=== PATIENT | male | born 1970 | race Caucasian/White ===

== ENCOUNTER 2017-02-18 12:53 | Observation (INO) | payer BC ==
[2017-02-18] MEDS ORDERED: NITROSTAT SL PRN (12:58)
[2017-02-18] MEDS: NS 1000 ML 1,000 ML IV SCH ×2 (13:03→21:13)
[2017-02-18 13:04] VITALS: BMI 31.5
--- NOTE | 2017-02-18 13:17 | RAD ---
HISTORY: Subacute malaise with acute onset of chest pain, dyspnea, weakness Study: Single-view chest Comparison: August 02, 2016 Findings: There are low lung volumes. The patient is rotated. The cardiac silhouette is unremarkable. The megan ngs are clear without focal mass or consolidation. There is no effusion or pneumothorax. The bony thorax is grossly unremarkable. IMPRESSION: No acute cardiopulmonary disease. Reported By:
[2017-02-18 13:21] LABS: BASOPHILS % (AUTO) 0.4 % (0.2-1.0); EOSINOPHILS % (AUTO) 0.4 % (0.9-2.9); HEMATOCRIT 43.8 % (42.0-54.0); HEMOGLOBIN 15.3 g/dL (13.5-18.0); LYMPHOCYTES # (AUTO) 2.2 X10^3/uL (1.3-2.9); LYMPHOCYTES % (AUTO) 28.2 % (21.0-51.0); MEAN CORPUSCULAR HEMOGLOBIN 28.7 pg (27.0-34.0); MEAN CORPUSCULAR VOLUME 82.2 fL (80.0-100.0); MEAN PLATELET VOLUME 8.2 fL (7.4-11.0); MONOCYTES # (AUTO) 0.6 x10^3/uL (0.3-0.8); MONOCYTES % (AUTO) 7.1 % (0.0-13.0); NEUTROPHILS % (AUTO) 63.9 % (42.0-75.0); PLATELET COUNT 228 X10^3/uL (150.0-450.0); RED BLOOD COUNT 5.33 X10^6/uL (4.7-6.0); RED CELL DISTRIBUTION WIDTH 13.5 % (11.6-16.5); WHITE BLOOD COUNT 7.8 X10^3/uL (3.6-10.0)
--- NOTE | 2017-02-18 13:23 | DR.CP ---
HPI - Time Seen Time seen: 13:00 - PCP Primary Care Physician: HALEIGH - Complaint Chief Complaint Doctor Comments: Patient presents with complaint of left chest pain with pain radiating donw his left arm. The onset was acute today about 3 hours ago. He admits to having one stent 1-2 years ago. Pain is 10/10 Chief Complaint:: SHORTNESS OF BREATH SUDDENLY AT [place]GL[place] AT 12. - Source History Provided: Patient, Family Member - Mode of Arrival Mode of Arrival: Wheelchair - Timing Onset of Chief Complaint: 02/18/17 - Location Chest Pain Radiation Location: Left Arm - Associated Signs and Symptoms Associated Signs and Symptoms: Shortness of Breath PMH - PMH Past Medical History: Yes Past Medical History: Angina, Arthritis, Coronary Artery Disease, Dyslipidemia, GERD, Hypertension, Kidney Stones Past Medical History Comment: MRSA, CHRONIC ARM PAIN Past Surgical History: Yes Surgical History: Angioplasty/Stents, Ortho Surgery, Lithotripsy, Other Past Surgical History Comment: CRANIOTOMY FOR BRAIN TUMOR - Family History History of Family Medical Conditions: Yes Family Medical History: Coronary Artery Disease - Social History Do you use any recreational Drugs:: No Lives With: Family Lives Where: Home - infectious screening In the last 2 months have you had wt loss of >10#?: NO Have you had fever, night sweats or hemotysis?: No Have you traveled outside the country in the last 6 months?: No Isolation: Standard ROS - Review of Systems Constitutional: negative: Diaphoresis Eyes: No Symptoms Reported ENTM: No Symptoms Reported Respiratoy: No Symptoms Reported Cardiovascular: No Symptoms Reported Gastrointestinal/Abdominal: No Symptoms Reported Genitourinary: No Symptoms Reported Neurological: No Symptoms Reported Musculoskeletal: No Symptoms Reported Integumentary: No Symptoms Reported Hematologic/Lymphatic: No Symptoms Reported Endocrine: No Symptoms Reported Psychiatric: No Symptoms Reported All Other Systems: Reviewed and Negative PE - Vitals Vitals: Pulse Rate 90 Respiratory Rate 20 Blood Pressure [Right Arm] 110/62 Blood Pressure [Left Arm] 113/54 Blood Pressure 146/95 O2 Sat by Pulse Oximetry 96 - General General Appearance: Alert, In No Apparent Distress - Head Head Exam: Normal Inspection, Atraumatic - Eyes Eye exam: Normal Appearance, PERRL, EOMI - ENT ENT Exam: Normal Exam - Chest Chest Inspection: Normal Inspection, Symmetric Chest Wall Rise - Respiratory Respiratory Exam: Normal Lung Sounds Bilat Respiratory Exam: Bilateral Clear to Auscultation - Cardiovascular Cardiovascular Exam: Regular Rate Pulse: Normal, Radial Edema: Normal - Abdominal Exam Abdominal Exam: Normal Inspection Abdominal Tenderness: negative: RUQ, RLQ, LUQ, LLQ, Epigastrium, Suprapubic, Diffuse, Mild, Moderate, Severe, Other - Neurologic Neurological Exam: Alert, Oriented X3, CN II-XII Intact - Psychiatric Psychiatric Exam: Normal Affect - Skin Skin Exam: Warm, Dry, Intact Course - Reevaluation 1st: Unchanged (1327) 2nd: Improved (s/p morhine 6mg IV) - Consultation Called: 14:00 (admit for observation chest pain protocol) ROR - Labs Reviewed Laboratory Results Reviewed?: Yes (low sodium) Result Diagrams: 02/18/17 13:07 02/18/17 13:07 Laboratory: WBC 7.8 X10^3/uL (3.6-10.0) 02/18/17 13:07 RBC 5.33 X10^6/uL (4.7-6.0) 02/18/17 13:07 Hgb 15.3 g/dL (13.5-18.0) 02/18/17 13:07 Hct 43.8 % (42.0-54.0) 02/18/17 13:07 MCV 82.2 fL (80.0-100.0) 02/18/17 13:07 MCH 28.7 pg (27.0-34.0) 02/18/17 13:07 MCHC 35.0 g/dL (33.0-35.0) 02/18/17 13:07 RDW 13.5 % (11.6-16.5) 02/18/17 13:07 Plt Count 228 X10^3/uL (150.0-450.0) 02/18/17 13:07 MPV 8.2 fL (7.4-11.0) 02/18/17 13:07 Neut % 63.9 % (42.0-75.0) 02/18/17 13:07 Lymph % 28.2 % (21.0-51.0) 02/18/17 13:07 [place] % 7.1 % (0.0-13.0) 02/18/17 13:07 Eos % 0.4 % (0.9-2.9) L 02/18/17 13:07 Baso % 0.4 % (0.2-1.0) 02/18/17 13:07 Neut # 5.0 x10^3/uL (2.2-4.8) H 02/18/17 13:07 Lymph # 2.2 X10^3/uL (1.3-2.9) 02/18/17 13:07 [place] # 0.6 x10^3/uL (0.3-0.8) 02/18/17 13:07 Eos # 0.0 x10^3/uL (0.0-0.2) 02/18/17 13:07 Baso # 0.0 X10^3/uL (0.0-0.1) 02/18/17 13:07 Absolute Nucleated RBC 0.0 /100WBC 02/18/17 13:07 INR Target Range - 02/18/17 13:07 INR 1.02 (0.8-1.3) 02/18/17 13:07 Sodium 144 mmol/L (136-145) 02/18/17 13:07 Corrected Sodium TNP 02/18/17 13:07 Potassium 3.3 mmol/L (3.5-5.1) L 02/18/17 13:07 Chloride 106 mmol/L (98-107) 02/18/17 13:07 Carbon Dioxide 23.0 mmol/L (21-32) 02/18/17 13:07 BUN 12 mg/dL (7-18) 02/18/17 13:07 Creatinine 1.00 mg/dL (0.70-1.30) 02/18/17 13:07 Est GFR (MDRD) Af Amer > 60 (>60) 02/18/17 13:07 Est GFR (MDRD) Non-Af > 60 (>60) 02/18/17 13:07 Glucose 107 mg/dL (65-99) H 02/18/17 13:07 Calcium 8.8 mg/dL (8.5-10.1) 02/18/17 13:07 Corrected Calcium TNP 02/18/17 13:07 Phosphorus 2.8 mg/dL (2.6-4.7) 02/18/17 13:07 Magnesium 2.0 mg/dL (1.7-2.9) 02/18/17 13:07 Total Bilirubin 0.80 mg/dL (0.2-1.0) 02/18/17 13:07 AST 57 Units/L (15-37) H 02/18/17 13:07 ALT 85 Units/L (12-78) H 02/18/17 13:07 Alkaline Phosphatase 83 Units/L (46-116) 02/18/17 13:07 Creatine Kinase 135 Units/L (39-308) 02/18/17 13:07 CK-MB (CK-2) < 1.0 ng/mL (0-4.0) 02/18/17 13:07 CK/CKMB % Calc 0.7 % (<4) 02/18/17 13:07 Troponin I < 0.02 ng/mL (0-1.5) 02/18/17 13:07 Total Protein 8.5 g/dL (6.4-8.2) H 02/18/17 13:07 Albumin 3.9 g/dL (3.4-5.0) 02/18/17 13:07 Globulin 4.6 g/dL (2.5-4.5) H 02/18/17 13:07 Albumin/Globulin Ratio 0.8 Ratio (1.1-2.1) L 02/18/17 13:07 - XRAY XRAY Interpreted by: Radiologist (Chest: No acute cardiopulmonary disease,) - EKG Compared to prior EKG Dated: 10/03/15 Rhythm: NSR, SB Block: RBBB Hypertrophy: LAE - Diagnosis Discharge Problem: H/O chest pain, Constricting chest pain often radiating down left arm - Discharge Plan Condition: Stable - Follow ups/Referrals Follow ups/Referrals: Josemanuel Borrego [Primary Care Provider] - 3 days - Instructions
[2017-02-18] MEDS: ASPIRIN PO SCH (13:38)
[2017-02-18 14:05] LABS: BLOOD UREA NITROGEN 12 mg/dL (7-18); CALCIUM 8.8 mg/dL (8.5-10.1); CHLORIDE 106 mmol/L (98-107); GLUCOSE 107 mg/dL (65-99); SODIUM 144 mmol/L (136-145); TROPONIN I < 0.02 ng/mL (0-1.5); eGFR BLACK RACES > 60 (>60); eGFR NON BLACK RACES > 60 (>60)
[2017-02-18] MEDS ORDERED: MORPHINE SULFATE INJ 10 MG IVP ONE (14:05)
[2017-02-18 14:09] LABS: ALANINE AMINOTRANSFERASE 85 Units/L (12-78); ALBUMIN 3.9 g/dL (3.4-5.0); ALKALINE PHOSPHATASE 83 Units/L (46-116); ASPARTATE AMINO TRANSFERASE 57 Units/L (15-37); CKMB % 0.7 % (<4); CREATINE KINASE 135 Units/L (39-308); CREATINE KINASE MB < 1.0 ng/mL (0-4.0); PHOSPHORUS 2.8 mg/dL (2.6-4.7); TOTAL PROTEIN 8.5 g/dL (6.4-8.2)
[2017-02-18] MEDS ORDERED: MORPHINE SULFATE INJ 2 MG ONE (14:28)
[2017-02-18] MEDS ORDERED: MORPHINE SULFATE INJ 4 MG ONE (14:28)
[2017-02-18] MEDS ORDERED: ZOFRAN INJ 4 MG VIAL IVP PRN (15:02)
[2017-02-18] MEDS ORDERED: K-DUR TAB 20 MEQ PO ONE ×2 (15:08→15:30)
[2017-02-18 15:48] LABS: CKMB % 0.8 % (<4); CREATINE KINASE 133 Units/L (39-308); CREATINE KINASE MB < 1.0 ng/mL (0-4.0); TROPONIN I < 0.02 ng/mL (0-1.5)
[2017-02-18] MEDS: MORPHINE SULFATE INJ 2 MG IVP PRN ×3 (16:49→21:13)
[2017-02-18] MEDS ORDERED: ZESTRIL TAB 20 MG ONE (21:49)
[2017-02-18] MEDS: NORCO 10/325 TAB PO PRN (21:51)
[2017-02-18] MEDS: NEURONTIN TAB 600 MG PO SCH (21:51)
[2017-02-18 21:52] LABS: CKMB % 0.9 % (<4); CREATINE KINASE 114 Units/L (39-308); CREATINE KINASE MB < 1.0 ng/mL (0-4.0); TROPONIN I < 0.02 ng/mL (0-1.5)
[2017-02-18] MEDS: ZESTRIL TAB 20 MG PO SCH (21:52)
[2017-02-18] MEDS: AMBIEN PO PRN (21:52)
[2017-02-19] MEDS: MORPHINE SULFATE INJ 2 MG IVP PRN ×4 (03:59→21:21)
[2017-02-19] MEDS: NORCO 10/325 TAB PO PRN ×3 (04:58→14:30)
[2017-02-19] MEDS: NEURONTIN TAB 600 MG PO SCH ×3 (04:59→21:23)
[2017-02-19] MEDS: NS 1000 ML 1,000 ML IV SCH ×3 (04:59→21:30)
[2017-02-19 05:39] LABS: CHOLESTEROL 77 mg/dL (0-200); CKMB % 0.9 % (<4); CREATINE KINASE 116 Units/L (39-308); CREATINE KINASE MB < 1.0 ng/mL (0-4.0); HDL CHOLESTEROL 26 mg/dL (40-60); TRIGLYCERIDES 79 mg/dL (0-150); TROPONIN I < 0.02 ng/mL (0-1.5)
[2017-02-19 07:25] LABS: BASOPHILS % (AUTO) 0.5 % (0.2-1.0); EOSINOPHILS # (AUTO) 0.1 x10^3/uL (0.0-0.2); EOSINOPHILS % (AUTO) 1.4 % (0.9-2.9); HEMATOCRIT 38.5 % (42.0-54.0); HEMOGLOBIN 13.3 g/dL (13.5-18.0); LYMPHOCYTES # (AUTO) 2.9 X10^3/uL (1.3-2.9); LYMPHOCYTES % (AUTO) 37.4 % (21.0-51.0); MEAN CORPUSCULAR HEMOGLOBIN 28.5 pg (27.0-34.0); MEAN CORPUSCULAR HGB CONC 34.6 g/dL (33.0-35.0); MEAN CORPUSCULAR VOLUME 82.4 fL (80.0-100.0); MEAN PLATELET VOLUME 8.4 fL (7.4-11.0); MONOCYTES # (AUTO) 0.6 x10^3/uL (0.3-0.8); MONOCYTES % (AUTO) 7.8 % (0.0-13.0); NEUTROPHILS # (AUTO) 4.2 x10^3/uL (2.2-4.8); NEUTROPHILS % (AUTO) 52.9 % (42.0-75.0); PLATELET COUNT 173 X10^3/uL (150.0-450.0); RED BLOOD COUNT 4.67 X10^6/uL (4.7-6.0); RED CELL DISTRIBUTION WIDTH 13.4 % (11.6-16.5); WHITE BLOOD COUNT 7.9 X10^3/uL (3.6-10.0)
[2017-02-19 07:30] LABS: BLOOD UREA NITROGEN 12 mg/dL (7-18); CALCIUM 7.7 mg/dL (8.5-10.1); CARBON DIOXIDE 24.4 mmol/L (21-32); CHLORIDE 110 mmol/L (98-107); CREATININE 0.87 mg/dL (0.70-1.30); GLUCOSE 99 mg/dL (65-99); SODIUM 144 mmol/L (136-145); eGFR BLACK RACES > 60 (>60); eGFR NON BLACK RACES > 60 (>60)
[2017-02-19] MEDS ORDERED: K-LYTE EFFERVESCENT PO PRN (07:47)
[2017-02-19] MEDS ORDERED: POTASSIUM CHLORIDE LIQ 20 MEQ UDC PO PRN (07:47)
[2017-02-19] MEDS ORDERED: K-RIDER 10 MEQ/NS 100 ML 10 MEQ/100 ML BAG IV PRN (07:47)
[2017-02-19] MEDS ORDERED: K-DUR TAB 20 MEQ PO PRN (07:47)
[2017-02-19] MEDS ORDERED: ZESTRIL TAB 20 MG ONE ×2 (08:32→20:55)
[2017-02-19] MEDS: ASPIRIN PO SCH (09:26)
[2017-02-19] MEDS: ZESTRIL TAB 20 MG PO SCH ×2 (09:27→21:23)
[2017-02-19] MEDS: LEVSIN/MAALOX/LIDOC VISC PO SCH ×4 (11:31→21:24)
[2017-02-19] MEDS: PEPCID 20 MG IV PREMIX* 20 MG/50 ML BAG IV SCH ×2 (11:32→21:22)
[2017-02-19] MEDS: PROTONIX INJ 40 MG VIAL IVP SCH ×2 (11:32→21:23)
[2017-02-19] MEDS ORDERED: PATIENT'S HOME MEDICATION (Eszopiclone [Lunesta] 3 MG) PO PRN (13:16)
[2017-02-19] MEDS ORDERED: PATIENT'S HOME MEDICATION (Celecoxib [Celecoxib] 200 MG) PO SCH (13:30)
[2017-02-19] MEDS ORDERED: CLOPIDOGREL BISULFATE 75 MG PO SCH (13:30)
--- NOTE | 2017-02-19 13:36 | DR.H&P ---
H&P - History & Physical for Day of: H&P Date: 02/18/17 - Chief Complaint Chief Complaint: chest pain - Allergies Allergies/Adverse Reactions: Allergies Allergy/AdvReac Type Severity Reaction Status Date / Time MS No Known Drug Allergy Allergy Verified 02/19/17 06:36 [No Known Drug Allergy] - History of Present Illness History of Present Illness: Patient is 46yo male who presented to the emergency room with complaints of chest pain on the left side with pain radiating down his left arm which started about 3 hours prior to arrival. Patient has a history of stent placement, angina, arthritis, coronary artery disease, dyslipidemia, GERD, hypertension and kidney stone, as well as a craniotomy for a brain tumor. Vital signs on arrival 98.5 90, 20, 96%, 146/95. Labs within normal limits with the exception of Eos% 0.4, Neut# 5.0, Potassium 3.3, Glucose 107, AST 57, ALT 85, Total protein 8.5, Globulin 4.6, albumin/globulin ratio 0.8. Chest XRay showed no acute cardiopulmonary disorder. EKG showed normal sinus rhythm with probable left atrial enlargement and incomplete right bundle branch block with a rate of 86. Patient admitted with diagnosis of chest pain r/ o SD. Patient started on NS @125ml/hr, morphine 2mg IV q2hrs prn, Zofran 4mg IV q8hr PRN, potassium replacement protocol, and home medication resumed. - Past Medical History Past Medical History: Angina, Arthritis, Coronary Artery Disease, Dyslipidemia, GERD, Hypertension, Kidney Stones Additional Medical History: Cataracts, Back Pain - Past Surgical History Surgical History: Angioplasty/Stents, Ortho Surgery, Lithotripsy, Other Additional Surgical History: Cardiac Stents x 2, Right upper arm/elbow, Craniotomy - non-cancerous, Right ACL meniscus tear repair, Hammer toe right - Family History Family Medical History: Coronary Artery Disease - Social History Does patient currently use any type of tobacco product: No Have you used tobacco products in the last 12 months: No Type of Tobacco Use: None Alcohol Use: None Drug Use: None - Medications Home Medications: Celecoxib [Celecoxib] 200 mg PO DAILY 02/18/17 [History Confirmed 02/18/17] Eszopiclone [Lunesta] 3 mg PO HS PRN 02/18/17 [History Confirmed 02/18/17] Hydrocodone-Acet 10/325 mg [NORCO 10 MG/325 MG *] 1 tab PO Q4HR PRN 02/18/17 [ History Confirmed 02/18/17] - Review of Systems Constitutional: Weakness Eyes: No Symptoms Reported ENT: No Symptoms Reported Respiratory: No Symptoms Reported Cardiovascular: Chest Pain Gastrointestinal: No Symptoms Reported Genitourinary: No Symptoms Reported Musculoskeletal: Arm Pain (left arm pain) Skin: No Symptoms Reported Neurological: No Symptoms Reported - Physical Exam Vital Signs: 98.5 90, 20, 96%, 146/95 Oriented: Normal Eyes: Normal Ear: Normal Nose: Normal Throat: Normal Respiratory: Clear Throughout Cardiovascular: Normal : Normal Auscultation: Bowel Sounds: Normal Palpation: Normal Tenderness: Normal Skin: Normal Musculoskeletal: Normal Psychiatric: Normal Mood Description: Calm, Appropriate Affect: Normal Speech Pattern: Clear, Appropriate - Assessment/Plan (1) Chest pain Qualifiers: Chest pain type: C Ischemic chest pain type: I Status: Acute Plan: continuous cardiac monitoring, serial cardiac enzymes and EKG, Nitroglycerin 0.4mg SL Q5min PRN
[2017-02-19] MEDS ORDERED: TYLENOL 325 MG TAB PO PRN (13:40)
--- NOTE | 2017-02-19 13:41 | PCM.PROG ---
Progress Note - Progress Note for Day of Date: 02/19/17 - Subjective Subjective: Patient is 46yo male admitted with diagnosis of chest pain r/o IN. Patient is sitting on the side of the bed this morning he has just went to the bathroom and came back and got dizzy headed and started throwing up. Patient complains of left sided chest pain and abdominal pain, with weakness and decreased mobility. We are going to start on protonix 40mg IB BID, Pepcid 20mg IV BID, GI Cocktail 10ml QID. We are also going to order an abdominal and chest CT with contrast. Patient states Vital signs this am 98.8, 57, 93%, 156/86. Labs within normal limits with the exception of RBC 4.67, Hgb 13.3, Hct 38.5, Potassium 3.3, Chloride 110, Calcium 7.7, HDL Cholesterol 26. We will continue his current treatment and follow up with patient in the am with repeat labs. - Past Medical Family Social History Past Med/Fam/Surg Hx: No changes since H&P Allergies: Allergies MS No Known Drug Allergy [No Known Drug Allergy] Allergy (Verified 02/19/17 06: 36) - Review of Systems ROS: No change since H&P - Vital Signs and I&O's Vital Signs: 98.8, 57, 93%, 156/86 Intake and Output: Intake & Output 02/17/17 02/18/17 02/19/17 02/20/17 11:59 11:59 11:59 11:59 Intake Total 2061 Balance 2061 - Physical Exam Oriented: Normal Eyes: Normal Ear: Normal Nose: Normal Throat: Normal Respiratory: Normal Cardiovascular: Normal : Normal Auscultation: Bowel Sounds: Normal Tenderness: LUQ Skin: Decreased [place] Musculoskeletal: Normal Psychiatric: Normal Mood Description: Calm, Appropriate Affect: Normal Speech Pattern: Clear, Appropriate - Laboratory and Diagnostics Result Diagrams: 02/19/17 04:35 02/19/17 11:49 Labs: Laboratory WBC 7.9 X10^3/uL (3.6-10.0) 02/19/17 04:35 RBC 4.67 X10^6/uL (4.7-6.0) L 02/19/17 04:35 Hgb 13.3 g/dL (13.5-18.0) L 02/19/17 04:35 Hct 38.5 % (42.0-54.0) L 02/19/17 04:35 MCV 82.4 fL (80.0-100.0) 02/19/17 04:35 MCH 28.5 pg (27.0-34.0) 02/19/17 04:35 MCHC 34.6 g/dL (33.0-35.0) 02/19/17 04:35 RDW 13.4 % (11.6-16.5) 02/19/17 04:35 Plt Count 173 X10^3/uL (150.0-450.0) 02/19/17 04:35 MPV 8.4 fL (7.4-11.0) 02/19/17 04:35 Neut % 52.9 % (42.0-75.0) 02/19/17 04:35 Lymph % 37.4 % (21.0-51.0) 02/19/17 04:35 [place] % 7.8 % (0.0-13.0) 02/19/17 04:35 Eos % 1.4 % (0.9-2.9) 02/19/17 04:35 Baso % 0.5 % (0.2-1.0) 02/19/17 04:35 Neut # 4.2 x10^3/uL (2.2-4.8) 02/19/17 04:35 Lymph # 2.9 X10^3/uL (1.3-2.9) 02/19/17 04:35 [place] # 0.6 x10^3/uL (0.3-0.8) 02/19/17 04:35 Eos # 0.1 x10^3/uL (0.0-0.2) 02/19/17 04:35 Baso # 0.0 X10^3/uL (0.0-0.1) 02/19/17 04:35 Absolute Nucleated RBC 0.2 /100WBC 02/19/17 04:35 INR Target Range - 02/18/17 13:07 INR 1.02 (0.8-1.3) 02/18/17 13:07 Sodium 144 mmol/L (136-145) 02/19/17 04:35 Corrected Sodium TNP 02/19/17 04:35 Potassium 3.7 mmol/L (3.5-5.1) 02/19/17 11:49 Chloride 110 mmol/L (98-107) H 02/19/17 04:35 Carbon Dioxide 24.4 mmol/L (21-32) 02/19/17 04:35 BUN 12 mg/dL (7-18) 02/19/17 04:35 Creatinine 0.87 mg/dL (0.70-1.30) 02/19/17 04:35 Est GFR (MDRD) Af Amer > 60 (>60) 02/19/17 04:35 Est GFR (MDRD) Non-Af > 60 (>60) 02/19/17 04:35 Glucose 99 mg/dL (65-99) 02/19/17 04:35 Calcium 7.7 mg/dL (8.5-10.1) L 02/19/17 04:35 Corrected Calcium TNP 02/18/17 13:07 Phosphorus 2.8 mg/dL (2.6-4.7) 02/18/17 13:07 Magnesium 2.0 mg/dL (1.7-2.9) 02/18/17 13:07 Total Bilirubin 0.80 mg/dL (0.2-1.0) 02/18/17 13:07 AST 57 Units/L (15-37) H 02/18/17 13:07 ALT 85 Units/L (12-78) H 02/18/17 13:07 Alkaline Phosphatase 83 Units/L (46-116) 02/18/17 13:07 Creatine Kinase 116 Units/L (39-308) 02/19/17 04:35 CK-MB (CK-2) < 1.0 ng/mL (0-4.0) 02/19/17 04:35 CK/CKMB % Calc 0.9 % (<4) 02/19/17 04:35 Troponin I < 0.02 ng/mL (0-1.5) 02/19/17 04:35 Total Protein 8.5 g/dL (6.4-8.2) H 02/18/17 13:07 Albumin 3.9 g/dL (3.4-5.0) 02/18/17 13:07 Globulin 4.6 g/dL (2.5-4.5) H 02/18/17 13:07 Albumin/Globulin Ratio 0.8 Ratio (1.1-2.1) L 02/18/17 13:07 Triglycerides 79 mg/dL (0-150) 02/19/17 04:35 Cholesterol 77 mg/dL (0-200) 02/19/17 04:35 LDL Cholesterol, Calc 35 mg/dL (0-100) 02/19/17 04:35 HDL Cholesterol 26 mg/dL (40-60) L 02/19/17 04:35 Cholesterol/HDL Ratio 3.0 (0.0-5.0) 02/19/17 04:35 - Plan (1) Chest pain Status: Acute Qualifiers: Chest pain type: C Ischemic chest pain type: I Plan: continuous cardiac monitoring, serial cardiac enzymes and EKG, Nitroglycerin 0.4mg SL Q5min PRN (2) Hypertension Status: Chronic Qualifiers: Hypertension type: essential hypertension Qualified Code(s): I10 - Essential (primary) hypertension Plan: Zesteril 20mg BID
[2017-02-19] MEDS: NORVASC TAB 5 MG PO SCH (14:30)
[2017-02-19] MEDS: XANAX PO PRN ×2 (14:54→21:22)
[2017-02-19] MEDS: VOLTAREN 1 % GEL MULTI DOSE TUBE TOP SCH ×2 (14:54→21:33)
[2017-02-19] MEDS ORDERED: PATIENT'S HOME MEDICATION (Rosuvastatin Calcium [Rosuvastatin Calcium] 20 MG) PO SCH (21:00)
[2017-02-19] MEDS: AMBIEN PO PRN (21:23)
[2017-02-19] MEDS: CRESTOR TAB 10 MG PO SCH (21:23)
[2017-02-20 04:51] LABS: ALANINE AMINOTRANSFERASE 64 Units/L (12-78); ALBUMIN 3.1 g/dL (3.4-5.0); ALKALINE PHOSPHATASE 62 Units/L (46-116); ASPARTATE AMINO TRANSFERASE 40 Units/L (15-37); BASOPHILS % (AUTO) 0.6 % (0.2-1.0); BLOOD UREA NITROGEN 10 mg/dL (7-18); CALCIUM 7.6 mg/dL (8.5-10.1); CARBON DIOXIDE 25.8 mmol/L (21-32); CHLORIDE 110 mmol/L (98-107); COR CA(FOR HYPOALB) 8.3 mg/dL (8.5-10.1); CREATININE 0.98 mg/dL (0.70-1.30); EOSINOPHILS # (AUTO) 0.2 x10^3/uL (0.0-0.2); EOSINOPHILS % (AUTO) 2.3 % (0.9-2.9); GLUCOSE 96 mg/dL (65-99); HEMATOCRIT 39.3 % (42.0-54.0); HEMOGLOBIN 13.5 g/dL (13.5-18.0); LYMPHOCYTES # (AUTO) 2.9 X10^3/uL (1.3-2.9); LYMPHOCYTES % (AUTO) 38.3 % (21.0-51.0); MEAN CORPUSCULAR HEMOGLOBIN 28.5 pg (27.0-34.0); MEAN CORPUSCULAR HGB CONC 34.4 g/dL (33.0-35.0); MEAN CORPUSCULAR VOLUME 82.9 fL (80.0-100.0); MEAN PLATELET VOLUME 8.6 fL (7.4-11.0); MONOCYTES # (AUTO) 0.7 x10^3/uL (0.3-0.8); MONOCYTES % (AUTO) 8.7 % (0.0-13.0); NEUTROPHILS # (AUTO) 3.8 x10^3/uL (2.2-4.8); NEUTROPHILS % (AUTO) 50.1 % (42.0-75.0); PLATELET COUNT 172 X10^3/uL (150.0-450.0); RED BLOOD COUNT 4.74 X10^6/uL (4.7-6.0); RED CELL DISTRIBUTION WIDTH 13.6 % (11.6-16.5); SODIUM 143 mmol/L (136-145); TOTAL PROTEIN 6.7 g/dL (6.4-8.2); WHITE BLOOD COUNT 7.6 X10^3/uL (3.6-10.0); eGFR BLACK RACES > 60 (>60); eGFR NON BLACK RACES > 60 (>60)
[2017-02-20] MEDS: NORCO 10/325 TAB PO PRN ×4 (05:32→18:05)
[2017-02-20] MEDS: NEURONTIN TAB 600 MG PO SCH ×3 (05:33→21:15)
[2017-02-20] MEDS: VOLTAREN 1 % GEL MULTI DOSE TUBE TOP SCH ×3 (05:33→21:13)
[2017-02-20] MEDS: NS 1000 ML 1,000 ML IV SCH ×4 (05:35→22:50)
[2017-02-20] MEDS: MORPHINE SULFATE INJ 2 MG IVP PRN ×2 (07:35→21:11)
[2017-02-20] MEDS ORDERED: ZESTRIL TAB 20 MG ONE ×2 (08:20→20:42)
[2017-02-20] MEDS: PROTONIX INJ 40 MG VIAL IVP SCH ×2 (08:44→21:38)
[2017-02-20] MEDS: NORVASC TAB 5 MG PO SCH (08:44)
[2017-02-20] MEDS: ZESTRIL TAB 20 MG PO SCH ×2 (08:45→21:15)
[2017-02-20] MEDS: ASPIRIN PO SCH (08:45)
[2017-02-20] MEDS: CELEBREX PO SCH (08:45)
[2017-02-20] MEDS: XANAX PO PRN (08:45)
[2017-02-20] MEDS: PEPCID 20 MG IV PREMIX* 20 MG/50 ML BAG IV SCH ×2 (08:46→21:16)
[2017-02-20] MEDS: LEVSIN/MAALOX/LIDOC VISC PO SCH ×4 (08:46→21:14)
[2017-02-20] MEDS: PLAVIX PO SCH (08:46)
[2017-02-20] MEDS ORDERED: PATIENT'S HOME MEDICATION PO SCH (09:00)
[2017-02-20] MEDS: NORVASC TAB 2.5 MG PO SCH (10:02)
--- NOTE | 2017-02-20 17:30 | PCM.PROG ---
Progress Note - Progress Note for Day of Date: 02/20/17 - Subjective Subjective: Patient is 46yo male admitted with diagnosis of chest pain r/o CA. Patient is lying in bed this am and continues with a good bit of left sided abdominal and chest pain. Insurance would nto approve chest ct or abdomen ct so we are going to order a gallbladder ultrasound and HIDA Scan. Patient Vital signs this am 97.9, 62, 18, 93%, 138/68. Labs within normal limits with the exception of Hct 39.3, Chloride 110, Calcium 7.6, AST 40, Albumin 3.1, Albumin/ globulin ratio 0.9. We will continue his current treatment and follow up with patient in the am with repeat labs. - Past Medical Family Social History Past Med/Fam/Surg Hx: No changes since H&P Allergies: Allergies No Known Drug Allergies Allergy (Verified 02/19/17 20:48) - Review of Systems ROS: No change since H&P - Vital Signs and I&O's Vital Signs: 97.9, 62, 18, 93%, 138/68 Intake and Output: Intake & Output 02/18/17 02/19/17 02/20/17 02/21/17 11:59 11:59 11:59 11:59 Intake Total 2061 2822 1046 Balance 2061 2822 1046 - Physical Exam Oriented: Normal Eyes: Normal Ear: Normal Nose: Normal Throat: Normal Respiratory: Normal Cardiovascular: Normal : Normal Auscultation: Bowel Sounds: Normal Tenderness: LUQ Skin: Normal Musculoskeletal: Normal Psychiatric: Normal Mood Description: Calm, Appropriate Affect: Normal Speech Pattern: Clear - Laboratory and Diagnostics Result Diagrams: 02/20/17 03:30 02/20/17 03:30 Labs: Laboratory WBC 7.6 X10^3/uL (3.6-10.0) 02/20/17 03:30 RBC 4.74 X10^6/uL (4.7-6.0) 02/20/17 03:30 Hgb 13.5 g/dL (13.5-18.0) 02/20/17 03:30 Hct 39.3 % (42.0-54.0) L 02/20/17 03:30 MCV 82.9 fL (80.0-100.0) 02/20/17 03:30 MCH 28.5 pg (27.0-34.0) 02/20/17 03:30 MCHC 34.4 g/dL (33.0-35.0) 02/20/17 03:30 RDW 13.6 % (11.6-16.5) 02/20/17 03:30 Plt Count 172 X10^3/uL (150.0-450.0) 02/20/17 03:30 MPV 8.6 fL (7.4-11.0) 02/20/17 03:30 Neut % 50.1 % (42.0-75.0) 02/20/17 03:30 Lymph % 38.3 % (21.0-51.0) 02/20/17 03:30 [place] % 8.7 % (0.0-13.0) 02/20/17 03:30 Eos % 2.3 % (0.9-2.9) 02/20/17 03:30 Baso % 0.6 % (0.2-1.0) 02/20/17 03:30 Neut # 3.8 x10^3/uL (2.2-4.8) 02/20/17 03:30 Lymph # 2.9 X10^3/uL (1.3-2.9) 02/20/17 03:30 [place] # 0.7 x10^3/uL (0.3-0.8) 02/20/17 03:30 Eos # 0.2 x10^3/uL (0.0-0.2) 02/20/17 03:30 Baso # 0.0 X10^3/uL (0.0-0.1) 02/20/17 03:30 Absolute Nucleated RBC 0.1 /100WBC 02/20/17 03:30 INR Target Range - 02/18/17 13:07 INR 1.02 (0.8-1.3) 02/18/17 13:07 Sodium 143 mmol/L (136-145) 02/20/17 03:30 Corrected Sodium TNP 02/20/17 03:30 Potassium 3.5 mmol/L (3.5-5.1) 02/20/17 03:30 Chloride 110 mmol/L (98-107) H 02/20/17 03:30 Carbon Dioxide 25.8 mmol/L (21-32) 02/20/17 03:30 BUN 10 mg/dL (7-18) 02/20/17 03:30 Creatinine 0.98 mg/dL (0.70-1.30) 02/20/17 03:30 Est GFR (MDRD) Af Amer > 60 (>60) 02/20/17 03:30 Est GFR (MDRD) Non-Af > 60 (>60) 02/20/17 03:30 Glucose 96 mg/dL (65-99) 02/20/17 03:30 Calcium 7.6 mg/dL (8.5-10.1) L 02/20/17 03:30 Corrected Calcium 8.3 mg/dL (8.5-10.1) L 02/20/17 03:30 Phosphorus 2.8 mg/dL (2.6-4.7) 02/18/17 13:07 Magnesium 2.0 mg/dL (1.7-2.9) 02/18/17 13:07 Total Bilirubin 0.50 mg/dL (0.2-1.0) 02/20/17 03:30 AST 40 Units/L (15-37) H 02/20/17 03:30 ALT 64 Units/L (12-78) 02/20/17 03:30 Alkaline Phosphatase 62 Units/L (46-116) 02/20/17 03:30 Creatine Kinase 116 Units/L (39-308) 02/19/17 04:35 CK-MB (CK-2) < 1.0 ng/mL (0-4.0) 02/19/17 04:35 CK/CKMB % Calc 0.9 % (<4) 02/19/17 04:35 Troponin I < 0.02 ng/mL (0-1.5) 02/19/17 04:35 Total Protein 6.7 g/dL (6.4-8.2) 02/20/17 03:30 Albumin 3.1 g/dL (3.4-5.0) L 02/20/17 03:30 Globulin 3.6 g/dL (2.5-4.5) 02/20/17 03:30 Albumin/Globulin Ratio 0.9 Ratio (1.1-2.1) L 02/20/17 03:30 Triglycerides 79 mg/dL (0-150) 02/19/17 04:35 Cholesterol 77 mg/dL (0-200) 02/19/17 04:35 LDL Cholesterol, Calc 35 mg/dL (0-100) 02/19/17 04:35 HDL Cholesterol 26 mg/dL (40-60) L 02/19/17 04:35 Cholesterol/HDL Ratio 3.0 (0.0-5.0) 02/19/17 04:35 - Plan (1) Chest pain Status: Acute Qualifiers: Chest pain type: C Ischemic chest pain type: I Plan: continuous cardiac monitoring, serial cardiac enzymes and EKG, Nitroglycerin 0.4mg SL Q5min PRN (2) Hypertension Status: Chronic Qualifiers: Hypertension type: essential hypertension Qualified Code(s): I10 - Essential (primary) hypertension Plan: Zesteril 20mg BID (3) Abdominal pain Status: Acute Qualifiers: Abdominal location: generalized Qualified Code(s): R10.84 - Generalized abdominal pain Plan: GI Cocktail, pepcid, protonix, Gallbladder US, HIDA Scan
--- NOTE | 2017-02-20 20:37 | US ---
HISTORY: Back and abdominal pain Study: Right upper quadrant abdominal ultrasound Comparison: None Technique: Multiple alvarado scale and color flow Doppler images of the right upper quadrant were obtain ed. Findings: The liver is normal in size but increased in echotexture suggesting fatty infiltration. No focal in traparenchymal mass or intrahepatic biliary ductal dilatation can be observed. The gallbladder fail s to demonstrate evidence for cholelithiasis or layering sludge. The common bile duct is unremarkab le measuring 4 millimeters in width. No pericholecystic fluid or gallbladder wall thickening can be observed. The right kidney appears normal in size without focal parenchymal mass or nephrolithiasis. The righ t kidney measurers 11.7 centimeters in length. No hydronephrosis or perirenal fluid can be observed . The pancreas is obscured by overlying bowel gas. IMPRESSION: 1. Probable fatty liver otherwise negative exam. Reported By:
[2017-02-20] MEDS: AMBIEN PO PRN (21:16)
[2017-02-20] MEDS: CRESTOR TAB 10 MG PO SCH (21:16)
[2017-02-21] MEDS: NORCO 10/325 TAB PO PRN ×3 (01:22→17:15)
[2017-02-21 04:51] LABS: BASOPHILS % (AUTO) 0.3 % (0.2-1.0); EOSINOPHILS # (AUTO) 0.2 x10^3/uL (0.0-0.2); EOSINOPHILS % (AUTO) 2.6 % (0.9-2.9); HEMATOCRIT 39.8 % (42.0-54.0); LYMPHOCYTES # (AUTO) 2.8 X10^3/uL (1.3-2.9); LYMPHOCYTES % (AUTO) 33.1 % (21.0-51.0); MEAN CORPUSCULAR HEMOGLOBIN 29.3 pg (27.0-34.0); MEAN CORPUSCULAR HGB CONC 35.1 g/dL (33.0-35.0); MEAN CORPUSCULAR VOLUME 83.5 fL (80.0-100.0); MEAN PLATELET VOLUME 8.9 fL (7.4-11.0); MONOCYTES # (AUTO) 0.6 x10^3/uL (0.3-0.8); MONOCYTES % (AUTO) 7.2 % (0.0-13.0); NEUTROPHILS # (AUTO) 4.7 x10^3/uL (2.2-4.8); NEUTROPHILS % (AUTO) 56.8 % (42.0-75.0); PLATELET COUNT 162 X10^3/uL (150.0-450.0); RED BLOOD COUNT 4.77 X10^6/uL (4.7-6.0); RED CELL DISTRIBUTION WIDTH 13.6 % (11.6-16.5); WHITE BLOOD COUNT 8.3 X10^3/uL (3.6-10.0)
[2017-02-21 04:53] LABS: ALANINE AMINOTRANSFERASE 62 Units/L (12-78); ALBUMIN 3.1 g/dL (3.4-5.0); ALKALINE PHOSPHATASE 66 Units/L (46-116); ASPARTATE AMINO TRANSFERASE 40 Units/L (15-37); BLOOD UREA NITROGEN 9 mg/dL (7-18); CALCIUM 7.5 mg/dL (8.5-10.1); CARBON DIOXIDE 24.2 mmol/L (21-32); CHLORIDE 109 mmol/L (98-107); COR CA(FOR HYPOALB) 8.2 mg/dL (8.5-10.1); CREATININE 0.91 mg/dL (0.70-1.30); GLUCOSE 101 mg/dL (65-99); SODIUM 142 mmol/L (136-145); TOTAL PROTEIN 6.8 g/dL (6.4-8.2); eGFR BLACK RACES > 60 (>60); eGFR NON BLACK RACES > 60 (>60)
[2017-02-21 04:58] LABS: PLATELET MORPHOLOGY COMMENT NORMAL (NORMAL)
[2017-02-21] MEDS: NEURONTIN TAB 600 MG PO SCH ×3 (05:39→21:56)
[2017-02-21] MEDS: VOLTAREN 1 % GEL MULTI DOSE TUBE TOP SCH ×3 (05:40→21:57)
[2017-02-21] MEDS: NS 1000 ML 1,000 ML IV SCH ×3 (05:42→12:31)
[2017-02-21] MEDS ORDERED: NORVASC TAB 2.5 MG ONE (07:40)
[2017-02-21] MEDS ORDERED: ZESTRIL TAB 20 MG ONE ×2 (07:45→20:49)
[2017-02-21] MEDS: LEVSIN/MAALOX/LIDOC VISC PO SCH ×4 (08:40→21:54)
[2017-02-21] MEDS: PEPCID 20 MG IV PREMIX* 20 MG/50 ML BAG IV SCH ×2 (08:41→21:53)
[2017-02-21] MEDS: PROTONIX INJ 40 MG VIAL IVP SCH ×2 (08:41→21:56)
[2017-02-21] MEDS: NORVASC TAB 2.5 MG PO SCH (08:42)
[2017-02-21] MEDS: PLAVIX PO SCH (08:42)
[2017-02-21] MEDS: ASPIRIN PO SCH (08:42)
[2017-02-21] MEDS: NORVASC TAB 5 MG PO SCH (08:42)
[2017-02-21] MEDS: ZESTRIL TAB 20 MG PO SCH ×2 (08:42→21:56)
[2017-02-21] MEDS: CELEBREX PO SCH (08:43)
[2017-02-21 10:29] LABS: CKMB % 0.8 % (<4); CREATINE KINASE 133 Units/L (39-308); CREATINE KINASE MB < 1.0 ng/mL (0-4.0); TROPONIN I < 0.02 ng/mL (0-1.5)
--- NOTE | 2017-02-21 10:32 | PCM.PROG ---
Progress Note - Progress Note for Day of Date: 02/21/17 - Subjective Subjective: Patient is 46yo male admitted with diagnosis of chest pain r/o [place]. Patient is lying in bed this am and continues with a good bit of left sided abdominal and chest pain. Patient states he has not had any more episode of nausea past eating. Vital signs this am are 98.1, 48, 93%, 126/78. Labs this am are within normal limits with the exception of HCT 39.8, MCHC 35.1, Chloride, glucose 101, Calcium 7.5, AST 40, Albumin 3.1, Albumin/globulin ratio 0.8. Gallbladder sonogram showed possible fatty liver with otherwise normal gallbladder scan. We are going to continue patient with current treatment and await HIDA Scan results and we will follow up with patient in the am with repeat labs. - Past Medical Family Social History Past Med/Fam/Surg Hx: No changes since H&P Allergies: Allergies No Known Drug Allergies Allergy (Verified 02/19/17 20:48) - Review of Systems ROS: No change since H&P - Vital Signs and I&O's Vital Signs: Temperature 98.1 F Pulse Rate [Apical] 65 Pulse Rate [Right Brachial] 48 Pulse Rate [Left Brachial] 61 Respiratory Rate 17 Blood Pressure [Right Arm] 126/78 Blood Pressure [Left Arm] 118/63 O2 Sat by Pulse Oximetry 93 Intake and Output: Intake & Output 02/18/17 02/19/17 02/20/17 02/21/17 11:59 11:59 11:59 11:59 Intake Total 2061 2822 2165 Balance 2061 2822 2165 - Physical Exam Oriented: Normal Eyes: Normal Ear: Normal Nose: Normal Throat: Normal Respiratory: Normal Cardiovascular: Normal : Normal Auscultation: Bowel Sounds: Normal Palpation: Normal Tenderness: LUQ Skin: Normal Musculoskeletal: Normal Psychiatric: Normal Mood Description: Calm, Appropriate Affect: Normal Speech Pattern: Clear, Appropriate - Laboratory and Diagnostics Result Diagrams: 02/21/17 03:15 02/21/17 03:15 Labs: Laboratory WBC 8.3 X10^3/uL (3.6-10.0) 02/21/17 03:15 RBC 4.77 X10^6/uL (4.7-6.0) 02/21/17 03:15 Hgb 14.0 g/dL (13.5-18.0) 02/21/17 03:15 Hct 39.8 % (42.0-54.0) L 02/21/17 03:15 MCV 83.5 fL (80.0-100.0) 02/21/17 03:15 MCH 29.3 pg (27.0-34.0) 02/21/17 03:15 MCHC 35.1 g/dL (33.0-35.0) H 02/21/17 03:15 RDW 13.6 % (11.6-16.5) 02/21/17 03:15 Plt Count 162 X10^3/uL (150.0-450.0) 02/21/17 03:15 Plt Count Comment Adequate (ADEQUATE) 02/21/17 03:15 MPV 8.9 fL (7.4-11.0) 02/21/17 03:15 Neut % 56.8 % (42.0-75.0) 02/21/17 03:15 Lymph % 33.1 % (21.0-51.0) 02/21/17 03:15 [place] % 7.2 % (0.0-13.0) 02/21/17 03:15 Eos % 2.6 % (0.9-2.9) 02/21/17 03:15 Baso % 0.3 % (0.2-1.0) 02/21/17 03:15 Neut # 4.7 x10^3/uL (2.2-4.8) 02/21/17 03:15 Lymph # 2.8 X10^3/uL (1.3-2.9) 02/21/17 03:15 [place] # 0.6 x10^3/uL (0.3-0.8) 02/21/17 03:15 Eos # 0.2 x10^3/uL (0.0-0.2) 02/21/17 03:15 Baso # 0.0 X10^3/uL (0.0-0.1) 02/21/17 03:15 Absolute Nucleated RBC 0.1 /100WBC 02/21/17 03:15 Plt Morphology Comment Normal (NORMAL) 02/21/17 03:15 RBC Morphology Normal (NORMAL) 02/21/17 03:15 INR Target Range - 06/25/17 13:07 INR 1.02 (0.8-1.3) 02/18/17 13:07 Sodium 142 mmol/L (136-145) 02/21/17 03:15 Corrected Sodium TNP 02/21/17 03:15 Potassium 3.5 mmol/L (3.5-5.1) 02/21/17 03:15 Chloride 109 mmol/L (98-107) H 02/21/17 03:15 Carbon Dioxide 24.2 mmol/L (21-32) 02/21/17 03:15 BUN 9 mg/dL (7-18) 02/21/17 03:15 Creatinine 0.91 mg/dL (0.70-1.30) 02/21/17 03:15 Est GFR (MDRD) Af Amer > 60 (>60) 02/21/17 03:15 Est GFR (MDRD) Non-Af > 60 (>60) 02/21/17 03:15 Glucose 101 mg/dL (65-99) H 02/21/17 03:15 Calcium 7.5 mg/dL (8.5-10.1) L 02/21/17 03:15 Corrected Calcium 8.2 mg/dL (8.5-10.1) L 02/21/17 03:15 Phosphorus 2.8 mg/dL (2.6-4.7) 02/18/17 13:07 Magnesium 2.0 mg/dL (1.7-2.9) 02/18/17 13:07 Total Bilirubin 0.40 mg/dL (0.2-1.0) 02/21/17 03:15 AST 40 Units/L (15-37) H 02/21/17 03:15 ALT 62 Units/L (12-78) 02/21/17 03:15 Alkaline Phosphatase 66 Units/L (46-116) 02/21/17 03:15 Creatine Kinase 116 Units/L (39-308) 02/19/17 04:35 CK-MB (CK-2) < 1.0 ng/mL (0-4.0) 02/19/17 04:35 CK/CKMB % Calc 0.9 % (<4) 02/19/17 04:35 Troponin I < 0.02 ng/mL (0-1.5) 02/19/17 04:35 Total Protein 6.8 g/dL (6.4-8.2) 02/21/17 03:15 Albumin 3.1 g/dL (3.4-5.0) L 02/21/17 03:15 Globulin 3.7 g/dL (2.5-4.5) 02/21/17 03:15 Albumin/Globulin Ratio 0.8 Ratio (1.1-2.1) L 02/21/17 03:15 Triglycerides 79 mg/dL (0-150) 02/19/17 04:35 Cholesterol 77 mg/dL (0-200) 02/19/17 04:35 LDL Cholesterol, Calc 35 mg/dL (0-100) 02/19/17 04:35 HDL Cholesterol 26 mg/dL (40-60) L 02/19/17 04:35 Cholesterol/HDL Ratio 3.0 (0.0-5.0) 02/19/17 04:35 Radiology Reviewed: Yes - Plan (1) Chest pain Status: Acute Qualifiers: Chest pain type: C Ischemic chest pain type: I Plan: continuous cardiac monitoring, serial cardiac enzymes and EKG, Nitroglycerin 0.4mg SL Q5min PRN (2) Hypertension Status: Chronic Qualifiers: Hypertension type: essential hypertension Qualified Code(s): I10 - Essential (primary) hypertension Plan: Zesteril 20mg BID (3) Abdominal pain Status: Acute Qualifiers: Abdominal location: generalized Qualified Code(s): R10.84 - Generalized abdominal pain Plan: GI Cocktail, pepcid, protonix, HIDA Scan
[2017-02-21] MEDS: MORPHINE SULFATE INJ 2 MG IVP PRN ×2 (12:40→14:46)
--- NOTE | 2017-02-21 13:33 | NM ---
HISTORY: Back pain and abdominal pain. Study: Nuclear medicine HIDA scan with ejection fraction Comparison: Right upper quadrant ultrasound dated February 20, 2017. Technique: Multiple scintigraphic images of the abdomen were obtained the intravenous administration of 5.3 mCi of technetium labeled Choletec. Following distention of the gallbladder with radiotracer the patient was given 8 oz of Ensure Plus t o drink. An estimated gallbladder ejection fraction was calculated based on the physiologic response of this infusion. Findings: Homogeneous uptake of radiotracer is seen throughout the liver. This intrabiliary ductal system is observed normally. The common hepatic and common bile duct grossly appear unremarkable with normal biliary-bowel transit. The gallbladder is observed to fill normally. After the Ensure ingestion, a normal gallbladder ejection fraction of 52% (normal > 35%) is observed . IMPRESSION: 1. Normal hepatobiliary imaging scan. 2. Normal gallbladder ejection fraction. Reported By:
[2017-02-21] MEDS: XANAX PO PRN (19:38)
[2017-02-21] MEDS: AMBIEN PO PRN (21:56)
[2017-02-21] MEDS: CRESTOR TAB 10 MG PO SCH (21:56)
[2017-02-22] MEDS: NORCO 10/325 TAB PO PRN ×3 (00:44→18:20)
[2017-02-22] MEDS: NS 1000 ML 1,000 ML IV SCH ×6 (03:54→20:32)
[2017-02-22] MEDS: MORPHINE SULFATE INJ 2 MG IVP PRN ×6 (04:18→21:37)
[2017-02-22 04:46] LABS: ALANINE AMINOTRANSFERASE 54 Units/L (12-78); ALKALINE PHOSPHATASE 68 Units/L (46-116); ASPARTATE AMINO TRANSFERASE 28 Units/L (15-37); BLOOD UREA NITROGEN 9 mg/dL (7-18); CALCIUM 7.9 mg/dL (8.5-10.1); CARBON DIOXIDE 24.4 mmol/L (21-32); CHLORIDE 108 mmol/L (98-107); COR CA(FOR HYPOALB) 8.7 mg/dL (8.5-10.1); CREATININE 0.86 mg/dL (0.70-1.30); GLUCOSE 103 mg/dL (65-99); SODIUM 142 mmol/L (136-145); TOTAL PROTEIN 6.7 g/dL (6.4-8.2); eGFR BLACK RACES > 60 (>60); eGFR NON BLACK RACES > 60 (>60)
[2017-02-22 05:19] LABS: BASOPHILS # (AUTO) 0.1 X10^3/uL (0.0-0.1); BASOPHILS % (AUTO) 0.6 % (0.2-1.0); EOSINOPHILS # (AUTO) 0.3 x10^3/uL (0.0-0.2); EOSINOPHILS % (AUTO) 4.4 % (0.9-2.9); HEMATOCRIT 39.1 % (42.0-54.0); HEMOGLOBIN 13.5 g/dL (13.5-18.0); LYMPHOCYTES # (AUTO) 2.5 X10^3/uL (1.3-2.9); LYMPHOCYTES % (AUTO) 31.2 % (21.0-51.0); MEAN CORPUSCULAR HEMOGLOBIN 28.5 pg (27.0-34.0); MEAN CORPUSCULAR HGB CONC 34.6 g/dL (33.0-35.0); MEAN CORPUSCULAR VOLUME 82.3 fL (80.0-100.0); MEAN PLATELET VOLUME 8.5 fL (7.4-11.0); MONOCYTES # (AUTO) 0.8 x10^3/uL (0.3-0.8); MONOCYTES % (AUTO) 9.7 % (0.0-13.0); NEUTROPHILS # (AUTO) 4.3 x10^3/uL (2.2-4.8); NEUTROPHILS % (AUTO) 54.1 % (42.0-75.0); PLATELET COUNT 172 X10^3/uL (150.0-450.0); RED BLOOD COUNT 4.75 X10^6/uL (4.7-6.0); RED CELL DISTRIBUTION WIDTH 13.4 % (11.6-16.5)
[2017-02-22] MEDS: NEURONTIN TAB 600 MG PO SCH ×3 (06:05→21:28)
[2017-02-22] MEDS: VOLTAREN 1 % GEL MULTI DOSE TUBE TOP SCH ×3 (06:06→21:29)
[2017-02-22] MEDS ORDERED: NORVASC TAB 2.5 MG ONE (07:40)
[2017-02-22] MEDS ORDERED: ZESTRIL TAB 20 MG ONE ×2 (07:42→20:07)
[2017-02-22] MEDS: PROTONIX INJ 40 MG VIAL IVP SCH ×2 (08:30→21:23)
[2017-02-22] MEDS: PEPCID 20 MG IV PREMIX* 20 MG/50 ML BAG IV SCH ×2 (08:31→20:16)
[2017-02-22] MEDS: LEVSIN/MAALOX/LIDOC VISC PO SCH ×4 (08:31→20:16)
[2017-02-22] MEDS: ZESTRIL TAB 20 MG PO SCH ×2 (08:32→20:16)
[2017-02-22] MEDS: NORVASC TAB 5 MG PO SCH (08:33)
[2017-02-22] MEDS: NORVASC TAB 2.5 MG PO SCH (08:33)
[2017-02-22] MEDS: ASPIRIN PO SCH (08:33)
[2017-02-22] MEDS: CELEBREX PO SCH (08:34)
[2017-02-22] MEDS: PLAVIX PO SCH (08:34)
[2017-02-22] MEDS: XANAX PO PRN ×2 (09:27→20:16)
--- NOTE | 2017-02-22 18:59 | PCM.PROG ---
Progress Note - Progress Note for Day of Date: 02/22/17 - Subjective Subjective: Patient is 46yo male admitted with diagnosis of chest pain r/o [place]. Patient is lying in bed this am and continues with a good bit of left sided abdominal and chest pain. Patient states that this pain is the same as when he had to have his stent replaced because it had collapsed. Patient states he has not had any more episode of nausea past eating. We are going to consult his polysomnographer for further evaluation. Vital signs this am are 97.9, 51, 18, 96%, 111/81. Labs are within normal limits with the exception of Hct 39.1, Eos% 4.4, Eos# 0.3, Potassium 3.3, Chloride 108, Glucose 103, Calcium 7.9, Albumin 3.0, Albumin/globulin ratio 0.8. HIDA scan showed normal ejection fracture. We will consult polysomnographer and proceed per his recommendations. - Past Medical Family Social History Past Med/Fam/Surg Hx: No changes since H&P Allergies: Allergies No Known Drug Allergies Allergy (Verified 02/19/17 20:48) - Review of Systems ROS: No change since H&P - Vital Signs and I&O's Vital Signs: 97.9, 51, 18, 96%, 111/81 Intake and Output: Intake & Output 02/20/17 02/21/17 02/22/17 02/23/17 11:59 11:59 11:59 11:59 Intake Total 2822 2165 2660 1031 Balance 2822 2165 2660 1031 - Physical Exam Oriented: Normal Eyes: Normal Ear: Normal Nose: Normal Throat: Normal Respiratory: Normal Cardiovascular: Normal : Normal Auscultation: Bowel Sounds: Normal Tenderness: LUQ Skin: Normal Musculoskeletal: Normal Psychiatric: Normal Mood Description: Calm, Appropriate Affect: Normal Speech Pattern: Clear, Appropriate - Laboratory and Diagnostics Result Diagrams: 02/22/17 03:30 02/22/17 08:15 Labs: Laboratory WBC 8.0 X10^3/uL (3.6-10.0) 02/22/17 03:30 RBC 4.75 X10^6/uL (4.7-6.0) 02/22/17 03:30 Hgb 13.5 g/dL (13.5-18.0) 02/22/17 03:30 Hct 39.1 % (42.0-54.0) L 02/22/17 03:30 MCV 82.3 fL (80.0-100.0) 02/22/17 03:30 MCH 28.5 pg (27.0-34.0) 02/22/17 03:30 MCHC 34.6 g/dL (33.0-35.0) 02/22/17 03:30 RDW 13.4 % (11.6-16.5) 02/22/17 03:30 Plt Count 172 X10^3/uL (150.0-450.0) 02/22/17 03:30 Plt Count Comment Adequate (ADEQUATE) 02/21/17 03:15 MPV 8.5 fL (7.4-11.0) 02/22/17 03:30 Neut % 54.1 % (42.0-75.0) 02/22/17 03:30 Lymph % 31.2 % (21.0-51.0) 02/22/17 03:30 [place] % 9.7 % (0.0-13.0) 02/22/17 03:30 Eos % 4.4 % (0.9-2.9) H 02/22/17 03:30 Baso % 0.6 % (0.2-1.0) 02/22/17 03:30 Neut # 4.3 x10^3/uL (2.2-4.8) 02/22/17 03:30 Lymph # 2.5 X10^3/uL (1.3-2.9) 02/22/17 03:30 [place] # 0.8 x10^3/uL (0.3-0.8) 02/22/17 03:30 Eos # 0.3 x10^3/uL (0.0-0.2) H 02/22/17 03:30 Baso # 0.1 X10^3/uL (0.0-0.1) 02/22/17 03:30 Absolute Nucleated RBC 0.1 /100WBC 02/22/17 03:30 Plt Morphology Comment Normal (NORMAL) 02/21/17 03:15 RBC Morphology Normal (NORMAL) 02/21/17 03:15 INR Target Range - 02/18/17 13:07 INR 1.02 (0.8-1.3) 02/18/17 13:07 Sodium 142 mmol/L (136-145) 02/22/17 03:30 Corrected Sodium TNP 02/22/17 03:30 Potassium 3.5 mmol/L (3.5-5.1) 02/22/17 08:15 Chloride 108 mmol/L (98-107) H 02/22/17 03:30 Carbon Dioxide 24.4 mmol/L (21-32) 02/22/17 03:30 BUN 9 mg/dL (7-18) 02/22/17 03:30 Creatinine 0.86 mg/dL (0.70-1.30) 02/22/17 03:30 Est GFR (MDRD) Af Amer > 60 (>60) 02/22/17 03:30 Est GFR (MDRD) Non-Af > 60 (>60) 02/22/17 03:30 Glucose 103 mg/dL (65-99) H 02/22/17 03:30 Calcium 7.9 mg/dL (8.5-10.1) L 02/22/17 03:30 Corrected Calcium 8.7 mg/dL (8.5-10.1) 02/22/17 03:30 Phosphorus 2.8 mg/dL (2.6-4.7) 02/18/17 13:07 Magnesium 2.0 mg/dL (1.7-2.9) 02/18/17 13:07 Total Bilirubin 0.40 mg/dL (0.2-1.0) 02/22/17 03:30 AST 28 Units/L (15-37) 02/22/17 03:30 ALT 54 Units/L (12-78) 02/22/17 03:30 Alkaline Phosphatase 68 Units/L (46-116) 02/22/17 03:30 Creatine Kinase 133 Units/L (39-308) 02/21/17 08:36 CK-MB (CK-2) < 1.0 ng/mL (0-4.0) 02/21/17 08:36 CK/CKMB % Calc 0.8 % (<4) 02/21/17 08:36 Troponin I < 0.02 ng/mL (0-1.5) 02/21/17 08:36 Total Protein 6.7 g/dL (6.4-8.2) 02/22/17 03:30 Albumin 3.0 g/dL (3.4-5.0) L 02/22/17 03:30 Globulin 3.7 g/dL (2.5-4.5) 02/22/17 03:30 Albumin/Globulin Ratio 0.8 Ratio (1.1-2.1) L 02/22/17 03:30 Triglycerides 79 mg/dL (0-150) 02/19/17 04:35 Cholesterol 77 mg/dL (0-200) 02/19/17 04:35 LDL Cholesterol, Calc 35 mg/dL (0-100) 02/19/17 04:35 HDL Cholesterol 26 mg/dL (40-60) L 02/19/17 04:35 Cholesterol/HDL Ratio 3.0 (0.0-5.0) 02/19/17 04:35 Radiology Reviewed: Yes - Plan (1) Chest pain Status: Acute Qualifiers: Chest pain type: C Ischemic chest pain type: I Plan: continuous cardiac monitoring, Nitroglycerin 0.4mg SL Q5min PRN (2) Hypertension Status: Chronic Qualifiers: Hypertension type: essential hypertension Qualified Code(s): I10 - Essential (primary) hypertension Plan: Zesteril 20mg BID (3) Abdominal pain Status: Acute Qualifiers: Abdominal location: generalized Qualified Code(s): R10.84 - Generalized abdominal pain Plan: GI Cocktail, pepcid, protonix
[2017-02-22] MEDS: AMBIEN PO PRN (20:16)
[2017-02-22] MEDS: CRESTOR TAB 10 MG PO SCH (20:16)
[2017-02-23] MEDS: NORCO 10/325 TAB PO PRN (00:20)
[2017-02-23 01:04] VITALS: BP 134/87
[2017-02-23] MEDS: MORPHINE SULFATE INJ 2 MG IVP PRN ×2 (03:55→06:50)
[2017-02-23] MEDS: NS 1000 ML 1,000 ML IV SCH ×2 (03:56→05:50)
[2017-02-23] MEDS: VOLTAREN 1 % GEL MULTI DOSE TUBE TOP SCH (05:51)
[2017-02-23 06:12] LABS: BASOPHILS % (AUTO) 0.5 % (0.2-1.0); EOSINOPHILS # (AUTO) 0.3 x10^3/uL (0.0-0.2); EOSINOPHILS % (AUTO) 4.6 % (0.9-2.9); HEMATOCRIT 39.6 % (42.0-54.0); HEMOGLOBIN 13.8 g/dL (13.5-18.0); LYMPHOCYTES # (AUTO) 2.2 X10^3/uL (1.3-2.9); LYMPHOCYTES % (AUTO) 30.9 % (21.0-51.0); MEAN CORPUSCULAR HEMOGLOBIN 28.8 pg (27.0-34.0); MEAN CORPUSCULAR HGB CONC 34.9 g/dL (33.0-35.0); MEAN CORPUSCULAR VOLUME 82.4 fL (80.0-100.0); MEAN PLATELET VOLUME 8.6 fL (7.4-11.0); MONOCYTES # (AUTO) 0.6 x10^3/uL (0.3-0.8); PLATELET COUNT 185 X10^3/uL (150.0-450.0); RED CELL DISTRIBUTION WIDTH 13.8 % (11.6-16.5); WHITE BLOOD COUNT 7.1 X10^3/uL (3.6-10.0)
[2017-02-23 06:20] LABS: ALANINE AMINOTRANSFERASE 54 Units/L (12-78); ALBUMIN 3.2 g/dL (3.4-5.0); ALKALINE PHOSPHATASE 69 Units/L (46-116); ASPARTATE AMINO TRANSFERASE 30 Units/L (15-37); BLOOD UREA NITROGEN 11 mg/dL (7-18); CALCIUM 7.9 mg/dL (8.5-10.1); CARBON DIOXIDE 23.4 mmol/L (21-32); CHLORIDE 106 mmol/L (98-107); COR CA(FOR HYPOALB) 8.5 mg/dL (8.5-10.1); CREATININE 0.85 mg/dL (0.70-1.30); GLUCOSE 95 mg/dL (65-99); SODIUM 141 mmol/L (136-145); TOTAL PROTEIN 6.9 g/dL (6.4-8.2); eGFR BLACK RACES > 60 (>60); eGFR NON BLACK RACES > 60 (>60)
[2017-02-23] MEDS: NEURONTIN TAB 600 MG PO SCH (06:47)
[2017-02-23] MEDS ORDERED: NORVASC TAB 2.5 MG ONE (07:28)
[2017-02-23] MEDS ORDERED: ZESTRIL TAB 20 MG ONE (07:28)
[2017-02-23] MEDS: NORVASC TAB 2.5 MG PO SCH ×2 (07:37→08:14)
[2017-02-23] MEDS: ASPIRIN PO SCH ×2 (07:37→08:14)
[2017-02-23] MEDS: NORVASC TAB 5 MG PO SCH ×2 (07:37→08:14)
[2017-02-23] MEDS: PLAVIX PO SCH ×2 (07:38→08:15)
[2017-02-23] MEDS: XANAX PO PRN (07:38)
[2017-02-23] MEDS: ZESTRIL TAB 20 MG PO SCH ×2 (07:38→08:15)
[2017-02-23] MEDS: CELEBREX PO SCH (08:14)
[2017-02-23] MEDS: LEVSIN/MAALOX/LIDOC VISC PO SCH (08:14)
[2017-02-23] MEDS: PEPCID 20 MG IV PREMIX* 20 MG/50 ML BAG IV SCH (08:15)
[2017-02-23] MEDS: PROTONIX INJ 40 MG VIAL IVP SCH (08:15)
--- NOTE | 2017-02-26 15:26 | DR.CARTERD ---
- Discharge Summary for: Discharge Summary for Date of:: 02/23/17 - Admission Date Date of Admission: 02/18/17 - Admission Diagnoses Admission Diagnosis: Chest Pain. Nausea/Vomiting. Dizziness. Abdominal Pain. coronary artery disease. dyslipidemia. GERD. hypertension - Discharge Date Discharge Date: 02/23/17 - Discharge Diagnoses Discharge Diagnosis: Chest Pain Nausea/Vomiting Dizziness Abdominal Pain coronary artery disease dyslipidemia GERD hypertension - Hospital Course Hospital Course: Patient is 46yo male who presented to the emergency room with complaints of chest pain on the left side with pain radiating down his left arm which started about 3 hours prior to arrival. Patient has a history of stent placement, angina , arthritis, coronary artery disease, dyslipidemia, GERD, hypertension and kidney stone, as well as a craniotomy for a brain tumor. Vital signs on arrival 98.5 90, 20, 96%, 146/95. Labs within normal limits with the exception of Eos% 0.4, Neut# 5.0, Potassium 3.3, Glucose 107, AST 57, ALT 85, Total protein 8.5, Globulin 4.6, albumin/globulin ratio 0.8. Chest XRay showed no acute cardiopulmonary disorder. EKG showed normal sinus rhythm with probable left atrial enlargement and incomplete right bundle branch block with a rate of 86. Patient admitted with diagnosis of chest pain r/o [place]. Patient started on NS @ 125ml/hr, morphine 2mg IV q2hrs prn, Zofran 4mg IV q8hr PRN, potassium replacement protocol, and home medication resumed. The day after admission patient had an episode of dizziness and nausea after coming from the bathroom Patient start on protonix 40mg IB BID, Pepcid 20mg IV BID, GI Cocktail 10ml QID. An abdominal and chest CT with contrast was ordered which was not approved by insurance a Gall bladder sonogram and HIDA scan was ordered. Gallbladder sonogram showed possible fatty liver with otherwise normal gallbladder scan. HIDA scan showed normal ejection fracture. We consulted boat assembler Dr. Kemp who felt that is was best to transfer him to [facility]. Patient was transferred to [facility] in [place] in stable condition. Labs: Labs are within normal limits with the exception of Hct 39.6, Eos% 4.6, Eos# 0.3 , Calcium 7.9, Albumin 3.2, Albumin/globulin ratio 0.9. - Discharge Medications Discharge Medications: Celecoxib [Celecoxib] 200 mg PO DAILY 02/18/17 [History] Eszopiclone [Lunesta] 3 mg PO HS PRN 02/18/17 [History] Hydrocodone-Acet 10/325 mg [NORCO 10 MG/325 MG *] 1 tab PO Q4HR PRN 02/18/17 [ History] - Discharge Disposition Discharge Disposition: Transfer to [facility]
== END 2017-02-23 08:20 | disposition short-term general hospital (02) ==
LOC: ER 12:55 → MED/SURG 14:58
PROVIDERS: ADMIT Internal Medicine; ATTEND Internal Medicine
DX: R07.89 Other chest pain (principal); E87.6 Hypokalemia; R10.84 Generalized abdominal pain; M79.602 Pain in left arm; R06.02 Shortness of breath; I25.10 Atherosclerotic heart disease of native coronary artery without angina pectoris; E78.2 Mixed hyperlipidemia; K21.9 Gastro-esophageal reflux disease without esophagitis; I10 Essential (primary) hypertension; R94.31 Abnormal electrocardiogram [ECG] [EKG]; Z79.01 Long term (current) use of anticoagulants; R11.2 Nausea with vomiting, unspecified; R42 Dizziness and giddiness
CPT/HCPCS: 36415; 71010; 76705; 78227; 80048; 80053; 80061; 82550; 82553; 83735; 84100; 84132; 84484; 85025; 85610; 93005; 94760; 96365; 96367; 96374; 99284; A4216; A4222; C9113; S0028; G0378; J2270; J2405

== ENCOUNTER 2019-05-13 16:09 | Observation (INO) ==
--- NOTE | 2019-05-13 16:31 | DR.UPM ---
HPI Time Seen Time Seen by Provider: 05/13/19 16:30 PCP Primary Care Physician: KIMANI SAM HPI Comment HPI Comment: PATIENT IS 49YR OLD WHITE MALE IN THE EMERGENCY ROOM WITH SHARP STABBING PAIN, 9/10 RIGHT FLANK AND BACK RADIATING TO SUPRAPUBIC AREA. PAIN STARTED 2 WEEKS AGO. ONE WEEK AGO HE PASSES KIDNEY STONE. PAIN PERSISTENTED. PROBLEM URINATING TODAY. TOOK HYDROCORDONE BEFORE COMING TO EMERGENCY ROOM. CURRENTLY, PAIN SLIGHTLY IMPROVED. NO FEVER. HISTORY KIDNEY STONE. DENIES PROSTATE PROBLEM. Complaint Chief Complaint Doctors Comments: RIGHT FLANK AND BACK PAIN TIMES 2 WEEKS, URIN JUDI RETENSION TODAY. Chief Complaint:: PT C/O RIGHT LOWER BACK PAIN X 2 WEEKS THAT IS DESCRIBED CONSTANT SHARP STABBING. PT PASSED KIDNEY STONE LAST WEEK AND PAIN DIDN'T I MPROVE. SINCE THIS MORNING PT IS HAVING DIFFICULTY URINATING. Self Treatment fo Chief Complaint: TOOK HYDROCODONE WITH NO RELIEF Source History Provided: Patient Mode of Arrival Mode of Arrival: Ambulatory Timing Onset of Chief Complaint: 05/13/19 Duration Duration: Constant Duration: Weeks Context Onset: Spontaneous Urinary Symptoms: Inabiltiy to void History of: Kidney Stone Severity Pain: Severe Inability to Void: Moderate Location Pain Location: Right and Flank Modifying Factors Medications: None Associated Signs and Symptoms Associated Signs and Symptoms: Flank Pain Other History Other History: HISTORY KIDNEY STONE. PMH PMH Past Medical History: Yes Past Medical History: Arthritis, Coronary Artery Disease, Dyslipidemia, Migraines, GERD, Headaches, Hypertension and Kidney Stones Past Surgical History: Yes Surgical History: Angioplasty/Stents and Ortho Surgery Past Surgical History Comment: BENIGN BRAIN TUMOR REMOVED, SEPTOPLASTY Family History History of Family Medical Conditions: Yes Family Medical History: Coronary Artery Disease Social History Does patient currently use any type of tobacco product: No Have you used tobacco products in the last 12 months: No Type of Tobacco Use: None Does any household member use tobacco: No Alcohol Use: None Do you use any recreational Drugs:: No Lives With: Family Lives Where: Home infectious screening In the last 2 months have you had wt loss of >10#?: NO Have you had fever, night sweats or hemotysis?: No Have you traveled outside the country in the last 6 months?: No Isolation: Standard ROS Review of Systems Constitutional: No Symptoms Reported and See HPI; negative Fever, Weakness and Fatigue Eyes: No Symptoms Reported and See HPI; negative Eye Pain and Discharge ENTM: No Symptoms Reported and See HPI; negative Ear Pain, Nose Discharge, Nose Congestion and Throat Pain Respiratoy: No Symptoms Reported and See HPI; negative Productive Cough, Short of Breath and Wheezing Cardiovascular: No Symptoms Reported and See HPI; negative Chest Pain, Edema and Palpitations Gastrointestinal/Abdominal: See HPI and Abdominal Pain; negative Constipation, Diarrhea, Nausea and Vomiting Genitourinary: See HPI and Pain Neurological: No Symptoms Reported and See HPI; negative Headache, Weakness and Dizziness Musculoskeletal: See HPI, Back Pain (RIGHT FLANK PAIN) and Back Hematologic/Lymphatic: No Symptoms Reported and See HPI; negative Easy Bleeding, Easy Bruising and Swollen Glands Endocrine: No Symptoms Reported and See HPI; negative Increased Thirst, Increased Urine and Decreased Appetite Psychiatric: No Symptoms Reported and See HPI All Other Systems: Reviewed and Negative PE Vital Signs Vitals: Temperature 98.2 F Pulse Rate [Left Brachial] 70 Pulse Rate 106 Respiratory Rate 18 Blood Pressure [Right Arm] 134/87 Blood Pressure [Left Arm] 102/54 Blood Pressure 141/71 O2 Sat by Pulse Oximetry 93 General Limitations: No Limitations General Appearance: Alert and In No Apparent Distress Head Head Exam: Normal Inspection and Atraumatic Eyes Eye exam: Normal Appearance, PERRL and EOMI; negative Scleral Icterus and Conjunctival Injection ENT ENT Exam: Normal Exam, Normal Oropharynx, Normal External Ear Exam and TM's Normal Bilaterally Neck Neck Exam: Normal Inspection and Trachea Midline; negative Tenderness and Lymp hadenopathy Chest Chest Inspection: Normal Inspection and Symmetric Chest Wall Rise; negative Tenderness Respiratory Respiratory Exam: Normal Lung Sounds Bilat; negative Accessory Muscle Use, Chest Wall Tenderness and Respiratory Distress Respiratory Exam: Bilateral: Clear to Auscultation Cardiovascular Cardiovascular Exam: Regular Rate, Normal Rhythm and Normal Heart Sounds; negative Systolic Murmur and Diastolic Murmur Abdominal Exam Abdominal Exam: Normal Bowel Sounds, Soft, Distention and Tenderness Abdominal Tenderness: Suprapubic and Moderate Rectal Rectal Exam: Deferred Genitourinary Exam: Male: Deferred Extremities Extremities Exam: Normal Inspection Back Back Exam: Tenderness, (R) CVA Tenderness, Paraspinal Tenderness and Vertebral Tenderness Neurologic Neurological Exam: Alert, Oriented X3 and CN II-XII Intact; negative Motor Sensory Deficit Psychiatric Psychiatric Exam: Normal Affect and Normal Mood Skin Skin Exam: Warm, Dry, Intact and Normal Color MDM Differential Diagnosis Differential Diagnosis: Bladder Outlet Obstructio, Constipation, Epidydymitis, Prostatitis, Pyelonephritis, Urinary Retention, Urolithiasis and UTI COURSE Treatment Treatment: SEE ORDERS. POTASSIUM CHLORIDE 50MG EFFERVECENCE PO, NS 125CC/HR. Consultation Consultation Comments: DISCUSSED PATIENT WITH DR. RICARDO. HE WILL ADMIT PATIENT. Education/Counseling Education/Counseling: Patient Educated On: Diagnosis ROR Labs Reviewed Laboratory Results Reviewed?: Yes Result Diagrams: 05/14/19 05:48 05/14/19 05:48 Laboratory: WBC 8.8 X10^3/uL (3.6-10.0) 05/14/19 05:48 RBC 4.75 X10^6/uL (4.7-6.0) 05/14/19 05:48 Hgb 13.1 g/dL (13.5-18.0) L 05/14/19 05:48 Hct 38.4 % (42.0-54.0) L 05/14/19 05:48 MCV 80.9 fL (80.0-100.0) 05/14/19 05:48 MCH 27.7 pg (27.0-34.0) 05/14/19 05:48 MCHC 34.2 g/dL (33.0-35.0) 05/14/19 05:48 RDW 14.7 % (11.6-16.5) 05/14/19 05:48 Plt Count 207 X10^3/uL (150.0-450.0) 05/14/19 05:48 MPV 8.4 fL (7.4-11.0) 05/14/19 05:48 Neut % (Auto) 64.1 % (42.0-75.0) 05/14/19 05:48 Lymph % (Auto) 24.0 % (21.0-51.0) 05/14/19 05:48 [place] % (Auto) 8.1 % (0.0-13.0) 05/14/19 05:48 Eos % (Auto) 3.4 % (0.9-2.9) H 05/14/19 05:48 Baso % (Auto) 0.4 % (0.2-1.0) 05/14/19 05:48 Neut # (Auto) 5.6 x10^3/uL (2.2-4.8) H 05/14/19 05:48 Lymph # (Auto) 2.1 X10^3/uL (1.3-2.9) 05/14/19 05:48 [place] # (Auto) 0.7 x10^3/uL (0.3-0.8) 05/14/19 05:48 Eos # (Auto) 0.3 x10^3/uL (0.0-0.2) H 05/14/19 05:48 Baso # (Auto) 0.0 X10^3/uL (0.0-0.1) 05/14/19 05:48 Absolute Nucleated RBC 0.1 /100WBC 05/14/19 05:48 Sodium 139 mmol/L (136-145) 05/14/19 05:48 Corrected Sodium 140 mmol/L (136-145) 05/14/19 05:48 Potassium 3.6 mmol/L (3.5-5.1) 05/14/19 05:48 Chloride 103 mmol/L (98-107) 05/14/19 05:48 Carbon Dioxide 26.8 mmol/L (21-32) 05/14/19 05:48 BUN 15 mg/dL (7-18) 05/14/19 05:48 Creatinine 1.05 mg/dL (0.70-1.30) 05/14/19 05:48 Est GFR (MDRD) Af Amer > 60 (>60) 05/14/19 05:48 Est GFR (MDRD) Non-Af > 60 (>60) 05/14/19 05:48 Glucose 123 mg/dL (65-99) H 05/14/19 05:48 Calcium 8.1 mg/dL (8.5-10.1) L 05/14/19 05:48 Corrected Calcium 9.0 mg/dL (8.5-10.1) 05/14/19 05:48 Magnesium 2.1 mg/dL (1.7-2.9) 05/13/19 20:05 Total Bilirubin 0.40 mg/dL (0.2-1.0) 05/14/19 05:48 AST 111 Units/L (15-37) H 05/14/19 05:48 ALT 138 Units/L (12-78) H 05/14/19 05:48 Alkaline Phosphatase 90 Units/L (46-116) 05/14/19 05:48 Total Protein 7.4 g/dL (6.4-8.2) 05/14/19 05:48 Albumin 2.9 g/dL (3.4-5.0) L 05/14/19 05:48 Globulin 4.5 g/dL (2.5-4.5) 05/14/19 05:48 Albumin/Globulin Ratio 0.6 Ratio (1.1-2.1) L 05/14/19 05:48 Specimen Type Catherized urine 05/13/19 17:53 Urine Color Yellow (YELLOW) 05/13/19 17:53 Urine Appearance Clear (CLEAR) 05/13/19 17:53 Urine pH 5.0 (5.0 - 8.0) 05/13/19 17:53 Ur Specific [place] 1.015 (1.000-1.030) 05/13/19 17:53 Urine Protein 1+ (NEGATIVE) 05/13/19 17:53 Urine Glucose (UA) Negative (NEGATIVE) 05/13/19 17:53 Urine Ketones Negative (NEGATIVE) 05/13/19 17:53 Urine Occult Blood 1+ (NEGATIVE) 05/13/19 17:53 Urine Nitrite Negative (NEGATIVE) 05/13/19 17:53 Urine Bilirubin Negative (NEGATIVE) 05/13/19 17:53 Urine Urobilinogen Normal (NORMAL) 05/13/19 17:53 Ur Leukocyte Esterase Negative (NEGATIVE) 05/13/19 17:53 Urine RBC 0-2 /HPF (0-3) 05/13/19 17:53 Urine WBC 0-2 /HPF (0-5) 05/13/19 17:53 Ur Squamous Epith Cells Rare /HPF (NEGATIVE) 05/13/19 17:53 Urine Bacteria Negative /HPF (NEGATIVE) 05/13/19 17:53 Urine Mucus Few /HPF (NEGATIVE) 05/13/19 17:53 Ur Culture Indicated? No/not indicated 05/13/19 17:53 XRAY XRAY Interpreted by: Radiologist XRAY Findings: REPORT NOTED AND DISCUSSED WITH PATIENT. Opioid Opioid Risk Tool Age (Dani box if 16-45): No History of Preadolescent Sexual Abuse: No Total: 0 Total Score Risk Category: Low Risk Copyright: Khadar HERNANDEZ predicting aberrant behaviors Procedures Procedure Comments Procedures: CASH CATH PLACE BY NURSE. GREATER THAN 500CC RESIDUAL URINE IN BAG. Diagnosis Discharge Problem: Acute urinary retention, Acute right flank pain, Kidney stone, Hypokalemia Instructions Forms: Excuse From Work
[2019-05-13 16:53] LABS: BASOPHILS % (AUTO) 0.4 % (0.2-1.0); EOSINOPHILS # (AUTO) 0.1 x10^3/uL (0.0-0.2); EOSINOPHILS % (AUTO) 1.5 % (0.9-2.9); HEMATOCRIT 41.5 % (42.0-54.0); HEMOGLOBIN 14.1 g/dL (13.5-18.0); LYMPHOCYTES # (AUTO) 2.4 X10^3/uL (1.3-2.9); LYMPHOCYTES % (AUTO) 26.6 % (21.0-51.0); MEAN CORPUSCULAR HEMOGLOBIN 27.5 pg (27.0-34.0); MEAN CORPUSCULAR HGB CONC 34.1 g/dL (33.0-35.0); MEAN CORPUSCULAR VOLUME 80.7 fL (80.0-100.0); MONOCYTES # (AUTO) 0.4 x10^3/uL (0.3-0.8); MONOCYTES % (AUTO) 4.5 % (0.0-13.0); NEUTROPHILS # (AUTO) 6.2 x10^3/uL (2.2-4.8); PLATELET COUNT 257 X10^3/uL (150.0-450.0); RED BLOOD COUNT 5.14 X10^6/uL (4.7-6.0); RED CELL DISTRIBUTION WIDTH 14.3 % (11.6-16.5); WHITE BLOOD COUNT 9.2 X10^3/uL (3.6-10.0)
[2019-05-13 17:00] LABS: BLOOD UREA NITROGEN 22 mg/dL (7-18); CARBON DIOXIDE 23.7 mmol/L (21-32); CHLORIDE 98 mmol/L (98-107); COR NA(FOR HYPERGLY) 137 mmol/L (136-145); CREATININE 1.19 mg/dL (0.70-1.30); SODIUM 136 mmol/L (136-145); eGFR NON BLACK RACES > 60 (>60)
[2019-05-13 17:05] LABS: ALANINE AMINOTRANSFERASE 148 Units/L (12-78); ALBUMIN 3.5 g/dL (3.4-5.0); ALKALINE PHOSPHATASE 97 Units/L (46-116); ASPARTATE AMINO TRANSFERASE 109 Units/L (15-37); TOTAL PROTEIN 8.6 g/dL (6.4-8.2)
--- NOTE | 2019-05-13 17:18 | CT ---
History: Pain Exam: CT abdomen pelvis without contrast. Comparison: None Technique: Axial spiral images were obtained from lung bases through the pubic symphysis without contrast. Automated dose control was utilized. Findings: The lung bases are clear . The liver and spleen are normal size and density. The gallbladder, pancreas , and adrenals are normal. The kidneys are normal size with a 2 mm stone along the mid polar region on the right and a 4 mm stone more inferiorly . No hydronephrosis or renal masses are seen. The ureters are normal caliber . The appendix is normal . The bladder is unremarkable. The prostate gland is top-normal . The mesentery is unremarkable . No adenopathy or ascites is seen. There are moderate degenerative changes seen in the spine with no aggressive osseous lesion. IMPRESSION: No acute intra-abdominal abnormality seen. Multiple small renal stones on the right with no hydronephrosis and no CT evidence of urinary obstruction. No pelvic mass or inflammation. Reported By:
[2019-05-13] MEDS ORDERED: K-LYTE EFFERVESCENT PO ONE (17:36)
[2019-05-13] MEDS ORDERED: K-LYTE EFFERVESCENT ONE (17:39)
[2019-05-13 18:04] LABS: BILIRUBIN,URINE NEGATIVE (NEGATIVE); BLOOD/HEMOGLOBIN,URINE 1+ (NEGATIVE); GLUCOSE, URINE NEGATIVE (NEGATIVE); KETONES,URINE NEGATIVE (NEGATIVE); LEUKOCYTE ESTERASE ,URINE NEGATIVE (NEGATIVE); NITRITES,URINE NEGATIVE (NEGATIVE); PROTEIN,URINE 1+ (NEGATIVE); UROBILINOGEN,URINE NORMAL (NORMAL)
[2019-05-13 18:12] LABS: APPEARANCE,URINE CLEAR (CLEAR); COLOR,URINE YELLOW (YELLOW)
[2019-05-13 18:13] LABS: BACTERIA,URINE NEGATIVE /HPF (NEGATIVE); MUCUS,URINE FEW /HPF (NEGATIVE); RBC,URINE 0-2 /HPF (0-3); SQUAMOUS EPITHELIAL CELL,UR RARE /HPF (NEGATIVE)
[2019-05-13] MEDS ORDERED: DEMEROL INJ ONE (18:30)
[2019-05-13] MEDS ORDERED: ZOFRAN INJ 4 MG VIAL ONE (18:30)
[2019-05-13] MEDS: DEMEROL INJ IVP PRN ×2 (18:32→23:30)
[2019-05-13] MEDS: ZOFRAN INJ 4 MG VIAL IVP PRN (18:33)
[2019-05-13] MEDS: NS 1000 ML 1,000 ML IV SCH (20:15)
[2019-05-13] MEDS ORDERED: PATIENT'S HOME MEDICATION (Eszopiclone [Lunesta] 3 MG) PO PRN (20:35)
[2019-05-13] MEDS ORDERED: XANAX PO PRN (20:35)
[2019-05-13 20:50] VITALS: BMI 35.6
[2019-05-13] MEDS: LYRICA CAP 150 mg PO SCH (20:54)
[2019-05-13] MEDS: PEPCID TAB 20 MG PO SCH (20:54)
[2019-05-13] MEDS: CRESTOR TAB 10 MG PO SCH (20:55)
[2019-05-13] MEDS ORDERED: ZESTORETIC 20/25 MG PO SCH (21:00)
[2019-05-13] MEDS ORDERED: AMBIEN PO PRN (21:32)
[2019-05-13] MEDS ORDERED: MICRO K EXTEN CAP 10 MEQ PO PRN (22:52)
[2019-05-13] MEDS ORDERED: K-RIDER 10 MEQ/NS 100 ML 10 MEQ/100 ML BAG IV PRN (22:52)
[2019-05-13] MEDS ORDERED: POTASSIUM CHL 40 MEQ/NS 0.45% 500 ML IV PRN (22:52)
[2019-05-13] MEDS ORDERED: K-DUR TAB 20 MEQ PO PRN (22:52)
[2019-05-13] MEDS ORDERED: POTASSIUM CHLORIDE LIQ 20 MEQ UDC PO PRN (22:52)
[2019-05-13] MEDS ORDERED: MAGNESIUM SULFATE 1 GRAM/100 mL PREMIX 1 GM/100 ML BAG IV PRN (22:52)
[2019-05-13] MEDS ORDERED: POTASSIUM CHL 60 MEQ/NS 0.45% 500 ML IV PRN (22:52)
[2019-05-13] MEDS ORDERED: KLOR-CON PO PRN (22:52)
[2019-05-14] MEDS: NS 1000 ML 1,000 ML IV SCH ×4 (03:09→21:15)
[2019-05-14] MEDS: DEMEROL INJ IVP PRN ×5 (03:47→22:05)
[2019-05-14 06:17] LABS: BASOPHILS % (AUTO) 0.4 % (0.2-1.0); EOSINOPHILS # (AUTO) 0.3 x10^3/uL (0.0-0.2); EOSINOPHILS % (AUTO) 3.4 % (0.9-2.9); HEMATOCRIT 38.4 % (42.0-54.0); HEMOGLOBIN 13.1 g/dL (13.5-18.0); LYMPHOCYTES # (AUTO) 2.1 X10^3/uL (1.3-2.9); MEAN CORPUSCULAR HEMOGLOBIN 27.7 pg (27.0-34.0); MEAN CORPUSCULAR HGB CONC 34.2 g/dL (33.0-35.0); MEAN CORPUSCULAR VOLUME 80.9 fL (80.0-100.0); MEAN PLATELET VOLUME 8.4 fL (7.4-11.0); MONOCYTES # (AUTO) 0.7 x10^3/uL (0.3-0.8); MONOCYTES % (AUTO) 8.1 % (0.0-13.0); NEUTROPHILS # (AUTO) 5.6 x10^3/uL (2.2-4.8); NEUTROPHILS % (AUTO) 64.1 % (42.0-75.0); PLATELET COUNT 207 X10^3/uL (150.0-450.0); RED BLOOD COUNT 4.75 X10^6/uL (4.7-6.0); RED CELL DISTRIBUTION WIDTH 14.7 % (11.6-16.5); WHITE BLOOD COUNT 8.8 X10^3/uL (3.6-10.0)
[2019-05-14 06:32] LABS: ALANINE AMINOTRANSFERASE 138 Units/L (12-78); ALBUMIN 2.9 g/dL (3.4-5.0); ALKALINE PHOSPHATASE 90 Units/L (46-116); ASPARTATE AMINO TRANSFERASE 111 Units/L (15-37); BLOOD UREA NITROGEN 15 mg/dL (7-18); CALCIUM 8.1 mg/dL (8.5-10.1); CARBON DIOXIDE 26.8 mmol/L (21-32); CHLORIDE 103 mmol/L (98-107); COR NA(FOR HYPERGLY) 140 mmol/L (136-145); CREATININE 1.05 mg/dL (0.70-1.30); SODIUM 139 mmol/L (136-145); TOTAL PROTEIN 7.4 g/dL (6.4-8.2); eGFR NON BLACK RACES > 60 (>60)
[2019-05-14] MEDS: PEPCID TAB 20 MG PO SCH ×2 (08:54→21:14)
[2019-05-14] MEDS: NORVASC TAB 10 MG PO SCH (08:54)
[2019-05-14] MEDS: ZESTORETIC 20/25 MG PO SCH (08:55)
[2019-05-14] MEDS: LYRICA CAP 150 mg PO SCH ×2 (08:55→21:15)
[2019-05-14] MEDS: MOBIC TAB 15 MG PO SCH (08:55)
[2019-05-14] MEDS: ASPIRIN EC 81 MG PO SCH (08:56)
[2019-05-14] MEDS: PROTONIX TAB 40 MG PO SCH (08:56)
[2019-05-14] MEDS: CYMBALTA PO SCH (08:57)
[2019-05-14] MEDS ORDERED: DULOXETINE 40 MG PO SCH (09:00)
[2019-05-14] MEDS ORDERED: PATIENT'S HOME MEDICATION (Lisinopril 20 MG) PO SCH (09:00)
[2019-05-14] MEDS ORDERED: ZESTRIL TAB 10 MG PO SCH ×2 (09:00→21:00)
--- NOTE | 2019-05-14 19:33 | US ---
RIGHT UPPER QUADRANT ULTRASOUND HISTORY: Right abdomen and flank pain Comparison: None Technique: Multiple alvarado scale and color flow Doppler images of the right upper quadrant were obtained. Findings: Overall study is limited by overlying bowel gas. The liver is hyperechoic. No gallstones. No pericholecystic fluid or gallbladder wall thickening. The technologist did not report a positive sonographic Ochoa's sign. The common bile duct measures 4 mm. The right kidney measures 12.6 cm. No hydronephrosis or renal masses. The pancreas is obscured by overlying bowel gas. IMPRESSION: 1. Negative right upper quadrant ultrasound. Reported By:
[2019-05-14] MEDS: CRESTOR TAB 10 MG PO SCH (21:14)
[2019-05-14] MEDS: ZESTRIL TAB 10 MG PO SCH (21:14)
[2019-05-14] MEDS: FLOMAX PO SCH (21:15)
[2019-05-14] MEDS: ZOFRAN INJ 4 MG VIAL IVP PRN (21:16)
--- NOTE | 2019-05-14 22:32 | DR.H&P ---
H&P - History & Physical for Day of: H&P Date: 05/13/19 - Chief Complaint Chief Complaint: ABDOMINAL PAIN, DIFFICULTY URINATING - History of Present Illness History of Present Illness: IS A 49 YEAR OLD PATIENT OF OURS WHO PRESENTED TO THE ER WITH COMPLAINT OF SHARP, STABBING RIGHT FLANK PAIN AND BACK PAIN THAT RADIATES TO THE SUPRAPUBIC AREA. PAIN REPORTEDLY STARTED TWO WEEKS AGO AND HAS PROGRESSIVELY GOTTEN WORSE. HE REPORTS HAVING A HISTORY OF KIDNEY STONES AND SAYS THAT HE PASSED A STONE ONE WEEK AGO. HE HAS HAD DIFFICULTY URINATING TODAY. HE TOOK A HYDROCODONE AT HOME WITHOUT IMPROVEMENT IN SYMPTOMS. HE DENIES FEVER OR PROSTATE PROBLEMS. ON ARRIVAL TO THE ER, VITALS WERE 97.0-106-20-97%-141/71. LABS WERE OBTAINED. ABNORMAL LAB VALUES INCLUDE THE FOLLOWING: HCT 41.5, POTASSIUM 2.7, BUN 22, GLUCOSE 145, AST 109, ALT 148, TOTAL PROTEIN 8.6, GLOBULIN 5.1. A URINALYSIS WAS OBTAINED AND REVEALED: WBC 0-2, RBC 0-2, LEUKOCYTES NEGATIVE, BACTERIA NEGATIVE, OCCULT BLOOD 1+. AN ABDOMEN/PELVIS CT WITHOUT CONTRAST WAS OBTAINED AND REVEALED: No acute intra-abdominal abnormality seen. Multiple small renal stones on the right with no hydronephrosis and no CT evidence of urinary obstruction. No pelvic mass or inflammation. EKG REVEALED: SINUS RHYTHM WITH HR 50. A CASH CATHETER WAS INSERTED AND APPROXIMATELY 425ML CLEAR YELLOW URINE WAS EMPTIED FROM BLADDER. HE WAS ADMITTED FOR FURTHER EVALUATION AND TREATMENT OF URINARY RETENSION, MULTIPLE KIDNEY STONES, AND ABDOMINAL PAIN. HE WAS STARTED ON NORMAL SALINE AT 125ML/HR, POTASSIUM PROTOCOL, DEMEROL 25MG IV Q4H PRN PAIN, ZOFRAN 4MG IV Q6H PRN NAUSEA, AND HOME MEDICATIONS WERE RESUMED. WE PLAN TO FOLLOW UP WITH AM LABS AND CONTINUE TO MONITOR. - Past Medical History Past Medical History: Coronary Artery Disease, Hypertension, Dyslipidemia, GERD, Arthritis, Kidney Stones, Migraines, Headaches Additional Medical History: Cataracts, Back Pain - Past Surgical History Surgical History: Angioplasty/Stents, Ortho Surgery Additional Surgical History: Cardiac Stents x 2, Right upper arm/elbow, Craniotomy - non-cancerous, Right ACL meniscus tear repair, Hammer toe right - Family History Family Medical History: Coronary Artery Disease - Social History Does patient currently use any type of tobacco product: No Have you used tobacco products in the last 12 months: No Type of Tobacco Use: None Does any household member use tobacco: No Alcohol Use: None Drug Use: None Prescription drug monitoring program results: PDMP was not reviewed - Medications Home Medications: zolpidem [From Ambien] Adverse Reaction (Severe, Verified 05/14/19 20:03) CONTINUE taking the following medications alprazolam [Xanax] 0.5 mg PO TID PRN 05/13/19 [History] aspirin 81 mg PO DAILY 05/13/19 [History] duloxetine [Cymbalta] 30 mg PO DAILY 05/13/19 [History] famotidine 20 mg PO BID 05/13/19 [History] lisinopril-hydrochlorothiazide 20 - 25 mg PO DAILY 05/13/19 [History] meloxicam 15 mg PO DAILY 05/13/19 [History] pantoprazole 40 mg PO DAILY 05/13/19 [History] pregabalin [Lyrica] 150 mg PO BID 05/13/19 [History] - Review of Systems Constitutional: No Symptoms Reported Eyes: No Symptoms Reported ENT: No Symptoms Reported Respiratory: No Symptoms Reported Cardiovascular: No Symptoms Reported Gastrointestinal: Abdominal Pain Genitourinary: Retention Musculoskeletal: Back Pain Skin: No Symptoms Reported Neurological: No Symptoms Reported - Physical Exam Vital Signs: Temperature 98.6 F Pulse Rate [Left Brachial] 74 Pulse Rate 106 Respiratory Rate 20 Blood Pressure [Right Arm] 134/87 Blood Pressure [Left Arm] 108/59 Blood Pressure 141/71 O2 Sat by Pulse Oximetry 91 Oriented: Normal Eyes: Normal Ear: Normal Nose: Normal Throat: Normal Respiratory: Diminished Throughout Cardiovascular: Tachycardia. negative: S3, S4, Murmur : Normal Auscultation: Bowel Sounds: Normal Palpation: Normal Tenderness: Normal Skin: Normal Musculoskeletal: Normal Psychiatric: Normal Mood Description: Calm Affect: Normal Speech Pattern: Clear - Assessment/Plan (1) Abdominal pain Qualifiers: Abdominal location: generalized Status: Acute Plan: ADMIT, NORMAL SALINE AT 125ML/HR, POTASSIUM PROTOCOL, DEMEROL 25MG IV Q4H PRN PAIN, ZOFRAN 4MG IV Q6H PRN NAUSEA (2) Acute urinary retention Status: Acute Plan: CASH CATHETER, CONTINUE TO MONITOR. (3) Kidney stone Status: Acute (4) Acute right flank pain Status: Acute - Allergies Allergies/Adverse Reactions: Allergies Allergy/AdvReac Type Severity Reaction Status Date / Time zolpidem [From Ambien] AdvReac Severe Verified 05/14/19 20:03
[2019-05-15] MEDS: NS 1000 ML 1,000 ML IV SCH ×4 (02:00→20:00)
[2019-05-15] MEDS: DEMEROL INJ IVP PRN ×5 (02:33→21:01)
[2019-05-15] MEDS: ZOFRAN INJ 4 MG VIAL IVP PRN ×2 (05:36→21:02)
[2019-05-15 06:18] LABS: BASOPHILS % (AUTO) 0.5 % (0.2-1.0); EOSINOPHILS # (AUTO) 0.3 x10^3/uL (0.0-0.2); EOSINOPHILS % (AUTO) 3.4 % (0.9-2.9); HEMATOCRIT 36.5 % (42.0-54.0); HEMOGLOBIN 12.5 g/dL (13.5-18.0); LYMPHOCYTES # (AUTO) 2.8 X10^3/uL (1.3-2.9); LYMPHOCYTES % (AUTO) 34.5 % (21.0-51.0); MEAN CORPUSCULAR HEMOGLOBIN 27.7 pg (27.0-34.0); MEAN CORPUSCULAR HGB CONC 34.3 g/dL (33.0-35.0); MEAN CORPUSCULAR VOLUME 80.6 fL (80.0-100.0); MEAN PLATELET VOLUME 8.6 fL (7.4-11.0); MONOCYTES # (AUTO) 0.6 x10^3/uL (0.3-0.8); MONOCYTES % (AUTO) 7.7 % (0.0-13.0); NEUTROPHILS # (AUTO) 4.3 x10^3/uL (2.2-4.8); NEUTROPHILS % (AUTO) 53.9 % (42.0-75.0); PLATELET COUNT 205 X10^3/uL (150.0-450.0); RED BLOOD COUNT 4.53 X10^6/uL (4.7-6.0); RED CELL DISTRIBUTION WIDTH 14.6 % (11.6-16.5)
[2019-05-15 06:38] LABS: ALANINE AMINOTRANSFERASE 122 Units/L (12-78); ALBUMIN 2.7 g/dL (3.4-5.0); ALKALINE PHOSPHATASE 78 Units/L (46-116); ASPARTATE AMINO TRANSFERASE 86 Units/L (15-37); BLOOD UREA NITROGEN 13 mg/dL (7-18); CALCIUM 7.9 mg/dL (8.5-10.1); CARBON DIOXIDE 27.9 mmol/L (21-32); COR CA(FOR HYPOALB) 8.9 mg/dL (8.5-10.1); CREATININE 0.93 mg/dL (0.70-1.30); eGFR NON BLACK RACES > 60 (>60)
[2019-05-15 07:32] LABS: CHLORIDE 105 mmol/L (98-107); SODIUM 141 mmol/L (136-145)
--- NOTE | 2019-05-15 11:16 | PCM.PROG ---
Progress Note - Progress Note for Day of Date of Exam: 05/14/19 - Subjective Subjective: WAS ADMITTED FOR TREATMENT OF URINARY RETENSION, MULTIPLE KIDNEY STONES, AND ABDOMINAL PAIN. TODAY, HE IS ALERT AND ORIENTED, LYING IN BED ON MORNING ROUNDS. HE CONTINUES WITH COMPLAINTS OF DIFFUSE ABDOMINAL PAIN AND NAUSEA. PATIENT REPORTS THAT PAIN IS MOSTLY LOCATED IN THE RUQ AND IS WORSE AFTER EATING OR DRINKING. ON EXAMINATION, HEART IS REGULAR IN RATE AND RHYTHM. BILATERAL LUNGS ARE NOTED WITH DIMINISHED LUNG SOUNDS THROUGHOUT. ABDOMEN IS ROUND, SOFT, AND NOTED WITH DIFFUSE TENDERNESS. NORMAL BOWEL SOUNDS ARE NOTED IN ALL QUADRANTS. CASH CATHETER NOTED TO BEDSIDE DRAINAGE WITH CLEAR YELLOW URINE. HIS VITALS THIS MORNING ARE: 98.2-70-18-93%-102/54. LABS WERE OBTAINED. ABNORMAL LAB VALUES INCLUDE THE FOLLOWING: HGB 13.1, HCT 38.4, GLUCOSE 123, CALCIUM 8.1, AST 111, ALT 138, ALBUMIN 2.9. HE IS CURRENTLY RECEIVING NORMAL SALINE AT 125ML/HR, POTASSIUM PROTOCOL, DEMEROL 25MG IV Q4H PRN PAIN, ZOFRAN 4MG IV Q6H PRN NAUSEA, AND HOME MEDICATIONS WERE RESUMED. TODAY, WE WILL OBTAIN A HEPATITIS PANEL, FLOMAX 0.4MG PO HS, AND OBTAIN A GALLBLADDER US. OTHERWISE, WE PLAN TO FOLLOW UP WITH AM LABS AND CONTINUE TO MONITOR. - Past Medical Family Social History Past Med/Fam/Surg Hx: No changes since H&P Allergies: Allergies zolpidem [From Ambien] Adverse Reaction (Severe, Verified 05/14/19 20:03) pt states that it causes complete urinary retention and unable to take. - Review of Systems ROS: No change since H&P - Vital Signs and I&O's Vital Signs: Temperature 98.4 F Pulse Rate [Left Brachial] 66 Pulse Rate 106 Respiratory Rate 20 Blood Pressure [Right Arm] 134/87 Blood Pressure [Left Arm] 111/62 Blood Pressure 141/71 O2 Sat by Pulse Oximetry 93 Intake and Output: Intake & Output 05/12/19 05/13/19 05/14/19 05/15/19 11:59 11:59 11:59 11:59 Intake Total 820 / 820 2300 / 2300 Output Total 1700 / 1700 3050 / 3050 Balance -880 / -880 -750 / -750 - Physical Exam Oriented: Normal Eyes: Normal Ear: Normal Nose: Normal Throat: Normal Respiratory: Generalized, Diminished Cardiovascular: Normal. negative: S3, S4, Murmur : Normal Auscultation: Bowel Sounds: Normal Palpation: Normal Tenderness: Diffuse, RUQ, Moderate. negative: Rebound, Guarding, Rigidity Skin: Normal Musculoskeletal: Normal Psychiatric: Normal Mood Description: Calm Affect: Normal Speech Pattern: Clear - Laboratory and Diagnostics Result Diagrams: 05/15/19 04:30 05/15/19 04:30 Labs: Laboratory WBC 8.0 X10^3/uL (3.6-10.0) 05/15/19 04:30 RBC 4.53 X10^6/uL (4.7-6.0) L 05/15/19 04:30 Hgb 12.5 g/dL (13.5-18.0) L 05/15/19 04:30 Hct 36.5 % (42.0-54.0) L 05/15/19 04:30 MCV 80.6 fL (80.0-100.0) 05/15/19 04:30 MCH 27.7 pg (27.0-34.0) 05/15/19 04:30 MCHC 34.3 g/dL (33.0-35.0) 05/15/19 04:30 RDW 14.6 % (11.6-16.5) 05/15/19 04:30 Plt Count 205 X10^3/uL (150.0-450.0) 05/15/19 04:30 MPV 8.6 fL (7.4-11.0) 05/15/19 04:30 Neut % (Auto) 53.9 % (42.0-75.0) 05/15/19 04:30 Lymph % (Auto) 34.5 % (21.0-51.0) 05/15/19 04:30 Lea % (Auto) 7.7 % (0.0-13.0) 05/15/19 04:30 Eos % (Auto) 3.4 % (0.9-2.9) H 05/15/19 04:30 Baso % (Auto) 0.5 % (0.2-1.0) 05/15/19 04:30 Neut # (Auto) 4.3 x10^3/uL (2.2-4.8) 05/15/19 04:30 Lymph # (Auto) 2.8 X10^3/uL (1.3-2.9) 05/15/19 04:30 Lea # (Auto) 0.6 x10^3/uL (0.3-0.8) 05/15/19 04:30 Eos # (Auto) 0.3 x10^3/uL (0.0-0.2) H 05/15/19 04:30 Baso # (Auto) 0.0 X10^3/uL (0.0-0.1) 05/15/19 04:30 Absolute Nucleated RBC 0.1 /100WBC 05/15/19 04:30 Sodium 141 mmol/L (136-145) 05/15/19 04:30 Corrected Sodium TNP 05/15/19 04:30 Potassium 3.4 mmol/L (3.5-5.1) L 05/15/19 04:30 Chloride 105 mmol/L (98-107) 05/15/19 04:30 Carbon Dioxide 27.9 mmol/L (21-32) 05/15/19 04:30 BUN 13 mg/dL (7-18) 05/15/19 04:30 Creatinine 0.93 mg/dL (0.70-1.30) 05/15/19 04:30 Est GFR (MDRD) Af Amer > 60 (>60) 05/15/19 04:30 Est GFR (MDRD) Non-Af > 60 (>60) 05/15/19 04:30 Glucose 86 mg/dL (65-99) 05/15/19 04:30 Calcium 7.9 mg/dL (8.5-10.1) L 05/15/19 04:30 Corrected Calcium 8.9 mg/dL (8.5-10.1) 05/15/19 04:30 Magnesium 2.1 mg/dL (1.7-2.9) 05/13/19 20:05 Total Bilirubin 0.40 mg/dL (0.2-1.0) 05/15/19 04:30 AST 86 Units/L (15-37) H 05/15/19 04:30 ALT 122 Units/L (12-78) H 05/15/19 04:30 Alkaline Phosphatase 78 Units/L (46-116) 05/15/19 04:30 Total Protein 7.0 g/dL (6.4-8.2) 05/15/19 04:30 Albumin 2.7 g/dL (3.4-5.0) L 05/15/19 04:30 Globulin 4.3 g/dL (2.5-4.5) 05/15/19 04:30 Albumin/Globulin Ratio 0.6 Ratio (1.1-2.1) L 05/15/19 04:30 Specimen Type Catherized urine 05/13/19 17:53 Urine Color Yellow (YELLOW) 05/13/19 17:53 Urine Appearance Clear (CLEAR) 05/13/19 17:53 Urine pH 5.0 (5.0 - 8.0) 05/13/19 17:53 Ur Specific Sherrill 1.015 (1.000-1.030) 05/13/19 17:53 Urine Protein 1+ (NEGATIVE) 05/13/19 17:53 Urine Glucose (UA) Negative (NEGATIVE) 05/13/19 17:53 Urine Ketones Negative (NEGATIVE) 05/13/19 17:53 Urine Occult Blood 1+ (NEGATIVE) 05/13/19 17:53 Urine Nitrite Negative (NEGATIVE) 05/13/19 17:53 Urine Bilirubin Negative (NEGATIVE) 05/13/19 17:53 Urine Urobilinogen Normal (NORMAL) 05/13/19 17:53 Ur Leukocyte Esterase Negative (NEGATIVE) 05/13/19 17:53 Urine RBC 0-2 /HPF (0-3) 05/13/19 17:53 Urine WBC 0-2 /HPF (0-5) 05/13/19 17:53 Ur Squamous Epith Cells Rare /HPF (NEGATIVE) 05/13/19 17:53 Urine Bacteria Negative /HPF (NEGATIVE) 05/13/19 17:53 Urine Mucus Few /HPF (NEGATIVE) 05/13/19 17:53 Ur Culture Indicated? No/not indicated 05/13/19 17:53 - Plan (1) Abdominal pain Status: Acute Qualifiers: Abdominal location: generalized Plan: GALLBALDDER US, NORMAL SALINE AT 125ML/HR, POTASSIUM PROTOCOL, DEMEROL 25MG IV Q4H PRN PAIN, ZOFRAN 4MG IV Q6H PRN NAUSEA (2) Acute urinary retention Status: Acute Plan: FLOMAX 0.4MG PO DAILY, CASH CATHETER, CONTINUE TO MONITOR. (3) Kidney stone Status: Acute (4) Acute right flank pain Status: Acute
[2019-05-15] MEDS: NORVASC TAB 10 MG PO SCH (11:46)
[2019-05-15] MEDS: PEPCID TAB 20 MG PO SCH ×2 (11:47→21:00)
[2019-05-15] MEDS: LYRICA CAP 150 mg PO SCH ×2 (11:47→21:00)
[2019-05-15] MEDS: ZESTORETIC 20/25 MG PO SCH (11:47)
[2019-05-15] MEDS: PROTONIX TAB 40 MG PO SCH (11:47)
[2019-05-15] MEDS: CYMBALTA PO SCH (11:47)
[2019-05-15] MEDS: MOBIC TAB 15 MG PO SCH (11:48)
[2019-05-15] MEDS: ASPIRIN EC 81 MG PO SCH (11:48)
[2019-05-15] MEDS: ZESTRIL TAB 10 MG PO SCH (21:00)
[2019-05-15] MEDS: CRESTOR TAB 10 MG PO SCH (21:00)
[2019-05-15] MEDS: FLOMAX PO SCH (21:00)
[2019-05-16] MEDS: DEMEROL INJ IVP PRN ×3 (01:29→10:29)
[2019-05-16] MEDS: NS 1000 ML 1,000 ML IV SCH ×3 (04:48→10:32)
[2019-05-16 06:14] LABS: BASOPHILS % (AUTO) 0.4 % (0.2-1.0); EOSINOPHILS # (AUTO) 0.4 x10^3/uL (0.0-0.2); EOSINOPHILS % (AUTO) 4.5 % (0.9-2.9); HEMATOCRIT 35.4 % (42.0-54.0); HEMOGLOBIN 12.1 g/dL (13.5-18.0); LYMPHOCYTES # (AUTO) 3.1 X10^3/uL (1.3-2.9); LYMPHOCYTES % (AUTO) 34.2 % (21.0-51.0); MEAN CORPUSCULAR HEMOGLOBIN 27.6 pg (27.0-34.0); MEAN CORPUSCULAR HGB CONC 34.2 g/dL (33.0-35.0); MEAN CORPUSCULAR VOLUME 80.7 fL (80.0-100.0); MEAN PLATELET VOLUME 8.4 fL (7.4-11.0); MONOCYTES # (AUTO) 0.6 x10^3/uL (0.3-0.8); MONOCYTES % (AUTO) 7.1 % (0.0-13.0); NEUTROPHILS # (AUTO) 4.8 x10^3/uL (2.2-4.8); NEUTROPHILS % (AUTO) 53.8 % (42.0-75.0); PLATELET COUNT 195 X10^3/uL (150.0-450.0); RED BLOOD COUNT 4.38 X10^6/uL (4.7-6.0); RED CELL DISTRIBUTION WIDTH 14.2 % (11.6-16.5)
[2019-05-16 06:31] LABS: ALANINE AMINOTRANSFERASE 104 Units/L (12-78); ALBUMIN 2.7 g/dL (3.4-5.0); ALKALINE PHOSPHATASE 72 Units/L (46-116); ASPARTATE AMINO TRANSFERASE 65 Units/L (15-37); BLOOD UREA NITROGEN 10 mg/dL (7-18); CARBON DIOXIDE 27.1 mmol/L (21-32); CHLORIDE 106 mmol/L (98-107); CREATININE 0.96 mg/dL (0.70-1.30); SODIUM 143 mmol/L (136-145); TOTAL PROTEIN 6.8 g/dL (6.4-8.2); eGFR NON BLACK RACES > 60 (>60)
[2019-05-16] MEDS: ZOFRAN INJ 4 MG VIAL IVP PRN (10:28)
[2019-05-16] MEDS: ASPIRIN EC 81 MG PO SCH (11:36)
[2019-05-16] MEDS: CYMBALTA PO SCH (11:37)
[2019-05-16] MEDS: NORVASC TAB 10 MG PO SCH (11:37)
[2019-05-16] MEDS: ZESTORETIC 20/25 MG PO SCH (11:37)
[2019-05-16] MEDS: PEPCID TAB 20 MG PO SCH (11:37)
[2019-05-16] MEDS: PROTONIX TAB 40 MG PO SCH (11:37)
[2019-05-16] MEDS: MOBIC TAB 15 MG PO SCH (11:37)
[2019-05-16] MEDS: LYRICA CAP 150 mg PO SCH (11:37)
[2019-05-16 12:10] VITALS: BP 134/64
[2019-05-16 12:35] LABS: BILIRUBIN,URINE NEGATIVE (NEGATIVE); BLOOD/HEMOGLOBIN,URINE 5+ (NEGATIVE); GLUCOSE, URINE NEGATIVE (NEGATIVE); KETONES,URINE NEGATIVE (NEGATIVE); LEUKOCYTE ESTERASE ,URINE NEGATIVE (NEGATIVE); NITRITES,URINE NEGATIVE (NEGATIVE); PROTEIN,URINE 2+ (NEGATIVE); UROBILINOGEN,URINE NORMAL (NORMAL)
[2019-05-16 12:45] LABS: APPEARANCE,URINE HAZY (CLEAR); COLOR,URINE YELLOW (YELLOW); RBC,URINE TNTC /HPF (0-3)
[2019-05-16 12:46] LABS: BACTERIA,URINE NEGATIVE /HPF (NEGATIVE); HYALINE CASTS, URINE RARE /LPF (NEGATIVE); MUCUS,URINE FEW /HPF (NEGATIVE); SQUAMOUS EPITHELIAL CELL,UR NEGATIVE /HPF (NEGATIVE)
[2019-05-17 11:04] LABS: HEPATITIS B SURFACE ANTIGEN Negative (Negative)
== END 2019-05-16 12:50 | disposition home or self-care (01) ==
LOC: MED/SURG 16:09 → ER 16:09 → MED/SURG 19:19
PROVIDERS: ADMIT Internal Medicine; ATTEND Internal Medicine
DX: R10.84 Generalized abdominal pain; E87.6 Hypokalemia; R33.8 Other retention of urine; E78.2 Mixed hyperlipidemia; M54.89 Other dorsalgia; Z79.899 Other long term (current) drug therapy; I25.10 Atherosclerotic heart disease of native coronary artery without angina pectoris; Z87.442 Personal history of urinary calculi; K21.9 Gastro-esophageal reflux disease without esophagitis; I10 Essential (primary) hypertension; N20.0 Calculus of kidney
CPT/HCPCS: 36415; 51702; 74176; 76705; 80053; 80074; 81001; 83735; 84132; 85025; 96365; 96367; 96374; 96375; 99284; A4222; G0378; J2175; J2405; J7030; J8499

== ENCOUNTER 2020-08-03 15:06 | Observation (INO) ==
[2020-08-03] MEDS ORDERED: TUSSIONEX PENNKINETIC SUSP PO PRN (17:56)
[2020-08-03 18:00] VITALS: BMI 33.5
[2020-08-03] MEDS ORDERED: DUONEB 0.5 MG/3 MG (3 mL) NEB PRN (18:02)
[2020-08-03 19:04] LABS: BASOPHILS % (AUTO) 0.7 % (0.2-1.0); EOSINOPHILS # (AUTO) 0.2 x10^3/uL (0.0-0.2); EOSINOPHILS % (AUTO) 2.3 % (0.9-2.9); HEMATOCRIT 37.5 % (42.0-54.0); HEMOGLOBIN 12.6 g/dL (13.5-18.0); LYMPHOCYTES # (AUTO) 2.1 X10^3/uL (1.3-2.9); MEAN CORPUSCULAR HEMOGLOBIN 26.8 pg (27.0-34.0); MEAN CORPUSCULAR HGB CONC 33.6 g/dL (33.0-35.0); MEAN CORPUSCULAR VOLUME 79.8 fL (80.0-100.0); MEAN PLATELET VOLUME 7.9 fL (7.4-11.0); MONOCYTES # (AUTO) 0.6 x10^3/uL (0.3-0.8); MONOCYTES % (AUTO) 8.2 % (0.0-13.0); NEUTROPHILS # (AUTO) 4.2 x10^3/uL (2.2-4.8); NEUTROPHILS % (AUTO) 58.8 % (42.0-75.0); PLATELET COUNT 222 X10^3/uL (150.0-450.0); RED CELL DISTRIBUTION WIDTH 16.1 % (11.6-16.5); WHITE BLOOD COUNT 7.1 X10^3/uL (3.6-10.0)
[2020-08-03 19:22] LABS: ALANINE AMINOTRANSFERASE 62 Units/L (12-78); ALBUMIN 3.3 g/dL (3.4-5.0); ALKALINE PHOSPHATASE 82 Units/L (46-116); ASPARTATE AMINO TRANSFERASE 69 Units/L (15-37); BLOOD UREA NITROGEN 11 mg/dL (7-18); CALCIUM 9.3 mg/dL (8.5-10.1); CARBON DIOXIDE 28.5 mmol/L (21-32); CHLORIDE 105 mmol/L (98-107); CKMB % 1.2 % (<4); COR CA(FOR HYPOALB) 9.9 mg/dL (8.5-10.1); CREATINE KINASE 81 Units/L (39-308); CREATINE KINASE MB < 1.0 ng/mL (0-4.0); CREATININE 0.86 mg/dL (0.70-1.30); SODIUM 143 mmol/L (136-145); TROPONIN I < 0.02 ng/mL (0-1.5); eGFR NON BLACK RACES > 60 (>60)
[2020-08-03] MEDS ORDERED: MICRO K EXTEN CAP 10 MEQ PO PRN (20:20)
[2020-08-03] MEDS ORDERED: POTASSIUM CHL 40 MEQ/NS 0.45% 500 ML IV PRN (20:20)
[2020-08-03] MEDS ORDERED: KLOR-CON PO PRN (20:20)
[2020-08-03] MEDS ORDERED: POTASSIUM CHL 60 MEQ/NS 0.45% 500 ML IV PRN (20:20)
[2020-08-03] MEDS ORDERED: POTASSIUM CHLORIDE LIQ 20 MEQ UDC PO PRN (20:20)
[2020-08-03] MEDS ORDERED: K-RIDER 10 MEQ/NS 100 ML 10 MEQ/100 ML BAG IV PRN (20:20)
[2020-08-03] MEDS: ROBITUSSIN DM PO SCH (20:44)
[2020-08-03] MEDS: DUONEB 0.5 MG/3 MG (3 mL) NEB SCH (21:12)
[2020-08-03 22:20] LABS: CKMB % 1.3 % (<4); CREATINE KINASE 75 Units/L (39-308); CREATINE KINASE MB < 1.0 ng/mL (0-4.0); TROPONIN I < 0.02 ng/mL (0-1.5)
[2020-08-03] MEDS ORDERED: NS 1/2 1000 ML IV 1,000 ML IV ONE (22:41)
[2020-08-03] MEDS: ZESTORETIC 20/25 MG PO SCH (22:51)
[2020-08-03] MEDS: LEVAQUIN PREMIX IV 750 MG 750 MG/150 ML BAG IV SCH (22:51)
[2020-08-03] MEDS: NS 1/2 1000 ML IV 1,000 ML IV SCH (22:51)
[2020-08-03] MEDS: NORCO 10/325 TAB PO PRN (22:52)
[2020-08-03] MEDS: LYRICA CAP 150 mg PO SCH (22:52)
[2020-08-03] MEDS: K-DUR TAB 20 MEQ PO PRN (22:54)
[2020-08-03] MEDS: MAGNESIUM SULFATE 1 GRAM/100 mL PREMIX 1 GM/100 ML BAG IV PRN (22:54)
[2020-08-04] MEDS: MAGNESIUM SULFATE 1 GRAM/100 mL PREMIX 1 GM/100 ML BAG IV PRN (02:04)
[2020-08-04 02:32] LABS: CKMB % 1.5 % (<4); CREATINE KINASE 68 Units/L (39-308); CREATINE KINASE MB < 1.0 ng/mL (0-4.0); TROPONIN I < 0.02 ng/mL (0-1.5)
[2020-08-04 06:36] LABS: BASOPHILS % (AUTO) 0.5 % (0.2-1.0); EOSINOPHILS # (AUTO) 0.2 x10^3/uL (0.0-0.2); EOSINOPHILS % (AUTO) 3.5 % (0.9-2.9); HEMATOCRIT 37.1 % (42.0-54.0); HEMOGLOBIN 12.3 g/dL (13.5-18.0); LYMPHOCYTES % (AUTO) 30.5 % (21.0-51.0); MEAN CORPUSCULAR HEMOGLOBIN 26.5 pg (27.0-34.0); MEAN CORPUSCULAR HGB CONC 33.2 g/dL (33.0-35.0); MEAN CORPUSCULAR VOLUME 79.9 fL (80.0-100.0); MEAN PLATELET VOLUME 8.4 fL (7.4-11.0); MONOCYTES # (AUTO) 0.6 x10^3/uL (0.3-0.8); MONOCYTES % (AUTO) 9.4 % (0.0-13.0); NEUTROPHILS # (AUTO) 3.7 x10^3/uL (2.2-4.8); NEUTROPHILS % (AUTO) 56.1 % (42.0-75.0); PLATELET COUNT 208 X10^3/uL (150.0-450.0); RED BLOOD COUNT 4.64 X10^6/uL (4.7-6.0); WHITE BLOOD COUNT 6.6 X10^3/uL (3.6-10.0)
[2020-08-04 06:54] LABS: ALANINE AMINOTRANSFERASE 60 Units/L (12-78); ALBUMIN 2.9 g/dL (3.4-5.0); ALKALINE PHOSPHATASE 67 Units/L (46-116); ASPARTATE AMINO TRANSFERASE 72 Units/L (15-37); BLOOD UREA NITROGEN 11 mg/dL (7-18); CALCIUM 8.9 mg/dL (8.5-10.1); CARBON DIOXIDE 27.4 mmol/L (21-32); CHLORIDE 106 mmol/L (98-107); COR CA(FOR HYPOALB) 9.8 mg/dL (8.5-10.1); CREATININE 0.86 mg/dL (0.70-1.30); MAGNESIUM 2.3 mg/dL (1.7-2.9); SODIUM 142 mmol/L (136-145); TOTAL PROTEIN 7.4 g/dL (6.4-8.2); eGFR NON BLACK RACES > 60 (>60)
--- NOTE | 2020-08-04 07:18 | RAD ---
HISTORYShortness of breath, chest painSTUDYChest AP [id number]/04/2020FINDINGSThe heart is enlarged. No congestive heart failure is noted. No acute alveolar infiltrates or pleural effusions are identified. Bony thorax is unremarkable.IMPRESSIONCardiomegaly without congestive heart failureNo infiltratesElectronically signed by: JOHN TOMPKINS (Aug 04, 2020 07:17:24)
[2020-08-04] MEDS: LEVAQUIN PREMIX IV 750 MG 750 MG/150 ML BAG IV SCH (08:07)
--- NOTE | 2020-08-04 09:06 | DR.UPDATE ---
H&P Update History and Physical Update: History and Physical reviewed and patient examined. Changes noted: Yes with the following: WAS SEEN IN THE OFFICE TODAY FOR COMPLAINTS OF GENERALIZED BODY ACHES, COUGH, CONGESTION, FEVER, AND SHORTNESS OF BREATH. SYMPTOMS STARTED 5-6 DAYS PRIOR. HE HAS HAD TWO NEGATIVE COVID-19 TESTS. HE WAS STARTED ON OMNICEF ONE WEEK AGO. HE REPORTS WORSENING IN SYMPTOMS DESPITE COMPLIANCE WITH MEDICATIONS. HE WAS ADMITTED TO THE HOSPITAL FOR FURTHER EVALUATION AND TREATMENT OF BRONCHOPNEUMONIA. ON ARRIVAL TO THE HOSPITAL, VITALS WERE 98.1-69-20-98%-136/85. LABS WERE OBTAINED. ABNORMAL LAB VALUES INCLUDE THE FOLLOWING VALUES: HGB 12.6, HCT 37.5, POTASSIUM 3.3, AST 69, ALBUMIN 3.3, GLOBULIN 4.7. COVID-19 NEGATIVE. CARDIAC ENZYMES ARE WITHIN NORMAL LIMITS. BLOOD CULTURES WERE SET UP. EKG REVEALED: SINUS RHYTHM WITH HR 52. A CHEST XRAY WAS OBTAINED AND REVEALED: NO ACUTE CARDIOPULMONARY DISEASE. WE WILL OBTAIN A CHEST CTA. HE WAS STARTED ON 1/2NS AT 75 ML/HR, LEVAQUIN 750MG IV DAILY, ROBITUSSIN DM 10 ML PO QID, TUSSIONEX 5ML PO Q12H PRN, DUONEBS QID, AND THE POTASSIUM PROTOCOL. WE WILL OBTAIN SERIAL CARDIAC ENZYMES AND EKGS. DUE TO HIS CARDIAC HISTORY, WE WILL OBTAIN A CARDIAC CTA TO RULE OUT ANEURYSM, DISSECTION, AND PULMONARY EMBOLISM. OTHERWISE, WE WILL FOLLOW UP WITH AM LABS, CHEST XRAY, AND CONTINUE TO MONITOR. Prescription drug monitoring program results: PDMP reviewed and no concerns identified H&P Reviewed: Yes Patient was examined?: Yes
[2020-08-04] MEDS ORDERED: NS 250 ML IV 250 ML IV ONE (09:22)
[2020-08-04] MEDS: NS 1/2 1000 ML IV 1,000 ML IV SCH ×2 (09:34→22:50)
[2020-08-04] MEDS: NORCO 10/325 TAB PO PRN ×3 (09:40→20:42)
[2020-08-04] MEDS: K-DUR TAB 20 MEQ PO PRN (09:40)
[2020-08-04] MEDS: ROBITUSSIN DM PO SCH ×4 (09:40→20:46)
[2020-08-04] MEDS: XANAX PO PRN ×2 (09:41→20:44)
[2020-08-04] MEDS: LYRICA CAP 150 mg PO SCH ×2 (09:42→20:45)
[2020-08-04] MEDS: NORVASC TAB 10 MG PO SCH (09:44)
[2020-08-04] MEDS: ASPIRIN EC 81 MG PO SCH (09:44)
[2020-08-04] MEDS: CELEBREX PO SCH (09:44)
[2020-08-04] MEDS: DUONEB 0.5 MG/3 MG (3 mL) NEB SCH ×4 (09:45→20:30)
--- NOTE | 2020-08-04 10:23 | CT ---
HISTORYShortness of breathSTUDYCTA chest with contrast for pulmonary embolusTechnique: Axial post-contrast images with coronal and sagittal reformats. Dose reduction procedures were used with mA/kv adjusted for body size.COMPARISONNoneFINDINGSThere is no evidence for acute pulmonary thromboembolic disease. Examination of the mediastinum demonstrated no evidence for mediastinal masses, enlarged mediastinal or enlarged hilar adenopathy or significant aortic abnormality. No pleural effusions are identified. No chest wall or axillary abnormality is identified. Those portions of the upper abdominal organs visualized were within normal limits. Examination of the lung cazares demonstrated no significant nodules, masses, alveolar infiltrates, areas of consolidation, peribronchial thickening or bronchiectasis.IMPRESSIONNo evidence for acute pulmonary thromboembolic diseaseLungs clearElectronically signed by: JOHN TOMPKINS (Aug 04, 2020 10:21:59)
[2020-08-04 10:52] LABS: ABG ALLEN TEST POS; ABG BASE EXCESS 5.3 mmol/L (-2.0-2.0); ABG HCO3 29.9 mmol/L (22-26)
[2020-08-04] MEDS: LOVENOX INJ 40 MG SYR SC SCH (11:46)
[2020-08-04] MEDS ORDERED: NS 1/2 1000 ML IV 1,000 ML IV ONE (20:24)
[2020-08-04] MEDS: ZESTORETIC 20/25 MG PO SCH (20:43)
[2020-08-04] MEDS: AMBIEN PO PRN (20:45)
[2020-08-05] MEDS: NORCO 10/325 TAB PO PRN ×3 (02:33→16:58)
[2020-08-05 06:14] LABS: BASOPHILS % (AUTO) 0.6 % (0.2-1.0); EOSINOPHILS # (AUTO) 0.2 x10^3/uL (0.0-0.2); EOSINOPHILS % (AUTO) 3.7 % (0.9-2.9); HEMATOCRIT 36.9 % (42.0-54.0); HEMOGLOBIN 12.1 g/dL (13.5-18.0); LYMPHOCYTES # (AUTO) 2.2 X10^3/uL (1.3-2.9); LYMPHOCYTES % (AUTO) 32.7 % (21.0-51.0); MEAN CORPUSCULAR HEMOGLOBIN 26.6 pg (27.0-34.0); MEAN CORPUSCULAR HGB CONC 32.9 g/dL (33.0-35.0); MEAN CORPUSCULAR VOLUME 80.8 fL (80.0-100.0); MEAN PLATELET VOLUME 8.4 fL (7.4-11.0); MONOCYTES # (AUTO) 0.5 x10^3/uL (0.3-0.8); MONOCYTES % (AUTO) 7.3 % (0.0-13.0); NEUTROPHILS # (AUTO) 3.7 x10^3/uL (2.2-4.8); NEUTROPHILS % (AUTO) 55.7 % (42.0-75.0); PLATELET COUNT 216 X10^3/uL (150.0-450.0); RED BLOOD COUNT 4.57 X10^6/uL (4.7-6.0); WHITE BLOOD COUNT 6.6 X10^3/uL (3.6-10.0)
[2020-08-05 06:34] LABS: ALANINE AMINOTRANSFERASE 69 Units/L (12-78); ALBUMIN 2.9 g/dL (3.4-5.0); ALKALINE PHOSPHATASE 71 Units/L (46-116); ASPARTATE AMINO TRANSFERASE 89 Units/L (15-37); BLOOD UREA NITROGEN 9 mg/dL (7-18); CALCIUM 8.6 mg/dL (8.5-10.1); CARBON DIOXIDE 29.2 mmol/L (21-32); CHLORIDE 106 mmol/L (98-107); COR CA(FOR HYPOALB) 9.5 mg/dL (8.5-10.1); CREATININE 0.96 mg/dL (0.70-1.30); SODIUM 143 mmol/L (136-145); TOTAL PROTEIN 7.4 g/dL (6.4-8.2); eGFR NON BLACK RACES > 60 (>60)
[2020-08-05] MEDS ORDERED: CELEBREX PO SCH (09:00)
[2020-08-05] MEDS: DUONEB 0.5 MG/3 MG (3 mL) NEB SCH ×4 (09:05→20:45)
[2020-08-05] MEDS ORDERED: LASIX IVP ONE (09:50)
[2020-08-05] MEDS: LEVAQUIN PREMIX IV 750 MG 750 MG/150 ML BAG IV SCH (09:54)
[2020-08-05] MEDS: ASPIRIN EC 81 MG PO SCH (09:54)
[2020-08-05] MEDS: LOVENOX INJ 40 MG SYR SC SCH (09:55)
[2020-08-05] MEDS: NORVASC TAB 10 MG PO SCH (09:55)
[2020-08-05] MEDS: CELEBREX PO SCH (09:55)
[2020-08-05] MEDS: LYRICA CAP 150 mg PO SCH ×2 (09:56→21:23)
[2020-08-05] MEDS: ROBITUSSIN DM PO SCH ×4 (09:56→21:23)
[2020-08-05] MEDS: K-DUR TAB 20 MEQ PO PRN (09:57)
[2020-08-05] MEDS: TORADOL 30 MG VIAL IVP PRN ×2 (13:33→22:00)
[2020-08-05] MEDS ORDERED: NS 1/2 1000 ML IV 1,000 ML IV ONE (17:28)
[2020-08-05] MEDS: NS 1/2 1000 ML IV 1,000 ML IV SCH ×2 (17:32→17:33)
[2020-08-05] MEDS: ZESTORETIC 20/25 MG PO SCH (21:22)
[2020-08-05] MEDS: AMBIEN PO PRN (21:23)
[2020-08-05] MEDS: XANAX PO PRN (21:58)
[2020-08-06] MEDS: NORCO 10/325 TAB PO PRN ×2 (01:43→09:24)
[2020-08-06 06:08] LABS: BASOPHILS % (AUTO) 0.6 % (0.2-1.0); EOSINOPHILS # (AUTO) 0.4 x10^3/uL (0.0-0.2); HEMATOCRIT 36.4 % (42.0-54.0); LYMPHOCYTES # (AUTO) 2.3 X10^3/uL (1.3-2.9); LYMPHOCYTES % (AUTO) 30.9 % (21.0-51.0); MEAN CORPUSCULAR HEMOGLOBIN 26.7 pg (27.0-34.0); MEAN CORPUSCULAR HGB CONC 32.9 g/dL (33.0-35.0); MEAN CORPUSCULAR VOLUME 81.2 fL (80.0-100.0); MEAN PLATELET VOLUME 8.6 fL (7.4-11.0); MONOCYTES # (AUTO) 0.5 x10^3/uL (0.3-0.8); MONOCYTES % (AUTO) 6.2 % (0.0-13.0); NEUTROPHILS # (AUTO) 4.2 x10^3/uL (2.2-4.8); NEUTROPHILS % (AUTO) 57.3 % (42.0-75.0); PLATELET COUNT 211 X10^3/uL (150.0-450.0); RED BLOOD COUNT 4.48 X10^6/uL (4.7-6.0); RED CELL DISTRIBUTION WIDTH 16.4 % (11.6-16.5); WHITE BLOOD COUNT 7.3 X10^3/uL (3.6-10.0)
[2020-08-06] MEDS: TORADOL 30 MG VIAL IVP PRN ×2 (06:12→17:43)
[2020-08-06] MEDS ORDERED: NS 1/2 1000 ML IV 1,000 ML IV ONE (06:19)
[2020-08-06 06:23] LABS: ALANINE AMINOTRANSFERASE 56 Units/L (12-78); ALBUMIN 2.9 g/dL (3.4-5.0); ALKALINE PHOSPHATASE 78 Units/L (46-116); ASPARTATE AMINO TRANSFERASE 79 Units/L (15-37); BLOOD UREA NITROGEN 11 mg/dL (7-18); CALCIUM 8.6 mg/dL (8.5-10.1); CARBON DIOXIDE 27.6 mmol/L (21-32); CHLORIDE 102 mmol/L (98-107); COR CA(FOR HYPOALB) 9.5 mg/dL (8.5-10.1); CREATININE 0.91 mg/dL (0.70-1.30); SODIUM 138 mmol/L (136-145); TOTAL PROTEIN 7.4 g/dL (6.4-8.2); eGFR NON BLACK RACES > 60 (>60)
[2020-08-06] MEDS: CELEBREX PO SCH (09:20)
[2020-08-06] MEDS: ASPIRIN EC 81 MG PO SCH (09:20)
[2020-08-06] MEDS: LOVENOX INJ 40 MG SYR SC SCH (09:22)
[2020-08-06] MEDS: LEVAQUIN PREMIX IV 750 MG 750 MG/150 ML BAG IV SCH (09:22)
[2020-08-06] MEDS: NORVASC TAB 10 MG PO SCH (09:23)
[2020-08-06] MEDS: LYRICA CAP 150 mg PO SCH ×2 (09:23→20:42)
[2020-08-06] MEDS: ROBITUSSIN DM PO SCH ×4 (09:23→20:41)
[2020-08-06] MEDS: DUONEB 0.5 MG/3 MG (3 mL) NEB SCH ×4 (09:30→21:27)
[2020-08-06] MEDS: NS 1/2 1000 ML IV 1,000 ML IV SCH ×2 (09:40→15:00)
--- NOTE | 2020-08-06 10:43 | RAD ---
HISTORYLeft knee pain is result of a fallSTUDYKNEE, AP/LAT LEFTCOMPARISONNoneFINDINGSPatient is status post left total knee replacement. Both the femoral and tibial components of the prosthesis appear well seated with no radiographic evidence of loosening. No acute bony abnormality or significant knee joint effusion is seen on this exam.IMPRESSIONStatus post left total knee replacement. No hardware complications or acute abnormality is seen on this study.Electronically signed by: JERE ANDERSON (Aug 06, 2020 10:41:33)
--- NOTE | 2020-08-06 11:02 | RAD ---
HISTORYRight knee pain is result of a fallSTUDYKNEE, AP/LAT RIGHTCOMPARISONNoneFINDINGSThere is narrowing of the medial femoral compartment. Spurring of the tibial spines and posterior aspect of patella is seen. However no acute bony abnormality or significant knee joint effusion is present on this exam.IMPRESSIONDegenerative changes are noted in the right knee as described above. No acute abnormality is seen however.Electronically signed by: JERE ANDERSON (Aug 06, 2020 11:00:20)
--- NOTE | 2020-08-06 15:06 | RAD ---
HISTORYS/P FALL TODAY, RIGHT WRIST PAIN CAD, HTN, ANGIO/STENTS, ORTHO, BENIGN BRAIN TUMORSTUDYWRIST, RIGHTCOMPARISONNoneFINDINGSNo evidence for acute cortical disruption or dislocation can be identified. The carpal bones appear well aligned. The visualized portions of the distal radius and ulna are unremarkable. No significant soft tissue abnormality can be identified.IMPRESSIONNegative examElectronically signed by: YANET AZEVEDO (Aug 06, 2020 15:04:37)
--- NOTE | 2020-08-06 15:24 | RAD ---
HISTORYS/P FALL TODAY, LEFT WRIST PAIN CAD, HTN, ANGIO/STENTS, ORTHO, BENIGN BRAIN TUMORSTUDYWRIST, LEFTCOMPARISONNoneFINDINGSThere is a surgical fixation plate along the distal radius. There is a well corticated bony fragment distal to the ulna. The carpal bones are intact and in good position. There is moderate narrowing along the base of the thumb with prominent osteophytes throughout. No fracture or dislocation is seen.IMPRESSIONPostop changes along the distal radius with no acute fracture.Old unfused fracture along the styloid process of the ulna.Moderate osteoarthritic changes along the base of the thumbElectronically signed by: YANET AZEVEDO (Aug 06, 2020 15:23:29)
[2020-08-06] MEDS: XANAX PO PRN (20:42)
[2020-08-06] MEDS: AMBIEN PO PRN (20:42)
[2020-08-06] MEDS: ZESTORETIC 20/25 MG PO SCH (20:42)
[2020-08-07] MEDS: NORCO 10/325 TAB PO PRN ×2 (01:15→21:18)
[2020-08-07] MEDS ORDERED: NS 1/2 1000 ML IV 1,000 ML IV ONE (03:00)
[2020-08-07] MEDS: NS 1/2 1000 ML IV 1,000 ML IV SCH ×2 (04:36→06:02)
[2020-08-07 06:15] LABS: BASOPHILS % (AUTO) 0.4 % (0.2-1.0); EOSINOPHILS # (AUTO) 0.4 x10^3/uL (0.0-0.2); EOSINOPHILS % (AUTO) 4.6 % (0.9-2.9); HEMATOCRIT 37.3 % (42.0-54.0); HEMOGLOBIN 12.1 g/dL (13.5-18.0); LYMPHOCYTES % (AUTO) 25.6 % (21.0-51.0); MEAN CORPUSCULAR HEMOGLOBIN 26.4 pg (27.0-34.0); MEAN CORPUSCULAR HGB CONC 32.6 g/dL (33.0-35.0); MEAN CORPUSCULAR VOLUME 81.2 fL (80.0-100.0); MEAN PLATELET VOLUME 8.5 fL (7.4-11.0); MONOCYTES # (AUTO) 0.5 x10^3/uL (0.3-0.8); NEUTROPHILS % (AUTO) 63.4 % (42.0-75.0); PLATELET COUNT 221 X10^3/uL (150.0-450.0); RED BLOOD COUNT 4.59 X10^6/uL (4.7-6.0); RED CELL DISTRIBUTION WIDTH 16.3 % (11.6-16.5); WHITE BLOOD COUNT 7.8 X10^3/uL (3.6-10.0)
[2020-08-07] MEDS: TORADOL 30 MG VIAL IVP PRN ×3 (06:20→21:18)
[2020-08-07 06:31] LABS: ALANINE AMINOTRANSFERASE 76 Units/L (12-78); ALKALINE PHOSPHATASE 80 Units/L (46-116); ASPARTATE AMINO TRANSFERASE 72 Units/L (15-37); BLOOD UREA NITROGEN 16 mg/dL (7-18); CALCIUM 8.8 mg/dL (8.5-10.1); CHLORIDE 102 mmol/L (98-107); COR CA(FOR HYPOALB) 9.6 mg/dL (8.5-10.1); CREATININE 0.93 mg/dL (0.70-1.30); SODIUM 137 mmol/L (136-145); TOTAL PROTEIN 7.4 g/dL (6.4-8.2); eGFR NON BLACK RACES > 60 (>60)
[2020-08-07 06:42] LABS: CARBON DIOXIDE 25.7 mmol/L (21-32)
--- NOTE | 2020-08-07 06:49 | RAD ---
HISTORYCough and feverSTUDYChest PA and lateral [id number]/08/2020FINDINGSHeart size is upper normal. The lungs are symmetrically inflated and clear of infiltrates. No evidence for pulmonary edema, pneumonia or pleural effusion.IMPRESSIONNo acute chest abnormality demonstrated.Electronically signed by: RICKIE RIOS (Aug 07, 2020 06:47:53)
[2020-08-07] MEDS: ASPIRIN EC 81 MG PO SCH (08:12)
[2020-08-07] MEDS: LOVENOX INJ 40 MG SYR SC SCH (08:13)
[2020-08-07] MEDS: LEVAQUIN PREMIX IV 750 MG 750 MG/150 ML BAG IV SCH (08:13)
[2020-08-07] MEDS: CELEBREX PO SCH (08:13)
[2020-08-07] MEDS: ROBITUSSIN DM PO SCH ×4 (08:14→21:12)
[2020-08-07] MEDS: LYRICA CAP 150 mg PO SCH ×2 (08:14→21:12)
[2020-08-07] MEDS: NORVASC TAB 10 MG PO SCH (08:14)
[2020-08-07] MEDS: DUONEB 0.5 MG/3 MG (3 mL) NEB SCH ×4 (09:45→20:50)
--- NOTE | 2020-08-07 11:33 | PCM.PROG ---
Progress Note Progress Note for Day of Date of Exam: 08/07/20 Subjective Subjective: Patient seen at bedside, no overnight events. Patient is currently admitted for Klebsiella pneumonia. He was being discharged yesterday but had a fall so was kept overnight. He states he is feeling better this morning. He had fell on his arm and elbow. He states his breathing is better. He is currently on 2L nasal canula. He does not use O2 at home. He has a hx of CAD s/p PCI 2 years ago. He was also noted to have bradycardia while sleeping this morning, HR in high 30s-40s. Patient denies Sx. He likely has underlying LANE. Labs: WBC 7.8 Hgb 12.1 Knee and wrist XRs: all negative for acute fracture, did show OA and DDD changes Plan: walk test was done by Resp to evaluate for home o2 and patient was noted to be 87-88% while resting on room air. Unable to set up home oxygen over the weekend. Will continue with current treatment for pneumonia. IV levaquin, duonebs and IS. Wean O2 as tolerated to keep sats > 92%. Past Medical Family Social History Past Med/Fam/Surg Hx: No changes since H&P Allergies: Allergies No Known Drug Allergies Allergy (Verified 08/03/20 18:43) Review of Systems ROS: No change since H&P Vital Signs and I&O's Vital Signs: Temperature 98.4 F Pulse Rate [Right Brachial] 51 Pulse Rate 54 Respiratory Rate 18 Blood Pressure [Right Arm] 101/55 Blood Pressure [Left Arm] 116/70 Blood Pressure 136/75 O2 Sat by Pulse Oximetry 92 Intake and Output: Intake & Output 08/04/20 08/05/20 08/06/20 08/07/20 23:59 23:59 23:59 23:59 Intake Total 2730 / 2730 1919 / 1920 3025 / 3025 477 / 477 Balance 2730 / 2730 1919 / 0 3025 / 3025 477 / 477 Physical Exam Oriented: Normal Eyes: Normal Ear: Normal Throat: Normal Respiratory: Generalized and Diminished Cardiovascular: Normal Auscultation: Bowel Sounds: Normal Tenderness: Normal Skin: Normal Musculoskeletal: Arm, Elbow and Wrist Psychiatric: Normal Mood Description: Calm Affect: Normal Speech Pattern: Clear and Appropriate Laboratory and Diagnostics Result Diagrams: 08/07/20 05:43 08/07/20 05:43 Labs: 08/04/20 09:49 Sputum - Expectorated Sputum Sputum Culture - Final Klebsiella Pneumoniae 08/04/20 09:49 Sputum - Expectorated Sputum - Final Laboratory WBC 7.8 X10^3/uL (3.6-10.0) 08/07/20 05:43 RBC 4.59 X10^6/uL (4.7-6.0) L 08/07/20 05:43 Hgb 12.1 g/dL (13.5-18.0) L 08/07/20 05:43 Hct 37.3 % (42.0-54.0) L 08/07/20 05:43 MCV 81.2 fL (80.0-100.0) 08/07/20 05:43 MCH 26.4 pg (27.0-34.0) L 08/07/20 05:43 MCHC 32.6 g/dL (33.0-35.0) L 08/07/20 05:43 RDW 16.3 % (11.6-16.5) 08/07/20 05:43 Plt Count 221 X10^3/uL (150.0-450.0) 08/07/20 05:43 MPV 8.5 fL (7.4-11.0) 08/07/20 05:43 Neut % (Auto) 63.4 % (42.0-75.0) 08/07/20 05:43 Lymph % (Auto) 25.6 % (21.0-51.0) 08/07/20 05:43 [place] % (Auto) 6.0 % (0.0-13.0) 08/07/20 05:43 Eos % (Auto) 4.6 % (0.9-2.9) H 08/07/20 05:43 Baso % (Auto) 0.4 % (0.2-1.0) 08/07/20 05:43 Neut # (Auto) 5.0 x10^3/uL (2.2-4.8) H 08/07/20 05:43 Lymph # (Auto) 2.0 X10^3/uL (1.3-2.9) 08/07/20 05:43 [place] # (Auto) 0.5 x10^3/uL (0.3-0.8) 08/07/20 05:43 Eos # (Auto) 0.4 x10^3/uL (0.0-0.2) H 08/07/20 05:43 Baso # (Auto) 0.0 X10^3/uL (0.0-0.1) 08/07/20 05:43 Absolute Nucleated RBC 0.0 /100WBC 08/07/20 05:43 D-Dimer 0.42 ug/ml (0.0-0.57) 08/04/20 05:39 Sample Site Lr 08/04/20 10:40 ABG pH 7.450 (7.35-7.45) 08/04/20 10:40 ABG pCO2 43.0 mmHg (35.0-45.0) 08/04/20 10:40 ABG pO2 59.0 mmHg (80.0-100.0) L 08/04/20 10:40 ABG HCO3 29.9 mmol/L (22-26) H 08/04/20 10:40 ABG O2 Saturation 91.0 % (90-100) 08/04/20 10:40 ABG Base Excess 5.3 mmol/L (-2.0-2.0) H 08/04/20 10:40 Mauro Test Pos 08/04/20 10:40 A-a Gradient 37.0 mmHg 08/04/20 10:40 FiO2 21.0 08/04/20 10:40 Blood Gas Comments Deidre well cb 08/04/20 10:40 Sodium 137 mmol/L (136-145) 08/07/20 05:43 Corrected Sodium TNP 08/07/20 05:43 Potassium 3.8 mmol/L (3.5-5.1) 08/07/20 05:43 Chloride 102 mmol/L (98-107) 08/07/20 05:43 Carbon Dioxide 25.7 mmol/L (21-32) 08/07/20 05:43 BUN 16 mg/dL (7-18) 08/07/20 05:43 Creatinine 0.93 mg/dL (0.70-1.30) 08/07/20 05:43 Est GFR (MDRD) Af Amer > 60 (>60) 08/07/20 05:43 Est GFR (MDRD) Non-Af > 60 (>60) 08/07/20 05:43 Glucose 90 mg/dL (65-99) 08/07/20 05:43 Calcium 8.8 mg/dL (8.5-10.1) 08/07/20 05:43 Corrected Calcium 9.6 mg/dL (8.5-10.1) 08/07/20 05:43 Magnesium 2.3 mg/dL (1.7-2.9) 08/04/20 05:39 Total Bilirubin 0.40 mg/dL (0.2-1.0) 08/07/20 05:43 AST 72 Units/L (15-37) H 08/07/20 05:43 ALT 76 Units/L (12-78) 08/07/20 05:43 Alkaline Phosphatase 80 Units/L (46-116) 08/07/20 05:43 Creatine Kinase 68 Units/L (39-308) 08/04/20 02:01 CK-MB (CK-2) < 1.0 ng/mL (0-4.0) 08/04/20 02:01 CK/CKMB % Calc 1.5 % (<4) 08/04/20 02:01 Troponin I < 0.02 ng/mL (0-1.5) 08/04/20 02:01 C-Reactive Protein 6.00 mg/L (0-3.0) H 08/07/20 05:43 Total Protein 7.4 g/dL (6.4-8.2) 08/07/20 05:43 Albumin 3.0 g/dL (3.4-5.0) L 08/07/20 05:43 Globulin 4.4 g/dL (2.5-4.5) 08/07/20 05:43 Albumin/Globulin Ratio 0.7 Ratio (1.1-2.1) L 08/07/20 05:43 Influenza Type A (PCR) Negative (NEGATIVE) 08/04/20 11:38 Influenza Type B (PCR) Negative (NEGATIVE) 08/04/20 11:38 SARS CoV-2 RNA Rapid FAHEEM Negative (NEGATIVE) 08/03/20 16:30 Plan (1) Community acquired bacterial pneumonia: Status: Acute (2) Klebsiella pneumonia: Status: Acute Qualifiers: Laterality: unspecified laterality Lung location: unspecified part of lung Qualified Code(s): J15.0 - Pneumonia due to Klebsiella pneumoniae (3) Acute respiratory failure with hypoxia: Status: Acute (4) Bradycardia: Status: Acute (5) Fall: Status: Acute Qualifiers: Encounter type: subsequent encounter Qualified Code(s): W19.XXXD - Unspecified fall, subsequent encounter (6) CAD (coronary artery disease): Status: Chronic Qualifiers: Associated angina: with other forms of angina Coronary Disease- Associated Artery/Lesion type: [place] artery [place] vs. transplanted heart: [place] heart Qualified Code(s): I25.118 - Atherosclerotic heart disease of [place] coronary artery with other forms of angina pectoris (7) Hypertension: Status: Chronic Qualifiers: Hypertension type: essential hypertension Qualified Code(s): I10 - Essential (primary) hypertension (8) S/P coronary artery stent placement: Status: Chronic (9) Arthritis: Status: Chronic (10) GERD (gastroesophageal reflux disease): Status: Chronic Qualifiers: Esophagitis presence: esophagitis presence not specified Qualified Code(s): K21.9 - Gastro-esophageal reflux disease without esophagitis (11) Hyperlipidemia: Status: Chronic Qualifiers: Hyperlipidemia type: mixed hyperlipidemia Qualified Code(s): E78.2 - Mixed hyperlipidemia
[2020-08-07] MEDS: XANAX PO PRN (21:13)
[2020-08-07] MEDS: ZESTORETIC 20/25 MG PO SCH (21:13)
[2020-08-08] MEDS ORDERED: NS 1/2 1000 ML IV 1,000 ML IV ONE (01:11)
[2020-08-08] MEDS: NS 1/2 1000 ML IV 1,000 ML IV SCH ×2 (01:20→07:12)
[2020-08-08] MEDS: TORADOL 30 MG VIAL IVP PRN ×3 (01:45→20:28)
[2020-08-08] MEDS: NORCO 10/325 TAB PO PRN ×3 (05:42→23:15)
[2020-08-08 06:11] LABS: BASOPHILS % (AUTO) 0.4 % (0.2-1.0); EOSINOPHILS # (AUTO) 0.1 x10^3/uL (0.0-0.2); EOSINOPHILS % (AUTO) 1.8 % (0.9-2.9); HEMATOCRIT 36.7 % (42.0-54.0); LYMPHOCYTES # (AUTO) 2.5 X10^3/uL (1.3-2.9); LYMPHOCYTES % (AUTO) 30.8 % (21.0-51.0); MEAN CORPUSCULAR HEMOGLOBIN 26.2 pg (27.0-34.0); MEAN CORPUSCULAR HGB CONC 32.7 g/dL (33.0-35.0); MEAN CORPUSCULAR VOLUME 80.2 fL (80.0-100.0); MEAN PLATELET VOLUME 8.4 fL (7.4-11.0); MONOCYTES # (AUTO) 0.4 x10^3/uL (0.3-0.8); MONOCYTES % (AUTO) 5.2 % (0.0-13.0); NEUTROPHILS # (AUTO) 4.9 x10^3/uL (2.2-4.8); NEUTROPHILS % (AUTO) 61.8 % (42.0-75.0); PLATELET COUNT 217 X10^3/uL (150.0-450.0); RED BLOOD COUNT 4.57 X10^6/uL (4.7-6.0); RED CELL DISTRIBUTION WIDTH 16.6 % (11.6-16.5)
[2020-08-08 06:25] LABS: ALANINE AMINOTRANSFERASE 66 Units/L (12-78); ALKALINE PHOSPHATASE 75 Units/L (46-116); ASPARTATE AMINO TRANSFERASE 64 Units/L (15-37); BLOOD UREA NITROGEN 16 mg/dL (7-18); CARBON DIOXIDE 26.8 mmol/L (21-32); CHLORIDE 102 mmol/L (98-107); COR CA(FOR HYPOALB) 9.8 mg/dL (8.5-10.1); CREATININE 0.99 mg/dL (0.70-1.30); SODIUM 139 mmol/L (136-145); TOTAL PROTEIN 7.3 g/dL (6.4-8.2); eGFR NON BLACK RACES > 60 (>60)
[2020-08-08] MEDS: CELEBREX PO SCH (08:21)
[2020-08-08] MEDS: ASPIRIN EC 81 MG PO SCH (08:21)
[2020-08-08] MEDS: LOVENOX INJ 40 MG SYR SC SCH (08:21)
[2020-08-08] MEDS: LEVAQUIN PREMIX IV 750 MG 750 MG/150 ML BAG IV SCH (08:21)
[2020-08-08] MEDS: NORVASC TAB 10 MG PO SCH (08:22)
[2020-08-08] MEDS: LYRICA CAP 150 mg PO SCH ×2 (08:22→20:29)
[2020-08-08] MEDS: ROBITUSSIN DM PO SCH ×4 (08:22→20:28)
[2020-08-08] MEDS: K-DUR TAB 20 MEQ PO PRN (08:24)
[2020-08-08] MEDS: DUONEB 0.5 MG/3 MG (3 mL) NEB SCH ×4 (09:45→20:20)
--- NOTE | 2020-08-08 12:19 | PCM.PROG ---
Progress Note Progress Note for Day of Date of Exam: 08/08/20 Subjective Subjective: Patient seen at bedside, no overnight events. Patient is currently admitted for Klebsiella pneumonia. He states he feels better. He still gets short of breath with exertion. He is currently using 2L NC. He had the walk test evaluation yesterday for home oxygen eval and was noted to be 87% on RA at rest. He states his dyspnea on exertion has been worsening gradually. He has a hx of CAD s/p PCI 2 years ago. He has not seen a chief analytics officer for the past year. He was also noted to have low HR while sleeping. He has never had a sleep study. Patient also states his back has been hurting a lot more since he has been admitted. He did have a fall couple days ago. Labs: WBC 8 Hgb 12 K: 3.3 CRP 9 Knee and wrist XRs: all negative for acute fracture, did show OA and DDD changes Plan: will order lumbar XR. ECHO for tomorrow due to dyspnea on exertion to eval LV function. Continue Levaquin. Continue Duonebs. Replace K. Follow up AM labs. CM to work on home oxygen set up tomorrow. Past Medical Family Social History Past Med/Fam/Surg Hx: No changes since H&P Allergies: Allergies No Known Drug Allergies Allergy (Verified 08/03/20 18:43) Review of Systems ROS: No change since H&P Vital Signs and I&O's Vital Signs: Temperature 98.3 F Pulse Rate [Right Brachial] 70 Pulse Rate 56 Respiratory Rate 20 Blood Pressure [Right Arm] 162/85 Blood Pressure [Left Arm] 116/70 Blood Pressure 136/75 O2 Sat by Pulse Oximetry 96 Intake and Output: Intake & Output 08/05/20 08/06/20 08/07/20 08/08/20 23:59 23:59 23:59 23:59 Intake Total 1919 3025 / 3025 2658 / 2658 629 / 629 Balance 1919 3025 / 3025 2658 / 2658 629 / 629 Physical Exam Oriented: Normal Eyes: Normal Ear: Normal Throat: Normal Respiratory: Generalized and Diminished Cardiovascular: Normal Auscultation: Bowel Sounds: Normal Tenderness: Normal Skin: Normal Musculoskeletal: Arm, Elbow and Wrist Psychiatric: Normal Mood Description: Calm Affect: Normal Speech Pattern: Clear and Appropriate Laboratory and Diagnostics Result Diagrams: 08/08/20 05:59 08/08/20 05:59 Labs: 08/04/20 09:49 Sputum - Expectorated Sputum Sputum Culture - Final Klebsiella Pneumoniae 08/04/20 09:49 Sputum - Expectorated Sputum - Final Laboratory WBC 8.0 X10^3/uL (3.6-10.0) 08/08/20 05:59 RBC 4.57 X10^6/uL (4.7-6.0) L 08/08/20 05:59 Hgb 12.0 g/dL (13.5-18.0) L 08/08/20 05:59 Hct 36.7 % (42.0-54.0) L 08/08/20 05:59 MCV 80.2 fL (80.0-100.0) 08/08/20 05:59 MCH 26.2 pg (27.0-34.0) L 08/08/20 05:59 MCHC 32.7 g/dL (33.0-35.0) L 08/08/20 05:59 RDW 16.6 % (11.6-16.5) H 08/08/20 05:59 Plt Count 217 X10^3/uL (150.0-450.0) 08/08/20 05:59 MPV 8.4 fL (7.4-11.0) 08/08/20 05:59 Neut % (Auto) 61.8 % (42.0-75.0) 08/08/20 05:59 Lymph % (Auto) 30.8 % (21.0-51.0) 08/08/20 05:59 [place] % (Auto) 5.2 % (0.0-13.0) 08/08/20 05:59 Eos % (Auto) 1.8 % (0.9-2.9) 08/08/20 05:59 Baso % (Auto) 0.4 % (0.2-1.0) 08/08/20 05:59 Neut # (Auto) 4.9 x10^3/uL (2.2-4.8) H 08/08/20 05:59 Lymph # (Auto) 2.5 X10^3/uL (1.3-2.9) 08/08/20 05:59 [place] # (Auto) 0.4 x10^3/uL (0.3-0.8) 08/08/20 05:59 Eos # (Auto) 0.1 x10^3/uL (0.0-0.2) 08/08/20 05:59 Baso # (Auto) 0.0 X10^3/uL (0.0-0.1) 08/08/20 05:59 Absolute Nucleated RBC 0.1 /100WBC 08/08/20 05:59 D-Dimer 0.42 ug/ml (0.0-0.57) 08/04/20 05:39 Sample Site Lr 08/04/20 10:40 ABG pH 7.450 (7.35-7.45) 08/04/20 10:40 ABG pCO2 43.0 mmHg (35.0-45.0) 08/04/20 10:40 ABG pO2 59.0 mmHg (80.0-100.0) L 08/04/20 10:40 ABG HCO3 29.9 mmol/L (22-26) H 08/04/20 10:40 ABG O2 Saturation 91.0 % (90-100) 08/04/20 10:40 ABG Base Excess 5.3 mmol/L (-2.0-2.0) H 08/04/20 10:40 Mauro Test Pos 08/04/20 10:40 A-a Gradient 37.0 mmHg 08/04/20 10:40 FiO2 21.0 08/04/20 10:40 Blood Gas Comments Deidre well cb 08/04/20 10:40 Sodium 139 mmol/L (136-145) 08/08/20 05:59 Corrected Sodium TNP 08/08/20 05:59 Potassium 3.3 mmol/L (3.5-5.1) L 08/08/20 05:59 Chloride 102 mmol/L (98-107) 08/08/20 05:59 Carbon Dioxide 26.8 mmol/L (21-32) 08/08/20 05:59 BUN 16 mg/dL (7-18) 08/08/20 05:59 Creatinine 0.99 mg/dL (0.70-1.30) 08/08/20 05:59 Est GFR (MDRD) Af Amer > 60 (>60) 08/08/20 05:59 Est GFR (MDRD) Non-Af > 60 (>60) 08/08/20 05:59 Glucose 93 mg/dL (65-99) 08/08/20 05:59 Calcium 9.0 mg/dL (8.5-10.1) 08/08/20 05:59 Corrected Calcium 9.8 mg/dL (8.5-10.1) 08/08/20 05:59 Magnesium 2.3 mg/dL (1.7-2.9) 08/04/20 05:39 Total Bilirubin 0.60 mg/dL (0.2-1.0) 08/08/20 05:59 AST 64 Units/L (15-37) H 08/08/20 05:59 ALT 66 Units/L (12-78) 08/08/20 05:59 Alkaline Phosphatase 75 Units/L (46-116) 08/08/20 05:59 Creatine Kinase 68 Units/L (39-308) 08/04/20 02:01 CK-MB (CK-2) < 1.0 ng/mL (0-4.0) 08/04/20 02:01 CK/CKMB % Calc 1.5 % (<4) 08/04/20 02:01 Troponin I < 0.02 ng/mL (0-1.5) 08/04/20 02:01 C-Reactive Protein 9.00 mg/L (0-3.0) H 08/08/20 05:59 Total Protein 7.3 g/dL (6.4-8.2) 08/08/20 05:59 Albumin 3.0 g/dL (3.4-5.0) L 08/08/20 05:59 Globulin 4.3 g/dL (2.5-4.5) 08/08/20 05:59 Albumin/Globulin Ratio 0.7 Ratio (1.1-2.1) L 08/08/20 05:59 Influenza Type A (PCR) Negative (NEGATIVE) 08/04/20 11:38 Influenza Type B (PCR) Negative (NEGATIVE) 08/04/20 11:38 SARS CoV-2 RNA Rapid FAHEEM Negative (NEGATIVE) 08/03/20 16:30 Plan (1) Community acquired bacterial pneumonia: Status: Acute (2) Klebsiella pneumonia: Status: Acute Qualifiers: Laterality: unspecified laterality Lung location: unspecified part of lung Qualified Code(s): J15.0 - Pneumonia due to Klebsiella pneumoniae (3) Acute respiratory failure with hypoxia: Status: Acute (4) Bradycardia: Status: Acute (5) Fall: Status: Acute Qualifiers: Encounter type: subsequent encounter Qualified Code(s): W19.XXXD - Unspecified fall, subsequent encounter (6) CAD (coronary artery disease): Status: Chronic Qualifiers: Associated angina: with other forms of angina Coronary Disease- Associated Artery/Lesion type: [place] artery [place] vs. transplanted heart: [place] heart Qualified Code(s): I25.118 - Atherosclerotic heart disease of [place] coronary artery with other forms of angina pectoris (7) Hypertension: Status: Chronic Qualifiers: Hypertension type: essential hypertension Qualified Code(s): I10 - Essential (primary) hypertension (8) S/P coronary artery stent placement: Status: Chronic (9) Arthritis: Status: Chronic (10) GERD (gastroesophageal reflux disease): Status: Chronic Qualifiers: Esophagitis presence: esophagitis presence not specified Qualified Code(s): K21.9 - Gastro-esophageal reflux disease without esophagitis (11) Hyperlipidemia: Status: Chronic Qualifiers: Hyperlipidemia type: mixed hyperlipidemia Qualified Code(s): E78.2 - Mixed hyperlipidemia (12) Dyspnea on exertion: Status: Acute (13) Hypokalemia: Status: Acute
--- NOTE | 2020-08-08 14:13 | RAD ---
HISTORYCHRONIC BACK PAIN HTN, CAD, ANGINA SX: CORONARY ARTERY STENT PLACEMENTSTUDYLUMBAR SPINE, COMPLETECOMPARISONNone.FINDINGSStudy limited due to body habitus. 5 tdt-flp-amdogax lumbar type vertebrae. Alignment maintained. Incompletely bridging osteophytosis at L2-3 and L3-4. Disc space narrowing with osteophytosis L4-5. Degenerative facet changes in lower lumbar spine no acute compression fracture. Limited assessment pars interarticularis.IMPRESSIONDegenerative changes. No definite fracture.Electronically signed by: Michael Marks (Aug 08, 2020 14:12:08)
[2020-08-08] MEDS: ZESTORETIC 20/25 MG PO SCH (20:29)
[2020-08-08] MEDS: AMBIEN PO PRN (20:30)
[2020-08-09] MEDS: TORADOL 30 MG VIAL IVP PRN (04:25)
[2020-08-09] MEDS: NORCO 10/325 TAB PO PRN ×2 (04:25→09:44)
[2020-08-09 06:12] LABS: BASOPHILS # (AUTO) 0.1 X10^3/uL (0.0-0.1); BASOPHILS % (AUTO) 0.7 % (0.2-1.0); EOSINOPHILS # (AUTO) 0.4 x10^3/uL (0.0-0.2); EOSINOPHILS % (AUTO) 5.1 % (0.9-2.9); HEMOGLOBIN 12.4 g/dL (13.5-18.0); LYMPHOCYTES # (AUTO) 2.1 X10^3/uL (1.3-2.9); LYMPHOCYTES % (AUTO) 27.1 % (21.0-51.0); MEAN CORPUSCULAR HEMOGLOBIN 26.3 pg (27.0-34.0); MEAN CORPUSCULAR HGB CONC 32.6 g/dL (33.0-35.0); MEAN CORPUSCULAR VOLUME 80.6 fL (80.0-100.0); MEAN PLATELET VOLUME 8.5 fL (7.4-11.0); MONOCYTES # (AUTO) 0.5 x10^3/uL (0.3-0.8); NEUTROPHILS # (AUTO) 4.6 x10^3/uL (2.2-4.8); NEUTROPHILS % (AUTO) 60.1 % (42.0-75.0); PLATELET COUNT 224 X10^3/uL (150.0-450.0); RED BLOOD COUNT 4.72 X10^6/uL (4.7-6.0); RED CELL DISTRIBUTION WIDTH 16.5 % (11.6-16.5); WHITE BLOOD COUNT 7.7 X10^3/uL (3.6-10.0)
[2020-08-09 06:29] LABS: ALANINE AMINOTRANSFERASE 98 Units/L (12-78); ALBUMIN 3.1 g/dL (3.4-5.0); ALKALINE PHOSPHATASE 78 Units/L (46-116); ASPARTATE AMINO TRANSFERASE 125 Units/L (15-37); BLOOD UREA NITROGEN 17 mg/dL (7-18); CHLORIDE 101 mmol/L (98-107); COR CA(FOR HYPOALB) 9.7 mg/dL (8.5-10.1); MAGNESIUM 1.9 mg/dL (1.7-2.9); SODIUM 137 mmol/L (136-145); TOTAL PROTEIN 7.6 g/dL (6.4-8.2); eGFR NON BLACK RACES > 60 (>60)
[2020-08-09 06:34] LABS: CARBON DIOXIDE 26.9 mmol/L (21-32)
--- NOTE | 2020-08-09 07:51 | RAD ---
HISTORYSOBSTUDYCHEST, 1 VIEWCOMPARISONAP chest August 07, 2020.FINDINGSThe trachea is midline. The cardiac silhouette is unremarkable . The lungs are clear without focal infiltrate or effusion. The bony thorax is unremarkable.IMPRESSIONNo acute cardiopulmonary disease and no significant change compared to the prior film August 07, 2020..Electronically signed by: PRASHANT LOPEZ (Aug 09, 2020 07:50:18)
[2020-08-09] MEDS: ASPIRIN EC 81 MG PO SCH (08:54)
[2020-08-09] MEDS: CELEBREX PO SCH (08:55)
[2020-08-09] MEDS: LEVAQUIN PREMIX IV 750 MG 750 MG/150 ML BAG IV SCH (08:55)
[2020-08-09] MEDS: LYRICA CAP 150 mg PO SCH (08:55)
[2020-08-09] MEDS: ROBITUSSIN DM PO SCH (08:56)
[2020-08-09] MEDS: NORVASC TAB 10 MG PO SCH (08:56)
[2020-08-09] MEDS: LOVENOX INJ 40 MG SYR SC SCH (09:42)
[2020-08-09] MEDS: DUONEB 0.5 MG/3 MG (3 mL) NEB SCH (10:00)
[2020-08-09 11:21] LABS: BILIRUBIN,URINE NEGATIVE (NEGATIVE); BLOOD/HEMOGLOBIN,URINE NEGATIVE (NEGATIVE); GLUCOSE, URINE NEGATIVE (NEGATIVE); KETONES,URINE NEGATIVE (NEGATIVE); LEUKOCYTE ESTERASE ,URINE NEGATIVE (NEGATIVE); NITRITES,URINE NEGATIVE (NEGATIVE); PROTEIN,URINE NEGATIVE (NEGATIVE); UROBILINOGEN,URINE NORMAL (NORMAL)
[2020-08-09 11:24] LABS: APPEARANCE,URINE CLEAR (CLEAR); COLOR,URINE DARK YELLOW (YELLOW)
[2020-08-09 12:12] VITALS: BP 111/66
== END 2020-08-09 13:45 | disposition home or self-care (01) ==
LOC: OBS → MED/SURG 17:53
PROVIDERS: ADMIT Internal Medicine; ATTEND Internal Medicine
DX: M25.561 Pain in right knee; W18.39XA Other fall on same level, initial encounter; Z95.5 Presence of coronary angioplasty implant and graft; Y92.239 Unspecified place in hospital as the place of occurrence of the external cause; R79.82 Elevated C-reactive protein (CRP); M25.532 Pain in left wrist; J96.01 Acute respiratory failure with hypoxia; R94.31 Abnormal electrocardiogram [ECG] [EKG]; I10 Essential (primary) hypertension; R26.89 Other abnormalities of gait and mobility; Z20.828 Contact with and (suspected) exposure to other viral communicable diseases; E87.6 Hypokalemia; M19.90 Unspecified osteoarthritis, unspecified site; J15.0 Pneumonia due to Klebsiella pneumoniae; M25.562 Pain in left knee; M25.531 Pain in right wrist; E78.2 Mixed hyperlipidemia; I25.118 Atherosclerotic heart disease of native coronary artery with other forms of angina pectoris; K21.9 Gastro-esophageal reflux disease without esophagitis

== ENCOUNTER 2020-12-15 15:17 | Inpatient (IN) ==
[2020-12-15 15:47] LABS: ABG BASE EXCESS 4.2 mmol/L (-2.0-2.0); ABG HCO3 27.3 mmol/L (22-26)
[2020-12-15] MEDS ORDERED: XOPENEX 1.25 MG/3 ML NEBULE NEB ONE ×3 (15:51→20:55)
--- NOTE | 2020-12-15 16:00 | DR.SOBA ---
HPI Time Seen Time Seen by Provider: 12/15/20 15:38 Primary Care Physician Primary Care Physician: Elmo HPI Comment HPI Comment: A 50 y/o male presents with few days of fever, chills and sweats. Other symptoms include SOB, cough (mixed dry or productive) and generalized weakness. He also hurts in his lower Rt. ribs with deep inspiration. He was tra nsferred from here to [facility] last month with pneumonia and since being home he has been going to scheduled Pulmonary rehab. He was at rehab. this morning. He had his 1st COVID-19 vaccine on 11/25/2020. Complaints Chief Complaint:: Pt c/o shortness of breath and pain to right side of chest with breathing. He reports history of pneumonia. He reports temp 101.3 this am. He took Tylenol at 1500. COVID-19 Coronavirus risk:travel/contact w/high risk person: No Has patient experienced Coronavirus symptoms: Yes Coronavirus symptoms experienced: Fever and Shortness of Breath Reviewed Nurses Notes Reviewed: Yes Source History Provided: Patient Mode of Arrival Mode of Arrival: Ambulatory Timing Onset of Chief Complaint: 12/13/20 PMH PMH Past Medical History: Yes Past Medical History: Anxiety, Coronary Artery Disease, Depression, Migraines, Hypertension and Kidney Stones Past Surgical History: Yes Surgical History: Angioplasty/Stents, Ortho Surgery and Lithotripsy Family History History of Family Medical Conditions: Yes Family Medical History: Diabetes Mellitus, Coronary Artery Disease and Hype rtension Social History Does patient currently use any type of tobacco product: No Have you used tobacco products in the last 12 months: No Does any household member use tobacco: No Alcohol Use: None Do you use any recreational Drugs:: No Lives With: Family Lives Where: Home Travel Risk Coronavirus risk:travel/contact w/high risk person: No Has patient experienced Coronavirus symptoms: Yes Coronavirus symptoms experienced: Fever and Shortness of Breath Infectious screening In the last 2 months have you had wt loss of >10#?: NO Have you had fever, night sweats or hemotysis?: No Have you traveled outside the country in the last 6 months?: No Isolation: Droplet ROS Review of Systems Constitutional: Chills, Diaphoresis, Fever and Weakness Eyes: No Symptoms Reported ENTM: No Symptoms Reported Respiratoy: Productive Cough, Non-Productive Cough, Short of Breath and Other (Rt. lower pleuritic pain) Cardiovascular: No Symptoms Reported Gastrointestinal/Abdominal: No Symptoms Reported Genitourinary: No Symptoms Reported Neurological: No Symptoms Reported Musculoskeletal: No Symptoms Reported Integumentary: No Symptoms Reported Hematologic/Lymphatic: No Symptoms Reported Endocrine: No Symptoms Reported Psychiatric: No Symptoms Reported PE Vital Signs Vitals: Temperature 99.0 F Pulse Rate [Left Radial] 109 Pulse Rate 108 Respiratory Rate 20 Blood Pressure [Right Arm] 110/69 Blood Pressure [Left Arm] 116/70 Blood Pressure 105/61 O2 Sat by Pulse Oximetry 91 General Limitations: No Limitations General Appearance: Alert and In No Apparent Distress Head Head Exam: Normal Inspection, Atraumatic and Normocephalic Eyes Eye exam: Normal Appearance, PERRL and EOMI ENT ENT Exam: Normal Exam, Normal Oropharynx, Normal External Ear Exam and Mucous Membranes Moist Neck Neck Exam: Normal Inspection, Full ROM and Trachea Midline Chest Chest Inspection: Normal Inspection and Symmetric Chest Wall Rise Respiratory Respiratory Exam: Normal Lung Sounds Bilat; negative Accessory Muscle Use, Chest Wall Tenderness, Prolonged Expiratory Phase, Respiratory Distress and Stridor Cardiovascular Cardiovascular Exam: Regular Rate, Normal Rhythm, Normal Heart Sounds, +S1 and +S2 Abdominal Exam Abdominal Exam: Normal Inspection, Normal Bowel Sounds and Soft Extremities Extremities Exam: Normal Inspection, Full ROM and Other (Healed, vertical incision over Rt. knee ) Back Back Exam: Normal Inspection and Full ROM Neurologic Neurological Exam: Alert and Oriented X3 Psychiatric Psychiatric Exam: Normal Affect and Normal Mood MDM Differential Diagnosis Differential Diagnosis: Anxiety, Bronchitis, CHF and Pneumonia COURSE Consultation Consultation Comments: Name: MAURICE CRONIN ANTHOAcct#: [id number]: [id number] : 1970Sex: MLocation: ER Order Number(s): [id number](s):CTA, CHEST Ordering Physician: LADI MEJIAS Primary Care: Josemanuel Borrego Service Date: 12/15/20 Service Time: 1706 HISTORY c/o shortness of breath and pain to right side of chest with breathing. He reports history of pneumonia. He reports temp 101.3 this am. He took Tylenol at 1500. STUDY CTA CHEST with IV contrast COMPARISON CTA 10/25/2020 TECHNIQUE Multiple axial images of the chest were obtained from the thoracic inlet to the upper abdomen after the administration of IV contrast. 75 cc Omnipaque 350 IV contrast. 3D reconstructions utilizing axial MIPS imaging was performed and reviewed. Dose reduction techniques including Automated Exposure Control (AEC) and adjustment of mA and kV were utilized. FINDINGS Minimal dependent atelectasis is seen but there is ground-glass patchy infiltrate throughout the left lower lobe of the lungs. Lungs appear improved since 10/25/2020. No pneumothorax or pleural effusion. Likely reactive mediastinal and left hilar lymph nodes are seen. Thoracic aorta is normal in size without evidence of dissection. Heart is normal in size. No pulmonary embolus is seen. IMPRESSION No pulmonary embolus is seen. Left lower lobe patchy ground-glass infiltrate is seen that is concerning for pneumonia. It may be resolving pneumonia given the marked improvement since 10/25/2020 study. Electronically signed by: Corey Vincent (Dec 15, 2020 18:17:00) Report Electronically signed: 12/15/20 [id number] CC: Ladi Mejias ROR Labs Reviewed Result Diagrams: 12/15/20 16:00 12/15/20 16:00 Laboratory: WBC 16.8 X10^3/uL (3.6-10.0) H 12/15/20 16:00 RBC 4.99 X10^6/uL (4.7-6.0) 12/15/20 16:00 Hgb 12.7 g/dL (13.5-18.0) L 12/15/20 16:00 Hct 38.2 % (42.0-54.0) L 12/15/20 16:00 MCV 76.6 fL (80.0-100.0) L 12/15/20 16:00 MCH 25.5 pg (27.0-34.0) L 12/15/20 16:00 MCHC 33.3 g/dL (33.0-35.0) 12/15/20 16:00 RDW 15.9 % (11.6-16.5) 12/15/20 16:00 Plt Count 272 X10^3/uL (150.0-450.0) 12/15/20 16:00 MPV 8.2 fL (7.4-11.0) 12/15/20 16:00 Neut % (Auto) 79.7 % (42.0-75.0) H 12/15/20 16:00 Lymph % (Auto) 13.7 % (21.0-51.0) L 12/15/20 16:00 [place] % (Auto) 4.9 % (0.0-13.0) 12/15/20 16:00 Eos % (Auto) 1.3 % (0.9-2.9) 12/15/20 16:00 Baso % (Auto) 0.4 % (0.2-1.0) 12/15/20 16:00 Neut # (Auto) 13.4 x10^3/uL (2.2-4.8) H 12/15/20 16:00 Lymph # (Auto) 2.3 X10^3/uL (1.3-2.9) 12/15/20 16:00 [place] # (Auto) 0.8 x10^3/uL (0.3-0.8) 12/15/20 16:00 Eos # (Auto) 0.2 x10^3/uL (0.0-0.2) 12/15/20 16:00 Baso # (Auto) 0.1 X10^3/uL (0.0-0.1) 12/15/20 16:00 Absolute Nucleated RBC 0.0 /100WBC 12/15/20 16:00 D-Dimer 0.31 ug/ml (0.0-0.57) 12/15/20 16:00 Sample Site Lbra 12/15/20 15:42 ABG pH 7.500 (7.35-7.45) H 12/15/20 15:42 ABG pCO2 35.0 mmHg (35.0-45.0) 12/15/20 15:42 ABG pO2 60.0 mmHg (80.0-100.0) L 12/15/20 15:42 ABG HCO3 27.3 mmol/L (22-26) H 12/15/20 15:42 ABG O2 Saturation 93.0 % (90-100) 12/15/20 15:42 ABG Base Excess 4.2 mmol/L (-2.0-2.0) H 12/15/20 15:42 Mauro Test N/a 12/15/20 15:42 A-a Gradient 46.0 mmHg 12/15/20 15:42 FiO2 21.0 12/15/20 15:42 Blood Gas Comments Pt josie well elj 12/15/20 15:42 Sodium 138 mmol/L (136-145) 12/15/20 16:00 Corrected Sodium 138 mmol/L (136-145) 12/15/20 16:00 Potassium 2.5 mmol/L (3.5-5.1) L* 12/15/20 16:00 Chloride 99 mmol/L (98-107) 12/15/20 16:00 Carbon Dioxide 27.0 mmol/L (21-32) 12/15/20 16:00 BUN 18 mg/dL (7-18) 12/15/20 16:00 Creatinine 0.98 mg/dL (0.70-1.30) 12/15/20 16:00 Est GFR (MDRD) Af Amer > 60 (>60) 12/15/20 16:00 Est GFR (MDRD) Non-Af > 60 (>60) 12/15/20 16:00 Glucose 114 mg/dL (65-99) H 12/15/20 16:00 Calcium 8.9 mg/dL (8.5-10.1) 12/15/20 16:00 Corrected Calcium TNP 12/15/20 16:00 Total Bilirubin 1.00 mg/dL (0.2-1.0) 12/15/20 16:00 AST 51 Units/L (15-37) H 12/15/20 16:00 ALT 75 Units/L (12-78) 12/15/20 16:00 Alkaline Phosphatase 100 Units/L (46-116) 12/15/20 16:00 Total Protein 8.5 g/dL (6.4-8.2) H 12/15/20 16:00 Albumin 3.5 g/dL (3.4-5.0) 12/15/20 16:00 Globulin 5.0 g/dL (2.5-4.5) H 12/15/20 16:00 Albumin/Globulin Ratio 0.7 Ratio (1.1-2.1) L 12/15/20 16:00 S. pyogenes (TEM-PCR) Not detected (NOT DETECT) 12/15/20 16:17 XRAY XRAY Interpreted by: Self X-ray Results: CXR: No infiltrates or cardiomegaly noted. Radiologist report is pending. EKG Rate: 115 [place]: Normal Rhythm: ST Block: None Hypertrophy: None ST: Normal Opioid Opioid Risk Tool Age (Dani box if 16-45): No History of Preadolescent Sexual Abuse: No Total: 0 Total Score Risk Category: Low Risk Copyright: [facility] predicting aberrant behaviors Diagnosis Discharge Problem: Hypoxemia, Acute hypokalemia, Pneumonia, lobar Leukocytosis Qualifiers: Leukocytosis type: unspecified Qualified Code(s): D72.829 - Elevated white blood cell count, unspecified Instructions Forms: Precautions for COVID19 Patient Portal Social Distancing ADDITIONAL NOTES Additional Notes Additional Notes: MAURICE CRONIN 50 M 1970 Name: MAURICE CRONINct#: [id number]: [id number] : 1970Sex: MLocation: ER Order Number(s): [id number](s):CHEST, 1 VIEW Ordering Physician: LADI MEJIAS Primary Care: Josemanuel Borrego Service Date: 12/15/20 Service Time: 1544 HISTORY FEVER, SOB STUDY CHEST, 1 VIEW COMPARISON Previous chest radiograph from 10/25/2020 FINDINGS Mild cardiomegaly is seen. No significant vascular congestion however. Lungs are clear with no infiltrate or significant effusion on either side. Bony thorax is unremarkable. IMPRESSION No acute cardiopulmonary abnormality is seen on this exam Electronically signed by: JERE ANDERSON (Dec 15, 2020 16:35:32) Report Electronically signed: 12/15/20 [id number] CC: Ladi Mejias
[2020-12-15 16:18] LABS: BASOPHILS # (AUTO) 0.1 X10^3/uL (0.0-0.1); BASOPHILS % (AUTO) 0.4 % (0.2-1.0); EOSINOPHILS # (AUTO) 0.2 x10^3/uL (0.0-0.2); EOSINOPHILS % (AUTO) 1.3 % (0.9-2.9); HEMATOCRIT 38.2 % (42.0-54.0); HEMOGLOBIN 12.7 g/dL (13.5-18.0); LYMPHOCYTES # (AUTO) 2.3 X10^3/uL (1.3-2.9); LYMPHOCYTES % (AUTO) 13.7 % (21.0-51.0); MEAN CORPUSCULAR HEMOGLOBIN 25.5 pg (27.0-34.0); MEAN CORPUSCULAR HGB CONC 33.3 g/dL (33.0-35.0); MEAN CORPUSCULAR VOLUME 76.6 fL (80.0-100.0); MEAN PLATELET VOLUME 8.2 fL (7.4-11.0); MONOCYTES # (AUTO) 0.8 x10^3/uL (0.3-0.8); MONOCYTES % (AUTO) 4.9 % (0.0-13.0); NEUTROPHILS # (AUTO) 13.4 x10^3/uL (2.2-4.8); NEUTROPHILS % (AUTO) 79.7 % (42.0-75.0); PLATELET COUNT 272 X10^3/uL (150.0-450.0); RED BLOOD COUNT 4.99 X10^6/uL (4.7-6.0); RED CELL DISTRIBUTION WIDTH 15.9 % (11.6-16.5); WHITE BLOOD COUNT 16.8 X10^3/uL (3.6-10.0)
[2020-12-15 16:30] LABS: BLOOD UREA NITROGEN 18 mg/dL (7-18); CALCIUM 8.9 mg/dL (8.5-10.1); CHLORIDE 99 mmol/L (98-107); COR NA(FOR HYPERGLY) 138 mmol/L (136-145); CREATININE 0.98 mg/dL (0.70-1.30); SODIUM 138 mmol/L (136-145); eGFR NON BLACK RACES > 60 (>60)
[2020-12-15 16:34] LABS: ALANINE AMINOTRANSFERASE 75 Units/L (12-78); ALBUMIN 3.5 g/dL (3.4-5.0); ALKALINE PHOSPHATASE 100 Units/L (46-116); ASPARTATE AMINO TRANSFERASE 51 Units/L (15-37); TOTAL PROTEIN 8.5 g/dL (6.4-8.2)
--- NOTE | 2020-12-15 16:37 | RAD ---
HISTORYFEVER, SOBSTUDYCHEST, 1 VIEWCOMPARISONPrevious chest radiograph from 10/25/2020FINDINGSMild cardiomegaly is seen. No significant vascular congestion however. Lungs are clear with no infiltrate or significant effusion on either side. Bony thorax is unremarkable.IMPRESSIONNo acute cardiopulmonary abnormality is seen on this examElectronically signed by: JERE ANDERSON (Dec 15, 2020 16:35:32)
[2020-12-15] MEDS ORDERED: LEVAQUIN PREMIX IV 750 MG 750 MG/150 ML BAG IV ONE ×2 (16:46→16:52)
[2020-12-15] MEDS ORDERED: KLOR-CON PO ONE (17:03)
[2020-12-15] MEDS ORDERED: NS 100 ML IV 100 ML IV ONE (17:12)
[2020-12-15] MEDS ORDERED: NORCO 5/325 MG TAB PO ONE (17:13)
[2020-12-15] MEDS ORDERED: NS + KCL 20 MEQ/L 0 ML IV ONE (17:15)
[2020-12-15] MEDS ORDERED: NORCO 5/325 MG TAB ONE (17:15)
[2020-12-15] MEDS: NS + KCL 20 MEQ/L 1,000 ML IV SCH (17:21)
[2020-12-15] MEDS ORDERED: KLOR-CON ONE (17:21)
--- NOTE | 2020-12-15 18:18 | CT ---
HISTORYc/o shortness of breath and pain to right side of chest with breathing. He reports history of pneumonia. He reports temp 101.3 this am. He took Tylenol at 1500.STUDYCTA CHEST with IV contrastCOMPARISONCTA 10/25/2020TECHNIQUEMultiple axial images of the chest were obtained from the thoracic inlet to the upper abdomen after the administration of IV contrast. 75 cc Omnipaque 350 IV contrast. 3D reconstructions utilizing axial MIPS imaging was performed and reviewed. Dose reduction techniques including Automated Exposure Control (AEC) and adjustment of mA and kV were utilized.FINDINGSMinimal dependent atelectasis is seen but there is ground-glass patchy infiltrate throughout the left lower lobe of the lungs. Lungs appear improved since 10/25/2020. No pneumothorax or pleural effusion. Likely reactive mediastinal and left hilar lymph nodes are seen. Thoracic aorta is normal in size without evidence of dissection. Heart is normal in size. No pulmonary embolus is seen.IMPRESSIONNo pulmonary embolus is seen.Left lower lobe patchy ground-glass infiltrate is seen that is concerning for pneumonia. It may be resolving pneumonia given the marked improvement since 10/25/2020 study.Electronically signed by: Corey Vincent (Dec 15, 2020 18:17:00)
[2020-12-15] MEDS ORDERED: NS 1/2 1,000 ML IV 1,000 ML IV ONE (19:47)
[2020-12-15] MEDS: NS 1/2 1,000 ML IV 1,000 ML IV SCH (19:49)
[2020-12-15] MEDS ORDERED: K-DUR TAB 20 MEQ PO ONE ×2 (19:57→19:58)
[2020-12-15] MEDS ORDERED: SALINE 3% 15 ML NEB TX NEB ONE (20:51)
[2020-12-15] MEDS ORDERED: SALINE 3% 15 ML NEB TX ONE (20:55)
[2020-12-15] MEDS ORDERED: PATIENT'S HOME MEDICATION (Alprazolam [Xanax] 0.5 mg Tablet) PO PRN (21:01)
[2020-12-15] MEDS ORDERED: ESZOPICLONE 3 MG PO PRN (21:01)
[2020-12-15] MEDS ORDERED: CRESTOR TAB 10 MG PO SCH (21:01)
[2020-12-15] MEDS ORDERED: POTASSIUM CHL 40 MEQ/NS 0.45% 500 ML IV PRN (21:02)
[2020-12-15] MEDS ORDERED: POTASSIUM CHL 60 MEQ/NS 0.45% 500 ML IV PRN (21:02)
[2020-12-15] MEDS ORDERED: MICRO K EXTEN CAP 10 MEQ PO PRN (21:02)
[2020-12-15] MEDS ORDERED: POTASSIUM CHLORIDE LIQ 20 MEQ UDC PO PRN (21:02)
[2020-12-15] MEDS ORDERED: KLOR-CON PO PRN (21:02)
[2020-12-15] MEDS ORDERED: K-RIDER 10 MEQ/NS 100 ML 10 MEQ/100 ML BAG IV PRN (21:02)
[2020-12-15] MEDS: XOPENEX 1.25 MG/3 ML NEBULE NEB SCH (21:30)
[2020-12-15 21:33] LABS: BILIRUBIN,URINE NEGATIVE (NEGATIVE); BLOOD/HEMOGLOBIN,URINE NEGATIVE (NEGATIVE); GLUCOSE, URINE NEGATIVE (NEGATIVE); KETONES,URINE NEGATIVE (NEGATIVE); LEUKOCYTE ESTERASE ,URINE NEGATIVE (NEGATIVE); NITRITES,URINE NEGATIVE (NEGATIVE); PROTEIN,URINE NEGATIVE (NEGATIVE); UROBILINOGEN,URINE NORMAL (NORMAL)
[2020-12-15 21:38] LABS: APPEARANCE,URINE CLEAR (CLEAR); COLOR,URINE YELLOW (YELLOW)
[2020-12-15] MEDS: ROBITUSSIN DM PO SCH (23:08)
[2020-12-15] MEDS: PEPCID TAB 20 MG PO SCH (23:09)
[2020-12-15] MEDS: LYRICA CAP 150 mg PO SCH (23:09)
[2020-12-15] MEDS: NORCO 10/325 TAB PO PRN (23:36)
[2020-12-16] MEDS: NS + KCL 20 MEQ/L 1,000 ML IV SCH ×3 (03:21→18:04)
[2020-12-16 05:40] LABS: ABG BASE EXCESS 5.9 mmol/L (-2.0-2.0)
[2020-12-16 05:42] LABS: ABG ALLEN TEST POS; ABG HCO3 31.7 mmol/L (22-26)
[2020-12-16 06:00] LABS: BASOPHILS # (AUTO) 0.1 X10^3/uL (0.0-0.1); BASOPHILS % (AUTO) 1.1 % (0.2-1.0); EOSINOPHILS # (AUTO) 0.3 x10^3/uL (0.0-0.2); HEMATOCRIT 35.1 % (42.0-54.0); HEMOGLOBIN 11.6 g/dL (13.5-18.0); LYMPHOCYTES # (AUTO) 2.2 X10^3/uL (1.3-2.9); LYMPHOCYTES % (AUTO) 21.5 % (21.0-51.0); MEAN CORPUSCULAR HEMOGLOBIN 25.6 pg (27.0-34.0); MEAN CORPUSCULAR HGB CONC 33.2 g/dL (33.0-35.0); MEAN CORPUSCULAR VOLUME 77.2 fL (80.0-100.0); MEAN PLATELET VOLUME 8.2 fL (7.4-11.0); MONOCYTES # (AUTO) 0.5 x10^3/uL (0.3-0.8); MONOCYTES % (AUTO) 5.3 % (0.0-13.0); NEUTROPHILS % (AUTO) 69.1 % (42.0-75.0); PLATELET COUNT 232 X10^3/uL (150.0-450.0); RED BLOOD COUNT 4.54 X10^6/uL (4.7-6.0); RED CELL DISTRIBUTION WIDTH 16.1 % (11.6-16.5); WHITE BLOOD COUNT 10.2 X10^3/uL (3.6-10.0)
[2020-12-16 06:10] LABS: ALANINE AMINOTRANSFERASE 59 Units/L (12-78); ALKALINE PHOSPHATASE 85 Units/L (46-116); ASPARTATE AMINO TRANSFERASE 35 Units/L (15-37); BLOOD UREA NITROGEN 14 mg/dL (7-18); CALCIUM 8.5 mg/dL (8.5-10.1); CARBON DIOXIDE 28.6 mmol/L (21-32); CHLORIDE 102 mmol/L (98-107); COR CA(FOR HYPOALB) 9.3 mg/dL (8.5-10.1); COR NA(FOR HYPERGLY) 140 mmol/L (136-145); CREATININE 0.93 mg/dL (0.70-1.30); SODIUM 140 mmol/L (136-145); TOTAL PROTEIN 7.5 g/dL (6.4-8.2); eGFR NON BLACK RACES > 60 (>60)
--- NOTE | 2020-12-16 06:16 | RAD ---
HISTORYSOBSTUDYCHEST, 1 [id number]/21/2021.TECHNIQUEAP view of the chestFINDINGSCardiac and mediastinal contours are within normal limits. Interval worsening in left base airspace opacities. No definite pleural effusion or pneumothorax.IMPRESSIONWorsened left base airspace opacities consistent with pneumonia.Electronically signed by: Adama Burnett (Dec 16, 2020 06:14:46)
[2020-12-16] MEDS ORDERED: MAGNESIUM SULFATE 1 GRAM/100 mL PREMIX 1 GM/100 ML BAG IV PRN (08:00)
[2020-12-16] MEDS: XOPENEX 1.25 MG/3 ML NEBULE NEB SCH ×4 (09:07→21:05)
[2020-12-16] MEDS ORDERED: SOLU-Medrol 125 MG VIAL IVP ONE (09:16)
[2020-12-16] MEDS: CYMBALTA PO SCH (09:57)
[2020-12-16] MEDS: NORVASC TAB 5 MG PO SCH (09:57)
[2020-12-16] MEDS: PROTONIX TAB 40 MG PO SCH (09:58)
[2020-12-16] MEDS: LYRICA CAP 150 mg PO SCH ×2 (09:58→20:27)
[2020-12-16] MEDS: PEPCID TAB 20 MG PO SCH ×2 (09:58→20:27)
[2020-12-16] MEDS: ZESTORETIC 20/25 MG PO SCH (09:58)
[2020-12-16] MEDS: VSL#3 PO SCH (09:58)
[2020-12-16] MEDS: ASPIRIN EC 81 MG PO SCH (09:58)
[2020-12-16] MEDS: ROBITUSSIN DM PO SCH ×4 (09:59→20:27)
[2020-12-16 10:16] LABS: LACTIC ACID 2.2 mmol/L (0.4-2.0)
[2020-12-16] MEDS ORDERED: NS 1/2 1,000 ML IV 1,000 ML IV ONE (10:39)
[2020-12-16] MEDS: LOVENOX INJ 100 MG SYR SC SCH ×2 (10:52→20:26)
[2020-12-16] MEDS: NORCO 10/325 TAB PO PRN ×2 (10:53→19:30)
[2020-12-16] MEDS: NS 1/2 1,000 ML IV 1,000 ML IV SCH (10:53)
[2020-12-16] MEDS: XANAX PO PRN ×2 (10:54→21:28)
--- NOTE | 2020-12-16 14:05 | DR.H&P ---
H&P - History & Physical for Day of: H&P Date: 12/15/20 - Chief Complaint Chief Complaint: COUGH, SOB, FEVER, CHILLS, WEAKNESS - History of Present Illness History of Present Illness: IS A 50 YEAR OLD PATIENT OF OURS WHO PRESENTED TO THE ER WITH COMPLAINTS OF FEVER, CHILLS, PRODUCTIVE COUGH, SHORTNESS OF BREATH, AND GENERALIZED WEAKNESS. SHE ALSO REPORTS RIGHT SIDE RIB PAIN WITH DEEP INSPIRATION. HIS SYMPTOMS STARTED ABOUT TWO DAYS PRIOR AND HAS PROGRESSIVELY GOTTEN WORSE. PATIENT REPORTS BEING TRANSFERRED FROM THIS FACILITY ABOUT A MONTH AGO DUE TO PNEUMONIA AND RESPIRATORY FAILURE. HE HAS BEEN GOING TO PULMONARY REHAB. HE DOES ADMIT TO A FEVER OF 101.3 THIS MORNING. HIS PMH INCLUDES: ANXIETY, CAD, DEPRESSION, MIGRAINES, HTN, AND KIDNEY STONES. AUSCULATION OF LUNG MENA REVEALED SCATTERED WHEEZING AND RHONCHI THROUGHOUT. ON ARRIVAL TO THE ER, VITALS WERE 99.8-126-18-93%NC@2 LPM -116/74. LABS WERE OBTAINED. ABNORMAL LAB VALUES INCLUDE THE FOLLOWING: WBC 16.8, HGB 12.7, HCT 38.2, POTASSIUM 2.5, GLUCOSE 114, MAGNESIUM 1.5, AST 51, TOTAL PROTEIN 8.5, GLOBULIN 5.0. AN ABG WAS OBTAINED AND REVEALED: PH 7.500, PC02 35, P02 60, HC03 27.3, 02 SAT 93, BASE EXCESS 4.2, A-A GRADIENT 46, FI02 21. A URINALYSIS WAS OBTAINED AND IS UNREMARKABLE. COVID-19, AND STREP NEGATIVE. A CHEST XRAY WAS OBTAINED AND REVEALED: NO ACUTE CARDIOPULMONARY ABNORMALITY IS SEEN ON THIS EXAM. EKG REVEALED: SINUS TACHYCARDIA WITH HR 115. A CHEST CTA WAS OBTAINED AND REVEALED: No pulmonary embolus is seen. Left lower lobe patchy ground-glass infiltrate is seen that is concerning for pneumonia. It may be resolving pneumonia given the marked improvement since 10/25/2020 study. IN THE ER, HE WAS GIVEN A XOPENEX NEB TX X 1, LEVAQUIN 750MG IV X 1 DOSE, POTASSIUM 20MEQ PO X 1 DOSE, NORCO 5/325MG PO X 1 DOSE. HE WAS ADMITTED TO THE HOSPITAL FOR FURTHER EVALUATION AND TREATMENT OF PNEUMONIA, HYPOXIA, HTN, CAD, AND HYPERLIPIDEMIA. HE WAS STARTED ON NS WITH 20MEQ KCL AT 75 ML/HR, LEVAQUIN 750MG IV DAILY, SOLU- MEDROL 80MG IV Q8H, LOVENOX 100MG SC Q12H, TUSSIONEX 5ML PO Q12H PRN, ROBITUSSIN DM 10ML PO QID, XOPENEX NEBS QID, TORADOL 30MG IV Q6H PRN PAIN, THE POTASSIUM AND MAGNESIUM PROTOCOLS, AND HIS HOME MEDICATIONS WERE RESUMED. WE WILL OBTAIN COVID-19 ANGIBODIES AND A RESPIRATORY AIT PANEL. OTHERWISE, WE PLAN TO FOLLOW UP WITH AM LABS AND CHEST XRAY AND CONTINUE TO MONITOR. TIME SPENT ON CLINICAL ASSESSMENT, REVIEWING LABS AND IMAGING, DECISION MAKING, AND DOCUMENTATION GREATER THAN 75 MINUTES. - Past Medical History Past Medical History: Coronary Artery Disease, Hypertension, Depression, Anxi ety, Kidney Stones, Migraines Additional Medical History: Cataracts, Back Pain - Past Surgical History Surgical History: Ortho Surgery Additional Surgical History: Cardiac Stents x 2, Right upper arm/elbow, Craniotomy - non-cancerous, Right ACL meniscus tear repair, Hammer toe right - Family History Family Medical History: [place], Coronary Artery Disease - Social History Does patient currently use any type of tobacco product: No Have you used tobacco products in the last 12 months: No Type of Tobacco Use: None Does any household member use tobacco: No Alcohol Use: None Drug Use: None - Medications Home Medications: No Known Drug Allergies Allergy (Verified 09/22/20 18:31) CONTINUE taking the following medications potassium chloride 10 meq PO DAILY 12/16/20 [History] - Review of Systems Constitutional: See HPI, Fever, Chills, Weakness Eyes: No Symptoms Reported ENT: No Symptoms Reported Respiratory: See HPI, Cough, Shortness of Breath, SOB with Excertion, Sputum, Wheezing Cardiovascular: No Symptoms Reported Gastrointestinal: No Symptoms Reported Genitourinary: No Symptoms Reported Musculoskeletal: No Symptoms Reported Skin: No Symptoms Reported Neurological: Weakness - Physical Exam Vital Signs: Temperature 100.4 F Pulse Rate [Left Radial] 76 Pulse Rate 108 Respiratory Rate 20 Blood Pressure [Right Arm] 131/76 Blood Pressure [Left Arm] 116/70 Blood Pressure 105/61 O2 Sat by Pulse Oximetry 98 Oriented: Normal Eyes: Normal Ear: Normal Nose: Normal Throat: Normal Respiratory: Rhonchi Throughout, Wheezes Throughout Cardiovascular: Normal : Normal Auscultation: Bowel Sounds: Normal Palpation: Normal Tenderness: Normal Skin: Normal Musculoskeletal: Normal Psychiatric: Normal Mood Description: Calm Affect: Normal Speech Pattern: Clear - Assessment/Plan (1) Pneumonia, lobar Status: Acute Plan: ADMIT, SUPPLEMENTAL OXYGEN, NS WITH 20MEQ KCL AT 75 ML/HR, LEVAQUIN 750MG IV DAILY, SOLU-MEDROL 80MG IV Q8H, LOVENOX 100MG SC Q12H, TUSSIONEX 5ML PO Q12H PRN, ROBITUSSIN DM 10ML PO QID, XOPENEX NEBS QID, TORADOL 30MG IV Q6H PRN PAIN, THE POTASSIUM AND MAGNESIUM PROTOCOLS, AND HIS HOME MEDICATIONS WERE RESUMED. (2) Hypoxia Status: Acute (3) Hypokalemia Status: Acute (4) CAD (coronary artery disease) Qualifiers: Coronary Disease-Associated Artery/Lesion type: [place] artery [place] vs. transplanted heart: [place] heart Associated angina: unspecified whether angina present Qualified Code(s): I25.10 - Atherosclerotic heart disease of [place] coronary artery without angina pectoris Status: Chronic (5) Hypertension Qualifiers: Hypertension type: essential hypertension Status: Chronic (6) Hyperlipidemia Qualifiers: Hyperlipidemia type: mixed hyperlipidemia Status: Chronic - Allergies Allergies/Adverse Reactions: Allergies Allergy/AdvReac Type Severity Reaction Status Date / Time No Known Drug Allergies Allergy Verified 09/22/20 18:31
[2020-12-16 14:34] VITALS: BMI 34.5
[2020-12-16] MEDS: SOLU-Medrol 40 MG VIAL IVP SCH ×2 (14:45→21:28)
[2020-12-16] MEDS: TORADOL 30 MG VIAL IVP PRN ×2 (14:46→22:30)
[2020-12-16] MEDS: ZESTRIL TAB 20 MG PO SCH ×2 (14:53→20:26)
[2020-12-16] MEDS: LEVAQUIN PREMIX IV 750 MG 750 MG/150 ML BAG IV SCH (15:01)
[2020-12-16] MEDS ORDERED: ZESTRIL TAB 20 MG ONE (19:15)
[2020-12-16] MEDS: TUSSIONEX PENNKINETIC SUSP PO PRN (19:31)
[2020-12-16] MEDS: CRESTOR TAB 10 MG PO SCH (20:32)
[2020-12-16] MEDS: K-DUR TAB 20 MEQ PO PRN (22:31)
[2020-12-17] MEDS: NS + KCL 20 MEQ/L 1,000 ML IV SCH ×3 (03:53→19:03)
[2020-12-17] MEDS: TORADOL 30 MG VIAL IVP PRN ×4 (04:03→23:35)
[2020-12-17] MEDS: SOLU-Medrol 40 MG VIAL IVP SCH ×3 (05:02→21:46)
[2020-12-17 05:36] LABS: BASOPHILS % (AUTO) 0.1 % (0.2-1.0); HEMATOCRIT 35.2 % (42.0-54.0); HEMOGLOBIN 11.6 g/dL (13.5-18.0); LYMPHOCYTES # (AUTO) 1.4 X10^3/uL (1.3-2.9); LYMPHOCYTES % (AUTO) 6.4 % (21.0-51.0); MEAN CORPUSCULAR HEMOGLOBIN 25.3 pg (27.0-34.0); MEAN CORPUSCULAR HGB CONC 32.8 g/dL (33.0-35.0); MEAN CORPUSCULAR VOLUME 77.1 fL (80.0-100.0); MEAN PLATELET VOLUME 8.5 fL (7.4-11.0); MONOCYTES # (AUTO) 0.3 x10^3/uL (0.3-0.8); MONOCYTES % (AUTO) 1.5 % (0.0-13.0); NEUTROPHILS # (AUTO) 20.4 x10^3/uL (2.2-4.8); PLATELET COUNT 235 X10^3/uL (150.0-450.0); RED BLOOD COUNT 4.57 X10^6/uL (4.7-6.0); RED CELL DISTRIBUTION WIDTH 16.4 % (11.6-16.5)
[2020-12-17 05:52] LABS: ALANINE AMINOTRANSFERASE 67 Units/L (12-78); ALBUMIN 2.8 g/dL (3.4-5.0); ALKALINE PHOSPHATASE 79 Units/L (46-116); ASPARTATE AMINO TRANSFERASE 41 Units/L (15-37); BLOOD UREA NITROGEN 21 mg/dL (7-18); CALCIUM 8.5 mg/dL (8.5-10.1); CARBON DIOXIDE 23.6 mmol/L (21-32); CHLORIDE 101 mmol/L (98-107); COR CA(FOR HYPOALB) 9.5 mg/dL (8.5-10.1); COR NA(FOR HYPERGLY) 140 mmol/L (136-145); CREATININE 1.36 mg/dL (0.70-1.30); SODIUM 136 mmol/L (136-145); TOTAL PROTEIN 7.7 g/dL (6.4-8.2); eGFR NON BLACK RACES 58 (>60)
[2020-12-17 06:13] LABS: WHITE BLOOD COUNT 22.1 X10^3/uL (3.6-10.0)
[2020-12-17 06:14] LABS: BAND NEUTROPHILS % 5 % (0-10); PLATELET MORPHOLOGY COMMENT NORMAL (NORMAL)
[2020-12-17] MEDS: XOPENEX 1.25 MG/3 ML NEBULE NEB SCH ×4 (09:35→21:18)
[2020-12-17] MEDS: NORVASC TAB 5 MG PO SCH (09:42)
[2020-12-17] MEDS: ASPIRIN EC 81 MG PO SCH (09:42)
[2020-12-17] MEDS: PEPCID TAB 20 MG PO SCH ×2 (09:42→20:39)
[2020-12-17] MEDS: VSL#3 PO SCH (09:42)
[2020-12-17] MEDS: ZESTORETIC 20/25 MG PO SCH (09:42)
[2020-12-17] MEDS: PROTONIX TAB 40 MG PO SCH (09:42)
[2020-12-17] MEDS: CYMBALTA PO SCH (09:43)
[2020-12-17] MEDS: ROBITUSSIN DM PO SCH ×4 (09:43→20:40)
[2020-12-17] MEDS: LYRICA CAP 150 mg PO SCH ×2 (09:43→20:39)
[2020-12-17] MEDS: LOVENOX INJ 100 MG SYR SC SCH ×2 (09:44→20:38)
[2020-12-17] MEDS: TEFLARO 600 MG in NS 100 ML IV + SPIKE MINIBAG* 100 ML IV SCH ×2 (10:47→20:36)
--- NOTE | 2020-12-17 11:34 | RAD ---
HISTORYSOB/ PNASTUDYCHEST x-ray, 1 VIEWCOMPARISONX-ray 12/16/2020FINDINGSThe trachea is midline. The cardiac silhouette is normal in size. Prominent cardiophrenic fat pads are seen.Probable mild left lower lobe pneumonia persists. No pneumothorax or pleural effusion is seen.No acute bony abnormality is seen.IMPRESSIONLikely persistent mild left lower lobe pneumonia. Continued x-ray follow up to document resolution is recommended.Electronically signed by: Corey Vincent (Dec 17, 2020 11:32:49)
--- NOTE | 2020-12-17 13:25 | RAD ---
HISTORYCENTRAL LINE PLACEMENTSTUDYCHEST, 1 VIEWCOMPARISONChest film December 17, 2020FINDINGSThe trachea is midline. The cardiac silhouette is mildly enlarged. A catheter is seen entering the right subclavian with the tip in the right atrium. This may be a PICC line.. The lungs are clear without focal infiltrate or effusion. The bony thorax is unremarkable.IMPRESSIONNo acute cardiopulmonary disease. Central venous catheter possibly a PICC line is in place with the tip in the right atrium. The heart is mildly enlarged. Lungs are clear.Electronically signed by: PRASHANT LOPEZ (Dec 17, 2020 13:23:33)
--- NOTE | 2020-12-17 13:28 | DR.UPDATE ---
H&P Update History and Physical Update: History and Physical reviewed and patient examined. Changes noted: NO Yes with the following:will place picc H&P Reviewed: Yes Patient was examined?: Yes Procedures (ALL) - Central Line Placement PCM.CLCO: written consent Time out performed: Yes Patient placed pm monitor/pulse ox: Yes MD prep: mask, gown, gloves, other Centrial line prep: chlorhexidine scrub, sterile drapes applied Local anesthsia used: lidocane 1% Ultrasound used for placement: Yes (right basilici id'd via u/s) Central line lumen ininserted: double Post procedure: sutured in place, good blood return, all ports aspirated, flushed,capped, sterile dressing applied Post procedure xray: tip oc catheter in good position, no pneumothorax seen Patient tolerated procedure: Yes Complications: none
[2020-12-17] MEDS: NORCO 10/325 TAB PO PRN ×2 (13:33→20:40)
[2020-12-17] MEDS: LEVAQUIN PREMIX IV 750 MG 750 MG/150 ML BAG IV SCH (16:30)
[2020-12-17] MEDS ORDERED: ZESTRIL TAB 20 MG ONE (19:52)
[2020-12-17] MEDS: ZESTRIL TAB 20 MG PO SCH (20:38)
[2020-12-17] MEDS: CRESTOR TAB 10 MG PO SCH (20:39)
[2020-12-17] MEDS: XANAX PO PRN (20:40)
[2020-12-17] MEDS: TUSSIONEX PENNKINETIC SUSP PO PRN (20:41)
[2020-12-18] MEDS: NS + KCL 20 MEQ/L 1,000 ML IV SCH ×4 (02:12→20:15)
[2020-12-18] MEDS: TORADOL 30 MG VIAL IVP PRN ×3 (05:20→20:19)
[2020-12-18] MEDS: SOLU-Medrol 40 MG VIAL IVP SCH ×3 (05:20→22:00)
--- NOTE | 2020-12-18 05:49 | RAD ---
PROCEDURE: Chest X-ray 1 View .HISTORY: Short of breath.TECHNIQUE: AP view .COMPARISON: 12/17/2020.TECHNICAL QUALITY: Satisfactory .FINDINGS:Unchanged right PICC line tip at the superior cavoatrial junction.Normal size heart.Mediastinum and hilar regions show no masses or lymphadenopathy .Normal central vascularity .No pulmonary consolidation, masses, pleural fluid, or pneumothorax .No acute bony abnormality .IMPRESSION:No active cardiopulmonary disease .Electronically signed by: Daniel Handley (Dec 18, 2020 05:46:39)
[2020-12-18 06:17] LABS: BASOPHILS % (AUTO) 0.1 % (0.2-1.0); HEMATOCRIT 30.6 % (42.0-54.0); HEMOGLOBIN 10.1 g/dL (13.5-18.0); LYMPHOCYTES # (AUTO) 1.4 X10^3/uL (1.3-2.9); LYMPHOCYTES % (AUTO) 7.2 % (21.0-51.0); MEAN CORPUSCULAR HEMOGLOBIN 25.3 pg (27.0-34.0); MEAN CORPUSCULAR HGB CONC 32.9 g/dL (33.0-35.0); MEAN PLATELET VOLUME 8.4 fL (7.4-11.0); MONOCYTES # (AUTO) 0.6 x10^3/uL (0.3-0.8); MONOCYTES % (AUTO) 3.2 % (0.0-13.0); NEUTROPHILS # (AUTO) 17.3 x10^3/uL (2.2-4.8); NEUTROPHILS % (AUTO) 89.5 % (42.0-75.0); PLATELET COUNT 212 X10^3/uL (150.0-450.0); RED BLOOD COUNT 3.97 X10^6/uL (4.7-6.0); RED CELL DISTRIBUTION WIDTH 16.4 % (11.6-16.5); WHITE BLOOD COUNT 19.4 X10^3/uL (3.6-10.0)
[2020-12-18 06:26] LABS: ALANINE AMINOTRANSFERASE 78 Units/L (12-78); ALBUMIN 2.5 g/dL (3.4-5.0); ALKALINE PHOSPHATASE 99 Units/L (46-116); ASPARTATE AMINO TRANSFERASE 52 Units/L (15-37); BLOOD UREA NITROGEN 18 mg/dL (7-18); CARBON DIOXIDE 26.3 mmol/L (21-32); CHLORIDE 106 mmol/L (98-107); COR CA(FOR HYPOALB) 9.2 mg/dL (8.5-10.1); COR NA(FOR HYPERGLY) 144 mmol/L (136-145); CREATININE 0.92 mg/dL (0.70-1.30); SODIUM 142 mmol/L (136-145); TOTAL PROTEIN 6.6 g/dL (6.4-8.2); eGFR NON BLACK RACES > 60 (>60)
[2020-12-18] MEDS: XOPENEX 1.25 MG/3 ML NEBULE NEB SCH ×4 (08:23→21:21)
[2020-12-18] MEDS: TEFLARO 600 MG in NS 100 ML IV + SPIKE MINIBAG* 100 ML IV SCH ×2 (08:57→20:18)
[2020-12-18] MEDS: LOVENOX INJ 100 MG SYR SC SCH ×2 (08:58→20:15)
[2020-12-18] MEDS: LYRICA CAP 150 mg PO SCH ×2 (09:00→20:17)
[2020-12-18] MEDS: CYMBALTA PO SCH (09:00)
[2020-12-18] MEDS: ASPIRIN EC 81 MG PO SCH (09:00)
[2020-12-18] MEDS: NORVASC TAB 5 MG PO SCH (09:01)
[2020-12-18] MEDS: PROTONIX TAB 40 MG PO SCH (09:01)
[2020-12-18] MEDS: ROBITUSSIN DM PO SCH ×4 (09:01→20:18)
[2020-12-18] MEDS: PEPCID TAB 20 MG PO SCH ×2 (09:01→20:18)
[2020-12-18] MEDS: VSL#3 PO SCH (09:01)
[2020-12-18] MEDS: NORCO 10/325 TAB PO PRN ×4 (09:05→22:57)
[2020-12-18] MEDS: ZESTORETIC 20/25 MG PO SCH (09:54)
--- NOTE | 2020-12-18 13:53 | RAD ---
HISTORYRight upper quadrant painSTUDYAbdomen with PA chest three viewsCOMPARISONAP chest 12/18/2020FINDINGSFrontal view of chest demonstrates normal heart size with clear lungs. Right PICC as before. No evidence for pneumoperitoneum.Supine and upright views of abdomen demonstrate no evidence for intestinal obstruction, ileus, free air, mass formation or ascites. The extreme lateral abdomen margins are not included on the available images.IMPRESSIONNo acute findings identified in the chest or abdomen.Electronically signed by: RICKIE RIOS (Dec 18, 2020 13:51:30)
[2020-12-18] MEDS: LEVAQUIN PREMIX IV 750 MG 750 MG/150 ML BAG IV SCH (16:56)
[2020-12-18] MEDS: XANAX PO PRN ×2 (17:33→22:57)
[2020-12-18] MEDS ORDERED: ZESTRIL TAB 20 MG ONE (19:10)
[2020-12-18] MEDS: CRESTOR TAB 10 MG PO SCH (20:16)
[2020-12-18] MEDS: COLACE CAP 100 MG PO PRN (20:17)
[2020-12-18] MEDS: ZESTRIL TAB 20 MG PO SCH (20:18)
[2020-12-18] MEDS: TUSSIONEX PENNKINETIC SUSP PO PRN (20:19)
[2020-12-19] MEDS: NS + KCL 20 MEQ/L 1,000 ML IV SCH ×3 (02:13→17:07)
[2020-12-19] MEDS: TORADOL 30 MG VIAL IVP PRN ×3 (04:26→21:55)
[2020-12-19] MEDS: SOLU-Medrol 40 MG VIAL IVP SCH ×3 (05:02→21:56)
--- NOTE | 2020-12-19 05:44 | RAD ---
PROCEDURE: Chest X-ray 2 Views .HISTORY: PNEUMONIA .TECHNIQUE: PA and Lateral Views .COMPARISON: 12/18/2020.TECHNICAL QUALITY: Satisfactory .FINDINGS:Right PICC line tip projected over the distal superior vena cava.Normal size heart.Mediastinum and hilar regions show no masses or lymphadenopathy .Normal central vascularity .No pulmonary consolidation, masses, pleural fluid, or pneumothorax .No acute bony abnormality .IMPRESSION:No active cardiopulmonary disease .Electronically signed by: Daniel Handley (Dec 19, 2020 05:42:27)
[2020-12-19 05:57] LABS: BASOPHILS % (AUTO) 0.1 % (0.2-1.0); HEMATOCRIT 30.1 % (42.0-54.0); HEMOGLOBIN 9.7 g/dL (13.5-18.0); LYMPHOCYTES # (AUTO) 1.7 X10^3/uL (1.3-2.9); LYMPHOCYTES % (AUTO) 11.5 % (21.0-51.0); MEAN CORPUSCULAR HEMOGLOBIN 24.9 pg (27.0-34.0); MEAN CORPUSCULAR HGB CONC 32.3 g/dL (33.0-35.0); MEAN CORPUSCULAR VOLUME 77.1 fL (80.0-100.0); MEAN PLATELET VOLUME 8.1 fL (7.4-11.0); MONOCYTES # (AUTO) 0.6 x10^3/uL (0.3-0.8); MONOCYTES % (AUTO) 4.3 % (0.0-13.0); NEUTROPHILS # (AUTO) 12.3 x10^3/uL (2.2-4.8); NEUTROPHILS % (AUTO) 84.1 % (42.0-75.0); PLATELET COUNT 200 X10^3/uL (150.0-450.0); RED CELL DISTRIBUTION WIDTH 16.2 % (11.6-16.5); WHITE BLOOD COUNT 14.6 X10^3/uL (3.6-10.0)
[2020-12-19 06:10] LABS: BLOOD UREA NITROGEN 20 mg/dL (7-18); CHLORIDE 107 mmol/L (98-107); eGFR NON BLACK RACES > 60 (>60)
[2020-12-19 06:54] LABS: ALANINE AMINOTRANSFERASE 68 Units/L (12-78); ALBUMIN 2.3 g/dL (3.4-5.0); ALKALINE PHOSPHATASE 98 Units/L (46-116); ASPARTATE AMINO TRANSFERASE 33 Units/L (15-37); CALCIUM 7.5 mg/dL (8.5-10.1); CARBON DIOXIDE 27.3 mmol/L (21-32); COR CA(FOR HYPOALB) 8.9 mg/dL (8.5-10.1); COR NA(FOR HYPERGLY) 148 mmol/L (136-145); CREATININE 0.92 mg/dL (0.70-1.30); SODIUM 144 mmol/L (136-145); TOTAL PROTEIN 6.2 g/dL (6.4-8.2)
[2020-12-19] MEDS: XOPENEX 1.25 MG/3 ML NEBULE NEB SCH ×4 (08:31→20:09)
[2020-12-19] MEDS: ROBITUSSIN DM PO SCH ×4 (08:40→20:20)
[2020-12-19] MEDS: PROTONIX TAB 40 MG PO SCH (08:41)
[2020-12-19] MEDS: LYRICA CAP 150 mg PO SCH ×2 (08:41→20:20)
[2020-12-19] MEDS: ZESTORETIC 20/25 MG PO SCH (08:41)
[2020-12-19] MEDS: PEPCID TAB 20 MG PO SCH ×2 (08:41→20:19)
[2020-12-19] MEDS: ASPIRIN EC 81 MG PO SCH (08:41)
[2020-12-19] MEDS: NORVASC TAB 5 MG PO SCH (08:41)
[2020-12-19] MEDS: CYMBALTA PO SCH (08:41)
[2020-12-19] MEDS: VSL#3 PO SCH (08:42)
[2020-12-19] MEDS: TEFLARO 600 MG in NS 100 ML IV + SPIKE MINIBAG* 100 ML IV SCH ×2 (08:43→20:21)
[2020-12-19] MEDS ORDERED: NS 100 ML IV 100 ML with VENOFER 400 MG IV NR ×2 (09:00)
[2020-12-19] MEDS: NORCO 10/325 TAB PO PRN ×3 (09:03→20:22)
[2020-12-19] MEDS: LOVENOX INJ 100 MG SYR SC SCH ×2 (09:12→20:23)
[2020-12-19] MEDS: K-DUR TAB 20 MEQ PO PRN (10:10)
--- NOTE | 2020-12-19 11:24 | US ---
ABDOMEN USHISTORY: ABD PAINComparison: NoneTechnique: Multiple alvarado scale and color flow Doppler images of the abdomen were obtained.Findings:Overall study is limited by overlying bowel gas. The liver is mildly hyperechoic. No focal mass. No intrahepatic bile duct dilatation. No gallstones.No pericholecystic fluid or gallbladder wall thickening. The technologist did not report a positive sonographic Ochoa's sign. The common bile duct measures 4 mm. The spleen is normal in size. The pancreas is obscured by bowel gas .The kidneys are normal in echogenicity. The right kidney measures 11.8 cm. No focal mass, hydronephrosis, or stones identified. The left kidney measures 12.5 cm.No focal mass, hydronephrosis, or stone identified.The visualized portions of the abdominal aorta are normal in size without aneurysmal dilatation. The inferior vena cava is unremarkable as well.IMPRESSION:1. Hepatic steatosis.Electronically signed by: GUNJAN HADLEY (Dec 19, 2020 11:21:53)
[2020-12-19] MEDS: LEVAQUIN PREMIX IV 750 MG 750 MG/150 ML BAG IV SCH (16:14)
[2020-12-19] MEDS: NYSTATIN SUSP PO SCH ×2 (17:09→20:21)
[2020-12-19] MEDS ORDERED: ZESTRIL TAB 20 MG ONE (19:12)
[2020-12-19] MEDS: COLACE CAP 100 MG PO PRN (20:19)
[2020-12-19] MEDS: CRESTOR TAB 10 MG PO SCH (20:19)
[2020-12-19] MEDS: ZESTRIL TAB 20 MG PO SCH (20:20)
[2020-12-19] MEDS: XANAX PO PRN (21:55)
[2020-12-19] MEDS: TUSSIONEX PENNKINETIC SUSP PO PRN (21:56)
[2020-12-20] MEDS: NS + KCL 20 MEQ/L 1,000 ML IV SCH ×4 (01:55→22:16)
[2020-12-20] MEDS: NORCO 10/325 TAB PO PRN ×4 (01:55→20:52)
--- NOTE | 2020-12-20 04:21 | RAD ---
PROCEDURE: Chest X-ray 1 View .HISTORY: Short of breath.TECHNIQUE: AP view .COMPARISON: 12/19/2020.TECHNICAL QUALITY: Satisfactory .FINDINGS:Right PICC line tip projected over the distal superior vena cava.Normal size heart.Mediastinum and hilar regions show no masses or lymphadenopathy .Normal central vascularity .No pulmonary consolidation, masses, pleural fluid, or pneumothorax .No acute bony abnormality .IMPRESSION:No active cardiopulmonary disease .Electronically signed by: Daniel Handley (Dec 20, 2020 04:18:46)
[2020-12-20] MEDS: SOLU-Medrol 40 MG VIAL IVP SCH ×3 (05:06→21:11)
[2020-12-20] MEDS: TORADOL 30 MG VIAL IVP PRN ×2 (05:06→12:08)
[2020-12-20 06:24] LABS: BASOPHILS % (AUTO) 0.1 % (0.2-1.0); HEMATOCRIT 29.1 % (42.0-54.0); HEMOGLOBIN 9.6 g/dL (13.5-18.0); LYMPHOCYTES # (AUTO) 1.9 X10^3/uL (1.3-2.9); LYMPHOCYTES % (AUTO) 15.6 % (21.0-51.0); MEAN CORPUSCULAR HEMOGLOBIN 25.2 pg (27.0-34.0); MEAN CORPUSCULAR VOLUME 76.2 fL (80.0-100.0); MEAN PLATELET VOLUME 8.3 fL (7.4-11.0); MONOCYTES # (AUTO) 0.7 x10^3/uL (0.3-0.8); MONOCYTES % (AUTO) 5.7 % (0.0-13.0); NEUTROPHILS # (AUTO) 9.6 x10^3/uL (2.2-4.8); NEUTROPHILS % (AUTO) 78.6 % (42.0-75.0); PLATELET COUNT 194 X10^3/uL (150.0-450.0); RED BLOOD COUNT 3.82 X10^6/uL (4.7-6.0); RED CELL DISTRIBUTION WIDTH 16.8 % (11.6-16.5); WHITE BLOOD COUNT 12.2 X10^3/uL (3.6-10.0)
[2020-12-20 06:25] LABS: ALANINE AMINOTRANSFERASE 73 Units/L (12-78); ALBUMIN 2.3 g/dL (3.4-5.0); ALKALINE PHOSPHATASE 87 Units/L (46-116); ASPARTATE AMINO TRANSFERASE 41 Units/L (15-37); BLOOD UREA NITROGEN 24 mg/dL (7-18); CALCIUM 7.5 mg/dL (8.5-10.1); CARBON DIOXIDE 29.2 mmol/L (21-32); CHLORIDE 107 mmol/L (98-107); COR CA(FOR HYPOALB) 8.9 mg/dL (8.5-10.1); COR NA(FOR HYPERGLY) 149 mmol/L (136-145); CREATININE 0.87 mg/dL (0.70-1.30); MAGNESIUM 2.1 mg/dL (1.7-2.9); SODIUM 146 mmol/L (136-145); TOTAL PROTEIN 6.1 g/dL (6.4-8.2); eGFR NON BLACK RACES > 60 (>60)
[2020-12-20 06:54] LABS: BAND NEUTROPHILS % 2 % (0-10)
[2020-12-20 06:55] LABS: PLATELET MORPHOLOGY COMMENT NORMAL (NORMAL)
[2020-12-20] MEDS: XOPENEX 1.25 MG/3 ML NEBULE NEB SCH ×4 (08:12→20:34)
[2020-12-20] MEDS: NORVASC TAB 5 MG PO SCH (09:06)
[2020-12-20] MEDS: ROBITUSSIN DM PO SCH ×4 (09:06→20:39)
[2020-12-20] MEDS: VSL#3 PO SCH (09:06)
[2020-12-20] MEDS: ASPIRIN EC 81 MG PO SCH (09:06)
[2020-12-20] MEDS: ZESTORETIC 20/25 MG PO SCH (09:06)
[2020-12-20] MEDS: PROTONIX TAB 40 MG PO SCH (09:06)
[2020-12-20] MEDS: CYMBALTA PO SCH (09:06)
[2020-12-20] MEDS: LYRICA CAP 150 mg PO SCH ×2 (09:07→20:39)
[2020-12-20] MEDS: PEPCID TAB 20 MG PO SCH ×2 (09:07→20:39)
[2020-12-20] MEDS: LOVENOX INJ 100 MG SYR SC SCH ×2 (09:07→20:50)
[2020-12-20] MEDS: NYSTATIN SUSP PO SCH ×4 (09:08→20:39)
[2020-12-20] MEDS: TEFLARO 600 MG in NS 100 ML IV + SPIKE MINIBAG* 100 ML IV SCH ×2 (09:08→20:39)
[2020-12-20] MEDS: XANAX PO PRN ×2 (12:08→20:53)
--- NOTE | 2020-12-20 15:03 | PCM.PROG ---
Progress Note - Progress Note for Day of Date of Exam: 12/17/20 - Subjective Subjective: IS BEING TREATED FOR LEFT LUNG PNEUMONIA, HYPOXIA, AND HYPOKALEMIA. HE HAS A PMH OF CAD, HTN, AND HYPERLIPIDEMIA. TODAY, HE IS ALERT AND ORIENTED, LYING IN BED ON MORNING ROUNDS. HE IS CURRENTLY UTILIZING OXYGEN VIA NASAL CANNULA AT 3 LITERS/MINUTE. OXYGEN SATURATIONS HAVE BEEN 90-96% THIS MORNING. HE HAS BEEN AFEBRILE THROUGHOUT THE NIGHT. HE CONTINUES WITH COMPLAINTS OF COUGH AND SHORTNESS OF BREATH TODAY. HE DENIES SIGNIFICANT IMPROVEMENT IN SYMPTOMS SINCE ADMISSION. ON EXAMINATION, HEART IS REGULAR IN RATE AND RHYTHM. BILATERAL LUNGS ARE NOTED WITH SCATTERED WHEEZING AND RHONCHI THROUGHOUT. ABDOMEN IS ROUND, SOFT, AND NOTED WITH DIFFUSE TENDERNESS. NO SWELLING NOTED IN EXTREMITIES. HIS VITALS THIS MORNING ARE: 97.7-102-22-90%-115/64. LABS WERE OBTAINED. ABNORMAL LAB VALUES INCLUDE THE FOLLOWING: WBC 22.1, RBC 4.57, HGB 11.6, HCT 35.2, BUN 21, CREATININE 1.36, GLUCOSE 273, AST 41, FLOTATION OPERATOR 114.80, ALBUMIN 2.8, GLOBULIN 4.9. BLOOD AND SPUTUM CULTURES ARE PENDING. A CHEST XRAY WAS OBTAINED THIS MORNING AND REVEALED: Likely persistent mild left lower lobe pneumonia. RESPIRATORY AIT PANEL AND COVID IGG ANTIBODIES ARE PENDING. HE IS CURRENTLY RECEIVING NS WITH 20MEQ KCL AT 75 ML/HR, LEVAQUIN 750MG IV DAILY, SOLU-MEDROL 80MG IV Q8H, LOVENOX 100MG SC Q12H, TUSSIONEX 5ML PO Q12H PRN, ROBITUSSIN DM 10ML PO QID, XOPENEX NEBS QID, TORADOL 30MG IV Q6H PRN PAIN, THE POTASSIUM AND MAGNESIUM PROTOCOLS, AND HIS HOME MEDICATIONS WERE RESUMED. WE WILL CONTINUE WITH CURRENT PLAN OF CARE TODAY. OTHERWISE, WE PLAN TO FOLLOW UP WITH AM LABS AND CHEST XRAY AND CONTINUE TO MONITOR. TIME SPENT ON CLINICAL ASSESSMENT, REVIEWING LABS AND IMAGING, DECISION MAKING, AND DOCUMENTATION GREATER THAN 45 MINUTES. - Past Medical Family Social History Past Med/Fam/Surg Hx: No changes since H&P Allergies: Allergies No Known Drug Allergies Allergy (Verified 09/22/20 18:31) - Review of Systems ROS: No change since H&P - Vital Signs and I&O's Vital Signs: Temperature 97.7 F Pulse Rate [Left Radial] 73 Pulse Rate 72 Respiratory Rate 20 Blood Pressure [Right Arm] 132/68 Blood Pressure [Left Arm] 116/70 Blood Pressure 105/61 O2 Sat by Pulse Oximetry 94 Intake and Output: Intake & Output 12/18/20 12/19/20 12/20/20 12/21/20 11:59 11:59 11:59 11:59 Intake Total 2568 / 2568 3595 / 3595 3526 / 3526 Balance 2568 / 2568 3595 / 3595 3526 / 3526 - Physical Exam Oriented: Normal Eyes: Normal Ear: Normal Nose: Normal Throat: Normal Respiratory: Diminished, Wheezes, Rhonchi Cardiovascular: Normal : Normal Auscultation: Bowel Sounds: Normal Palpation: Normal Tenderness: Normal Skin: Normal Musculoskeletal: Normal Psychiatric: Normal Mood Description: Calm Affect: Normal Speech Pattern: Clear, Appropriate - Laboratory and Diagnostics Result Diagrams: 12/20/20 05:28 12/20/20 11:16 Labs: 12/15/20 20:03 Blood Blood Culture - Preliminary 12/15/20 19:53 Blood Blood Culture - Preliminary 12/15/20 16:05 Blood Blood Culture - Preliminary 12/15/20 16:00 Blood Blood Culture - Preliminary 12/15/20 21:33 Sputum - Expectorated Sputum Sputum Culture - Final 12/15/20 21:33 Sputum - Expectorated Sputum - Final Laboratory WBC 12.2 X10^3/uL (3.6-10.0) H 12/20/20 05:28 RBC 3.82 X10^6/uL (4.7-6.0) L 12/20/20 05:28 Hgb 9.6 g/dL (13.5-18.0) L 12/20/20 05:28 Hct 29.1 % (42.0-54.0) L 12/20/20 05:28 MCV 76.2 fL (80.0-100.0) L 12/20/20 05:28 MCH 25.2 pg (27.0-34.0) L 12/20/20 05:28 MCHC 33.0 g/dL (33.0-35.0) 12/20/20 05:28 RDW 16.8 % (11.6-16.5) H 12/20/20 05:28 Plt Count 194 X10^3/uL (150.0-450.0) 12/20/20 05:28 Plt Count Comment Adequate (ADEQUATE) 12/20/20 05:28 MPV 8.3 fL (7.4-11.0) 12/20/20 05:28 Neut % (Auto) 78.6 % (42.0-75.0) H 12/20/20 05:28 Lymph % (Auto) 15.6 % (21.0-51.0) L 12/20/20 05:28 [place] % (Auto) 5.7 % (0.0-13.0) 12/20/20 05:28 Eos % (Auto) 0.0 % (0.9-2.9) L 12/20/20 05:28 Baso % (Auto) 0.1 % (0.2-1.0) L 12/20/20 05:28 Neut # (Auto) 9.6 x10^3/uL (2.2-4.8) H 12/20/20 05:28 Lymph # (Auto) 1.9 X10^3/uL (1.3-2.9) 12/20/20 05:28 [place] # (Auto) 0.7 x10^3/uL (0.3-0.8) 12/20/20 05:28 Eos # (Auto) 0.0 x10^3/uL (0.0-0.2) 12/20/20 05:28 Baso # (Auto) 0.0 X10^3/uL (0.0-0.1) 12/20/20 05:28 Absolute Nucleated RBC 0.1 /100WBC 12/20/20 05:28 Total Counted 100 12/20/20 05:28 Neutrophils % (Manual) 69 % (39-76) 12/20/20 05:28 Band Neutrophils % 2 % (0-10) 12/20/20 05:28 Lymphocytes % (Manual) 23 % (13-43) 12/20/20 05:28 Monocytes % (Manual) 6 % (4-9) 12/20/20 05:28 Plt Morphology Comment Normal (NORMAL) 12/20/20 05:28 RBC Morphology Normal (NORMAL) 12/20/20 05:28 ESR 43 MM/HOUR (0-15) H 12/16/20 09:43 D-Dimer 0.31 ug/ml (0.0-0.57) 12/15/20 16:00 Sample Site Lra 12/16/20 05:35 ABG pH 7.410 (7.35-7.45) 12/16/20 05:35 ABG pCO2 50.0 mmHg (35.0-45.0) H 12/16/20 05:35 ABG pO2 126.0 mmHg (80.0-100.0) H 12/16/20 05:35 ABG HCO3 31.7 mmol/L (22-26) H* 12/16/20 05:35 ABG O2 Saturation 99.0 % (90-100) 12/16/20 05:35 ABG Base Excess 5.9 mmol/L (-2.0-2.0) H 12/16/20 05:35 Mauro Test Pos 12/16/20 05:35 A-a Gradient 525.0 mmHg 12/16/20 05:35 FiO2 100.0 12/16/20 05:35 Blood Gas Comments Deidre well mts 12/16/20 05:35 Sodium 146 mmol/L (136-145) H 12/20/20 05:28 Corrected Sodium 149 mmol/L (136-145) H 12/20/20 05:28 Potassium 3.7 mmol/L (3.5-5.1) 12/20/20 11:16 Chloride 107 mmol/L (98-107) 12/20/20 05:28 Carbon Dioxide 29.2 mmol/L (21-32) 12/20/20 05:28 BUN 24 mg/dL (7-18) H 12/20/20 05:28 Creatinine 0.87 mg/dL (0.70-1.30) 12/20/20 05:28 Est GFR (MDRD) Af Amer > 60 (>60) 12/20/20 05:28 Est GFR (MDRD) Non-Af > 60 (>60) 12/20/20 05:28 Glucose 234 mg/dL (65-99) H 12/20/20 05:28 Lactic Acid 2.2 mmol/L (0.4-2.0) H 12/16/20 09:43 Calcium 7.5 mg/dL (8.5-10.1) L 12/20/20 05:28 Corrected Calcium 8.9 mg/dL (8.5-10.1) 12/20/20 05:28 Magnesium 2.1 mg/dL (1.7-2.9) 12/20/20 05:28 Iron 19 ug/dL (50-175) L 12/18/20 05:28 Transferrin 252 mg/dL (202-364) 12/18/20 05:28 Ferritin 116 ng/mL (26-388) 12/18/20 05:28 Total Bilirubin 0.40 mg/dL (0.2-1.0) 12/20/20 05:28 AST 41 Units/L (15-37) H 12/20/20 05:28 ALT 73 Units/L (12-78) 12/20/20 05:28 Alkaline Phosphatase 87 Units/L (46-116) 12/20/20 05:28 Lactate Dehydrogenase 194 Units/L (85-227) 12/16/20 09:43 C-Reactive Protein 3.00 mg/L (0-3.0) 12/20/20 05:28 Total Protein 6.1 g/dL (6.4-8.2) L 12/20/20 05:28 Albumin 2.3 g/dL (3.4-5.0) L 12/20/20 05:28 Globulin 3.8 g/dL (2.5-4.5) 12/20/20 05:28 Albumin/Globulin Ratio 0.6 Ratio (1.1-2.1) L 12/20/20 05:28 Vitamin B12 656 pg/mL (193-986) 12/18/20 05:28 Folate 2.8 ng/mL (>8.6) L 12/18/20 05:28 Specimen Type Random urine 12/15/20 20:53 Urine Color Yellow (YELLOW) 12/15/20 20:53 Urine Appearance Clear (CLEAR) 12/15/20 20:53 Urine pH 6.0 (5.0 - 8.0) 12/15/20 20:53 Ur Specific [place] 1.005 (1.000-1.030) 12/15/20 20:53 Urine Protein Negative (NEGATIVE) 12/15/20 20:53 Urine Glucose (UA) Negative (NEGATIVE) 12/15/20 20:53 Urine Ketones Negative (NEGATIVE) 12/15/20 20:53 Urine Occult Blood Negative (NEGATIVE) 12/15/20 20:53 Urine Nitrite Negative (NEGATIVE) 12/15/20 20:53 Urine Bilirubin Negative (NEGATIVE) 12/15/20 20:53 Urine Urobilinogen Normal (NORMAL) 12/15/20 20:53 Ur Leukocyte Esterase Negative (NEGATIVE) 12/15/20 20:53 SARS-CoV-2 (PCR) Negative (NEGATIVE) 12/16/20 23:23 Influenza Type A (PCR) Negative (NEGATIVE) 12/16/20 23:23 Influenza Type B (PCR) Negative (NEGATIVE) 12/16/20 23:23 RSV (PCR) Negative (NEGATIVE) 12/16/20 23:23 SARS CoV-2 RNA Rapid FAHEEM Negative (NEGATIVE) 12/15/20 19:52 SARS-CoV-2 IgG Ab Positive (Negative) H 12/16/20 09:43 SARS-CoV-2 IgG (MARVIN) 1 8.8 IV (<=0.7) H 12/16/20 09:43 S. pyogenes (TEM-PCR) Not detected (NOT DETECT) 12/15/20 16:17 Miscellaneous Test Resp panel 12/17/20 13:04 - Plan (1) Pneumonia, lobar Status: Acute Plan: SUPPLEMENTAL OXYGEN, NS WITH 20MEQ KCL AT 75 ML/HR, LEVAQUIN 750MG IV DAILY, SOLU-MEDROL 80MG IV Q8H, LOVENOX 100MG SC Q12H, TUSSIONEX 5ML PO Q12H PRN, ROBITUSSIN DM 10ML PO QID, XOPENEX NEBS QID, TORADOL 30MG IV Q6H PRN PAIN, THE POTASSIUM AND MAGNESIUM PROTOCOLS, AND HIS HOME MEDICATIONS WERE RESUMED. (2) Hypoxia Status: Acute (3) Hypokalemia Status: Acute (4) CAD (coronary artery disease) Status: Chronic Qualifiers: Coronary Disease-Associated Artery/Lesion type: [place] artery [place] vs. transplanted heart: [place] heart Associated angina: unspecified whether angina present Qualified Code(s): I25.10 - Atherosclerotic heart disease of [place] coronary artery without angina pectoris (5) Hypertension Status: Chronic Qualifiers: Hypertension type: essential hypertension (6) Hyperlipidemia Status: Chronic Qualifiers: Hyperlipidemia type: mixed hyperlipidemia
--- NOTE | 2020-12-20 15:12 | PCM.PROG ---
Progress Note - Progress Note for Day of Date of Exam: 12/20/20 - Subjective Subjective: IS BEING TREATED FOR LEFT LUNG PNEUMONIA, HYPOXIA, AND HYPOKALEMIA. HE HAS A PMH OF CAD, HTN, AND HYPERLIPIDEMIA. TODAY, HE IS ALERT AND ORIENTED, LYING IN BED ON MORNING ROUNDS. HE IS CURRENTLY ON ROOM AIR. OXYGEN SATURATIONS HAVE BEEN 91-99% THIS MORNING. HE HAS BEEN AFEBRILE THR OUGHOUT THE NIGHT. HE CONTINUES WITH COMPLAINTS OF INTERMITTENT COUGH AND SHORTNESS OF BREATH TODAY, BUT REPORTS IMPROVEMENT SINCE WE LAST SAW HIM. ON EXAMINATION, HEART IS REGULAR IN RATE AND RHYTHM. BILATERAL LUNGS ARE NOTED WITH DIMINISHED LUNG SOUNDS THROUGHOUT. ABDOMEN IS ROUND, SOFT, AND NON-TENDER WITH NORMAL BOWEL SOUNDS NOTED IN ALL QUADRANTS. NO SWELLING NOTED IN EXTREMITIES. HIS VITALS THIS MORNING ARE: 98.1-66-20-91%RA-109/69. LABS WERE OBTAINED. ABNORMAL LAB VALUES INCLUDE THE FOLLOWING: WBC 12.2, RC 3.82, HGB 9.6, HCT 29.1, SODIUM 146, POTASSIUM 3.0, BUN 24, GLUCOSE 234, CALCIUM 7.5, AST 41, TOTAL PROTEIN 6.1, ALBUMIN 2.3. BLOOD AND SPUTUM CULTURES ARE PENDING. COVID IGG IS POSITIVE. A CHEST XRAY WAS OBTAINED THIS MORNING AND REVEALED: No active cardiopulmonary disease. AN ABDOMEN ULTRASOUND WAS OBTAINED OVER THE WEEKEND AND REVEALED HEPATIC STEATOSIS. HE IS CURRENTLY RECEIVING NS WITH 20MEQ KCL AT 75 ML/HR, LEVAQUIN 750MG IV DAILY, CEFTAROLINE FOSAMIL 600MG IV [id number] 80MG IV Q8H, LOVENOX 100MG SC Q12H, TUSSIONEX 5ML PO Q12H PRN, ROBITUSSIN DM 10ML PO QID, XOPENEX NEBS QID, NORCO 10/325MG PO Q4H PRN PAIN, TORADOL 30MG IV Q6H PRN PAIN, THE POTASSIUM AND MAGNESIUM PROTOCOLS, AND HIS HOME MEDICATIONS WERE RESUMED. WE WILL CONTINUE WITH CURRENT PLAN OF CARE TODAY. OTHERWISE, WE PLAN TO FOLLOW UP WITH AM LABS AND CHEST XRAY AND CONTINUE TO MONITOR. TIME SPENT ON CLINICAL ASSESSMENT, REVIEWING LABS AND IMAGING, DECISION MAKING, AND DOCUMENTATION GREATER THAN 45 MINUTES. - Past Medical Family Social History Past Med/Fam/Surg Hx: No changes since H&P Allergies: Allergies No Known Drug Allergies Allergy (Verified 09/22/20 18:31) - Review of Systems ROS: No change since H&P - Vital Signs and I&O's Vital Signs: Temperature 97.7 F Pulse Rate [Left Radial] 73 Pulse Rate 72 Respiratory Rate 20 Blood Pressure [Right Arm] 132/68 Blood Pressure [Left Arm] 116/70 Blood Pressure 105/61 O2 Sat by Pulse Oximetry 94 Intake and Output: Intake & Output 12/18/20 12/19/20 12/20/20 12/21/20 11:59 11:59 11:59 11:59 Intake Total 2568 / 2568 3595 / 3595 3526 / 3526 Balance 2568 / 2568 3595 / 3595 3526 / 3526 - Physical Exam Oriented: Normal Eyes: Normal Ear: Normal Nose: Normal Throat: Normal Respiratory: Diminished Cardiovascular: Normal : Normal Auscultation: Bowel Sounds: Normal Palpation: Normal Tenderness: Normal Skin: Normal Musculoskeletal: Normal Psychiatric: Normal Mood Description: Calm Affect: Normal Speech Pattern: Clear, Appropriate - Laboratory and Diagnostics Result Diagrams: 12/20/20 05:28 12/20/20 11:16 Labs: 12/15/20 20:03 Blood Blood Culture - Preliminary 12/15/20 19:53 Blood Blood Culture - Preliminary 12/15/20 16:05 Blood Blood Culture - Preliminary 12/15/20 16:00 Blood Blood Culture - Preliminary 12/15/20 21:33 Sputum - Expectorated Sputum Sputum Culture - Final 12/15/20 21:33 Sputum - Expectorated Sputum - Final Laboratory WBC 12.2 X10^3/uL (3.6-10.0) H 12/20/20 05:28 RBC 3.82 X10^6/uL (4.7-6.0) L 12/20/20 05:28 Hgb 9.6 g/dL (13.5-18.0) L 12/20/20 05:28 Hct 29.1 % (42.0-54.0) L 12/20/20 05:28 MCV 76.2 fL (80.0-100.0) L 12/20/20 05:28 MCH 25.2 pg (27.0-34.0) L 12/20/20 05:28 MCHC 33.0 g/dL (33.0-35.0) 12/20/20 05:28 RDW 16.8 % (11.6-16.5) H 12/20/20 05:28 Plt Count 194 X10^3/uL (150.0-450.0) 12/20/20 05:28 Plt Count Comment Adequate (ADEQUATE) 12/20/20 05:28 MPV 8.3 fL (7.4-11.0) 12/20/20 05:28 Neut % (Auto) 78.6 % (42.0-75.0) H 12/20/20 05:28 Lymph % (Auto) 15.6 % (21.0-51.0) L 12/20/20 05:28 [place] % (Auto) 5.7 % (0.0-13.0) 12/20/20 05:28 Eos % (Auto) 0.0 % (0.9-2.9) L 12/20/20 05:28 Baso % (Auto) 0.1 % (0.2-1.0) L 12/20/20 05:28 Neut # (Auto) 9.6 x10^3/uL (2.2-4.8) H 12/20/20 05:28 Lymph # (Auto) 1.9 X10^3/uL (1.3-2.9) 12/20/20 05:28 [place] # (Auto) 0.7 x10^3/uL (0.3-0.8) 12/20/20 05:28 Eos # (Auto) 0.0 x10^3/uL (0.0-0.2) 12/20/20 05:28 Baso # (Auto) 0.0 X10^3/uL (0.0-0.1) 12/20/20 05:28 Absolute Nucleated RBC 0.1 /100WBC 12/20/20 05:28 Total Counted 100 12/20/20 05:28 Neutrophils % (Manual) 69 % (39-76) 12/20/20 05:28 Band Neutrophils % 2 % (0-10) 12/20/20 05:28 Lymphocytes % (Manual) 23 % (13-43) 12/20/20 05:28 Monocytes % (Manual) 6 % (4-9) 12/20/20 05:28 Plt Morphology Comment Normal (NORMAL) 12/20/20 05:28 RBC Morphology Normal (NORMAL) 12/20/20 05:28 ESR 43 MM/HOUR (0-15) H 12/16/20 09:43 D-Dimer 0.31 ug/ml (0.0-0.57) 12/15/20 16:00 Sample Site Lra 12/16/20 05:35 ABG pH 7.410 (7.35-7.45) 12/16/20 05:35 ABG pCO2 50.0 mmHg (35.0-45.0) H 12/16/20 05:35 ABG pO2 126.0 mmHg (80.0-100.0) H 12/16/20 05:35 ABG HCO3 31.7 mmol/L (22-26) H* 12/16/20 05:35 ABG O2 Saturation 99.0 % (90-100) 12/16/20 05:35 ABG Base Excess 5.9 mmol/L (-2.0-2.0) H 12/16/20 05:35 Mauro Test Pos 12/16/20 05:35 A-a Gradient 525.0 mmHg 12/16/20 05:35 FiO2 100.0 12/16/20 05:35 Blood Gas Comments Deidre well mts 12/16/20 05:35 Sodium 146 mmol/L (136-145) H 12/20/20 05:28 Corrected Sodium 149 mmol/L (136-145) H 12/20/20 05:28 Potassium 3.7 mmol/L (3.5-5.1) 12/20/20 11:16 Chloride 107 mmol/L (98-107) 12/20/20 05:28 Carbon Dioxide 29.2 mmol/L (21-32) 12/20/20 05:28 BUN 24 mg/dL (7-18) H 12/20/20 05:28 Creatinine 0.87 mg/dL (0.70-1.30) 12/20/20 05:28 Est GFR (MDRD) Af Amer > 60 (>60) 12/20/20 05:28 Est GFR (MDRD) Non-Af > 60 (>60) 12/20/20 05:28 Glucose 234 mg/dL (65-99) H 12/20/20 05:28 Lactic Acid 2.2 mmol/L (0.4-2.0) H 12/16/20 09:43 Calcium 7.5 mg/dL (8.5-10.1) L 12/20/20 05:28 Corrected Calcium 8.9 mg/dL (8.5-10.1) 12/20/20 05:28 Magnesium 2.1 mg/dL (1.7-2.9) 12/20/20 05:28 Iron 19 ug/dL (50-175) L 12/18/20 05:28 Transferrin 252 mg/dL (202-364) 12/18/20 05:28 Ferritin 116 ng/mL (26-388) 12/18/20 05:28 Total Bilirubin 0.40 mg/dL (0.2-1.0) 12/20/20 05:28 AST 41 Units/L (15-37) H 12/20/20 05:28 ALT 73 Units/L (12-78) 12/20/20 05:28 Alkaline Phosphatase 87 Units/L (46-116) 12/20/20 05:28 Lactate Dehydrogenase 194 Units/L (85-227) 12/16/20 09:43 C-Reactive Protein 3.00 mg/L (0-3.0) 12/20/20 05:28 Total Protein 6.1 g/dL (6.4-8.2) L 12/20/20 05:28 Albumin 2.3 g/dL (3.4-5.0) L 12/20/20 05:28 Globulin 3.8 g/dL (2.5-4.5) 12/20/20 05:28 Albumin/Globulin Ratio 0.6 Ratio (1.1-2.1) L 12/20/20 05:28 Vitamin B12 656 pg/mL (193-986) 12/18/20 05:28 Folate 2.8 ng/mL (>8.6) L 12/18/20 05:28 Specimen Type Random urine 12/15/20 20:53 Urine Color Yellow (YELLOW) 12/15/20 20:53 Urine Appearance Clear (CLEAR) 12/15/20 20:53 Urine pH 6.0 (5.0 - 8.0) 12/15/20 20:53 Ur Specific [place] 1.005 (1.000-1.030) 12/15/20 20:53 Urine Protein Negative (NEGATIVE) 12/15/20 20:53 Urine Glucose (UA) Negative (NEGATIVE) 12/15/20 20:53 Urine Ketones Negative (NEGATIVE) 12/15/20 20:53 Urine Occult Blood Negative (NEGATIVE) 12/15/20 20:53 Urine Nitrite Negative (NEGATIVE) 12/15/20 20:53 Urine Bilirubin Negative (NEGATIVE) 12/15/20 20:53 Urine Urobilinogen Normal (NORMAL) 12/15/20 20:53 Ur Leukocyte Esterase Negative (NEGATIVE) 12/15/20 20:53 SARS-CoV-2 (PCR) Negative (NEGATIVE) 12/16/20 23:23 Influenza Type A (PCR) Negative (NEGATIVE) 12/16/20 23:23 Influenza Type B (PCR) Negative (NEGATIVE) 12/16/20 23:23 RSV (PCR) Negative (NEGATIVE) 12/16/20 23:23 SARS CoV-2 RNA Rapid FAHEEM Negative (NEGATIVE) 12/15/20 19:52 SARS-CoV-2 IgG Ab Positive (Negative) H 12/16/20 09:43 SARS-CoV-2 IgG (MARVIN) 1 8.8 IV (<=0.7) H 12/16/20 09:43 S. pyogenes (TEM-PCR) Not detected (NOT DETECT) 12/15/20 16:17 Miscellaneous Test Resp panel 12/17/20 13:04 - Plan (1) Pneumonia, lobar Status: Acute Plan: SUPPLEMENTAL OXYGEN, NS WITH 20MEQ KCL AT 75 ML/HR, LEVAQUIN 750MG IV DAILY, CEFTAROLINE 600MG IV Q12H, SOLU-MEDROL 80MG IV Q8H, LOVENOX 100MG SC Q12H, TUSSIONEX 5ML PO Q12H PRN, ROBITUSSIN DM 10ML PO QID, XOPENEX NEBS QID, NORCO 10/325MG Q4H PRN PAIN, TORADOL 30MG IV Q6H PRN PAIN, THE POTASSIUM AND MAGNESIUM PROTOCOLS, AND HIS HOME MEDICATIONS WERE RESUMED. (2) Hypoxia Status: Acute (3) Hypokalemia Status: Acute (4) CAD (coronary artery disease) Status: Chronic Qualifiers: Coronary Disease-Associated Artery/Lesion type: [place] artery [place] vs. transplanted heart: [place] heart Associated angina: unspecified whether angina present Qualified Code(s): I25.10 - Atherosclerotic heart disease of [place] coronary artery without angina pectoris (5) Hypertension Status: Chronic Qualifiers: Hypertension type: essential hypertension (6) Hyperlipidemia Status: Chronic Qualifiers: Hyperlipidemia type: mixed hyperlipidemia
[2020-12-20] MEDS: LEVAQUIN PREMIX IV 750 MG 750 MG/150 ML BAG IV SCH (16:42)
[2020-12-20] MEDS ORDERED: ZESTRIL TAB 20 MG ONE (20:23)
[2020-12-20] MEDS: ZESTRIL TAB 20 MG PO SCH (20:38)
[2020-12-20] MEDS: CRESTOR TAB 10 MG PO SCH (20:38)
[2020-12-21] MEDS: TORADOL 30 MG VIAL IVP PRN ×2 (00:07→06:53)
[2020-12-21] MEDS: NS + KCL 20 MEQ/L 1,000 ML IV SCH ×3 (01:23→09:30)
--- NOTE | 2020-12-21 05:02 | RAD ---
PROCEDURE: Chest X-ray 1 View .HISTORY: Short of breath.TECHNIQUE: AP view .COMPARISON: 12/20/2020.TECHNICAL QUALITY: Satisfactory .FINDINGS:Right PICC line remains in good position.Normal size heart.Mediastinum and hilar regions show no masses or lymphadenopathy .Normal central vascularity .No pulmonary consolidation, masses, pleural fluid, or pneumothorax. Some discoid atelectasis left lung base that is appeared since previous study.No acute bony abnormality .IMPRESSION:1. Some discoid atelectasis left base.2. No other evidence of active disease.Electronically signed by: Daniel Handley (Dec 21, 2020 04:59:53)
[2020-12-21] MEDS: NORCO 10/325 TAB PO PRN ×2 (05:18→09:59)
[2020-12-21] MEDS: SOLU-Medrol 40 MG VIAL IVP SCH (05:18)
[2020-12-21 05:57] LABS: BASOPHILS % (AUTO) 0.2 % (0.2-1.0); HEMATOCRIT 32.8 % (42.0-54.0); HEMOGLOBIN 10.5 g/dL (13.5-18.0); LYMPHOCYTES # (AUTO) 2.2 X10^3/uL (1.3-2.9); LYMPHOCYTES % (AUTO) 17.3 % (21.0-51.0); MEAN CORPUSCULAR HEMOGLOBIN 24.8 pg (27.0-34.0); MEAN CORPUSCULAR HGB CONC 32.1 g/dL (33.0-35.0); MEAN CORPUSCULAR VOLUME 77.3 fL (80.0-100.0); MEAN PLATELET VOLUME 8.5 fL (7.4-11.0); MONOCYTES # (AUTO) 0.9 x10^3/uL (0.3-0.8); NEUTROPHILS # (AUTO) 9.5 x10^3/uL (2.2-4.8); NEUTROPHILS % (AUTO) 75.5 % (42.0-75.0); PLATELET COUNT 191 X10^3/uL (150.0-450.0); RED BLOOD COUNT 4.24 X10^6/uL (4.7-6.0); RED CELL DISTRIBUTION WIDTH 16.3 % (11.6-16.5); WHITE BLOOD COUNT 12.6 X10^3/uL (3.6-10.0)
[2020-12-21 06:07] LABS: ALANINE AMINOTRANSFERASE 72 Units/L (12-78); ALBUMIN 2.3 g/dL (3.4-5.0); ALKALINE PHOSPHATASE 80 Units/L (46-116); ASPARTATE AMINO TRANSFERASE 35 Units/L (15-37); BLOOD UREA NITROGEN 21 mg/dL (7-18); CALCIUM 7.3 mg/dL (8.5-10.1); CARBON DIOXIDE 27.1 mmol/L (21-32); CHLORIDE 106 mmol/L (98-107); COR CA(FOR HYPOALB) 8.7 mg/dL (8.5-10.1); COR NA(FOR HYPERGLY) 146 mmol/L (136-145); SODIUM 143 mmol/L (136-145); TOTAL PROTEIN 6.1 g/dL (6.4-8.2); eGFR NON BLACK RACES > 60 (>60)
[2020-12-21 06:18] LABS: BAND NEUTROPHILS % 1 % (0-10); PLATELET MORPHOLOGY COMMENT NORMAL (NORMAL)
[2020-12-21] MEDS: XOPENEX 1.25 MG/3 ML NEBULE NEB SCH (09:15)
[2020-12-21] MEDS: CYMBALTA PO SCH (09:46)
[2020-12-21] MEDS: LYRICA CAP 150 mg PO SCH (09:46)
[2020-12-21] MEDS: VSL#3 PO SCH (09:46)
[2020-12-21] MEDS: ASPIRIN EC 81 MG PO SCH (09:46)
[2020-12-21] MEDS: ZESTORETIC 20/25 MG PO SCH (09:46)
[2020-12-21] MEDS: PROTONIX TAB 40 MG PO SCH (09:46)
[2020-12-21] MEDS: NORVASC TAB 5 MG PO SCH (09:46)
[2020-12-21] MEDS: ROBITUSSIN DM PO SCH (09:46)
[2020-12-21] MEDS: NYSTATIN SUSP PO SCH (09:47)
[2020-12-21] MEDS: PEPCID TAB 20 MG PO SCH (09:47)
[2020-12-21] MEDS: TEFLARO 600 MG in NS 100 ML IV + SPIKE MINIBAG* 100 ML IV SCH (09:48)
[2020-12-21] MEDS: LOVENOX INJ 100 MG SYR SC SCH (09:51)
[2020-12-21 12:55] VITALS: BP 124/69
== END 2020-12-21 11:55 | disposition home or self-care (01) | DRG 195 ==
LOC: MED/SURG 15:26 → ER 15:26 → OBSVTOIN 19:34 → MED/SURG 20:47
PROVIDERS: ADMIT Internal Medicine; ATTEND Internal Medicine
DX: G89.29 Other chronic pain; I25.10 Atherosclerotic heart disease of native coronary artery without angina pectoris; R06.02 Shortness of breath; I87.2 Venous insufficiency (chronic) (peripheral); R07.89 Other chest pain; I10 Essential (primary) hypertension; R10.9 Unspecified abdominal pain; R26.2 Difficulty in walking, not elsewhere classified; E87.6 Hypokalemia; R13.19 Other dysphagia; J18.8 Other pneumonia, unspecified organism; Z20.822 Contact with and (suspected) exposure to COVID-19

== ENCOUNTER 2021-01-02 05:27 | Inpatient (IN) ==
[2021-01-02 05:41] VITALS: BMI 33.0
[2021-01-02 06:45] LABS: BASOPHILS # (AUTO) 0.1 X10^3/uL (0.0-0.1); BASOPHILS % (AUTO) 0.9 % (0.2-1.0); EOSINOPHILS # (AUTO) 0.3 x10^3/uL (0.0-0.2); EOSINOPHILS % (AUTO) 3.7 % (0.9-2.9); HEMATOCRIT 35.6 % (42.0-54.0); HEMOGLOBIN 11.5 g/dL (13.5-18.0); LYMPHOCYTES # (AUTO) 1.3 X10^3/uL (1.3-2.9); LYMPHOCYTES % (AUTO) 16.7 % (21.0-51.0); MEAN CORPUSCULAR HEMOGLOBIN 25.5 pg (27.0-34.0); MEAN CORPUSCULAR HGB CONC 32.3 g/dL (33.0-35.0); MEAN PLATELET VOLUME 7.8 fL (7.4-11.0); MONOCYTES # (AUTO) 1.1 x10^3/uL (0.3-0.8); MONOCYTES % (AUTO) 13.1 % (0.0-13.0); NEUTROPHILS # (AUTO) 5.3 x10^3/uL (2.2-4.8); NEUTROPHILS % (AUTO) 65.6 % (42.0-75.0); PLATELET COUNT 235 X10^3/uL (150.0-450.0); RED BLOOD COUNT 4.51 X10^6/uL (4.7-6.0); RED CELL DISTRIBUTION WIDTH 17.3 % (11.6-16.5)
[2021-01-02 07:15] LABS: ALANINE AMINOTRANSFERASE 62 Units/L (12-78); ALBUMIN 2.8 g/dL (3.4-5.0); ALKALINE PHOSPHATASE 90 Units/L (46-116); ASPARTATE AMINO TRANSFERASE 43 Units/L (15-37); BLOOD UREA NITROGEN 20 mg/dL (7-18); CALCIUM 8.2 mg/dL (8.5-10.1); CARBON DIOXIDE 26.5 mmol/L (21-32); CHLORIDE 98 mmol/L (98-107); CKMB % 1.4 % (<4); COR CA(FOR HYPOALB) 9.2 mg/dL (8.5-10.1); COR NA(FOR HYPERGLY) 135 mmol/L (136-145); CREATINE KINASE 72 Units/L (39-308); CREATINE KINASE MB < 1.0 ng/mL (0-4.0); CREATININE 1.22 mg/dL (0.70-1.30); SODIUM 135 mmol/L (136-145); TOTAL PROTEIN 7.3 g/dL (6.4-8.2); eGFR NON BLACK RACES > 60 (>60)
--- NOTE | 2021-01-02 07:18 | DR.SOBA ---
HPI Time Seen Time Seen by Provider: 01/02/21 06:00 Primary Care Physician Primary Care Physician: HPI Comment HPI Comment: According to pt he was well before 4 days ago started with cough ,shortness of breath and fever .gradual in onset and the breathing has lowly worsened. Pt has been checking oxygen sat at home. dropped to lower 80`s this morning and hence was brought to ER .did have second covid vaccine dose 5 days ago. Complaints Chief Complaint Doctors Comments: cough Chief Complaint:: PT C/O SHORTNESS OR BREATH WITH LOW 02SATS 77% AT HOME. WEAKNESS TO RIGHT SIDE. STATED HE RECEIVED HIS 2ND COVID VACCINE LAST SUNDAY AND HAS BEEN FEELING BAD SINCE. PT STATED HE FELL TODAY AND HIT FRONT OF HEAD. COVID-19 Coronavirus risk:travel/contact w/high risk person: No Has patient experienced Coronavirus symptoms: No Coronavirus symptoms experienced: Fever Reviewed Nurses Notes Reviewed: Yes Source History Provided: Patient and Family Member Mode of Arrival Mode of Arrival: Ambulatory Timing Onset of Chief Complaint: 12/31/20 Duration Onset: a.m. Duration: Days Context Onset:: At Rest and With Light Exertion PE Risk Factors:: None History of:: Hyperventiliation Prehospital Care:: None Modifying Factors Worsens:: Exertion and Lying Flat Improves:: Sitting Up Associated Signs and Symptoms Associated Signs and Symptoms: Fever and Cough If Cough Cough: Nonproductive PMH PMH Past Medical History: Yes Past Medical History: Coronary Artery Disease and Hypertension Past Medical History Comment: CHRONIC PAIN TO RIGHT ELBOW, NEUROPATHY, BRAIN TUMOR 1996 Past Surgical History: Yes Surgical History: Angioplasty/Stents, Joint Replacement and Ortho Surgery Past Surgical History Comment: LEFT TKA, LAD STENT, RIGHT ELBOW FUSION, CRANIOTOMY Family History History of Family Medical Conditions: Yes Family Medical History: Hypertension Social History Does patient currently use any type of tobacco product: No Have you used tobacco products in the last 12 months: No Type of Tobacco Use: None Does any household member use tobacco: No Alcohol Use: None Do you use any recreational Drugs:: No Lives With: Family Lives Where: Home Infectious screening In the last 2 months have you had wt loss of >10#?: NO Have you had fever, night sweats or hemotysis?: No Have you traveled outside the country in the last 6 months?: No Isolation: Standard ROS Review of Systems Constitutional: Fever and Fatigue Eyes: No Symptoms Reported ENTM: No Symptoms Reported Respiratoy: Dry Cough and Orthopnea Cardiovascular: Chest Pain Gastrointestinal/Abdominal: No Symptoms Reported Genitourinary: No Symptoms Reported Neurological: Paresthesia Musculoskeletal: Joint Pain Integumentary: No Symptoms Reported Hematologic/Lymphatic: No Symptoms Reported Endocrine: No Symptoms Reported Psychiatric: No Symptoms Reported PE Vital Signs Vitals: Pulse Rate 103 Respiratory Rate 30 Blood Pressure [Right Arm] 124/69 Blood Pressure 113/67 O2 Sat by Pulse Oximetry 93 General Limitations: No Limitations General Appearance: Alert, Anxious and Obese Head Head Exam: Normal Inspection and Atraumatic Eyes Eye exam: Normal Appearance and PERRL Respiratory Respiratory Exam: Bilateral: Wheezing Cardiovascular Cardiovascular Exam: Normal Heart Sounds, +S1 and +S2 Abdominal Exam Abdominal Exam: Normal Bowel Sounds, Soft and Other (protuberant ) Extremities Extremities Exam: Other (no swelling around his ankles ) Skin Skin Exam: Warm MDM Differential Diagnosis Differential Diagnosis Comment:: copd,wheezing ,hypoxia ,obesity ,dysponea ,fever COURSE Treatment Treatment: albuterol/atrovent. Solumederol 125 mg IV old medical records reviewed [facility] Labs Reviewed Result Diagrams: 01/02/21 06:32 01/02/21 06:32 Laboratory: WBC 8.0 X10^3/uL (3.6-10.0) 01/02/21 06:32 RBC 4.51 X10^6/uL (4.7-6.0) L 01/02/21 06:32 Hgb 11.5 g/dL (13.5-18.0) L 01/02/21 06:32 Hct 35.6 % (42.0-54.0) L 01/02/21 06:32 MCV 79.0 fL (80.0-100.0) L 01/02/21 06:32 MCH 25.5 pg (27.0-34.0) L 01/02/21 06:32 MCHC 32.3 g/dL (33.0-35.0) L 01/02/21 06:32 RDW 17.3 % (11.6-16.5) H 01/02/21 06:32 Plt Count 235 X10^3/uL (150.0-450.0) 01/02/21 06:32 MPV 7.8 fL (7.4-11.0) 01/02/21 06:32 Neut % (Auto) 65.6 % (42.0-75.0) 01/02/21 06:32 Lymph % (Auto) 16.7 % (21.0-51.0) L 01/02/21 06:32 [place] % (Auto) 13.1 % (0.0-13.0) H 01/02/21 06:32 Eos % (Auto) 3.7 % (0.9-2.9) H 01/02/21 06:32 Baso % (Auto) 0.9 % (0.2-1.0) 01/02/21 06:32 Neut # (Auto) 5.3 x10^3/uL (2.2-4.8) H 01/02/21 06:32 Lymph # (Auto) 1.3 X10^3/uL (1.3-2.9) 01/02/21 06:32 [place] # (Auto) 1.1 x10^3/uL (0.3-0.8) H 01/02/21 06:32 Eos # (Auto) 0.3 x10^3/uL (0.0-0.2) H 01/02/21 06:32 Baso # (Auto) 0.1 X10^3/uL (0.0-0.1) 01/02/21 06:32 Absolute Nucleated RBC 0.1 /100WBC 01/02/21 06:32 Sodium 135 mmol/L (136-145) L 01/02/21 06:32 Corrected Sodium 135 mmol/L (136-145) L 01/02/21 06:32 Potassium 3.2 mmol/L (3.5-5.1) L 01/02/21 06:32 Chloride 98 mmol/L (98-107) 01/02/21 06:32 Carbon Dioxide 26.5 mmol/L (21-32) 01/02/21 06:32 BUN 20 mg/dL (7-18) H 01/02/21 06:32 Creatinine 1.22 mg/dL (0.70-1.30) 01/02/21 06:32 Est GFR (MDRD) Af Amer > 60 (>60) 01/02/21 06:32 Est GFR (MDRD) Non-Af > 60 (>60) 01/02/21 06:32 Glucose 114 mg/dL (65-99) H 01/02/21 06:32 Calcium 8.2 mg/dL (8.5-10.1) L 01/02/21 06:32 Corrected Calcium 9.2 mg/dL (8.5-10.1) 01/02/21 06:32 Total Bilirubin 0.60 mg/dL (0.2-1.0) 01/02/21 06:32 AST 43 Units/L (15-37) H 01/02/21 06:32 ALT 62 Units/L (12-78) 01/02/21 06:32 Alkaline Phosphatase 90 Units/L (46-116) 01/02/21 06:32 Creatine Kinase 72 Units/L (39-308) 01/02/21 06:32 CK-MB (CK-2) < 1.0 ng/mL (0-4.0) 01/02/21 06:32 CK/CKMB % Calc 1.4 % (<4) 01/02/21 06:32 B-Natriuretic Peptide < 5.0 pg/mL (0-79) 01/02/21 06:32 Total Protein 7.3 g/dL (6.4-8.2) 01/02/21 06:32 Albumin 2.8 g/dL (3.4-5.0) L 01/02/21 06:32 Globulin 4.5 g/dL (2.5-4.5) 01/02/21 06:32 Albumin/Globulin Ratio 0.6 Ratio (1.1-2.1) L 01/02/21 06:32 SARS-CoV-2 (PCR) Negative (NEGATIVE) 01/02/21 06:00 Influenza Type A (PCR) Negative (NEGATIVE) 01/02/21 06:00 Influenza Type B (PCR) Negative (NEGATIVE) 01/02/21 06:00 RSV (PCR) Negative (NEGATIVE) 01/02/21 06:00 Opioid Opioid Risk Tool Age (Dani box if 16-45): No History of Preadolescent Sexual Abuse: No Total: 0 Total Score Risk Category: Low Risk Copyright: Khadar HERNANDEZ predicting aberrant behaviors Instructions Instructions: Cholelithiasis, [id number] Forms: Precautions for COVID19 Patient Portal Social Distancing
[2021-01-02] MEDS ORDERED: DUONEB 0.5 MG/3 MG (3 mL) NEB ONE ×2 (07:26→07:37)
[2021-01-02] MEDS ORDERED: SOLU-Medrol 125 MG VIAL IVP ONE (07:26)
--- NOTE | 2021-01-02 07:31 | CT ---
HISTORYPT C/O SHORTNESS OR BREATH WITH LOW 02SATS 77% AT HOME. WEAKNESS TO RIGHT SIDE. STATED HE RECEIVED HIS 2ND COVID VACCINE LAST SUNDAY.STUDYCHEST W/O CONCOMPARISONShortness of breathTECHNIQUEAxial CT images of the chest without intravenous contrast. Coronal and sagittal images are obtained. Dose reduction techniques including Automated Exposure Control (AEC) and adjustment of mA and kV were utilized.FINDINGSThoracic Aorta: No significant abnormality.Heart: Heart is not enlarged. Coronary artery stent noted. No pericardial effusion.Lymph Nodes: Mildly enlarged right paratracheal lymph node measures 1.3 cm in short axis. No additional adenopathy is seen.Lungs/Pleura: Mild patchy airspace and tree-in-bud opacities within the right middle and right lower lobe. Lungs are otherwise clear. No pleural effusion or pneumothorax.Other: NoneVisualized Upper Abdomen: No acute abnormality.Bones: No acute osseous findings.IMPRESSIONMild airspace disease within the right middle right lower lobe, suspicious for atypical pneumonia.Mild right paratracheal lymphadenopathy is likely reactive.Electronically signed by: Javier Viramontes (January 02, 2021 07:29:22)
--- NOTE | 2021-01-02 07:32 | RAD ---
HISTORYShortness of breathSTUDPOLA WALSH/LAT [id number]/27/2021FINDINGSHeart size is normal. Right basilar opacities are better seen on concurrent CT. No pleural effusion or pneumothorax.IMPRESSIONRight basilar opacities better seen on concurrent CT. Otherwise, no acute chest process.Electronically signed by: Javier Viramontes (January 02, 2021 07:30:15)
[2021-01-02 07:33] LABS: TROPONIN I < 0.01 ng/mL (0-1.5)
[2021-01-02] MEDS ORDERED: SOLU-Medrol 125 MG VIAL ONE (07:40)
--- NOTE | 2021-01-02 09:39 | DR.SOBA ---
HPI Time Seen Time Seen by Provider: 01/02/21 06:00 Primary Care Physician Primary Care Physician: HPI Comment HPI Comment: PATIENT IS 50YR OLD MALE IN ER WITH INCREASING SOB, LOW O2 SAT DOWN TO 77% AT HOME AND GENERALIZED WEAKNESS. FELL AT HOME TODAY AND HIT FOREHEAD. TOOK SECOD DOSE OF COVID VACCINE LAST SUNDAY AND HAVE FELT BAD SINCE. DENIES FEVER, VOMITING, DIARRHEA OR DYSURIA. NO FEVER. SLIGHT COUGH AND CONGESTION. Complaints Chief Complaint Doctors Comments: INCREASING SOB AND LOW OXYGEN SATURATION. Chief Complaint:: PT C/O SHORTNESS OR BREATH WITH LOW 02SATS 77% AT HOME. WEAKNESS TO RIGHT SIDE. STATED HE RECEIVED HIS 2ND COVID VACCINE LAST SUNDAY AND HAS BEEN FEELING BAD SINCE. PT STATED HE FELL TODAY AND HIT FRONT OF HEAD. COVID-19 Coronavirus risk:travel/contact w/high risk person: No Has patient experienced Coronavirus symptoms: No Coronavirus symptoms experienced: Fever Reviewed Nurses Notes Reviewed: Yes Source History Provided: Patient and Family Member Mode of Arrival Mode of Arrival: Ambulatory Timing Onset of Chief Complaint: 12/31/20 Duration Duration: Days Context Onset:: At Rest PE Risk Factors:: None History of:: denies None (HTN, CAD) Prehospital Care:: O2 Modifying Factors Worsens:: Exertion and Lying Flat Improves:: Rest and Sitting Up Associated Signs and Symptoms Associated Signs and Symptoms: Cough and Nasal Congestion If Chest Pain Quality: Sharp Location: Substernal If Cough Cough: Productive and Yellow PMH PMH Past Medical History: Yes Past Medical History: Coronary Artery Disease and Hypertension Past Medical History Comment: CHRONIC PAIN TO RIGHT ELBOW, NEUROPATHY, BRAIN TUMOR 1996 Past Surgical History: Yes Surgical History: Angioplasty/Stents, Joint Replacement and Ortho Surgery Past Surgical History Comment: LEFT TKA, LAD STENT, RIGHT ELBOW FUSION, CRANIOTOMY Family History History of Family Medical Conditions: Yes Family Medical History: Hypertension Social History Does patient currently use any type of tobacco product: No Have you used tobacco products in the last 12 months: No Type of Tobacco Use: None Does any household member use tobacco: No Alcohol Use: None Do you use any recreational Drugs:: No Lives With: Family Lives Where: Home Travel Risk Coronavirus risk:travel/contact w/high risk person: No Has patient experienced Coronavirus symptoms: No Coronavirus symptoms experienced: Fever Infectious screening In the last 2 months have you had wt loss of >10#?: NO Have you had fever, night sweats or hemotysis?: No Have you traveled outside the country in the last 6 months?: No Isolation: Standard ROS Review of Systems Constitutional: See HPI, Weakness and Fatigue; negative Fever Eyes: No Symptoms Reported and See HPI ENTM: See HPI, Nose Discharge and Nose Congestion Respiratoy: See HPI, Productive Cough and Short of Breath; negative Wheezing Cardiovascular: See HPI and Chest Pain (TIGHTNESS.) Gastrointestinal/Abdominal: No Symptoms Reported and See HPI; negative Abdominal Pain, Diarrhea and Vomiting Genitourinary: No Symptoms Reported and See HPI; negative Dysuria and Hematuria Neurological: See HPI, Headache and Weakness; negative Dizziness Musculoskeletal: See HPI, Back Pain and Muscle Pain Integumentary: No Symptoms Reported and See HPI; negative Change in Color, Rash and Juandice Hematologic/Lymphatic: See HPI and Easy Bruising; negative Swollen Glands Endocrine: No Symptoms Reported and See HPI; negative Increased Thirst and Increased Urine Psychiatric: No Symptoms Reported and See HPI All Other Systems: Reviewed and Negative PE Vital Signs Vitals: Pulse Rate 98 Respiratory Rate 37 Blood Pressure [Right Arm] 124/69 Blood Pressure 113/67 O2 Sat by Pulse Oximetry 93 General Limitations: No Limitations General Appearance: Alert and In No Apparent Distress Head Head Exam: Normal Inspection and Atraumatic Eyes Eye exam: Normal Appearance and PERRL; negative Scleral Icterus and Conjunctival Injection ENT ENT Exam: Normal Exam, Normal Oropharynx, Normal External Ear Exam and TM's Normal Bilaterally Neck Neck Exam: Normal Inspection and Trachea Midline; negative Tenderness and Lymphadenopathy Chest Chest Inspection: Normal Inspection and Symmetric Chest Wall Rise; negative Tenderness Respiratory Respiratory Exam: Normal Lung Sounds Bilat; negative Accessory Muscle Use, Chest Wall Tenderness and Respiratory Distress Respiratory Exam: Bilateral: Clear to Auscultation Cardiovascular Cardiovascular Exam: Regular Rate, Normal Rhythm and Normal Heart Sounds; negative Systolic Murmur and Diastolic Murmur Abdominal Exam Abdominal Exam: Normal Inspection, Normal Bowel Sounds and Soft; negative T enderness Extremities Extremities Exam: Normal Inspection and Other (LEFT TKA.) Back Back Exam: Normal Inspection; negative (R) CVA Tenderness and (L) CVA Tenderness Neurologic Neurological Exam: Alert and Oriented X3; negative Motor Sensory Deficit Psychiatric Psychiatric Exam: Normal Affect and Normal Mood Skin Skin Exam: Dry MDM Differential Diagnosis Differential Diagnosis: Bronchitis, CHF, Dysrhythmia, Hyponatremia, Mycardial Infarction, Pneumonia, Pneumothorax, Respiratory Insufficiency, Sinusitis and URI COURSE Treatment Treatment: SEE ORDERS. PATIENT TURN OVER MY SERVICE 08 20 AM. Consultation Consultation Comments: DISCUSSED PATIENT WITH DR. SAUCEDA. HE WILL ADMIT PATIENT. Education/Counseling Education/Counseling: Patient Educated On: Diagnosis ROR Labs Reviewed Laboratory Results Reviewed?: Yes Result Diagrams: 01/03/21 06:16 01/03/21 06:16 Laboratory: WBC 8.0 X10^3/uL (3.6-10.0) 01/02/21 06:32 RBC 4.51 X10^6/uL (4.7-6.0) L 01/02/21 06:32 Hgb 11.5 g/dL (13.5-18.0) L 01/02/21 06:32 Hct 35.6 % (42.0-54.0) L 01/02/21 06:32 MCV 79.0 fL (80.0-100.0) L 01/02/21 06:32 MCH 25.5 pg (27.0-34.0) L 01/02/21 06:32 MCHC 32.3 g/dL (33.0-35.0) L 01/02/21 06:32 RDW 17.3 % (11.6-16.5) H 01/02/21 06:32 Plt Count 235 X10^3/uL (150.0-450.0) 01/02/21 06:32 MPV 7.8 fL (7.4-11.0) 01/02/21 06:32 Neut % (Auto) 65.6 % (42.0-75.0) 01/02/21 06:32 Lymph % (Auto) 16.7 % (21.0-51.0) L 01/02/21 06:32 [place] % (Auto) 13.1 % (0.0-13.0) H 01/02/21 06:32 Eos % (Auto) 3.7 % (0.9-2.9) H 01/02/21 06:32 Baso % (Auto) 0.9 % (0.2-1.0) 01/02/21 06:32 Neut # (Auto) 5.3 x10^3/uL (2.2-4.8) H 01/02/21 06:32 Lymph # (Auto) 1.3 X10^3/uL (1.3-2.9) 01/02/21 06:32 [place] # (Auto) 1.1 x10^3/uL (0.3-0.8) H 01/02/21 06:32 Eos # (Auto) 0.3 x10^3/uL (0.0-0.2) H 01/02/21 06:32 Baso # (Auto) 0.1 X10^3/uL (0.0-0.1) 01/02/21 06:32 Absolute Nucleated RBC 0.1 /100WBC 01/02/21 06:32 Sodium 135 mmol/L (136-145) L 01/02/21 06:32 Corrected Sodium 135 mmol/L (136-145) L 01/02/21 06:32 Potassium 3.2 mmol/L (3.5-5.1) L 01/02/21 06:32 Chloride 98 mmol/L (98-107) 01/02/21 06:32 Carbon Dioxide 26.5 mmol/L (21-32) 01/02/21 06:32 BUN 20 mg/dL (7-18) H 01/02/21 06:32 Creatinine 1.22 mg/dL (0.70-1.30) 01/02/21 06:32 Est GFR (MDRD) Af Amer > 60 (>60) 01/02/21 06:32 Est GFR (MDRD) Non-Af > 60 (>60) 01/02/21 06:32 Glucose 114 mg/dL (65-99) H 01/02/21 06:32 Calcium 8.2 mg/dL (8.5-10.1) L 01/02/21 06:32 Corrected Calcium 9.2 mg/dL (8.5-10.1) 01/02/21 06:32 Magnesium 1.7 mg/dL (1.7-2.9) 01/02/21 06:32 Iron 31 ug/dL (50-175) L 01/02/21 06:32 Transferrin 296 mg/dL (202-364) 01/02/21 06:32 Ferritin 197 ng/mL (26-388) 01/02/21 06:32 Total Bilirubin 0.60 mg/dL (0.2-1.0) 01/02/21 06:32 AST 43 Units/L (15-37) H 01/02/21 06:32 ALT 62 Units/L (12-78) 01/02/21 06:32 Alkaline Phosphatase 90 Units/L (46-116) 01/02/21 06:32 Creatine Kinase 72 Units/L (39-308) 01/02/21 06:32 CK-MB (CK-2) < 1.0 ng/mL (0-4.0) 01/02/21 06:32 CK/CKMB % Calc 1.4 % (<4) 01/02/21 06:32 Troponin I < 0.01 ng/mL (0-1.5) 01/02/21 06:32 B-Natriuretic Peptide < 5.0 pg/mL (0-79) 01/02/21 06:32 Total Protein 7.3 g/dL (6.4-8.2) 01/02/21 06:32 Albumin 2.8 g/dL (3.4-5.0) L 01/02/21 06:32 Globulin 4.5 g/dL (2.5-4.5) 01/02/21 06:32 Albumin/Globulin Ratio 0.6 Ratio (1.1-2.1) L 01/02/21 06:32 Vitamin B12 1294 pg/mL (193-986) H 01/02/21 06:32 Folate 4.9 ng/mL (>8.6) L 01/02/21 06:32 SARS-CoV-2 (PCR) Negative (NEGATIVE) 01/02/21 06:00 Influenza Type A (PCR) Negative (NEGATIVE) 01/02/21 06:00 Influenza Type B (PCR) Negative (NEGATIVE) 01/02/21 06:00 RSV (PCR) Negative (NEGATIVE) 01/02/21 06:00 XRAY XRAY Interpreted by: Radiologist (REPORT NOTED AND DISCUSSED WITH PATIENT.) and Self EKG Rate: 98 [place]: Normal Rhythm: NSR Block: None Hypertrophy: None ST: Nonsp Opioid Opioid Risk Tool Age (Dani box if 16-45): No History of Preadolescent Sexual Abuse: No Total: 0 Total Score Risk Category: Low Risk Copyright: Khadar HERNANDEZ predicting aberrant behaviors Diagnosis Discharge Problem: Hypoxia Pneumonia Qualifiers: Pneumonia type: due to unspecified organism Laterality: right Lung location: middle lobe of lung Qualified Code(s): J18.9 - Pneumonia, unspecified organism Instructions Instructions: Cholelithiasis, Loxy-fy-Hopg Forms: Precautions for COVID19 Patient Portal Social Distancing
[2021-01-02] MEDS ORDERED: NS 1/2 1000 ML IV 1,000 ML IV ONE (09:46)
[2021-01-02] MEDS ORDERED: [UNRECOGNIZED DRUG - OTHER] PO SCH (09:54)
[2021-01-02] MEDS ORDERED: DEXTROMETHORPHAN GUAIFENESIN PO SCH (09:54)
[2021-01-02] MEDS ORDERED: K-DUR TAB 20 MEQ PO PRN (10:03)
[2021-01-02] MEDS ORDERED: MICRO K EXTEN CAP 10 MEQ PO PRN (10:03)
[2021-01-02] MEDS ORDERED: POTASSIUM CHLORIDE LIQ 20 MEQ UDC PO PRN (10:03)
[2021-01-02] MEDS ORDERED: POTASSIUM CHL 40 MEQ/NS 0.45% 500 ML IV PRN (10:03)
[2021-01-02] MEDS ORDERED: MAGNESIUM SULFATE 1 GRAM/100 mL PREMIX 1 GM/100 ML BAG IV PRN (10:03)
[2021-01-02] MEDS ORDERED: KLOR-CON PO PRN (10:03)
[2021-01-02] MEDS ORDERED: POTASSIUM CHL 60 MEQ/NS 0.45% 500 ML IV PRN (10:03)
[2021-01-02] MEDS ORDERED: K-RIDER 10 MEQ/NS 100 ML 10 MEQ/100 ML BAG IV PRN (10:03)
[2021-01-02] MEDS ORDERED: XANAX PO PRN (10:05)
[2021-01-02] MEDS: VSL#3 PO SCH (10:18)
[2021-01-02] MEDS: ROCEPHIN 1 GRAM IV PREMIX 1 G/50 ML IV.SOLN. IV SCH (10:18)
[2021-01-02] MEDS: ROBITUSSIN DM PO SCH ×4 (10:18→21:09)
[2021-01-02] MEDS: NS 1/2 1000 ML IV 1,000 ML IV SCH (10:18)
[2021-01-02] MEDS: MICRO K EXTEN CAP 10 MEQ PO SCH (10:39)
[2021-01-02] MEDS: ASPIRIN EC 81 MG PO SCH (10:39)
[2021-01-02] MEDS: CYMBALTA PO SCH (10:39)
[2021-01-02] MEDS: NORVASC TAB 5 MG PO SCH (10:40)
[2021-01-02] MEDS: PROTONIX TAB 40 MG PO SCH (10:40)
[2021-01-02] MEDS: ZESTORETIC 20/25 MG PO SCH (10:40)
[2021-01-02] MEDS: PEPCID TAB 20 MG PO SCH ×2 (10:40→21:10)
[2021-01-02] MEDS ORDERED: XOPENEX 1.25 MG/3 ML NEBULE NEB ONE (10:54)
[2021-01-02] MEDS: XOPENEX 1.25 MG/3 ML NEBULE NEB SCH ×3 (11:19→21:02)
--- NOTE | 2021-01-02 11:48 | DR.H&P ---
H&P - History & Physical for Day of: H&P Date: 01/02/21 - Chief Complaint Chief Complaint: sob - History of Present Illness History of Present Illness: PT IS 50M ER ADMISSION WITH C/O SHORTNESS OR BREATH WITH LOW 02SATS 77% AT HOME. WEAKNESS TO RIGHT SIDE. STATED HE RECEIVED HIS 2ND COVID VACCINE LAST SUNDAY AND HAS BEEN FEELING BAD SINCE. PT STATED HE FELL TODAY AND HIT FRONT OF HEAD. PT HAS HX OF PNEUMONIA OVER A MONTH AGO, HE WAS RIVKA ATED FOR ~ ONE WEEK AT [facility]. PT ADMITTED FOR TREATMENT OF ACUTE ILLNESS - Past Medical History Past Medical History: Coronary Artery Disease, Hypertension Additional Medical History: Cataracts, Back Pain - Past Surgical History Surgical History: Angioplasty/Stents, Joint Replacement, Ortho Surgery Additional Surgical History: Cardiac Stents x 2, Right upper arm/elbow, Craniotomy - non-cancerous, Right ACL meniscus tear repair, Hammer toe right - Family History Family Medical History: Hypertension - Social History Does patient currently use any type of tobacco product: No Have you used tobacco products in the last 12 months: No Type of Tobacco Use: None Does any household member use tobacco: No Alcohol Use: None Drug Use: None - Medications Home Medications: No Known Drug Allergies Allergy (Verified 09/22/20 18:31) - Review of Systems Constitutional: Weakness Eyes: No Symptoms Reported ENT: No Symptoms Reported Respiratory: Shortness of Breath, SOB with Excertion Cardiovascular: Chest Pain Gastrointestinal: Nausea Genitourinary: No Symptoms Reported Musculoskeletal: No Symptoms Reported Neurological: No Symptoms Reported - Physical Exam Vital Signs: Temperature 99 F Pulse Rate [Right Brachial] 91 Pulse Rate 98 Respiratory Rate 32 Blood Pressure [Right Arm] 109/56 Blood Pressure 113/67 O2 Sat by Pulse Oximetry 91 Oriented: Normal, Person Ear: Normal Nose: Normal Throat: Normal Respiratory: RML Diminished, RLL Diminished, LML Diminished, LLL Diminished Cardiovascular: Normal : Normal Auscultation: Bowel Sounds: Normal Palpation: Normal Tenderness: Normal Skin: Normal Musculoskeletal: Normal Psychiatric: Anxiety Affect: Anxious Speech Pattern: Clear, Appropriate - Assessment/Plan (1) Hypoxemia Status: Acute Plan: ADMIT, COVID SWAB ON ADMISSION. IV ABX, RESP THERAPY, SUPPLEMENTAL O2. CARDIAC MONITORING. CT CHEST ON ADMISSION, BLOOD AND SPUTUM CULTURES. VERIFY HOME MEDICATION (2) Acute dyspnea Status: Acute (3) Pneumonia Qualifiers: Pneumonia type: due to unspecified organism Laterality: right Lung location: middle lobe of lung Qualified Code(s): J18.9 - Pneumonia, unspecified organism Status: Acute (4) CAD (coronary artery disease) Qualifiers: Status: Chronic (5) Hypertension Qualifiers: Status: Chronic - Allergies Allergies/Adverse Reactions: Allergies Allergy/AdvReac Type Severity Reaction Status Date / Time No Known Drug Allergies Allergy Verified 09/22/20 18:31
[2021-01-02 12:28] LABS: ABG ALLEN TEST POS; ABG BASE EXCESS 3.9 mmol/L (-2.0-2.0); ABG HCO3 28.5 mmol/L (22-26)
[2021-01-02] MEDS ORDERED: DUONEB 0.5 MG/3 MG (3 mL) NEB SCH (13:00)
[2021-01-02] MEDS: LYRICA CAP 150 mg PO SCH ×2 (13:45→21:09)
[2021-01-02] MEDS: SOLU-Medrol 125 MG VIAL IVP SCH ×3 (13:45→21:10)
[2021-01-02] MEDS: LEVAQUIN PREMIX IV 750 MG 750 MG/150 ML BAG IV SCH (13:45)
[2021-01-02] MEDS ORDERED: PULMICORT NEB TX 0.5 MG NEB ONE (19:22)
[2021-01-02] MEDS ORDERED: ZESTRIL TAB 20 MG ONE (20:22)
[2021-01-02] MEDS ORDERED: PULMICORT NEB TX 0.5 MG NEB SCH (21:00)
[2021-01-02] MEDS: PULMICORT NEB TX 0.5 MG NEB SCH (21:02)
[2021-01-02] MEDS: ZESTRIL TAB 20 MG PO SCH (21:09)
[2021-01-02] MEDS: XANAX PO SCH (21:09)
[2021-01-02] MEDS: CRESTOR TAB 10 MG PO SCH (21:10)
[2021-01-02] MEDS: NORCO 10/325 TAB PO PRN (21:20)
[2021-01-03] MEDS: AMBIEN PO PRN
[2021-01-03] MEDS: NORCO 10/325 TAB PO PRN ×3 (04:11→21:11)
[2021-01-03 04:45] LABS: ABG ALLEN TEST POS; ABG BASE EXCESS 2.8 mmol/L (-2.0-2.0); ABG HCO3 27.9 mmol/L (22-26)
[2021-01-03] MEDS: XOPENEX 1.25 MG/3 ML NEBULE NEB SCH ×3 (05:00→20:10)
[2021-01-03] MEDS: LYRICA CAP 150 mg PO SCH ×3 (06:13→21:09)
[2021-01-03 06:51] LABS: BASOPHILS % (AUTO) 0.1 % (0.2-1.0); HEMATOCRIT 34.5 % (42.0-54.0); HEMOGLOBIN 11.4 g/dL (13.5-18.0); LYMPHOCYTES # (AUTO) 0.8 X10^3/uL (1.3-2.9); LYMPHOCYTES % (AUTO) 8.5 % (21.0-51.0); MEAN CORPUSCULAR HEMOGLOBIN 25.6 pg (27.0-34.0); MEAN CORPUSCULAR VOLUME 77.7 fL (80.0-100.0); MEAN PLATELET VOLUME 7.8 fL (7.4-11.0); MONOCYTES # (AUTO) 0.3 x10^3/uL (0.3-0.8); MONOCYTES % (AUTO) 3.7 % (0.0-13.0); NEUTROPHILS % (AUTO) 87.7 % (42.0-75.0); PLATELET COUNT 233 X10^3/uL (150.0-450.0); RED BLOOD COUNT 4.44 X10^6/uL (4.7-6.0); RED CELL DISTRIBUTION WIDTH 17.6 % (11.6-16.5); WHITE BLOOD COUNT 9.2 X10^3/uL (3.6-10.0)
[2021-01-03 07:05] LABS: ALANINE AMINOTRANSFERASE 55 Units/L (12-78); ALBUMIN 2.7 g/dL (3.4-5.0); ALKALINE PHOSPHATASE 81 Units/L (46-116); ASPARTATE AMINO TRANSFERASE 27 Units/L (15-37); BLOOD UREA NITROGEN 26 mg/dL (7-18); CALCIUM 8.2 mg/dL (8.5-10.1); CARBON DIOXIDE 26.2 mmol/L (21-32); CHLORIDE 102 mmol/L (98-107); COR CA(FOR HYPOALB) 9.2 mg/dL (8.5-10.1); COR NA(FOR HYPERGLY) 140 mmol/L (136-145); CREATININE 0.99 mg/dL (0.70-1.30); SODIUM 138 mmol/L (136-145); TOTAL PROTEIN 7.3 g/dL (6.4-8.2); eGFR NON BLACK RACES > 60 (>60)
--- NOTE | 2021-01-03 07:36 | RAD ---
HISTORYPNEUMONIASTUDYCHEST, 1 VIEWCOMPARISONNinety-one.TECHNIQUEAP view of the chestFINDINGSCardiac and mediastinal contours are within normal limits. Mild bibasilar patchy opacities, worse on the right compared to prior study. No definite pleural effusion or pneumothorax. Soft tissue attenuation limits evaluation.IMPRESSIONMild bibasilar patchy opacities may represent atelectasis or pneumonia. Worse appearance of the right base compared to prior study.Electronically signed by: Adama Burnett (January 03, 2021 07:35:13)
[2021-01-03] MEDS: PULMICORT NEB TX 0.5 MG NEB SCH ×2 (08:46→20:10)
[2021-01-03] MEDS: XANAX PO SCH ×2 (10:05→21:09)
[2021-01-03] MEDS: MICRO K EXTEN CAP 10 MEQ PO SCH (10:05)
[2021-01-03] MEDS: CYMBALTA PO SCH (10:05)
[2021-01-03] MEDS: PROTONIX TAB 40 MG PO SCH (10:05)
[2021-01-03] MEDS: ZESTORETIC 20/25 MG PO SCH (10:05)
[2021-01-03] MEDS: NORVASC TAB 5 MG PO SCH (10:06)
[2021-01-03] MEDS: PEPCID TAB 20 MG PO SCH ×2 (10:06→21:10)
[2021-01-03] MEDS: ASPIRIN EC 81 MG PO SCH (10:06)
[2021-01-03] MEDS: VSL#3 PO SCH (10:06)
[2021-01-03] MEDS: LEVAQUIN PREMIX IV 750 MG 750 MG/150 ML BAG IV SCH (10:07)
[2021-01-03] MEDS: ROBITUSSIN DM PO SCH ×4 (10:07→21:10)
--- NOTE | 2021-01-03 10:08 | CT ---
HISTORY:HeadachesSTUDY:BRAIN W/O CON 5 mm axial sections are reviewed noncontrast with sagittal coronal reformats as well as axial images reviewed at bone windows. Radiation dose reduction was achieved through individualized adjustment of kVP and/or mA, through adaptive statistical iterative reconstruction, and/or through automated tube current modulation.COMPARISON:NoneFINDINGS:The orbits are normal. There is bilateral maxillary sinus mucosal thickening posteriorly and inferiorly. The remaining sinuses are clear. There is a fronto temporal craniotomy defect on the right. CSF fluid fills the anterior right temporal fossa probably a arachnoid cyst. The ventricular system of the brain is normal. The cortical sulci are symmetric there are no extra-axial fluid collections or mass lesions other than the anterior right temporal fossa fluid collection i.e. arachnoid cyst versus postsurgical arachnoid cyst. There are no sellar suprasellar masses. There is no hemorrhage edema or mass effect. Brainstem and cerebellum are normal. On review of bone windows the mastoid air cells, middle ear cavities, IAC's are normal. The bony calvarium is normal other than the right fronto temporal craniotomy defect. Mucosal thickening is again noted in the inferior posterior maxillary sinuses. Coronal and sagittal reformats were reviewed with no additional findings noted.IMPRESSION:No acute intracranial processes. Prior fronto temporal craniotomy defect. Arachnoid cyst versus postsurgical fluid collection in the inferior anterior temporal fossa on the right.Mucosal thickening in both maxillary sinuses consistent with chronic sinusitis.Electronically signed by: PRASHANT LOPEZ (January 03, 2021 10:06:39)
--- NOTE | 2021-01-03 11:23 | PCM.PROG ---
Progress Note - Progress Note for Day of Date of Exam: 01/03/21 - Subjective Subjective: WAS ADMITTED FOR TREATMENT OF RIGHT LUNG PNEUMONIA AND HYPOXEMIA. HE HAS A PMH OF CAD, HTN, AND HYPERLIPIDEMIA. HE REPORTS THAT HIS OXYGEN SATURATIONS AT HOME HAD DROPPED TO 77% WHILE ON ROOM AIR AT HOME. HE REPORTS RECEIVING HIS 2ND COVID VACCINE ABOUT 4-5 DAYS PRIOR AND HAS FELT WEAK AND SICK SINCE THEN. HE WAS RECENTLY DISCHARGED FROM THE HOSPITAL FOR TREATMENT OF LEFT LOWER LOBE PNEUMONIA. ON THIS ADMISSION, CHEST CT REVEALED PNEUMONIA IN THE RIGHT MIDDLE AND RIGHT LOWER LOBE. TODAY, HE IS ALERT AND ORIENTED, LYING IN BED ON MORNING ROUNDS. HE IS CURRENTLY UTILIZING OXYGEN VIA NASAL CANNULA AT 3 LITERS/MINUTE. OXYGEN SATURATIONS HAVE BEEN 90-93% THIS MORNING. HE HAS BEEN AFEBRILE THROUGHOUT THE NIGHT. HE CONTINUES WITH COMPLAINTS OF COUGH AND SHORTNESS OF BREATH TODAY. HE DENIES SIGNIFICANT IMPROVEMENT IN SYMPTOMS SINCE ADMISSION. ON EXAMINATION, HEART IS REGULAR IN RATE AND RHYTHM. BILATERAL LUNGS ARE NOTED WITH SCATTERED WHEEZING AND RHONCHI THROUGHOUT. ABDOMEN IS ROUND, SOFT, AND NOTED WITH DIFFUSE TENDERNESS. NO SWELLING NOTED IN EXTREMITIES. HIS VITALS THIS MORNING ARE: 97.4-86-20-91%-107/60. LABS WERE OBTAINED. ABNORMAL LAB VALUES INCLUDE THE FOLLOWING: RBC 4.44, HGB 11.4, HCT 34.5, BUN 26, GLUCOSE 167, CALCIUM 8.2, ALBUMIN 2.7, GLOBULIN 4.6. BLOOD AND SPUTUM CULTURES ARE PENDING. A CHEST XRAY WAS OBTAINED THIS MORNING AND REVEALED: Mild bibasilar patchy opacities may represent atelectasis or pneumonia. Worse appearance of the right base compared to prior study. HE IS CURRENTLY RECEIVING 1/2 NS WITH AT 50 ML/HR, LEVAQUIN 750MG IV DAILY, ROCEPHIN 1G IV DAILY, ROBITUSSIN DM 10ML PO QID, XOPENEX NEBS TID, PULMICORT NEBS BID, THE POTASSIUM AND MAGNESIUM PROTOCOLS, AND HIS HOME MEDICATIONS WERE RESUMED. WE WILL CONTINUE WITH CURRENT PLAN OF CARE TODAY. OTHERWISE, WE PLAN TO FOLLOW UP WITH AM LABS AND CHEST XRAY AND CONTINUE TO MONITOR. TIME SPENT ON CLINICAL ASSESSMENT, REVIEWING LABS AND IMAGING, DECISION MAKING, AND DOCUMENTATION GREATER THAN 45 MINUTES. - Past Medical Family Social History Past Med/Fam/Surg Hx: No changes since H&P Allergies: Allergies No Known Drug Allergies Allergy (Verified 09/22/20 18:31) - Review of Systems ROS: No change since H&P - Vital Signs and I&O's Vital Signs: Temperature 97.4 F Pulse Rate [Right Brachial] 86 Pulse Rate 106 Respiratory Rate 18 Blood Pressure [Right Arm] 107/60 Blood Pressure 113/67 O2 Sat by Pulse Oximetry 92 Intake and Output: Intake & Output 12/31/20 01/01/21 01/02/21 01/03/21 11:59 11:59 11:59 11:59 Intake Total 2170 Balance 2170 - Physical Exam Oriented: Normal, Person Ear: Normal Nose: Normal Throat: Normal Respiratory: Wheezes, Rhonchi Cardiovascular: Normal : Normal Auscultation: Bowel Sounds: Normal Palpation: Normal Tenderness: Normal Skin: Normal Musculoskeletal: Normal Psychiatric: Anxiety Affect: Anxious Speech Pattern: Clear, Appropriate - Laboratory and Diagnostics Result Diagrams: 01/06/21 05:25 01/06/21 05:25 Labs: 01/02/21 09:58 Sputum - Expectorated Sputum Sputum Culture - Preliminary 01/02/21 09:58 Sputum - Expectorated Sputum - Final Laboratory WBC 9.2 X10^3/uL (3.6-10.0) 01/03/21 06:16 RBC 4.44 X10^6/uL (4.7-6.0) L 01/03/21 06:16 Hgb 11.4 g/dL (13.5-18.0) L 01/03/21 06:16 Hct 34.5 % (42.0-54.0) L 01/03/21 06:16 MCV 77.7 fL (80.0-100.0) L 01/03/21 06:16 MCH 25.6 pg (27.0-34.0) L 01/03/21 06:16 MCHC 33.0 g/dL (33.0-35.0) 01/03/21 06:16 RDW 17.6 % (11.6-16.5) H 01/03/21 06:16 Plt Count 233 X10^3/uL (150.0-450.0) 01/03/21 06:16 MPV 7.8 fL (7.4-11.0) 01/03/21 06:16 Neut % (Auto) 87.7 % (42.0-75.0) H 01/03/21 06:16 Lymph % (Auto) 8.5 % (21.0-51.0) L 01/03/21 06:16 [place] % (Auto) 3.7 % (0.0-13.0) 01/03/21 06:16 Eos % (Auto) 0.0 % (0.9-2.9) L 01/03/21 06:16 Baso % (Auto) 0.1 % (0.2-1.0) L 01/03/21 06:16 Neut # (Auto) 8.0 x10^3/uL (2.2-4.8) H 01/03/21 06:16 Lymph # (Auto) 0.8 X10^3/uL (1.3-2.9) L 01/03/21 06:16 [place] # (Auto) 0.3 x10^3/uL (0.3-0.8) 01/03/21 06:16 Eos # (Auto) 0.0 x10^3/uL (0.0-0.2) 01/03/21 06:16 Baso # (Auto) 0.0 X10^3/uL (0.0-0.1) 01/03/21 06:16 Absolute Nucleated RBC 0.1 /100WBC 01/03/21 06:16 Sample Site Lr 01/03/21 04:40 ABG pH 7.410 (7.35-7.45) 01/03/21 04:40 ABG pCO2 44.0 mmHg (35.0-45.0) 01/03/21 04:40 ABG pO2 56.0 mmHg (80.0-100.0) L 01/03/21 04:40 ABG HCO3 27.9 mmol/L (22-26) H 01/03/21 04:40 ABG O2 Saturation 89.0 % (90-100) L 01/03/21 04:40 ABG Base Excess 2.8 mmol/L (-2.0-2.0) H 01/03/21 04:40 Mauro Test Pos 01/03/21 04:40 A-a Gradient 117.0 mmHg 01/03/21 04:40 FiO2 32.0 01/03/21 04:40 Blood Gas Comments Deidre well ae 01/03/21 04:40 Sodium 138 mmol/L (136-145) 01/03/21 06:16 Corrected Sodium 140 mmol/L (136-145) 01/03/21 06:16 Potassium 3.7 mmol/L (3.5-5.1) 01/03/21 06:16 Chloride 102 mmol/L (98-107) 01/03/21 06:16 Carbon Dioxide 26.2 mmol/L (21-32) 01/03/21 06:16 BUN 26 mg/dL (7-18) H 01/03/21 06:16 Creatinine 0.99 mg/dL (0.70-1.30) 01/03/21 06:16 Est GFR (MDRD) Af Amer > 60 (>60) 01/03/21 06:16 Est GFR (MDRD) Non-Af > 60 (>60) 01/03/21 06:16 Glucose 167 mg/dL (65-99) H 01/03/21 06:16 Calcium 8.2 mg/dL (8.5-10.1) L 01/03/21 06:16 Corrected Calcium 9.2 mg/dL (8.5-10.1) 01/03/21 06:16 Magnesium 1.7 mg/dL (1.7-2.9) 01/02/21 06:32 Iron 31 ug/dL (50-175) L 01/02/21 06:32 Transferrin 296 mg/dL (202-364) 01/02/21 06:32 Ferritin 197 ng/mL (26-388) 01/02/21 06:32 Total Bilirubin 0.40 mg/dL (0.2-1.0) 01/03/21 06:16 AST 27 Units/L (15-37) 01/03/21 06:16 ALT 55 Units/L (12-78) 01/03/21 06:16 Alkaline Phosphatase 81 Units/L (46-116) 01/03/21 06:16 Ammonia 23 umol/L (11-32) 01/02/21 12:15 Creatine Kinase 72 Units/L (39-308) 01/02/21 06:32 CK-MB (CK-2) < 1.0 ng/mL (0-4.0) 01/02/21 06:32 CK/CKMB % Calc 1.4 % (<4) 01/02/21 06:32 Troponin I < 0.01 ng/mL (0-1.5) 01/02/21 06:32 B-Natriuretic Peptide < 5.0 pg/mL (0-79) 01/02/21 06:32 Total Protein 7.3 g/dL (6.4-8.2) 01/03/21 06:16 Albumin 2.7 g/dL (3.4-5.0) L 01/03/21 06:16 Globulin 4.6 g/dL (2.5-4.5) H 01/03/21 06:16 Albumin/Globulin Ratio 0.6 Ratio (1.1-2.1) L 01/03/21 06:16 Vitamin B12 1294 pg/mL (193-986) H 01/02/21 06:32 Folate 4.9 ng/mL (>8.6) L 01/02/21 06:32 SARS-CoV-2 (PCR) Negative (NEGATIVE) 01/02/21 06:00 Influenza Type A (PCR) Negative (NEGATIVE) 01/02/21 06:00 Influenza Type B (PCR) Negative (NEGATIVE) 01/02/21 06:00 RSV (PCR) Negative (NEGATIVE) 01/02/21 06:00 - Plan (1) Pneumonia Status: Acute Qualifiers: Pneumonia type: due to unspecified organism Laterality: right Lung location: middle lobe of lung Qualified Code(s): J18.9 - Pneumonia, unspecified organism Plan: 1/2 NS WITH AT 50 ML/HR, LEVAQUIN 750MG IV DAILY, ROCEPHIN 1G IV DAILY, ROBITUSSIN DM 10ML PO QID, XOPENEX NEBS TID, PULMICORT NEBS BID, THE POTASSIUM AND MAGNESIUM PROTOCOLS, AND HIS HOME MEDICATIONS WERE RESUMED. (2) Hypoxia Status: Acute
[2021-01-03] MEDS: DILAUDID INJ IVP PRN ×2 (11:47→16:45)
[2021-01-03] MEDS ORDERED: LOVENOX INJ 40 MG SYR SC SCH (13:00)
--- NOTE | 2021-01-03 13:55 | MRI ---
HISTORYSEVERE HEADACHE, right-sided WEAKNESS, MEMORY LOSS; fall with head trauma, prior craniotomySTUDYMRI brain without and with IV contrastCOMPARISONCT from same dayTECHNIQUEMultiplanar multi-sequence MRI of the brain was obtained prior to and following administration of IV contrast. 20 cc MultiHance IV contrast.FINDINGSThe cerebellar tonsils are normally positioned. Pituitary gland is normal in size. [The cerebral ventricles are normal in size.]No evidence of restricted diffusion is seen in the brain parenchyma. There is a thin subdural hematoma in the left hemisphere laterally. This measures up to 4 mm in thickness in the left parietal region but is much thinner in the left occipital, frontal, and temporal regions. [This causes slight sulcal effacement. It is barely visible on prior CT even in retrospect.Probable mild chronic small vessel ischemic changes in the periventricular white matter, basal ganglia, and thalami. Tiny focus of gliosis and encephalomalacia is suspected in the inferior right frontal lobe. Nonenhancing arachnoid cyst is seen in the anterior aspect of right middle cranial fossa]. It measures 4.4 x 2.5 cm and has mass effect upon the right temporal lobe.Mild chronic sinusitis changes. Prior right-sided craniotomy.IMPRESSIONThin left-sided subdural hematoma causes slight sulcal effacement but no midline shift. Measures up to 4 mm in thickness in the left parietal region but is much thinner in the left occipital, frontal, and temporal regions.4.4 x 2.5 cm arachnoid cyst in the right middle cranial fossa.Electronically signed by: Corey Vincent (January 03, 2021 13:53:22)
[2021-01-03] MEDS: ROCEPHIN 1 GRAM IV PREMIX 1 G/50 ML IV.SOLN. IV SCH (14:13)
[2021-01-03] MEDS ORDERED: NS 1/2 1000 ML IV 1,000 ML IV ONE (14:17)
[2021-01-03] MEDS: NS 1/2 1000 ML IV 1,000 ML IV SCH ×2 (14:21→14:22)
[2021-01-03] MEDS ORDERED: ZESTRIL TAB 20 MG ONE (20:11)
[2021-01-03] MEDS: ZESTRIL TAB 20 MG PO SCH (21:08)
[2021-01-03] MEDS: CRESTOR TAB 10 MG PO SCH (21:09)
[2021-01-04] MEDS: NS 1/2 1000 ML IV 1,000 ML IV SCH ×3 (03:31→20:29)
[2021-01-04] MEDS: DILAUDID INJ IVP PRN ×5 (04:40→20:33)
[2021-01-04] MEDS ORDERED: NS 1/2 1000 ML IV 1,000 ML IV ONE ×2 (04:49→20:21)
[2021-01-04] MEDS: XOPENEX 1.25 MG/3 ML NEBULE NEB SCH ×3 (05:03→21:01)
[2021-01-04] MEDS: LYRICA CAP 150 mg PO SCH ×3 (05:41→22:14)
[2021-01-04 06:26] LABS: BASOPHILS % (AUTO) 0.2 % (0.2-1.0); EOSINOPHILS % (AUTO) 0.2 % (0.9-2.9); HEMATOCRIT 32.4 % (42.0-54.0); HEMOGLOBIN 10.6 g/dL (13.5-18.0); LYMPHOCYTES # (AUTO) 2.3 X10^3/uL (1.3-2.9); LYMPHOCYTES % (AUTO) 15.1 % (21.0-51.0); MEAN CORPUSCULAR HEMOGLOBIN 25.5 pg (27.0-34.0); MEAN CORPUSCULAR HGB CONC 32.8 g/dL (33.0-35.0); MEAN CORPUSCULAR VOLUME 77.9 fL (80.0-100.0); MEAN PLATELET VOLUME 7.9 fL (7.4-11.0); MONOCYTES # (AUTO) 1.1 x10^3/uL (0.3-0.8); NEUTROPHILS % (AUTO) 77.5 % (42.0-75.0); PLATELET COUNT 246 X10^3/uL (150.0-450.0); RED BLOOD COUNT 4.16 X10^6/uL (4.7-6.0); RED CELL DISTRIBUTION WIDTH 17.6 % (11.6-16.5); WHITE BLOOD COUNT 15.4 X10^3/uL (3.6-10.0)
[2021-01-04 06:40] LABS: ALANINE AMINOTRANSFERASE 50 Units/L (12-78); ALBUMIN 2.5 g/dL (3.4-5.0); ALKALINE PHOSPHATASE 84 Units/L (46-116); ASPARTATE AMINO TRANSFERASE 26 Units/L (15-37); BLOOD UREA NITROGEN 26 mg/dL (7-18); CARBON DIOXIDE 28.9 mmol/L (21-32); CHLORIDE 105 mmol/L (98-107); COR CA(FOR HYPOALB) 9.2 mg/dL (8.5-10.1); CREATININE 1.03 mg/dL (0.70-1.30); SODIUM 141 mmol/L (136-145); TOTAL PROTEIN 6.6 g/dL (6.4-8.2); eGFR NON BLACK RACES > 60 (>60)
--- NOTE | 2021-01-04 06:53 | RAD ---
HISTORYShortness of breathSTUDYChest AP [id number] heart is within normal limits in size. The justo are normal. The lung cazares are clear. No pleural effusions are identified. Bony thorax is unremarkable.IMPRESSIONNo significant abnormality identifiedElectronically signed by: JOHN TOMPKINS (January 04, 2021 06:51:08)
[2021-01-04] MEDS: PULMICORT NEB TX 0.5 MG NEB SCH ×2 (09:09→21:01)
[2021-01-04] MEDS: LEVAQUIN PREMIX IV 750 MG 750 MG/150 ML BAG IV SCH (10:00)
[2021-01-04] MEDS ORDERED: XYLOCAINE 1 % (PLAIN) ONE (11:00)
[2021-01-04] MEDS ORDERED: POLYMYXIN B SULFATE ONE (11:00)
[2021-01-04] MEDS: NORCO 10/325 TAB PO PRN ×2 (11:21→22:36)
[2021-01-04] MEDS: XANAX PO SCH ×2 (11:21→20:32)
[2021-01-04] MEDS: MICRO K EXTEN CAP 10 MEQ PO SCH ×2 (11:41→14:06)
[2021-01-04] MEDS: VSL#3 PO SCH ×2 (11:41→14:04)
[2021-01-04] MEDS: CYMBALTA PO SCH ×2 (11:41→14:05)
[2021-01-04] MEDS: ZESTORETIC 20/25 MG PO SCH ×2 (11:42→14:06)
[2021-01-04] MEDS: NORVASC TAB 5 MG PO SCH ×2 (11:42→14:06)
[2021-01-04] MEDS: PEPCID TAB 20 MG PO SCH ×3 (11:42→20:31)
[2021-01-04] MEDS: PROTONIX TAB 40 MG PO SCH ×2 (11:42→14:07)
[2021-01-04] MEDS: ROBITUSSIN DM PO SCH ×3 (11:43→20:31)
[2021-01-04] MEDS ORDERED: FENTANYL INJ 100 mcg ONE (11:45)
[2021-01-04] MEDS ORDERED: BYFAVO INJ IVP ONE (12:14)
[2021-01-04] MEDS ORDERED: VANCOMYCIN IV *PREMIX 1 G/200 ML BAG 1 G/200 ML PIGGYBACK IV ONE (12:35)
[2021-01-04] MEDS ORDERED: PERCOCET TAB 5/325 MG PO PRN (13:04)
[2021-01-04] MEDS ORDERED: SUPRANE ONE (13:32)
[2021-01-04] MEDS: ROCEPHIN 1 GRAM IV PREMIX 1 G/50 ML IV.SOLN. IV SCH (14:04)
--- NOTE | 2021-01-04 14:28 | RAD ---
HISTORYPORT PLACEMENTSTUDYCHEST, 1 VIEWCOMPARISONMay 2020FINDINGSSUPPORT DEVICES: Interval placement of a left estevan catheter with tip projecting over the upper/mid SVC regionLUNGS/PLEURA: No pulmonary edema or focal consolidation. No pleural effusion or space occupying pneumothorax.HEART AND MEDIASTINUM: The cardiac and mediastinum contours appear normal.BONES AND SOFT TISSUES: No acute abnormality.IMPRESSION1. No acute cardiopulmonary abnormality.Electronically signed by: Andrea Matthew (January 04, 2021 14:25:50)
[2021-01-04] MEDS ORDERED: ZESTRIL TAB 20 MG ONE (20:13)
[2021-01-04] MEDS: ZESTRIL TAB 20 MG PO SCH (20:32)
[2021-01-04] MEDS: CRESTOR TAB 10 MG PO SCH (20:32)
[2021-01-04] MEDS: AMBIEN PO PRN (22:35)
[2021-01-05] MEDS: DILAUDID INJ IVP PRN ×4 (00:58→17:26)
[2021-01-05] MEDS ORDERED: NS 1/2 1000 ML IV 1,000 ML IV ONE (05:01)
[2021-01-05] MEDS: XOPENEX 1.25 MG/3 ML NEBULE NEB SCH ×3 (05:19→21:27)
[2021-01-05] MEDS: LYRICA CAP 150 mg PO SCH ×3 (05:40→21:43)
[2021-01-05] MEDS: NS 1/2 1000 ML IV 1,000 ML IV SCH ×3 (05:41→17:46)
[2021-01-05 06:59] LABS: BASOPHILS % (AUTO) 0.5 % (0.2-1.0); EOSINOPHILS # (AUTO) 0.1 x10^3/uL (0.0-0.2); EOSINOPHILS % (AUTO) 1.7 % (0.9-2.9); HEMOGLOBIN 11.3 g/dL (13.5-18.0); LYMPHOCYTES # (AUTO) 2.5 X10^3/uL (1.3-2.9); LYMPHOCYTES % (AUTO) 30.4 % (21.0-51.0); MEAN CORPUSCULAR HEMOGLOBIN 25.8 pg (27.0-34.0); MEAN CORPUSCULAR HGB CONC 33.1 g/dL (33.0-35.0); MEAN CORPUSCULAR VOLUME 77.9 fL (80.0-100.0); MEAN PLATELET VOLUME 7.6 fL (7.4-11.0); MONOCYTES # (AUTO) 0.7 x10^3/uL (0.3-0.8); MONOCYTES % (AUTO) 8.8 % (0.0-13.0); NEUTROPHILS # (AUTO) 4.8 x10^3/uL (2.2-4.8); NEUTROPHILS % (AUTO) 58.6 % (42.0-75.0); PLATELET COUNT 207 X10^3/uL (150.0-450.0); RED BLOOD COUNT 4.37 X10^6/uL (4.7-6.0); RED CELL DISTRIBUTION WIDTH 18.1 % (11.6-16.5); WHITE BLOOD COUNT 8.2 X10^3/uL (3.6-10.0)
[2021-01-05 07:05] LABS: ALANINE AMINOTRANSFERASE 48 Units/L (12-78); ALBUMIN 2.6 g/dL (3.4-5.0); ALKALINE PHOSPHATASE 77 Units/L (46-116); ASPARTATE AMINO TRANSFERASE 31 Units/L (15-37); BLOOD UREA NITROGEN 17 mg/dL (7-18); CALCIUM 8.2 mg/dL (8.5-10.1); CHLORIDE 105 mmol/L (98-107); COR CA(FOR HYPOALB) 9.3 mg/dL (8.5-10.1); CREATININE 0.79 mg/dL (0.70-1.30); SODIUM 142 mmol/L (136-145); TOTAL PROTEIN 6.6 g/dL (6.4-8.2); eGFR NON BLACK RACES > 60 (>60)
[2021-01-05] MEDS ORDERED: XYLOCAINE 2 % (PLAIN) ONE (08:45)
[2021-01-05] MEDS ORDERED: DIPRIVAN VIAL ONE (08:45)
[2021-01-05] MEDS: CYMBALTA PO SCH (09:12)
[2021-01-05] MEDS: VSL#3 PO SCH (09:13)
[2021-01-05] MEDS: XANAX PO SCH ×2 (09:13→21:43)
[2021-01-05] MEDS: NORVASC TAB 5 MG PO SCH (09:14)
[2021-01-05] MEDS: PROTONIX TAB 40 MG PO SCH (09:14)
[2021-01-05] MEDS: ZESTORETIC 20/25 MG PO SCH (09:14)
[2021-01-05] MEDS: ROCEPHIN 1 GRAM IV PREMIX 1 G/50 ML IV.SOLN. IV SCH (09:15)
[2021-01-05] MEDS: MICRO K EXTEN CAP 10 MEQ PO SCH (09:15)
[2021-01-05] MEDS: PEPCID TAB 20 MG PO SCH ×2 (09:15→21:43)
[2021-01-05] MEDS: ROBITUSSIN DM PO SCH ×5 (09:16→21:45)
[2021-01-05] MEDS: PULMICORT NEB TX 0.5 MG NEB SCH ×2 (09:29→21:27)
[2021-01-05] MEDS: LEVAQUIN PREMIX IV 750 MG 750 MG/150 ML BAG IV SCH (10:00)
[2021-01-05] MEDS: NORCO 10/325 TAB PO PRN ×2 (14:39→21:43)
[2021-01-05] MEDS ORDERED: ZESTRIL TAB 20 MG ONE (20:15)
[2021-01-05] MEDS: AMBIEN PO PRN (21:43)
[2021-01-05] MEDS: ZESTRIL TAB 20 MG PO SCH (21:43)
[2021-01-05] MEDS: CRESTOR TAB 10 MG PO SCH (21:49)
[2021-01-06] MEDS: NS 1/2 1000 ML IV 1,000 ML IV SCH ×2 (00:06→10:53)
[2021-01-06] MEDS: XOPENEX 1.25 MG/3 ML NEBULE NEB SCH ×3 (05:30→20:10)
[2021-01-06] MEDS: LYRICA CAP 150 mg PO SCH ×3 (05:41→21:21)
--- NOTE | 2021-01-06 06:23 | RAD ---
HISTORYSOBSTUDYCHEST, 1 [id number]/11/2021.TECHNIQUEAP view of the chestFINDINGSLeft chest wall port with tip in good position. Cardiac and mediastinal contours are within normal limits. No consolidation or segmental lung collapse. No pleural effusion or pneumothorax. Soft tissue attenuation limits evaluation.IMPRESSIONNo acute pulmonary process.Electronically signed by: Adama Burnett (January 06, 2021 06:21:03)
[2021-01-06 06:27] LABS: BASOPHILS # (AUTO) 0.2 X10^3/uL (0.0-0.1); BASOPHILS % (AUTO) 2.8 % (0.2-1.0); EOSINOPHILS # (AUTO) 0.2 x10^3/uL (0.0-0.2); EOSINOPHILS % (AUTO) 2.4 % (0.9-2.9); HEMATOCRIT 36.6 % (42.0-54.0); HEMOGLOBIN 12.1 g/dL (13.5-18.0); LYMPHOCYTES # (AUTO) 2.6 X10^3/uL (1.3-2.9); LYMPHOCYTES % (AUTO) 35.1 % (21.0-51.0); MEAN CORPUSCULAR HEMOGLOBIN 25.5 pg (27.0-34.0); MEAN CORPUSCULAR VOLUME 77.5 fL (80.0-100.0); MONOCYTES # (AUTO) 0.5 x10^3/uL (0.3-0.8); MONOCYTES % (AUTO) 6.9 % (0.0-13.0); NEUTROPHILS # (AUTO) 3.9 x10^3/uL (2.2-4.8); NEUTROPHILS % (AUTO) 52.8 % (42.0-75.0); PLATELET COUNT 206 X10^3/uL (150.0-450.0); RED BLOOD COUNT 4.73 X10^6/uL (4.7-6.0); RED CELL DISTRIBUTION WIDTH 17.4 % (11.6-16.5); WHITE BLOOD COUNT 7.5 X10^3/uL (3.6-10.0)
[2021-01-06] MEDS: DILAUDID INJ IVP PRN ×5 (06:41→21:52)
[2021-01-06 06:50] LABS: ALANINE AMINOTRANSFERASE 53 Units/L (12-78); ALBUMIN 2.7 g/dL (3.4-5.0); ALKALINE PHOSPHATASE 78 Units/L (46-116); ASPARTATE AMINO TRANSFERASE 39 Units/L (15-37); BLOOD UREA NITROGEN 15 mg/dL (7-18); CALCIUM 8.5 mg/dL (8.5-10.1); CARBON DIOXIDE 31.8 mmol/L (21-32); COR CA(FOR HYPOALB) 9.5 mg/dL (8.5-10.1); CREATININE 0.82 mg/dL (0.70-1.30); TOTAL PROTEIN 6.9 g/dL (6.4-8.2); eGFR NON BLACK RACES > 60 (>60)
[2021-01-06] MEDS ORDERED: DIPRIVAN VIAL 20 ML ONE (07:17)
[2021-01-06 07:24] LABS: CHLORIDE 101 mmol/L (98-107); SODIUM 141 mmol/L (136-145)
[2021-01-06] MEDS ORDERED: NS 1/2 1000 ML IV 1,000 ML IV ONE ×2 (09:08→19:27)
[2021-01-06] MEDS: PULMICORT NEB TX 0.5 MG NEB SCH ×2 (09:18→20:10)
[2021-01-06] MEDS: LEVAQUIN PREMIX IV 750 MG 750 MG/150 ML BAG IV SCH (10:24)
[2021-01-06] MEDS: NORVASC TAB 5 MG PO SCH (10:24)
[2021-01-06] MEDS: CYMBALTA PO SCH (10:24)
[2021-01-06] MEDS: MICRO K EXTEN CAP 10 MEQ PO SCH (10:24)
[2021-01-06] MEDS: VSL#3 PO SCH (10:25)
[2021-01-06] MEDS: ROBITUSSIN DM PO SCH ×4 (10:25→21:20)
[2021-01-06] MEDS: PROTONIX TAB 40 MG PO SCH ×2 (10:25→21:21)
[2021-01-06] MEDS: PEPCID TAB 20 MG PO SCH ×2 (10:25→21:20)
[2021-01-06] MEDS: ROCEPHIN 1 GRAM IV PREMIX 1 G/50 ML IV.SOLN. IV SCH (10:25)
[2021-01-06] MEDS: ZESTORETIC 20/25 MG PO SCH (10:26)
[2021-01-06] MEDS: XANAX PO SCH ×2 (10:26→21:21)
--- NOTE | 2021-01-06 12:39 | PCM.PROG ---
Progress Note - Progress Note for Day of Date of Exam: 01/04/21 - Subjective Subjective: WAS ADMITTED FOR TREATMENT OF RIGHT LUNG PNEUMONIA AND HYPOXEMIA. HE HAS A PMH OF CAD, HTN, AND HYPERLIPIDEMIA. HE REPORTS THAT HIS OXYGEN SATURATIONS AT HOME HAD DROPPED TO 77% WHILE ON ROOM AIR AT HOME. TODAY, HE IS ALERT AND ORIENTED, SITTING UP IN BED ON MORNING ROUNDS. HE CONTINUES WITH COMPLAINTS OF SHORTNESS OF BREATH, COUGH, AND WEAKNESS. HE IS CURRENTLY UTILIZING OXYGEN VIA NASAL CANNULA AT 3 LITERS/MINUTE. HE HAS BEEN AFEBRILE THROUGHOUT THE NIGHT. HE DENIES SIGNIFICANT IMPROVEMENT IN SYMPTOMS SINCE ADMISSION. ON EXAMINATION, HEART IS REGULAR IN RATE AND RHYTHM. BILATERAL LUNGS ARE NOTED WITH SCATTERED WHEEZING AND RHONCHI THROUGHOUT. ABDOMEN IS ROUND, SOFT, AND NOTED WITH DIFFUSE TENDERNESS. NO SWELLING NOTED IN EXTREMITIES. HIS VITALS THIS MORNING ARE: 97.7-90-16-96%-113/62. LABS WERE OBTAINED. ABNORMAL LAB VALUES INCLUDE THE FOLLOWING: WBC 15.4, RBC 4.16, HGB 10.6, HCT 32.4, POTASSIUM 3.2, BUN 26, GLUCOSE 109, CALCIUM 8.0, ALBUMIN 2.5. BLOOD AND SPUTUM CULTURES ARE PENDING. A CHEST XRAY WAS OBTAINED THIS MORNING AND REVEALED: 1. No acute cardiopulmonary abnormality. HE IS CURRENTLY RECEIVING 1/2 NS WITH AT 50 ML/HR, LEVAQUIN 750MG IV DAILY, ROCEPHIN 1G IV DAILY, ROBITUSSIN DM 10ML PO QID, XOPENEX NEBS TID, PULMICORT NEBS BID, THE POTASSIUM AND MAGNESIUM PROTOCOLS, AND HIS HOME MEDICATIONS WERE RESUMED. DUE TO POOR VENOUS ACCESS, WE WILL CONSULT Sergio JONES FOR A PORT A CATH TODAY. OTHERWISE, WE WILL CONTINUE WITH CURRENT PLAN OF CARE. WE PLAN TO FOLLOW UP WITH AM LABS AND CHEST XRAY AND CONTINUE TO MONITOR. TIME SPENT ON CLINICAL ASSESSMENT, REVIEWING LABS AND IMAGING, DECISION MAKING, AND DOCUMENTATION GREATER THAN 45 MINUTES. - Past Medical Family Social History Past Med/Fam/Surg Hx: No changes since H&P Allergies: Allergies No Known Drug Allergies Allergy (Verified 09/22/20 18:31) - Review of Systems ROS: No change since H&P - Vital Signs and I&O's Vital Signs: Temperature 98.6 F Pulse Rate [Right Brachial] 77 Pulse Rate 68 Respiratory Rate 16 Blood Pressure [Left Arm] 100/67 Blood Pressure [Right Arm] 101/57 Blood Pressure 113/67 O2 Sat by Pulse Oximetry 91 Intake and Output: Intake & Output 01/04/21 01/05/21 01/06/21 01/07/21 11:59 11:59 11:59 11:59 Intake Total 3022 / 3022 3136 / 3136 2525 / 2525 Output Total 140 / 140 750 / 750 Balance 3022 / 3022 2996 / 2996 1775 / 1775 - Physical Exam Oriented: Normal, Person Ear: Normal Nose: Normal Throat: Normal Respiratory: Wheezes, Rhonchi Cardiovascular: Normal : Normal Auscultation: Bowel Sounds: Normal Palpation: Normal Tenderness: Normal Skin: Normal Musculoskeletal: Normal Psychiatric: Anxiety Mood Description: Calm Affect: Anxious Speech Pattern: Clear, Appropriate - Laboratory and Diagnostics Result Diagrams: 01/06/21 05:25 01/06/21 05:25 Labs: 01/02/21 09:15 Blood Blood Culture - Final 01/02/21 09:27 Blood Blood Culture - Preliminary 01/02/21 09:58 Sputum - Expectorated Sputum Sputum Culture - Final 01/02/21 09:58 Sputum - Expectorated Sputum - Final Laboratory WBC 7.5 X10^3/uL (3.6-10.0) 01/06/21 05:25 RBC 4.73 X10^6/uL (4.7-6.0) 01/06/21 05:25 Hgb 12.1 g/dL (13.5-18.0) L 01/06/21 05:25 Hct 36.6 % (42.0-54.0) L 01/06/21 05:25 MCV 77.5 fL (80.0-100.0) L 01/06/21 05:25 MCH 25.5 pg (27.0-34.0) L 01/06/21 05:25 MCHC 33.0 g/dL (33.0-35.0) 01/06/21 05:25 RDW 17.4 % (11.6-16.5) H 01/06/21 05:25 Plt Count 206 X10^3/uL (150.0-450.0) 01/06/21 05:25 MPV 8.0 fL (7.4-11.0) 01/06/21 05:25 Neut % (Auto) 52.8 % (42.0-75.0) 01/06/21 05:25 Lymph % (Auto) 35.1 % (21.0-51.0) 01/06/21 05:25 [place] % (Auto) 6.9 % (0.0-13.0) 01/06/21 05:25 Eos % (Auto) 2.4 % (0.9-2.9) 01/06/21 05:25 Baso % (Auto) 2.8 % (0.2-1.0) H 01/06/21 05:25 Neut # (Auto) 3.9 x10^3/uL (2.2-4.8) 01/06/21 05:25 Lymph # (Auto) 2.6 X10^3/uL (1.3-2.9) 01/06/21 05:25 [place] # (Auto) 0.5 x10^3/uL (0.3-0.8) 01/06/21 05:25 Eos # (Auto) 0.2 x10^3/uL (0.0-0.2) 01/06/21 05:25 Baso # (Auto) 0.2 X10^3/uL (0.0-0.1) H 01/06/21 05:25 Absolute Nucleated RBC 0.1 /100WBC 01/06/21 05:25 Sample Site Lr 01/03/21 04:40 ABG pH 7.410 (7.35-7.45) 01/03/21 04:40 ABG pCO2 44.0 mmHg (35.0-45.0) 01/03/21 04:40 ABG pO2 56.0 mmHg (80.0-100.0) L 01/03/21 04:40 ABG HCO3 27.9 mmol/L (22-26) H 01/03/21 04:40 ABG O2 Saturation 89.0 % (90-100) L 01/03/21 04:40 ABG Base Excess 2.8 mmol/L (-2.0-2.0) H 01/03/21 04:40 Mauro Test Pos 01/03/21 04:40 A-a Gradient 117.0 mmHg 01/03/21 04:40 FiO2 32.0 05/10/21 04:40 Blood Gas Comments Deidre well ae 01/03/21 04:40 Sodium 141 mmol/L (136-145) 01/06/21 05:25 Corrected Sodium TNP 01/06/21 05:25 Potassium 3.8 mmol/L (3.5-5.1) 01/06/21 05:25 Chloride 101 mmol/L (98-107) 01/06/21 05:25 Carbon Dioxide 31.8 mmol/L (21-32) 01/06/21 05:25 BUN 15 mg/dL (7-18) 01/06/21 05:25 Creatinine 0.82 mg/dL (0.70-1.30) 01/06/21 05:25 Est GFR (MDRD) Af Amer > 60 (>60) 01/06/21 05:25 Est GFR (MDRD) Non-Af > 60 (>60) 01/06/21 05:25 Glucose 92 mg/dL (65-99) 01/06/21 05:25 Calcium 8.5 mg/dL (8.5-10.1) 01/06/21 05:25 Corrected Calcium 9.5 mg/dL (8.5-10.1) 01/06/21 05:25 Magnesium 2.0 mg/dL (1.7-2.9) 01/04/21 05:39 Iron 31 ug/dL (50-175) L 01/02/21 06:32 Transferrin 296 mg/dL (202-364) 01/02/21 06:32 Ferritin 197 ng/mL (26-388) 01/02/21 06:32 Total Bilirubin 0.50 mg/dL (0.2-1.0) 01/06/21 05:25 AST 39 Units/L (15-37) H 01/06/21 05:25 ALT 53 Units/L (12-78) 01/06/21 05:25 Alkaline Phosphatase 78 Units/L (46-116) 01/06/21 05:25 Ammonia 23 umol/L (11-32) 01/02/21 12:15 Creatine Kinase 72 Units/L (39-308) 01/02/21 06:32 CK-MB (CK-2) < 1.0 ng/mL (0-4.0) 01/02/21 06:32 CK/CKMB % Calc 1.4 % (<4) 01/02/21 06:32 Troponin I < 0.01 ng/mL (0-1.5) 01/02/21 06:32 B-Natriuretic Peptide < 5.0 pg/mL (0-79) 01/02/21 06:32 Total Protein 6.9 g/dL (6.4-8.2) 01/06/21 05:25 Albumin 2.7 g/dL (3.4-5.0) L 01/06/21 05:25 Globulin 4.2 g/dL (2.5-4.5) 01/06/21 05:25 Albumin/Globulin Ratio 0.6 Ratio (1.1-2.1) L 01/06/21 05:25 Vitamin B12 1294 pg/mL (193-986) H 01/02/21 06:32 Folate 4.9 ng/mL (>8.6) L 01/02/21 06:32 SARS-CoV-2 (PCR) Negative (NEGATIVE) 01/02/21 06:00 Influenza Type A (PCR) Negative (NEGATIVE) 01/02/21 06:00 Influenza Type B (PCR) Negative (NEGATIVE) 01/02/21 06:00 RSV (PCR) Negative (NEGATIVE) 01/02/21 06:00 Tissue Pathology To follow 01/06/21 07:40 - Plan (1) Pneumonia Status: Acute Qualifiers: Pneumonia type: due to unspecified organism Laterality: right Lung location: middle lobe of lung Qualified Code(s): J18.9 - Pneumonia, unspecified organism Plan: 1/2 NS WITH AT 50 ML/HR, LEVAQUIN 750MG IV DAILY, ROCEPHIN 1G IV DAILY, ROBITUSSIN DM 10ML PO QID, XOPENEX NEBS TID, PULMICORT NEBS BID, THE POTASSIUM AND MAGNESIUM PROTOCOLS, AND HIS HOME MEDICATIONS WERE RESUMED. (2) Hypoxia Status: Acute
--- NOTE | 2021-01-06 12:46 | PCM.PROG ---
Progress Note - Progress Note for Day of Date of Exam: 01/05/21 - Subjective Subjective: WAS ADMITTED FOR TREATMENT OF RIGHT LUNG PNEUMONIA AND HYPOXEMIA. HE HAS A PMH OF CAD, HTN, AND HYPERLIPIDEMIA. TODAY, HE IS ALERT AND ORIENTED, SITTING UP IN BED ON MORNING ROUNDS. HE CONTINUES WITH COMPLAINTS OF SHORTNESS OF BREATH, COUGH, AND WEAKNESS. HE ALSO ADMITS TO DIFFICULTY SWALLOWING. HE IS CURRENTLY UTILIZING OXYGEN VIA NASAL CANNULA AT 3 LITERS/MINUTE. HE HAS BEEN AFEBRILE THROUGHOUT THE NIGHT. HE DENIES SIGNIFICANT IMPROVEMENT IN SYMPTOMS SINCE ADMISSION. ON EXAMINATION, HEART IS REGULAR IN RATE AND RHYTHM. BILATERAL LUNGS ARE NOTED WITH SCATTERED WHEEZING AND RHONCHI THROUGHOUT. ABDOMEN IS ROUND, SOFT, AND NOTED WITH DIFFUSE TENDERNESS. NO SWELLING NOTED IN EXTREMITIES. HIS VITALS THIS MORNING ARE: 97.5-72-20-93%-111/62. LABS WERE OBTAINED. ABNORMAL LAB VALUES INCLUDE THE FOLLOWING: RBC 4.37, HGB 11.3, HCT 34.0, POTASSIUM 3.4, CALCIUM 8.2, ALBUMIN 2.6. BLOOD AND SPUTUM CULTURES ARE PENDING. HE IS CURRENTLY RECEIVING 1/2 NS WITH AT 50 ML/HR, LEVAQUIN 750MG IV DAILY, ROCEPHIN 1G IV DAILY, ROBITUSSIN DM 10ML PO QID, XOPENEX NEBS TID, PULMICORT NEBS BID, THE POTASSIUM AND MAGNESIUM PROTOCOLS, AND HIS HOME MEDICATIONS WERE RESUMED. INSERTED A PORT A CATH TO THE LEFT CHEST WALL YESTERDAY. WE WILL CONSULT HIM TODAY FOR POSSIBLE EGD DUE TO DYSPHAGIA. OTHERWISE, WE WILL CONTINUE WITH CURRENT PLAN OF CARE. WE PLAN TO FOLLOW UP WITH AM LABS AND CHEST XRAY AND CONTINUE TO MONITOR. TIME SPENT ON CLINICAL ASSESSMENT, REVIEWING LABS AND IMAGING, DECISION MAKING, AND DOCUMENTATION GREATER THAN 45 MINUTES. - Past Medical Family Social History Past Med/Fam/Surg Hx: No changes since H&P Allergies: Allergies No Known Drug Allergies Allergy (Verified 09/22/20 18:31) - Review of Systems ROS: No change since H&P - Vital Signs and I&O's Vital Signs: Temperature 98.6 F Pulse Rate [Right Brachial] 77 Pulse Rate 68 Respiratory Rate 16 Blood Pressure [Left Arm] 100/67 Blood Pressure [Right Arm] 101/57 Blood Pressure 113/67 O2 Sat by Pulse Oximetry 91 Intake and Output: Intake & Output 01/04/21 01/05/21 01/06/21 01/07/21 11:59 11:59 11:59 11:59 Intake Total 3022 / 3022 3136 / 3136 2525 / 2525 Output Total 140 / 140 750 / 750 Balance 3022 / 3022 2996 / 2996 1775 / 1775 - Physical Exam Oriented: Normal, Person Ear: Normal Nose: Normal Throat: Normal Respiratory: Wheezes, Rhonchi Cardiovascular: Normal : Normal Auscultation: Bowel Sounds: Normal Palpation: Normal Tenderness: Normal Skin: Normal Musculoskeletal: Normal Psychiatric: Anxiety Mood Description: Calm Affect: Anxious Speech Pattern: Clear, Appropriate - Laboratory and Diagnostics Result Diagrams: 01/06/21 05:25 01/06/21 05:25 Labs: 01/02/21 09:15 Blood Blood Culture - Final 01/02/21 09:27 Blood Blood Culture - Preliminary 01/02/21 09:58 Sputum - Expectorated Sputum Sputum Culture - Final 01/02/21 09:58 Sputum - Expectorated Sputum - Final Laboratory WBC 7.5 X10^3/uL (3.6-10.0) 01/06/21 05:25 RBC 4.73 X10^6/uL (4.7-6.0) 01/06/21 05:25 Hgb 12.1 g/dL (13.5-18.0) L 01/06/21 05:25 Hct 36.6 % (42.0-54.0) L 01/06/21 05:25 MCV 77.5 fL (80.0-100.0) L 01/06/21 05:25 MCH 25.5 pg (27.0-34.0) L 01/06/21 05:25 MCHC 33.0 g/dL (33.0-35.0) 01/06/21 05:25 RDW 17.4 % (11.6-16.5) H 01/06/21 05:25 Plt Count 206 X10^3/uL (150.0-450.0) 01/06/21 05:25 MPV 8.0 fL (7.4-11.0) 01/06/21 05:25 Neut % (Auto) 52.8 % (42.0-75.0) 01/06/21 05:25 Lymph % (Auto) 35.1 % (21.0-51.0) 01/06/21 05:25 [place] % (Auto) 6.9 % (0.0-13.0) 01/06/21 05:25 Eos % (Auto) 2.4 % (0.9-2.9) 01/06/21 05:25 Baso % (Auto) 2.8 % (0.2-1.0) H 01/06/21 05:25 Neut # (Auto) 3.9 x10^3/uL (2.2-4.8) 01/06/21 05:25 Lymph # (Auto) 2.6 X10^3/uL (1.3-2.9) 01/06/21 05:25 [place] # (Auto) 0.5 x10^3/uL (0.3-0.8) 01/06/21 05:25 Eos # (Auto) 0.2 x10^3/uL (0.0-0.2) 01/06/21 05:25 Baso # (Auto) 0.2 X10^3/uL (0.0-0.1) H 01/06/21 05:25 Absolute Nucleated RBC 0.1 /100WBC 01/06/21 05:25 Sample Site Lr 01/03/21 04:40 ABG pH 7.410 (7.35-7.45) 01/03/21 04:40 ABG pCO2 44.0 mmHg (35.0-45.0) 01/03/21 04:40 ABG pO2 56.0 mmHg (80.0-100.0) L 01/03/21 04:40 ABG HCO3 27.9 mmol/L (22-26) H 01/03/21 04:40 ABG O2 Saturation 89.0 % (90-100) L 01/03/21 04:40 ABG Base Excess 2.8 mmol/L (-2.0-2.0) H 01/03/21 04:40 Mauro Test Pos 01/03/21 04:40 A-a Gradient 117.0 mmHg 01/03/21 04:40 FiO2 32.0 01/03/21 04:40 Blood Gas Comments Deidre well ae 01/03/21 04:40 Sodium 141 mmol/L (136-145) 01/06/21 05:25 Corrected Sodium TNP 01/06/21 05:25 Potassium 3.8 mmol/L (3.5-5.1) 01/06/21 05:25 Chloride 101 mmol/L (98-107) 01/06/21 05:25 Carbon Dioxide 31.8 mmol/L (21-32) 01/06/21 05:25 BUN 15 mg/dL (7-18) 01/06/21 05:25 Creatinine 0.82 mg/dL (0.70-1.30) 01/06/21 05:25 Est GFR (MDRD) Af Amer > 60 (>60) 01/06/21 05:25 Est GFR (MDRD) Non-Af > 60 (>60) 01/06/21 05:25 Glucose 92 mg/dL (65-99) 01/06/21 05:25 Calcium 8.5 mg/dL (8.5-10.1) 01/06/21 05:25 Corrected Calcium 9.5 mg/dL (8.5-10.1) 01/06/21 05:25 Magnesium 2.0 mg/dL (1.7-2.9) 01/04/21 05:39 Iron 31 ug/dL (50-175) L 01/02/21 06:32 Transferrin 296 mg/dL (202-364) 01/02/21 06:32 Ferritin 197 ng/mL (26-388) 01/02/21 06:32 Total Bilirubin 0.50 mg/dL (0.2-1.0) 01/06/21 05:25 AST 39 Units/L (15-37) H 01/06/21 05:25 ALT 53 Units/L (12-78) 01/06/21 05:25 Alkaline Phosphatase 78 Units/L (46-116) 01/06/21 05:25 Ammonia 23 umol/L (11-32) 01/02/21 12:15 Creatine Kinase 72 Units/L (39-308) 01/02/21 06:32 CK-MB (CK-2) < 1.0 ng/mL (0-4.0) 01/02/21 06:32 CK/CKMB % Calc 1.4 % (<4) 01/02/21 06:32 Troponin I < 0.01 ng/mL (0-1.5) 01/02/21 06:32 B-Natriuretic Peptide < 5.0 pg/mL (0-79) 01/02/21 06:32 Total Protein 6.9 g/dL (6.4-8.2) 01/06/21 05:25 Albumin 2.7 g/dL (3.4-5.0) L 01/06/21 05:25 Globulin 4.2 g/dL (2.5-4.5) 01/06/21 05:25 Albumin/Globulin Ratio 0.6 Ratio (1.1-2.1) L 01/06/21 05:25 Vitamin B12 1294 pg/mL (193-986) H 01/02/21 06:32 Folate 4.9 ng/mL (>8.6) L 01/02/21 06:32 SARS-CoV-2 (PCR) Negative (NEGATIVE) 01/02/21 06:00 Influenza Type A (PCR) Negative (NEGATIVE) 01/02/21 06:00 Influenza Type B (PCR) Negative (NEGATIVE) 01/02/21 06:00 RSV (PCR) Negative (NEGATIVE) 01/02/21 06:00 Tissue Pathology To follow 01/06/21 07:40 - Plan (1) Pneumonia Status: Acute Qualifiers: Pneumonia type: due to unspecified organism Laterality: right Lung location: middle lobe of lung Qualified Code(s): J18.9 - Pneumonia, unspecified organism Plan: 1/2 NS WITH AT 50 ML/HR, LEVAQUIN 750MG IV DAILY, ROCEPHIN 1G IV DAILY, ROBITUSSIN DM 10ML PO QID, XOPENEX NEBS TID, PULMICORT NEBS BID, THE POTASSIUM AND MAGNESIUM PROTOCOLS, AND HIS HOME MEDICATIONS WERE RESUMED. (2) Hypoxia Status: Acute
--- NOTE | 2021-01-06 12:57 | PCM.PROG ---
Progress Note - Progress Note for Day of Date of Exam: 01/06/21 - Subjective Subjective: WAS ADMITTED FOR TREATMENT OF RIGHT LUNG PNEUMONIA AND HYPOXEMIA. HE HAS A PMH OF CAD, HTN, AND HYPERLIPIDEMIA. TODAY, HE IS ALERT AND ORIENTED, SITTING UP IN BED ON MORNING ROUNDS. HE WENT DOWN TO THE OR THIS MORNING FOR AN EGD. EGD REVEALED GASTRITIS. HE ALSO HAD HIS ESOPHAGUS STRETCHED. HE CONTINUES WITH COMPLAINTS OF SHORTNESS OF BREATH AND COUGH, BUT REPORTS SLIGHT IMPROVEMENT IN SYMPTOMS. HE IS CURRENTLY UTILIZING OXYGEN VIA NASAL CANNULA AT 3 LITERS/MINUTE. HE HAS BEEN AFEBRILE THROUGHOUT THE NIGHT. HE DENIES SIGNIFICANT IMPROVEMENT IN SYMPTOMS SINCE ADMISSION. ON EXAMINATION, HEART IS REGULAR IN RATE AND RHYTHM. BILATERAL LUNGS ARE NOTED WITH SCATTERED WHEEZING AND RHONCHI THROUGHOUT. ABDOMEN IS ROUND, SOFT, AND NOTED WITH DIFFUSE TENDERNESS. NO SWELLING NOTED IN EXTREMITIES. HIS VITALS THIS MORNING ARE: 98.6-77-20-95%-100/67. LABS WERE OBTAINED. ABNORMAL LAB VALUES INCLUDE THE FOLLOWING: HGB 12.1, HCT 36.6, AST 39, ALBUMIN 2.7. BLOOD AND SPUTUM CULTURES ARE PENDING. HE IS CURRENTLY RECEIVING 1/2 NS AT 50 ML/HR, LEVAQUIN 750MG IV DAILY, ROCEPHIN 1G IV DAILY, ROBITUSSIN DM 10ML PO QID, XOPENEX NEBS TID, PULMICORT NEBS BID, DILAUDID 1MG IV Q4H PRN, THE POTASSIUM AND MAGNESIUM PROTOCOLS, AND HIS HOME MEDICATIONS WERE RESUMED. WE WILL CONTINUE WITH CURRENT PLAN OF CARE TODAY. OTHERWISE, WE PLAN TO FOLLOW UP WITH AM LABS AND CHEST XRAY AND CONTINUE TO MONITOR. TIME SPENT ON CLINICAL ASSESSMENT, REVIEWING LABS AND IMAGING, DECISION MAKING, AND DOCUMENTATION GREATER THAN 45 MINUTES. - Past Medical Family Social History Past Med/Fam/Surg Hx: No changes since H&P Allergies: Allergies No Known Drug Allergies Allergy (Verified 09/22/20 18:31) - Review of Systems ROS: No change since H&P - Vital Signs and I&O's Vital Signs: Temperature 98.6 F Pulse Rate [Right Brachial] 77 Pulse Rate 68 Respiratory Rate 16 Blood Pressure [Left Arm] 100/67 Blood Pressure [Right Arm] 101/57 Blood Pressure 113/67 O2 Sat by Pulse Oximetry 91 Intake and Output: Intake & Output 05/1101/05/21 01/06/21 01/07/21 11:59 11:59 11:59 11:59 Intake Total 302 / 2 3136 / 3136 2525 / 2525 Output Total 140 / 140 750 / 750 Balance 302 / 3022 2996 / 2996 1775 / 1775 - Physical Exam Oriented: Normal, Person Ear: Normal Nose: Normal Throat: Normal Respiratory: Wheezes, Rhonchi Cardiovascular: Normal : Normal Auscultation: Bowel Sounds: Normal Palpation: Normal Tenderness: Normal Skin: Normal Musculoskeletal: Normal Psychiatric: Anxiety Mood Description: Calm Affect: Anxious Speech Pattern: Clear, Appropriate - Laboratory and Diagnostics Result Diagrams: 01/06/21 05:25 01/06/21 05:25 Labs: 01/02/21 09:15 Blood Blood Culture - Final 01/02/21 09:27 Blood Blood Culture - Preliminary 01/02/21 09:58 Sputum - Expectorated Sputum Sputum Culture - Final 01/02/21 09:58 Sputum - Expectorated Sputum - Final Laboratory WBC 7.5 X10^3/uL (3.6-10.0) 01/06/21 05:25 RBC 4.73 X10^6/uL (4.7-6.0) 01/06/21 05:25 Hgb 12.1 g/dL (13.5-18.0) L 01/06/21 05:25 Hct 36.6 % (42.0-54.0) L 01/06/21 05:25 MCV 77.5 fL (80.0-100.0) L 01/06/21 05:25 MCH 25.5 pg (27.0-34.0) L 01/06/21 05:25 MCHC 33.0 g/dL (33.0-35.0) 01/06/21 05:25 RDW 17.4 % (11.6-16.5) H 01/06/21 05:25 Plt Count 206 X10^3/uL (150.0-450.0) 01/06/21 05:25 MPV 8.0 fL (7.4-11.0) 01/06/21 05:25 Neut % (Auto) 52.8 % (42.0-75.0) 01/06/21 05:25 Lymph % (Auto) 35.1 % (21.0-51.0) 01/06/21 05:25 [place] % (Auto) 6.9 % (0.0-13.0) 01/06/21 05:25 Eos % (Auto) 2.4 % (0.9-2.9) 01/06/21 05:25 Baso % (Auto) 2.8 % (0.2-1.0) H 01/06/21 05:25 Neut # (Auto) 3.9 x10^3/uL (2.2-4.8) 01/06/21 05:25 Lymph # (Auto) 2.6 X10^3/uL (1.3-2.9) 01/06/21 05:25 [place] # (Auto) 0.5 x10^3/uL (0.3-0.8) 01/06/21 05:25 Eos # (Auto) 0.2 x10^3/uL (0.0-0.2) 01/06/21 05:25 Baso # (Auto) 0.2 X10^3/uL (0.0-0.1) H 01/06/21 05:25 Absolute Nucleated RBC 0.1 /100WBC 01/06/21 05:25 Sample Site Lr 01/03/21 04:40 ABG pH 7.410 (7.35-7.45) 01/03/21 04:40 ABG pCO2 44.0 mmHg (35.0-45.0) 01/03/21 04:40 ABG pO2 56.0 mmHg (80.0-100.0) L 01/03/21 04:40 ABG HCO3 27.9 mmol/L (22-26) H 01/03/21 04:40 ABG O2 Saturation 89.0 % (90-100) L 01/03/21 04:40 ABG Base Excess 2.8 mmol/L (-2.0-2.0) H 01/03/21 04:40 Mauro Test Pos 01/03/21 04:40 A-a Gradient 117.0 mmHg 01/03/21 04:40 FiO2 32.0 01/03/21 04:40 Blood Gas Comments Deidre well ae 01/03/21 04:40 Sodium 141 mmol/L (136-145) 01/06/21 05:25 Corrected Sodium TNP 01/06/21 05:25 Potassium 3.8 mmol/L (3.5-5.1) 01/06/21 05:25 Chloride 101 mmol/L (98-107) 01/06/21 05:25 Carbon Dioxide 31.8 mmol/L (21-32) 01/06/21 05:25 BUN 15 mg/dL (7-18) 01/06/21 05:25 Creatinine 0.82 mg/dL (0.70-1.30) 01/06/21 05:25 Est GFR (MDRD) Af Amer > 60 (>60) 01/06/21 05:25 Est GFR (MDRD) Non-Af > 60 (>60) 01/06/21 05:25 Glucose 92 mg/dL (65-99) 01/06/21 05:25 Calcium 8.5 mg/dL (8.5-10.1) 01/06/21 05:25 Corrected Calcium 9.5 mg/dL (8.5-10.1) 01/06/21 05:25 Magnesium 2.0 mg/dL (1.7-2.9) 01/04/21 05:39 Iron 31 ug/dL (50-175) L 01/02/21 06:32 Transferrin 296 mg/dL (202-364) 01/02/21 06:32 Ferritin 197 ng/mL (26-388) 01/02/21 06:32 Total Bilirubin 0.50 mg/dL (0.2-1.0) 01/06/21 05:25 AST 39 Units/L (15-37) H 01/06/21 05:25 ALT 53 Units/L (12-78) 01/06/21 05:25 Alkaline Phosphatase 78 Units/L (46-116) 01/06/21 05:25 Ammonia 23 umol/L (11-32) 01/02/21 12:15 Creatine Kinase 72 Units/L (39-308) 01/02/21 06:32 CK-MB (CK-2) < 1.0 ng/mL (0-4.0) 01/02/21 06:32 CK/CKMB % Calc 1.4 % (<4) 01/02/21 06:32 Troponin I < 0.01 ng/mL (0-1.5) 01/02/21 06:32 B-Natriuretic Peptide < 5.0 pg/mL (0-79) 01/02/21 06:32 Total Protein 6.9 g/dL (6.4-8.2) 01/06/21 05:25 Albumin 2.7 g/dL (3.4-5.0) L 01/06/21 05:25 Globulin 4.2 g/dL (2.5-4.5) 01/06/21 05:25 Albumin/Globulin Ratio 0.6 Ratio (1.1-2.1) L 01/06/21 05:25 Vitamin B12 1294 pg/mL (193-986) H 01/02/21 06:32 Folate 4.9 ng/mL (>8.6) L 01/02/21 06:32 SARS-CoV-2 (PCR) Negative (NEGATIVE) 01/02/21 06:00 Influenza Type A (PCR) Negative (NEGATIVE) 01/02/21 06:00 Influenza Type B (PCR) Negative (NEGATIVE) 01/02/21 06:00 RSV (PCR) Negative (NEGATIVE) 01/02/21 06:00 Tissue Pathology To follow 01/06/21 07:40 - Plan (1) Pneumonia Status: Acute Qualifiers: Pneumonia type: due to unspecified organism Laterality: right Lung location: middle lobe of lung Qualified Code(s): J18.9 - Pneumonia, unspecified organism Plan: 1/2 NS WITH AT 50 ML/HR, LEVAQUIN 750MG IV DAILY, ROCEPHIN 1G IV DAILY, ROBITUSSIN DM 10ML PO QID, XOPENEX NEBS TID, PULMICORT NEBS BID, THE POTASSIUM AND MAGNESIUM PROTOCOLS, AND HIS HOME MEDICATIONS WERE RESUMED. (2) Hypoxia Status: Acute (3) Dysphagia Status: Acute Qualifiers: Dysphagia type: unspecified Qualified Code(s): R13.10 - Dysphagia, unspecified
[2021-01-06] MEDS: CARAFATE ORAL SUSP PO SCH ×2 (14:43→21:21)
[2021-01-06] MEDS ORDERED: ZESTRIL TAB 20 MG ONE (19:26)
[2021-01-06] MEDS: CRESTOR TAB 10 MG PO SCH (21:20)
[2021-01-06] MEDS: ZESTRIL TAB 20 MG PO SCH (21:21)
[2021-01-06] MEDS: AMBIEN PO PRN (21:52)
[2021-01-07] MEDS: NS 1/2 1000 ML IV 1,000 ML IV SCH (01:57)
[2021-01-07] MEDS: DILAUDID INJ IVP PRN ×2 (01:59→09:04)
[2021-01-07] MEDS: XOPENEX 1.25 MG/3 ML NEBULE NEB SCH (05:00)
[2021-01-07] MEDS: NORCO 10/325 TAB PO PRN (05:01)
[2021-01-07] MEDS: CARAFATE ORAL SUSP PO SCH (05:02)
[2021-01-07] MEDS: LYRICA CAP 150 mg PO SCH (05:02)
[2021-01-07 06:44] LABS: ALANINE AMINOTRANSFERASE 57 Units/L (12-78); ALBUMIN 2.8 g/dL (3.4-5.0); ALKALINE PHOSPHATASE 83 Units/L (46-116); ASPARTATE AMINO TRANSFERASE 31 Units/L (15-37); BLOOD UREA NITROGEN 14 mg/dL (7-18); CALCIUM 8.5 mg/dL (8.5-10.1); CARBON DIOXIDE 33.8 mmol/L (21-32); CHLORIDE 99 mmol/L (98-107); COR CA(FOR HYPOALB) 9.5 mg/dL (8.5-10.1); COR NA(FOR HYPERGLY) 140 mmol/L (136-145); CREATININE 0.94 mg/dL (0.70-1.30); SODIUM 140 mmol/L (136-145); TOTAL PROTEIN 7.3 g/dL (6.4-8.2); eGFR NON BLACK RACES > 60 (>60)
[2021-01-07 06:49] LABS: BASOPHILS % (AUTO) 0.6 % (0.2-1.0); EOSINOPHILS # (AUTO) 0.3 x10^3/uL (0.0-0.2); EOSINOPHILS % (AUTO) 3.8 % (0.9-2.9); HEMATOCRIT 36.2 % (42.0-54.0); HEMOGLOBIN 12.1 g/dL (13.5-18.0); LYMPHOCYTES # (AUTO) 2.6 X10^3/uL (1.3-2.9); LYMPHOCYTES % (AUTO) 35.4 % (21.0-51.0); MEAN CORPUSCULAR HEMOGLOBIN 25.9 pg (27.0-34.0); MEAN CORPUSCULAR HGB CONC 33.4 g/dL (33.0-35.0); MEAN CORPUSCULAR VOLUME 77.4 fL (80.0-100.0); MEAN PLATELET VOLUME 7.7 fL (7.4-11.0); MONOCYTES # (AUTO) 0.5 x10^3/uL (0.3-0.8); MONOCYTES % (AUTO) 7.4 % (0.0-13.0); NEUTROPHILS # (AUTO) 3.8 x10^3/uL (2.2-4.8); NEUTROPHILS % (AUTO) 52.8 % (42.0-75.0); PLATELET COUNT 257 X10^3/uL (150.0-450.0); RED BLOOD COUNT 4.67 X10^6/uL (4.7-6.0); RED CELL DISTRIBUTION WIDTH 17.2 % (11.6-16.5); WHITE BLOOD COUNT 7.3 X10^3/uL (3.6-10.0)
--- NOTE | 2021-01-07 07:10 | RAD ---
HISTORYShortness of breathSTUDYChest AP [id number]/13/2021FINDINGSThere is a port present on the left. The heart is within normal l imits in size. The justo are normal. The lung cazares are clear. No pleural effusions are identified. B feroz thorax is unremarkable.IMPRESSIONNo significant abnormality identifiedElectronically signed by: Roc TOMPKINS (January 07, 2021 07:08:18)
[2021-01-07] MEDS: PULMICORT NEB TX 0.5 MG NEB SCH (08:08)
[2021-01-07] MEDS: ROBITUSSIN DM PO SCH (09:02)
[2021-01-07] MEDS: MICRO K EXTEN CAP 10 MEQ PO SCH (09:02)
[2021-01-07] MEDS: CYMBALTA PO SCH (09:02)
[2021-01-07] MEDS: XANAX PO SCH (09:03)
[2021-01-07] MEDS: PROTONIX TAB 40 MG PO SCH (09:03)
[2021-01-07] MEDS: VSL#3 PO SCH (09:03)
[2021-01-07] MEDS: PEPCID TAB 20 MG PO SCH (09:03)
[2021-01-07] MEDS: ZESTORETIC 20/25 MG PO SCH (09:03)
[2021-01-07] MEDS: ROCEPHIN 1 GRAM IV PREMIX 1 G/50 ML IV.SOLN. IV SCH (09:03)
[2021-01-07] MEDS: NORVASC TAB 5 MG PO SCH (09:03)
[2021-01-07] MEDS: LEVAQUIN PREMIX IV 750 MG 750 MG/150 ML BAG IV SCH (09:04)
[2021-01-07] MEDS ORDERED: HEPARIN SODIUM INJ 5000 UNITS IVP ONE (11:16)
[2021-01-07 11:32] VITALS: BP 106/64
[2021-01-12] MEDS ORDERED: XOPENEX 1.25 MG/3 ML NEBULE NEB PRN (06:01)
== END 2021-01-07 12:05 | disposition home or self-care (01) | DRG 195 ==
LOC: MED/SURG 05:27 → ER 05:27 → OBSVTOIN 08:45 → MED/SURG 09:35
PROVIDERS: ADMIT Internal Medicine; ATTEND Internal Medicine
DX: K29.60 Other gastritis without bleeding; Z86.14 Personal history of Methicillin resistant Staphylococcus aureus infection; R51.9 Headache, unspecified; I10 Essential (primary) hypertension; Z87.898 Personal history of other specified conditions; I87.2 Venous insufficiency (chronic) (peripheral); I25.10 Atherosclerotic heart disease of native coronary artery without angina pectoris; Z20.822 Contact with and (suspected) exposure to COVID-19; M79.89 Other specified soft tissue disorders; J18.8 Other pneumonia, unspecified organism; R13.10 Dysphagia, unspecified; E78.5 Hyperlipidemia, unspecified; K29.80 Duodenitis without bleeding; R41.82 Altered mental status, unspecified; R06.02 Shortness of breath

== ENCOUNTER 2021-06-02 07:30 | Inpatient (IN) ==
[2021-06-02 07:50] VITALS: BMI 34.7
[2021-06-02 07:54] LABS: ABG BASE EXCESS 6.1 mmol/L (-2.0-2.0)
[2021-06-02 07:55] LABS: ABG ALLEN TEST POS; ABG HCO3 31.2 mmol/L (22-26)
[2021-06-02 08:15] LABS: BASOPHILS # (AUTO) 0.1 X10^3/uL (0.0-0.1); BASOPHILS % (AUTO) 0.6 % (0.2-1.0); EOSINOPHILS # (AUTO) 0.4 x10^3/uL (0.0-0.2); EOSINOPHILS % (AUTO) 2.4 % (0.9-2.9); HEMATOCRIT 40.9 % (42.0-54.0); HEMOGLOBIN 13.3 g/dL (13.5-18.0); LYMPHOCYTES # (AUTO) 2.7 X10^3/uL (1.3-2.9); LYMPHOCYTES % (AUTO) 15.9 % (21.0-51.0); MEAN CORPUSCULAR HEMOGLOBIN 24.2 pg (27.0-34.0); MEAN CORPUSCULAR HGB CONC 32.5 g/dL (33.0-35.0); MEAN CORPUSCULAR VOLUME 74.4 fL (80.0-100.0); MEAN PLATELET VOLUME 8.4 fL (7.4-11.0); MONOCYTES # (AUTO) 1.3 x10^3/uL (0.3-0.8); MONOCYTES % (AUTO) 7.9 % (0.0-13.0); NEUTROPHILS # (AUTO) 12.3 x10^3/uL (2.2-4.8); NEUTROPHILS % (AUTO) 73.2 % (42.0-75.0); PLATELET COUNT 310 X10^3/uL (150.0-450.0); WHITE BLOOD COUNT 16.7 X10^3/uL (3.6-10.0)
[2021-06-02 08:22] LABS: ALANINE AMINOTRANSFERASE 45 Units/L (12-78); ALBUMIN 3.5 g/dL (3.4-5.0); ALKALINE PHOSPHATASE 92 Units/L (46-116); ASPARTATE AMINO TRANSFERASE 28 Units/L (15-37); BLOOD UREA NITROGEN 16 mg/dL (7-18); CALCIUM 8.9 mg/dL (8.5-10.1); CARBON DIOXIDE 30.1 mmol/L (21-32); CHLORIDE 98 mmol/L (98-107); COR NA(FOR HYPERGLY) 138 mmol/L (136-145); CREATININE 1.19 mg/dL (0.70-1.30); SODIUM 138 mmol/L (136-145); TOTAL PROTEIN 8.2 g/dL (6.4-8.2); eGFR NON BLACK RACES > 60 (>60)
--- NOTE | 2021-06-02 08:23 | DR.DIZZY ---
HPI Time seen Time Seen by Provider: 06/02/21 07:57 PCP Primary Care Physician: HALEIGH Complaint Chief Complaint Doctor Comments: 51 y/o male brought in for evaluation. History mostly provided by spouse. States he became ill 2 days ago, was working outside. Developed N/V and diaphoresis, has been sleeping frequently since. Having decreased po intake. Having decreased urination. + cough, + confused and lethargic. Pt c/o generalized pain, can't describe. Subjective fever. Having generalized weakness, fell last pm. Chief Complaint:: STATES PT. HAS BEEN CONFUSED AND LETHARGIC X 2 DAYS BUT IT HAS PROGRESSIVELY GOTTEN WORSE. SHE STATES PT. HAS NOT URINATED X 2 DAYS. SHE REPORTS THAT PT. HAS RAN A FEVER ALSO. UPON ARRIVAL, PT. IS LETHARGIC AND PT. IS CONFUSED & MUMBLING. COVID-19 Coronavirus risk:travel/contact w/high risk person: No Has patient experienced Coronavirus symptoms: Yes Coronavirus symptoms experienced: Fever Nurses Notes Reviewed Nurses Notes Review: Yes Source History Provided: Family Member Mode of Arrival Mode of Arrival: Wheelchair Timing Onset of Chief Complaint: 05/31/21 Context Stroke Symptoms: None PMH PMH Past Medical History: Yes Past Medical History: Anxiety, Arthritis, Asthma, Depression, GERD, Headaches, Hypertension, Kidney Stones and Sleep Apnea Past Surgical History: Yes Surgical History: Angioplasty/Stents, Joint Replacement, Ortho Surgery and Other Family History History of Family Medical Conditions: Yes Family Medical History: Coronary Artery Disease and Hypertension Social History Does patient currently use any type of tobacco product: No Have you used tobacco products in the last 12 months: No Type of Tobacco Use: None Does any household member use tobacco: No Alcohol Use: None Do you use any recreational Drugs:: No Lives With: Spouse Lives Where: Home Travel Risk Coronavirus risk:travel/contact w/high risk person: No Has patient experienced Coronavirus symptoms: Yes Coronavirus symptoms experienced: Fever Infectious screening In the last 2 months have you had wt loss of >10#?: NO Have you had fever, night sweats or hemotysis?: No Have you traveled outside the country in the last 6 months?: No Isolation: Droplet ROS Review of Systems Constitutional: Weakness Eyes: No Symptoms Reported ENTM: No Symptoms Reported Respiratoy: Non-Productive Cough and Short of Breath Cardiovascular: No Symptoms Reported Gastrointestinal/Abdominal: No Symptoms Reported Genitourinary: Other (not urinating) Neurological: Weakness Musculoskeletal: Back Pain, Joint Pain and Muscle Pain Integumentary: No Symptoms Reported Hematologic/Lymphatic: No Symptoms Reported Endocrine: No Symptoms Reported Psychiatric: No Symptoms Reported All Other Systems: Reviewed and Negative PE Vital Signs Vitals: Temperature 99.6 F Pulse Rate 96 Respiratory Rate 18 Blood Pressure [Left Arm] 136/88 Blood Pressure 124/76 O2 Sat by Pulse Oximetry 95 General General Appearance: Other (keeping eyes closed, responding to questions) Head Head Exam: Normal Inspection Eyes Eye exam: Normal Appearance, PERRL and EOMI ENT ENT Exam: Normal Exam Neck Neck Exam: Normal Inspection and Full ROM; negative Tenderness Chest Chest Inspection: Normal Inspection Respiratory Respiratory Exam: Normal Lung Sounds Bilat; negative Accessory Muscle Use and Respiratory Distress Respiratory Exam: Bilateral: Clear to Auscultation Cardiovascular Cardiovascular Exam: Regular Rate, Normal Rhythm and Normal Heart Sounds Abdominal Exam Abdominal Exam: Normal Inspection, Normal Bowel Sounds, Soft and Tenderness (suprapubic region, no guarding or rebound) Extremeties Extremities Exam: Normal Inspection and Full ROM; negative Tenderness and Edema Back Back Exam: Normal Inspection Neurologic Neurological Exam: Alert, Oriented X3 and CN II-XII Intact; negative Motor Sensory Deficit Psychiatric Psychiatric Exam: Normal Affect Skin Skin Exam: Warm and Dry MDM Differential Diagnosis Differential Diagnosis Comment: pneumonia, dehydration, covid, prostatitis, urinary retention. COURSE Treatment Treatment: 51 y/o male feeling ill x 2 days. Has been sleeping a lot, with decreased PO intake, decreased urination, generalized pain, and degree of confusion. + hypoxic on arrival. Better on O2. W/u initiated. Given IV fluids. EKG/CXR unremarkable. Covid negative. [place] placed, had 1,000 mls urine out before being clamped. WBC is elevated to 16K. Potassium a bit low, 2.8. Chemistries overall acceptable. Pt with a h/o cardiac disease, frequent episodes of pneumonia. Will treat with levaquin - possible underlying pneumonia, p rostatitis. Recommend observation for further evaluation. Discussed with his PCP, Dr. Borrego, accepts the admission. ROR Labs Reviewed Laboratory Results Reviewed?: Yes Result Diagrams: 06/02/21 07:40 06/02/21 07:40 Laboratory: WBC 16.7 X10^3/uL (3.6-10.0) H 06/02/21 07:40 RBC 5.50 X10^6/uL (4.7-6.0) 06/02/21 07:40 Hgb 13.3 g/dL (13.5-18.0) L 06/02/21 07:40 Hct 40.9 % (42.0-54.0) L 06/02/21 07:40 MCV 74.4 fL (80.0-100.0) L 06/02/21 07:40 MCH 24.2 pg (27.0-34.0) L 06/02/21 07:40 MCHC 32.5 g/dL (33.0-35.0) L 06/02/21 07:40 RDW 18.0 % (11.6-16.5) H 06/02/21 07:40 Plt Count 310 X10^3/uL (150.0-450.0) 06/02/21 07:40 Plt Count Comment Adequate (ADEQUATE) 06/02/21 07:40 MPV 8.4 fL (7.4-11.0) 06/02/21 07:40 Neut % (Auto) 73.2 % (42.0-75.0) 06/02/21 07:40 Lymph % (Auto) 15.9 % (21.0-51.0) L 06/02/21 07:40 [place] % (Auto) 7.9 % (0.0-13.0) 06/02/21 07:40 Eos % (Auto) 2.4 % (0.9-2.9) 06/02/21 07:40 Baso % (Auto) 0.6 % (0.2-1.0) 06/02/21 07:40 Neut # (Auto) 12.3 x10^3/uL (2.2-4.8) H 06/02/21 07:40 Lymph # (Auto) 2.7 X10^3/uL (1.3-2.9) 06/02/21 07:40 [place] # (Auto) 1.3 x10^3/uL (0.3-0.8) H 06/02/21 07:40 Eos # (Auto) 0.4 x10^3/uL (0.0-0.2) H 06/02/21 07:40 Baso # (Auto) 0.1 X10^3/uL (0.0-0.1) 06/02/21 07:40 Absolute Nucleated RBC 0.2 /100WBC 06/02/21 07:40 Plt Morphology Comment Normal (NORMAL) 06/02/21 07:40 RBC Morphology Abnormal (NORMAL) 06/02/21 07:40 Hypochromasia Slight A 06/02/21 07:40 Anisocytosis Slight A 06/02/21 07:40 Microcytosis Slight A 06/02/21 07:40 Sample Site Rra 06/02/21 07:50 ABG pH 7.440 (7.35-7.45) 06/02/21 07:50 ABG pCO2 46.0 mmHg (35.0-45.0) H 06/02/21 07:50 ABG pO2 55.0 mmHg (80.0-100.0) L 06/02/21 07:50 ABG HCO3 31.2 mmol/L (22-26) H* 06/02/21 07:50 ABG O2 Saturation 89.0 % (90-100) L 06/02/21 07:50 ABG Base Excess 6.1 mmol/L (-2.0-2.0) H 06/02/21 07:50 Mauro Test Pos 06/02/21 07:50 A-a Gradient 37.0 mmHg 06/02/21 07:50 FiO2 21.0 06/02/21 07:50 Blood Gas Comments Pt josie well eb 06/02/21 07:50 Sodium 138 mmol/L (136-145) 06/02/21 07:40 Corrected Sodium 138 mmol/L (136-145) 06/02/21 07:40 Potassium 2.8 mmol/L (3.5-5.1) L* 06/02/21 07:40 Chloride 98 mmol/L (98-107) 06/02/21 07:40 Carbon Dioxide 30.1 mmol/L (21-32) 06/02/21 07:40 BUN 16 mg/dL (7-18) 06/02/21 07:40 Creatinine 1.19 mg/dL (0.70-1.30) 06/02/21 07:40 Est GFR (MDRD) Af Amer > 60 (>60) 06/02/21 07:40 Est GFR (MDRD) Non-Af > 60 (>60) 06/02/21 07:40 Glucose 114 mg/dL (65-99) H 06/02/21 07:40 Lactic Acid 1.0 mmol/L (0.4-2.0) 06/02/21 07:40 Calcium 8.9 mg/dL (8.5-10.1) 06/02/21 07:40 Corrected Calcium TNP 06/02/21 07:40 Magnesium 1.6 mg/dL (1.7-2.9) L 06/02/21 07:40 Total Bilirubin 0.60 mg/dL (0.2-1.0) 06/02/21 07:40 AST 28 Units/L (15-37) 06/02/21 07:40 ALT 45 Units/L (12-78) 06/02/21 07:40 Alkaline Phosphatase 92 Units/L (46-116) 06/02/21 07:40 Ammonia 15 umol/L (11-32) 06/02/21 07:40 Creatine Kinase 281 Units/L (39-308) 06/02/21 07:40 CK-MB (CK-2) < 1.0 ng/mL (0-4.0) 06/02/21 07:40 CK/CKMB % Calc 0.4 % (<4) 06/02/21 07:40 Troponin I < 0.02 ng/mL (0-1.5) 06/02/21 07:40 B-Natriuretic Peptide 5.8 pg/mL (0-79) 06/02/21 07:40 Total Protein 8.2 g/dL (6.4-8.2) 06/02/21 07:40 Albumin 3.5 g/dL (3.4-5.0) 06/02/21 07:40 Globulin 4.7 g/dL (2.5-4.5) H 06/02/21 07:40 Albumin/Globulin Ratio 0.7 Ratio (1.1-2.1) L 06/02/21 07:40 Specimen Type Catherized urine 06/02/21 08:43 Urine Color Yellow (YELLOW) 06/02/21 08:43 Urine Appearance Clear (CLEAR) 06/02/21 08:43 Urine pH 5.0 (5.0 - 8.0) 06/02/21 08:43 Ur Specific [place] 1.025 (1.000-1.030) 06/02/21 08:43 Urine Protein 2+ (NEGATIVE) 06/02/21 08:43 Urine Glucose (UA) Negative (NEGATIVE) 06/02/21 08:43 Urine Ketones Negative (NEGATIVE) 06/02/21 08:43 Urine Occult Blood Negative (NEGATIVE) 06/02/21 08:43 Urine Nitrite Negative (NEGATIVE) 06/02/21 08:43 Urine Bilirubin Negative (NEGATIVE) 06/02/21 08:43 Urine Urobilinogen Normal (NORMAL) 06/02/21 08:43 Ur Leukocyte Esterase 1+ (NEGATIVE) 06/02/21 08:43 Urine RBC 0-2 /HPF (0-3) 06/02/21 08:43 Urine WBC 3-5 /HPF (0-5) 06/02/21 08:43 Ur Squamous Epith Cells Rare /HPF (NEGATIVE) 06/02/21 08:43 Urine Bacteria 2+ /HPF (NEGATIVE) 06/02/21 08:43 Hyaline Casts Many /LPF (NEGATIVE) 06/02/21 08:43 Granular Casts Rare /LPF (NEGATIVE) 06/02/21 08:43 Ur Culture Indicated? Yes/culture set up 06/02/21 08:43 Urine Opiates Screen Positive (NEG=<300) 06/02/21 08:43 Urine Methadone Screen Negative (NEG=<300) 06/02/21 08:43 Ur Barbiturates Screen Negative (NEG=<200) 06/02/21 08:43 Ur Phencyclidine Scrn Negative (NEG=<25) 06/02/21 08:43 Ur Amphetamines Screen Negative (NEG=<1000) 06/02/21 08:43 U Benzodiazepines Scrn Positive (NEG=<200) 06/02/21 08:43 Urine Cocaine Screen Negative (NEG=<300) 06/02/21 08:43 U Marijuana (THC) Screen Negative (NEG=<50) 06/02/21 08:43 SARS-CoV-2 (PCR) Negative (NEGATIVE) 06/02/21 07:58 Influenza Type A (PCR) Negative (NEGATIVE) 06/02/21 07:58 Influenza Type B (PCR) Negative (NEGATIVE) 06/02/21 07:58 RSV (PCR) Negative (NEGATIVE) 06/02/21 07:58 Other Results Comments: Potassium low at 2.8 XRAY XRAY Interpreted by: Radiologist X-ray Results: no obvious infiltrate EKG Rate: 109 [place]: Normal Rhythm: ST Hypertrophy: LAE ST: Nonsp Opioid Opioid Risk Tool Age (Dani box if 16-45): No History of Preadolescent Sexual Abuse: No Total: 0 Total Score Risk Category: Low Risk Copyright: Khadar HERNANDEZ predicting aberrant behaviors Diagnosis Discharge Problem: Pneumonia, Hypokalemia, Hypoxia
[2021-06-02] MEDS ORDERED: NS 1000 ML 1,000 ML IV ONE (08:26)
[2021-06-02] MEDS ORDERED: NS 1000 ML 1,000 ML ONE (08:33)
[2021-06-02 08:49] LABS: ANISOCYTOSIS SLIGHT; HYPOCHROMASIA SLIGHT; MICROCYTOSIS SLIGHT; PLATELET MORPHOLOGY COMMENT NORMAL (NORMAL)
[2021-06-02 08:53] LABS: AMMONIA 15 umol/L (11-32)
--- NOTE | 2021-06-02 08:58 | CT ---
HISTORYMENTAL STATUS CHANGESTUDYBRAIN W/O CONCOMPARISONMay 2020TECHNIQUEMultiple axial images of the head without contrast. Dose reduction techniques including Automated Exposure Control (AEC) and adjustment of mA and kV were utilized.Contrast: NoneFINDINGSThere is hypodensity with adjacent anterior right temporal lobe conchae cavity, stable. The brain parenchyma shows no abnormal hypodensity concerning for ischemia. The ventricles and extra-axial spaces are unremarkable. There is moderate mucosal thickening of both maxillary sinuses. Bone windows demonstrate right frontotemporal craniotomy dental hardware is present.Conclusion:1. Right middle fossa arachnoid cyst versus sequelae from prior craniotomy.2. Maxillary sinus disease.3. No evidence of intracranial hemorrhage or CT evidence of parenchymal ischemia.Electronically signed by: PATRICIA MORRISON (Jun 02, 2021 08:57:02)
[2021-06-02 09:00] LABS: BILIRUBIN,URINE NEGATIVE (NEGATIVE); BLOOD/HEMOGLOBIN,URINE NEGATIVE (NEGATIVE); GLUCOSE, URINE NEGATIVE (NEGATIVE); KETONES,URINE NEGATIVE (NEGATIVE); LEUKOCYTE ESTERASE ,URINE 1+ (NEGATIVE); NITRITES,URINE NEGATIVE (NEGATIVE); PROTEIN,URINE 2+ (NEGATIVE); UROBILINOGEN,URINE NORMAL (NORMAL)
--- NOTE | 2021-06-02 09:00 | RAD ---
HISTORYcough, hypoxia, ams elbow, stents, pacemaker, port, craniotomy.brSTUDYCHEST, 1 VIEWCOMPARISONPortable chest May 23, 2021FINDINGSThe trachea is midline. The cardiac silhouette is unremarkable. A left-sided port is in place tip in the superior vena cava just proximal to the right atrium. The lungs are clear without focal infiltrate or effusion. The bony thorax is unremarkable.IMPRESSIONNo acute cardiopulmonary disease and no change from May 23, 2021 prior film..Electronically signed by: PRASHANT LOPEZ (Jun 02, 2021 08:58:06)
[2021-06-02 09:01] LABS: APPEARANCE,URINE CLEAR (CLEAR); COLOR,URINE YELLOW (YELLOW)
[2021-06-02 09:08] LABS: CKMB % 0.4 % (<4); CREATINE KINASE 281 Units/L (39-308); CREATINE KINASE MB < 1.0 ng/mL (0-4.0); TROPONIN I < 0.02 ng/mL (0-1.5)
[2021-06-02 09:23] LABS: BACTERIA,URINE 2+ /HPF (NEGATIVE); RBC,URINE 0-2 /HPF (0-3); SQUAMOUS EPITHELIAL CELL,UR RARE /HPF (NEGATIVE)
[2021-06-02 09:24] LABS: GRANULAR CASTS,URINE RARE /LPF (NEGATIVE); HYALINE CASTS, URINE MANY /LPF (NEGATIVE)
[2021-06-02] MEDS ORDERED: LEVAQUIN PREMIX IV 750 MG 750 MG/150 ML BAG IV ONE ×2 (10:14→10:29)
[2021-06-02] MEDS ORDERED: XANAX PO PRN (12:18)
[2021-06-02] MEDS: FORTAZ or TAZICEF VIAL INJ 1 G in NS 100 ML IV + SPIKE MINIBAG* 100 ML IV SCH ×4 (13:15→21:16)
[2021-06-02] MEDS: NS 1000 ML 1,000 ML IV SCH ×2 (13:15→21:16)
[2021-06-02] MEDS: LYRICA CAP 75 mg PO SCH ×2 (15:20→21:15)
[2021-06-02] MEDS ORDERED: POTASSIUM CHL 60 MEQ/NS 0.45% 500 ML IV PRN (15:25)
[2021-06-02] MEDS ORDERED: POTASSIUM CHL 40 MEQ/NS 0.45% 500 ML IV PRN (15:25)
[2021-06-02] MEDS ORDERED: KLOR-CON PO PRN (15:25)
[2021-06-02] MEDS ORDERED: POTASSIUM CHLORIDE LIQ 20 MEQ UDC PO PRN (15:25)
[2021-06-02] MEDS ORDERED: MICRO K EXTEN CAP 10 MEQ PO PRN (15:25)
[2021-06-02] MEDS ORDERED: K-RIDER 10 MEQ/NS 100 ML 10 MEQ/100 ML BAG IV PRN (15:25)
[2021-06-02] MEDS: MAGNESIUM SULFATE 1 GRAM/100 mL PREMIX 2 G/200 ML BAG IV SCH ×2 (16:10→17:13)
[2021-06-02] MEDS: NORCO 10/325 TAB PO PRN (16:19)
[2021-06-02] MEDS: CRESTOR TAB 10 MG PO SCH (21:15)
[2021-06-02] MEDS: MICRO K EXTEN CAP 10 MEQ PO SCH (21:15)
[2021-06-02] MEDS: ZANAFLEX PO SCH (21:15)
[2021-06-02] MEDS: PEPCID TAB 20 MG PO SCH (21:16)
[2021-06-03 05:16] LABS: BASOPHILS % (AUTO) 0.2 % (0.2-1.0); EOSINOPHILS # (AUTO) 0.3 x10^3/uL (0.0-0.2); EOSINOPHILS % (AUTO) 2.5 % (0.9-2.9); HEMATOCRIT 36.3 % (42.0-54.0); HEMOGLOBIN 12.1 g/dL (13.5-18.0); LYMPHOCYTES % (AUTO) 15.8 % (21.0-51.0); MEAN CORPUSCULAR HEMOGLOBIN 24.5 pg (27.0-34.0); MEAN CORPUSCULAR HGB CONC 33.2 g/dL (33.0-35.0); MEAN CORPUSCULAR VOLUME 73.7 fL (80.0-100.0); MEAN PLATELET VOLUME 8.4 fL (7.4-11.0); MONOCYTES # (AUTO) 1.2 x10^3/uL (0.3-0.8); MONOCYTES % (AUTO) 9.1 % (0.0-13.0); NEUTROPHILS # (AUTO) 9.3 x10^3/uL (2.2-4.8); NEUTROPHILS % (AUTO) 72.4 % (42.0-75.0); PLATELET COUNT 236 X10^3/uL (150.0-450.0); RED BLOOD COUNT 4.93 X10^6/uL (4.7-6.0); RED CELL DISTRIBUTION WIDTH 17.6 % (11.6-16.5); WHITE BLOOD COUNT 12.9 X10^3/uL (3.6-10.0)
[2021-06-03] MEDS: NS 1000 ML 1,000 ML IV SCH ×3 (05:20→20:10)
[2021-06-03] MEDS: FORTAZ or TAZICEF VIAL INJ 1 G in NS 100 ML IV + SPIKE MINIBAG* 100 ML IV SCH ×3 (05:21→22:28)
[2021-06-03] MEDS: LYRICA CAP 75 mg PO SCH (05:21)
[2021-06-03 05:24] LABS: ALANINE AMINOTRANSFERASE 32 Units/L (12-78); ALBUMIN 2.9 g/dL (3.4-5.0); ALKALINE PHOSPHATASE 78 Units/L (46-116); ASPARTATE AMINO TRANSFERASE 26 Units/L (15-37); BLOOD UREA NITROGEN 10 mg/dL (7-18); CALCIUM 8.4 mg/dL (8.5-10.1); CARBON DIOXIDE 29.3 mmol/L (21-32); CHLORIDE 101 mmol/L (98-107); COR CA(FOR HYPOALB) 9.3 mg/dL (8.5-10.1); MAGNESIUM 1.8 mg/dL (1.7-2.9); SODIUM 139 mmol/L (136-145); TOTAL PROTEIN 7.3 g/dL (6.4-8.2); eGFR NON BLACK RACES > 60 (>60)
--- NOTE | 2021-06-03 06:11 | RAD ---
HISTORYHypoxiaSTUDYPortable AP [id number]/07/2021FINDINGSThe patient is markedly rotated to the right, the medial right lung and hilum are obscured. There is no obvious pulmonary infiltrate, pneumothorax or pleural fluid. Stable position of left subclavian port.IMPRESSIONProbably no change or acute abnormality. Technically limited by marked patient rotation.Electronically signed by: RICKIE RIOS (Jun 03, 2021 06:09:06)
[2021-06-03 06:13] LABS: MICROCYTOSIS SLIGHT; OVALOCYTES PRESENT; PLATELET MORPHOLOGY COMMENT NORMAL (NORMAL)
[2021-06-03 06:14] LABS: HYPOCHROMASIA SLIGHT
[2021-06-03] MEDS: LEVAQUIN PREMIX IV 750 MG 750 MG/150 ML BAG IV SCH (08:56)
[2021-06-03] MEDS: CYMBALTA PO SCH (08:56)
[2021-06-03] MEDS: ASPIRIN EC 81 MG PO SCH (08:56)
[2021-06-03] MEDS: NORVASC TAB 5 MG PO SCH (08:57)
[2021-06-03] MEDS: MICRO K EXTEN CAP 10 MEQ PO SCH ×2 (08:57→20:10)
[2021-06-03] MEDS: PROTONIX TAB 40 MG PO SCH (08:58)
[2021-06-03] MEDS: PEPCID TAB 20 MG PO SCH ×2 (08:58→20:10)
[2021-06-03] MEDS: ZANAFLEX PO SCH (08:58)
[2021-06-03] MEDS ORDERED: ZESTORETIC 20/25 MG PO SCH (09:00)
[2021-06-03 11:37] LABS: ABG BASE EXCESS 7.4 mmol/L (-2.0-2.0)
[2021-06-03 11:38] LABS: ABG ALLEN TEST POSITIVE
--- NOTE | 2021-06-03 13:11 | DR.H&P ---
H&P - History & Physical for Day of: H&P Date: 06/02/21 - Chief Complaint Chief Complaint: AMS, FEVER, WEAKNESS, UTI AND SOB - History of Present Illness History of Present Illness: 51 y/o male brought in for evaluation. History mostly provided by spouse. States he became ill 2 days ago, was working outside. Developed N/V and diaphoresis, has been sleeping frequently since. Having decreased po intake. Having decreased urination. + cough, + confused and lethargic. Pt c/o generalized pain, can't describe. Subjective fever. Having generalized weakness, fell last pm. - Past Medical History Past Medical History: Hypertension, Depression, Anxiety, Asthma, GERD, Arthritis, Kidney Stones, Headaches, Sleep Apnea Additional Medical History: Cataracts, Back Pain - Past Surgical History Surgical History: Angioplasty/Stents, Joint Replacement, Ortho Surgery, Other Additional Surgical History: Cardiac Stents x 2, Right upper arm/elbow, Craniotomy - non-cancerous, Right ACL meniscus tear repair, Hammer toe right - Family History Family Medical History: Coronary Artery Disease, Hypertension - Social History Does patient currently use any type of tobacco product: No Have you used tobacco products in the last 12 months: No Type of Tobacco Use: None Does any household member use tobacco: No Alcohol Use: None Drug Use: Prescription Drugs - Medications Home Medications: zolpidem [From Ambien] Allergy (Verified 05/23/21 11:42) CONTINUE taking the following medications pregabalin [Lyrica] 150 mg PO TID 06/02/21 [History] - Review of Systems Constitutional: Fever, Chills, Sweats, Weakness, Malaise Eyes: No Symptoms Reported ENT: No Symptoms Reported Respiratory: SOB with Excertion Cardiovascular: Edema Gastrointestinal: Nausea, Constipation Genitourinary: Retention Musculoskeletal: Back Pain Skin: No Symptoms Reported Neurological: Weakness, Confusion - Physical Exam Vital Signs: Temperature 99.0 F Pulse Rate [Left Brachial] 91 Pulse Rate [Right Brachial] 91 Pulse Rate 102 Respiratory Rate 24 Blood Pressure [Right Arm] 126/79 Blood Pressure [Left Arm] 119/80 Blood Pressure 117/65 O2 Sat by Pulse Oximetry 92 Oriented: Person (PT WILL NOT OPEN HIS EYE BUT HAS APPROPRIATE RESPONSES) Eyes: Normal Ear: Normal Nose: Normal Throat: Dry Respiratory: RLL Diminished, LLL Diminished Cardiovascular: Normal. negative: Edema : Normal Auscultation: Bowel Sounds: Normal Palpation: Normal Skin: Decreased Turgur Musculoskeletal: Back:Lumbar Psychiatric: Depression Mood Description: Depressed Affect: Depressed Speech Pattern: Appropriate, Delayed, Slurred - Assessment/Plan (1) AMS (altered mental status) Status: Acute Plan: ADMIT, BLOOD AND URINE CULTURES. IV ATBX, SUPPLEMENTAL O2, ABG ON ADMISSION. VERIFY HOME MEDICATIONS, ADJUSTMENTS MADE. RESP THERAPY, CT HEAD ON ADMISSION STABLE, AM MRI. BS AND BP CONTROL, STRICT I&OS, CARDIAC MONITORING (2) UTI (urinary tract infection) Status: Acute (3) Pneumonia Status: Acute (4) Hypoxia Status: Acute (5) Acute respiratory failure with hypoxia Status: Acute (6) CAD (coronary artery disease) Qualifiers: Status: Chronic - Allergies Allergies/Adverse Reactions: Allergies Allergy/AdvReac Type Severity Reaction Status Date / Time zolpidem [From Ambien] Allergy Verified 05/23/21 11:42
--- NOTE | 2021-06-03 15:31 | MRI ---
HISTORYHEADACHESTUDYBRAIN W/O [id number] cullen multi-sequence MRI of the brain was obtained utilizing standard departmental protocol. Sagittal and axial T1 weighted images were obtained. Axial T2 and flair weighted images were performed as well. Axial diffusion weighted and ADC trace mapping was performed.FINDINGSThere is a T2 hyperintense lesion demonstrate no restricted diffusion anterior to the right temporal lobe causing mild mass effect on the right temporal lobe. There is a single vessel coursing through the T2 hyperintense area.There is diffuse cerebral cortical atrophy with bilateral periventricular and deep white matter FLAIR/T2 signal hyperintense findings are nonspecific; however, most likely represent sequela of chronic microvascular disease.The midline structures appear unremarkable. The evaluation of the brain parenchyma demonstrates no abnormal signal characteristics to suggest intraparenchymal mass or hemorrhage. No extra-axial fluid collections are observed. The ventricular system appears symmetric and nondilated. The CP angle is normal in its appearance without brainstem mass or evidence for acoustic neuroma. The flow voids on both T1 and T2 weighted imaging appear unremarkable. Evaluation of the diffusion weighted imaging does not demonstrate abnormal signal characteristics to suggest acute ischemic change. The extracranial structures are unremarkable.Bilateral maxillary sinus mucosal thickening.IMPRESSIONSignificantly limited evaluation secondary to motion artifact.No acute or subacute intracranial hemorrhage or ischemia.Chronic microvascular ischemic changes.No change in T2 hyperintense collection anterior to the right temporal lobe causing mass effect is again most consistent with an arachnoid cyst.Mild bilateral maxillary sinus mucosal disease.Electronically signed by: EVERETT NICOLE (Jun 03, 2021 15:29:04)
[2021-06-03] MEDS: K-DUR TAB 20 MEQ PO PRN (17:06)
[2021-06-03] MEDS: NORCO 10/325 TAB PO PRN (20:09)
[2021-06-03] MEDS: CRESTOR TAB 10 MG PO SCH (20:10)
[2021-06-04] MEDS: FORTAZ or TAZICEF VIAL INJ 1 G in NS 100 ML IV + SPIKE MINIBAG* 100 ML IV SCH ×3 (05:10→21:22)
[2021-06-04] MEDS: NORCO 10/325 TAB PO PRN ×4 (05:12→21:47)
[2021-06-04 06:53] LABS: BASOPHILS % (AUTO) 0.2 % (0.2-1.0); EOSINOPHILS # (AUTO) 0.2 x10^3/uL (0.0-0.2); HEMATOCRIT 35.8 % (42.0-54.0); HEMOGLOBIN 11.7 g/dL (13.5-18.0); LYMPHOCYTES # (AUTO) 2.1 X10^3/uL (1.3-2.9); MEAN CORPUSCULAR HEMOGLOBIN 23.9 pg (27.0-34.0); MEAN CORPUSCULAR HGB CONC 32.7 g/dL (33.0-35.0); MEAN CORPUSCULAR VOLUME 73.1 fL (80.0-100.0); MEAN PLATELET VOLUME 8.4 fL (7.4-11.0); MONOCYTES % (AUTO) 8.4 % (0.0-13.0); NEUTROPHILS # (AUTO) 8.5 x10^3/uL (2.2-4.8); NEUTROPHILS % (AUTO) 71.4 % (42.0-75.0); PLATELET COUNT 207 X10^3/uL (150.0-450.0); RED BLOOD COUNT 4.89 X10^6/uL (4.7-6.0); RED CELL DISTRIBUTION WIDTH 17.2 % (11.6-16.5)
[2021-06-04] MEDS: NS 1000 ML 1,000 ML IV SCH ×3 (07:06→20:08)
[2021-06-04 07:07] LABS: ALANINE AMINOTRANSFERASE 36 Units/L (12-78); ALBUMIN 2.9 g/dL (3.4-5.0); ALKALINE PHOSPHATASE 82 Units/L (46-116); ASPARTATE AMINO TRANSFERASE 38 Units/L (15-37); BLOOD UREA NITROGEN 10 mg/dL (7-18); CALCIUM 8.6 mg/dL (8.5-10.1); CARBON DIOXIDE 29.2 mmol/L (21-32); CHLORIDE 103 mmol/L (98-107); COR CA(FOR HYPOALB) 9.5 mg/dL (8.5-10.1); CREATININE 0.86 mg/dL (0.70-1.30); MAGNESIUM 1.7 mg/dL (1.7-2.9); SODIUM 141 mmol/L (136-145); TOTAL PROTEIN 7.4 g/dL (6.4-8.2); eGFR NON BLACK RACES > 60 (>60)
[2021-06-04 07:37] LABS: PLATELET MORPHOLOGY COMMENT NORMAL (NORMAL)
[2021-06-04 07:38] LABS: ANISOCYTOSIS SLIGHT; MICROCYTOSIS SLIGHT; OVALOCYTES PRESENT
[2021-06-04] MEDS ORDERED: ZESTRIL TAB 20 MG ONE (09:39)
[2021-06-04] MEDS: LEVAQUIN PREMIX IV 750 MG 750 MG/150 ML BAG IV SCH (09:43)
[2021-06-04] MEDS: ASPIRIN EC 81 MG PO SCH (09:43)
[2021-06-04] MEDS: CYMBALTA PO SCH (09:43)
[2021-06-04] MEDS: MICRO K EXTEN CAP 10 MEQ PO SCH ×2 (09:43→21:29)
[2021-06-04] MEDS: NORVASC TAB 5 MG PO SCH (09:44)
[2021-06-04] MEDS: PEPCID TAB 20 MG PO SCH ×2 (09:44→21:13)
[2021-06-04] MEDS: ZESTRIL TAB 20 MG PO SCH (09:44)
[2021-06-04] MEDS: PROTONIX TAB 40 MG PO SCH (09:44)
[2021-06-04] MEDS: K-DUR TAB 20 MEQ PO PRN ×2 (09:45→15:55)
--- NOTE | 2021-06-04 10:33 | RAD ---
HISTORYSOB hypoxiaSTUDYAP [id number]/2020FINDINGSHeart size is stable. There is persistent widening of the upper mediastinum consistent with nonstandard projection and vascular dilation. There is suggestion of a developing infiltrate in the right upper lobe. No consolidation, dominant mass or pleural fluid is seen. Stable position of left subclavian port.IMPRESSIONSuspect appearance for developing right upper lobe inflammatory infiltrate. Follow-up suggested.Electronically signed by: RICKIE RIOS (Jun 04, 2021 10:31:08)
[2021-06-04] MEDS: MAGNESIUM SULFATE 1 GRAM/100 mL PREMIX 1 G/100 ML BAG IV PRN (15:57)
--- NOTE | 2021-06-04 17:55 | PCM.PROG ---
Progress Note Progress Note for Day of Date of Exam: 06/04/21 Subjective Subjective: No new complaints. Past Medical Family Social History Past Med/Fam/Surg Hx: No changes since H&P Allergies: Allergies zolpidem [From Ambien] Allergy (Verified 05/23/21 11:42) Review of Systems ROS: No change since H&P Vital Signs and I&O's Vital Signs: Temperature 98.1 F Pulse Rate [Left Brachial] 82 Pulse Rate [Right Brachial] 86 Pulse Rate 102 Respiratory Rate 16 Blood Pressure [Right Arm] 126/82 Blood Pressure [Left Arm] 119/80 Blood Pressure 117/65 O2 Sat by Pulse Oximetry 94 Intake and Output: Intake & Output 06/02/21 06/03/21 06/04/21 06/05/21 11:59 11:59 11:59 11:59 Intake Total 1620 / 1620 1505 / 1505 360 / 360 Output Total 2900 / 2900 1675 / 1675 200 / 200 Balance -1280 / -1280 -170 / -170 160 / 160 Physical Exam Oriented: Person (PT WILL NOT OPEN HIS EYE BUT HAS APPROPRIATE RESPONSES) Eyes: Normal Respiratory: Normal Cardiovascular: Normal; negative Edema : Normal Auscultation: Bowel Sounds: Normal Palpation: Normal Tenderness: Normal Skin: Decreased Turgur Musculoskeletal: Back:Lumbar Psychiatric: Depression Mood Description: Depressed Affect: Depressed Speech Pattern: Clear and Appropriate Laboratory and Diagnostics Result Diagrams: 06/04/21 06:30 06/04/21 15:00 Labs: 06/02/21 08:29 Blood Blood Culture - Preliminary 06/02/21 07:40 Blood Blood Culture - Preliminary 06/02/21 08:43 Urine,Catheterized Urine Culture - Final Laboratory WBC 12.0 X10^3/uL (3.6-10.0) H 06/04/21 06:30 RBC 4.89 X10^6/uL (4.7-6.0) 06/04/21 06:30 Hgb 11.7 g/dL (13.5-18.0) L 06/04/21 06:30 Hct 35.8 % (42.0-54.0) L 06/04/21 06:30 MCV 73.1 fL (80.0-100.0) L 06/04/21 06:30 MCH 23.9 pg (27.0-34.0) L 06/04/21 06:30 MCHC 32.7 g/dL (33.0-35.0) L 06/04/21 06:30 RDW 17.2 % (11.6-16.5) H 06/04/21 06:30 Plt Count 207 X10^3/uL (150.0-450.0) 06/04/21 06:30 Plt Count Comment Adequate (ADEQUATE) 06/04/21 06:30 MPV 8.4 fL (7.4-11.0) 06/04/21 06:30 Neut % (Auto) 71.4 % (42.0-75.0) 06/04/21 06:30 Lymph % (Auto) 18.0 % (21.0-51.0) L 06/04/21 06:30 [place] % (Auto) 8.4 % (0.0-13.0) 06/04/21 06:30 Eos % (Auto) 2.0 % (0.9-2.9) 06/04/21 06:30 Baso % (Auto) 0.2 % (0.2-1.0) 06/04/21 06:30 Neut # (Auto) 8.5 x10^3/uL (2.2-4.8) H 06/04/21 06:30 Lymph # (Auto) 2.1 X10^3/uL (1.3-2.9) 06/04/21 06:30 [place] # (Auto) 1.0 x10^3/uL (0.3-0.8) H 06/04/21 06:30 Eos # (Auto) 0.2 x10^3/uL (0.0-0.2) 06/04/21 06:30 Baso # (Auto) 0.0 X10^3/uL (0.0-0.1) 06/04/21 06:30 Absolute Nucleated RBC 0.1 /100WBC 06/04/21 06:30 Plt Morphology Comment Normal (NORMAL) 06/04/21 06:30 RBC Morphology Abnormal (NORMAL) 06/04/21 06:30 Hypochromasia Slight A 06/03/21 04:05 Anisocytosis Slight A 06/04/21 06:30 Microcytosis Slight A 06/04/21 06:30 Ovalocytes Present 06/04/21 06:30 Sample Site Lr 06/03/21 11:31 ABG pH 7.470 (7.35-7.45) H 06/03/21 11:31 ABG pCO2 44.0 mmHg (35.0-45.0) 06/03/21 11:31 ABG pO2 66.0 mmHg (80.0-100.0) L 06/03/21 11:31 ABG HCO3 32.0 mmol/L (22-26) H* 06/03/21 11:31 ABG O2 Saturation 94.0 % (90-100) 06/03/21 11:31 ABG Base Excess 7.4 mmol/L (-2.0-2.0) H 06/03/21 11:31 Maruo Test Positive 06/03/21 11:31 A-a Gradient 107.0 mmHg 06/03/21 11:31 FiO2 32.0 06/03/21 11:31 Blood Gas Comments Pt josie well nrj 06/03/21 11:31 Sodium 141 mmol/L (136-145) 06/04/21 06:30 Corrected Sodium TNP 06/04/21 06:30 Potassium 3.6 mmol/L (3.5-5.1) 06/04/21 15:00 Chloride 103 mmol/L (98-107) 06/04/21 06:30 Carbon Dioxide 29.2 mmol/L (21-32) 06/04/21 06:30 BUN 10 mg/dL (7-18) 06/04/21 06:30 Creatinine 0.86 mg/dL (0.70-1.30) 06/04/21 06:30 Est GFR (MDRD) Af Amer > 60 (>60) 06/04/21 06:30 Est GFR (MDRD) Non-Af > 60 (>60) 06/04/21 06:30 Glucose 96 mg/dL (65-99) 06/04/21 06:30 Lactic Acid 1.0 mmol/L (0.4-2.0) 06/02/21 07:40 Calcium 8.6 mg/dL (8.5-10.1) 06/04/21 06:30 Corrected Calcium 9.5 mg/dL (8.5-10.1) 06/04/21 06:30 Magnesium 1.7 mg/dL (1.7-2.9) 06/04/21 06:30 Total Bilirubin 0.50 mg/dL (0.2-1.0) 06/04/21 06:30 AST 38 Units/L (15-37) H 06/04/21 06:30 ALT 36 Units/L (12-78) 06/04/21 06:30 Alkaline Phosphatase 82 Units/L (46-116) 06/04/21 06:30 Ammonia 15 umol/L (11-32) 06/02/21 07:40 Creatine Kinase 281 Units/L (39-308) 06/02/21 07:40 CK-MB (CK-2) < 1.0 ng/mL (0-4.0) 06/02/21 07:40 CK/CKMB % Calc 0.4 % (<4) 06/02/21 07:40 Troponin I < 0.02 ng/mL (0-1.5) 06/02/21 07:40 B-Natriuretic Peptide 5.8 pg/mL (0-79) 06/02/21 07:40 Total Protein 7.4 g/dL (6.4-8.2) 06/04/21 06:30 Albumin 2.9 g/dL (3.4-5.0) L 06/04/21 06:30 Globulin 4.5 g/dL (2.5-4.5) 06/04/21 06:30 Albumin/Globulin Ratio 0.6 Ratio (1.1-2.1) L 06/04/21 06:30 Specimen Type Catherized urine 06/02/21 08:43 Urine Color Yellow (YELLOW) 06/02/21 08:43 Urine Appearance Clear (CLEAR) 06/02/21 08:43 Urine pH 5.0 (5.0 - 8.0) 06/02/21 08:43 Ur Specific [place] 1.025 (1.000-1.030) 06/02/21 08:43 Urine Protein 2+ (NEGATIVE) 06/02/21 08:43 Urine Glucose (UA) Negative (NEGATIVE) 06/02/21 08:43 Urine Ketones Negative (NEGATIVE) 06/02/21 08:43 Urine Occult Blood Negative (NEGATIVE) 06/02/21 08:43 Urine Nitrite Negative (NEGATIVE) 06/02/21 08:43 Urine Bilirubin Negative (NEGATIVE) 06/02/21 08:43 Urine Urobilinogen Normal (NORMAL) 06/02/21 08:43 Ur Leukocyte Esterase 1+ (NEGATIVE) 06/02/21 08:43 Urine RBC 0-2 /HPF (0-3) 06/02/21 08:43 Urine WBC 3-5 /HPF (0-5) 06/02/21 08:43 Ur Squamous Epith Cells Rare /HPF (NEGATIVE) 06/02/21 08:43 Urine Bacteria 2+ /HPF (NEGATIVE) 06/02/21 08:43 Hyaline Casts Many /LPF (NEGATIVE) 06/02/21 08:43 Granular Casts Rare /LPF (NEGATIVE) 06/02/21 08:43 Ur Culture Indicated? Yes/culture set up 06/02/21 08:43 Urine Opiates Screen Positive (NEG=<300) 06/02/21 08:43 Urine Methadone Screen Negative (NEG=<300) 06/02/21 08:43 Ur Barbiturates Screen Negative (NEG=<200) 06/02/21 08:43 Ur Phencyclidine Scrn Negative (NEG=<25) 06/02/21 08:43 Ur Amphetamines Screen Negative (NEG=<1000) 06/02/21 08:43 U Benzodiazepines Scrn Positive (NEG=<200) 06/02/21 08:43 Urine Cocaine Screen Negative (NEG=<300) 06/02/21 08:43 U Marijuana (THC) Screen Negative (NEG=<50) 06/02/21 08:43 SARS-CoV-2 (PCR) Negative (NEGATIVE) 06/02/21 07:58 Influenza Type A (PCR) Negative (NEGATIVE) 06/02/21 07:58 Influenza Type B (PCR) Negative (NEGATIVE) 06/02/21 07:58 RSV (PCR) Negative (NEGATIVE) 06/02/21 07:58 Radiology Reviewed: Yes Plan (1) AMS (altered mental status): Status: Acute Narrative Support Text: Improving Plan: ADMIT, BLOOD AND URINE CULTURES IV ATBX, SUPPLEMENTAL O2, ABG ON ADMISSION VERIFY HOME MEDICATIONS, ADJUSTMENTS MADE RESP THERAPY, CT HEAD ON ADMISSION STABLE, AM MRI BS AND BP CONTROL, STRICT I&OS, CARDIAC MONITORING (2) UTI (urinary tract infection): Status: Acute (3) Pneumonia: Status: Acute Plan: Continue Levaquin and Fortaz. (4) Hypoxia: Status: Acute (5) Acute respiratory failure with hypoxia: Status: Acute (6) CAD (coronary artery disease): Status: Chronic
[2021-06-04] MEDS ORDERED: FORTAZ or TAZICEF VIAL INJ ONE (20:15)
[2021-06-04] MEDS: CRESTOR TAB 10 MG PO SCH (21:13)
[2021-06-05] MEDS: NORCO 10/325 TAB PO PRN ×3 (02:36→20:18)
[2021-06-05] MEDS: XANAX PO PRN ×3 (02:37→20:18)
[2021-06-05] MEDS: NS 1000 ML 1,000 ML IV SCH ×3 (03:02→21:32)
[2021-06-05] MEDS: FORTAZ or TAZICEF VIAL INJ 1 G in NS 100 ML IV + SPIKE MINIBAG* 100 ML IV SCH ×3 (05:52→21:36)
[2021-06-05 06:05] LABS: BASOPHILS % (AUTO) 0.3 % (0.2-1.0); EOSINOPHILS # (AUTO) 0.2 x10^3/uL (0.0-0.2); EOSINOPHILS % (AUTO) 2.9 % (0.9-2.9); HEMATOCRIT 33.3 % (42.0-54.0); HEMOGLOBIN 11.2 g/dL (13.5-18.0); LYMPHOCYTES # (AUTO) 2.1 X10^3/uL (1.3-2.9); LYMPHOCYTES % (AUTO) 24.6 % (21.0-51.0); MEAN CORPUSCULAR HEMOGLOBIN 24.4 pg (27.0-34.0); MEAN CORPUSCULAR HGB CONC 33.5 g/dL (33.0-35.0); MEAN CORPUSCULAR VOLUME 72.8 fL (80.0-100.0); MEAN PLATELET VOLUME 8.5 fL (7.4-11.0); MONOCYTES # (AUTO) 0.8 x10^3/uL (0.3-0.8); MONOCYTES % (AUTO) 9.7 % (0.0-13.0); NEUTROPHILS # (AUTO) 5.4 x10^3/uL (2.2-4.8); NEUTROPHILS % (AUTO) 62.5 % (42.0-75.0); PLATELET COUNT 185 X10^3/uL (150.0-450.0); RED BLOOD COUNT 4.58 X10^6/uL (4.7-6.0); RED CELL DISTRIBUTION WIDTH 17.2 % (11.6-16.5); WHITE BLOOD COUNT 8.7 X10^3/uL (3.6-10.0)
[2021-06-05 06:10] LABS: ALANINE AMINOTRANSFERASE 31 Units/L (12-78); ALBUMIN 2.7 g/dL (3.4-5.0); ALKALINE PHOSPHATASE 77 Units/L (46-116); ASPARTATE AMINO TRANSFERASE 30 Units/L (15-37); BLOOD UREA NITROGEN 10 mg/dL (7-18); CALCIUM 8.3 mg/dL (8.5-10.1); CARBON DIOXIDE 28.2 mmol/L (21-32); CHLORIDE 104 mmol/L (98-107); COR CA(FOR HYPOALB) 9.3 mg/dL (8.5-10.1); CREATININE 0.72 mg/dL (0.70-1.30); MAGNESIUM 1.8 mg/dL (1.7-2.9); SODIUM 140 mmol/L (136-145); TOTAL PROTEIN 6.9 g/dL (6.4-8.2); eGFR NON BLACK RACES > 60 (>60)
[2021-06-05] MEDS: K-DUR TAB 20 MEQ PO PRN ×2 (06:34→18:01)
[2021-06-05 07:25] LABS: ANISOCYTOSIS SLIGHT; MICROCYTOSIS SLIGHT; PLATELET MORPHOLOGY COMMENT NORMAL (NORMAL); POIKILOCYTOSIS SLIGHT
[2021-06-05 07:26] LABS: OVALOCYTES PRESENT
[2021-06-05 07:27] LABS: TEAR DROP CELLS PRESENT
--- NOTE | 2021-06-05 08:07 | RAD ---
HISTORYSOBSTUDYCHEST, 1 [id number]/2021FINDINGSThe cardiomediastinal silhouette is stable. Left chest port unchanged. Similar right upper lobe airspace opacities. The bony thorax appears intact.IMPRESSIONNo significant change. Persistent right-sided airspace opacities.Electronically signed by: JOHN TOMPKINS (Jun 05, 2021 08:04:56)
[2021-06-05] MEDS ORDERED: ZESTRIL TAB 20 MG ONE (08:28)
[2021-06-05] MEDS: PEPCID TAB 20 MG PO SCH ×2 (08:57→21:34)
[2021-06-05] MEDS: PROTONIX TAB 40 MG PO SCH (08:57)
[2021-06-05] MEDS: NORVASC TAB 5 MG PO SCH (08:57)
[2021-06-05] MEDS: LEVAQUIN PREMIX IV 750 MG 750 MG/150 ML BAG IV SCH (08:57)
[2021-06-05] MEDS: ZESTRIL TAB 20 MG PO SCH (08:58)
[2021-06-05] MEDS: MICRO K EXTEN CAP 10 MEQ PO SCH ×2 (08:58→21:34)
[2021-06-05] MEDS: ASPIRIN EC 81 MG PO SCH (08:58)
[2021-06-05] MEDS: CYMBALTA PO SCH (08:58)
--- NOTE | 2021-06-05 16:15 | PCM.PROG ---
Progress Note Progress Note for Day of Date of Exam: 06/05/21 Subjective Subjective: No new complaints. Past Medical Family Social History Past Med/Fam/Surg Hx: No changes since H&P Allergies: Allergies zolpidem [From Ambien] Allergy (Verified 05/23/21 11:42) Review of Systems ROS: No change since H&P Vital Signs and I&O's Vital Signs: Temperature 98.5 F Pulse Rate [Left Brachial] 82 Pulse Rate [Right Brachial] 81 Pulse Rate 102 Respiratory Rate 18 Blood Pressure [Right Arm] 139/91 Blood Pressure [Left Arm] 119/80 Blood Pressure 117/65 O2 Sat by Pulse Oximetry 98 Intake and Output: Intake & Output 06/03/21 06/04/21 06/05/21 06/06/21 11:59 11:59 11:59 11:59 Intake Total 1620 / 1620 1505 / 1505 2019 Output Total 2900 / 2900 1675 / 1675 850 / 850 Balance -1280 / -1280 -170 / -170 1170 / 1170 Physical Exam Oriented: Normal and Person (PT WILL NOT OPEN HIS EYE BUT HAS APPROPRIATE RESPONSES) Eyes: Normal Ear: Normal Nose: Normal Throat: Dry Respiratory: Normal Cardiovascular: Normal; negative Edema : Normal Auscultation: Bowel Sounds: Normal Tenderness: Normal Skin: Decreased Turgur Musculoskeletal: Back:Lumbar Psychiatric: Depression Mood Description: Depressed Affect: Depressed Speech Pattern: Clear and Appropriate Laboratory and Diagnostics Result Diagrams: 06/05/21 04:44 06/05/21 08:13 Labs: 06/02/21 08:29 Blood Blood Culture - Preliminary 06/02/21 07:40 Blood Blood Culture - Preliminary 06/02/21 08:43 Urine,Catheterized Urine Culture - Final Laboratory WBC 8.7 X10^3/uL (3.6-10.0) 06/05/21 04:44 RBC 4.58 X10^6/uL (4.7-6.0) L 06/05/21 04:44 Hgb 11.2 g/dL (13.5-18.0) L 06/05/21 04:44 Hct 33.3 % (42.0-54.0) L 06/05/21 04:44 MCV 72.8 fL (80.0-100.0) L 06/05/21 04:44 MCH 24.4 pg (27.0-34.0) L 06/05/21 04:44 MCHC 33.5 g/dL (33.0-35.0) 06/05/21 04:44 RDW 17.2 % (11.6-16.5) H 06/05/21 04:44 Plt Count 185 X10^3/uL (150.0-450.0) 06/05/21 04:44 Plt Count Comment Adequate (ADEQUATE) 06/05/21 04:44 MPV 8.5 fL (7.4-11.0) 06/05/21 04:44 Neut % (Auto) 62.5 % (42.0-75.0) 06/05/21 04:44 Lymph % (Auto) 24.6 % (21.0-51.0) 06/05/21 04:44 [place] % (Auto) 9.7 % (0.0-13.0) 06/05/21 04:44 Eos % (Auto) 2.9 % (0.9-2.9) 06/05/21 04:44 Baso % (Auto) 0.3 % (0.2-1.0) 06/05/21 04:44 Neut # (Auto) 5.4 x10^3/uL (2.2-4.8) H 06/05/21 04:44 Lymph # (Auto) 2.1 X10^3/uL (1.3-2.9) 06/05/21 04:44 [place] # (Auto) 0.8 x10^3/uL (0.3-0.8) 06/05/21 04:44 Eos # (Auto) 0.2 x10^3/uL (0.0-0.2) 06/05/21 04:44 Baso # (Auto) 0.0 X10^3/uL (0.0-0.1) 06/05/21 04:44 Absolute Nucleated RBC 0.0 /100WBC 06/05/21 04:44 Plt Morphology Comment Normal (NORMAL) 06/05/21 04:44 RBC Morphology Abnormal (NORMAL) 06/05/21 04:44 Hypochromasia Slight A 06/03/21 04:05 Poikilocytosis Slight A 06/05/21 04:44 Anisocytosis Slight A 06/05/21 04:44 Microcytosis Slight A 06/05/21 04:44 Tear Drop Cells Present 06/05/21 04:44 Ovalocytes Present 06/05/21 04:44 Sample Site Lr 06/03/21 11:31 ABG pH 7.470 (7.35-7.45) H 06/03/21 11:31 ABG pCO2 44.0 mmHg (35.0-45.0) 06/03/21 11:31 ABG pO2 66.0 mmHg (80.0-100.0) L 06/03/21 11:31 ABG HCO3 32.0 mmol/L (22-26) H* 06/03/21 11:31 ABG O2 Saturation 94.0 % (90-100) 06/03/21 11:31 ABG Base Excess 7.4 mmol/L (-2.0-2.0) H 06/03/21 11:31 [place] Test Positive 06/03/21 11:31 A-a Gradient 107.0 mmHg 06/03/21 11:31 FiO2 32.0 06/03/21 11:31 Blood Gas Comments Pt josie well nrj 06/03/21 11:31 Sodium 140 mmol/L (136-145) 06/05/21 04:44 Corrected Sodium TNP 06/05/21 04:44 Potassium 3.5 mmol/L (3.5-5.1) 06/05/21 08:13 Chloride 104 mmol/L (98-107) 06/05/21 04:44 Carbon Dioxide 28.2 mmol/L (21-32) 06/05/21 04:44 BUN 10 mg/dL (7-18) 06/05/21 04:44 Creatinine 0.72 mg/dL (0.70-1.30) 06/05/21 04:44 Est GFR (MDRD) Af Amer > 60 (>60) 06/05/21 04:44 Est GFR (MDRD) Non-Af > 60 (>60) 06/05/21 04:44 Glucose 80 mg/dL (65-99) 06/05/21 04:44 Lactic Acid 1.0 mmol/L (0.4-2.0) 06/02/21 07:40 Calcium 8.3 mg/dL (8.5-10.1) L 06/05/21 04:44 Corrected Calcium 9.3 mg/dL (8.5-10.1) 06/05/21 04:44 Magnesium 1.8 mg/dL (1.7-2.9) 06/05/21 04:44 Total Bilirubin 0.40 mg/dL (0.2-1.0) 06/05/21 04:44 AST 30 Units/L (15-37) 06/05/21 04:44 ALT 31 Units/L (12-78) 06/05/21 04:44 Alkaline Phosphatase 77 Units/L (46-116) 06/05/21 04:44 Ammonia 15 umol/L (11-32) 06/02/21 07:40 Creatine Kinase 281 Units/L (39-308) 06/02/21 07:40 CK-MB (CK-2) < 1.0 ng/mL (0-4.0) 06/02/21 07:40 CK/CKMB % Calc 0.4 % (<4) 06/02/21 07:40 Troponin I < 0.02 ng/mL (0-1.5) 06/02/21 07:40 B-Natriuretic Peptide 5.8 pg/mL (0-79) 06/02/21 07:40 Total Protein 6.9 g/dL (6.4-8.2) 06/05/21 04:44 Albumin 2.7 g/dL (3.4-5.0) L 06/05/21 04:44 Globulin 4.2 g/dL (2.5-4.5) 06/05/21 04:44 Albumin/Globulin Ratio 0.6 Ratio (1.1-2.1) L 06/05/21 04:44 Specimen Type Catherized urine 06/02/21 08:43 Urine Color Yellow (YELLOW) 06/02/21 08:43 Urine Appearance Clear (CLEAR) 06/02/21 08:43 Urine pH 5.0 (5.0 - 8.0) 06/02/21 08:43 Ur Specific [place] 1.025 (1.000-1.030) 06/02/21 08:43 Urine Protein 2+ (NEGATIVE) 06/02/21 08:43 Urine Glucose (UA) Negative (NEGATIVE) 06/02/21 08:43 Urine Ketones Negative (NEGATIVE) 06/02/21 08:43 Urine Occult Blood Negative (NEGATIVE) 06/02/21 08:43 Urine Nitrite Negative (NEGATIVE) 06/02/21 08:43 Urine Bilirubin Negative (NEGATIVE) 06/02/21 08:43 Urine Urobilinogen Normal (NORMAL) 06/02/21 08:43 Ur Leukocyte Esterase 1+ (NEGATIVE) 06/02/21 08:43 Urine RBC 0-2 /HPF (0-3) 06/02/21 08:43 Urine WBC 3-5 /HPF (0-5) 06/02/21 08:43 Ur Squamous Epith Cells Rare /HPF (NEGATIVE) 06/02/21 08:43 Urine Bacteria 2+ /HPF (NEGATIVE) 06/02/21 08:43 Hyaline Casts Many /LPF (NEGATIVE) 06/02/21 08:43 Granular Casts Rare /LPF (NEGATIVE) 06/02/21 08:43 Ur Culture Indicated? Yes/culture set up 06/02/21 08:43 Urine Opiates Screen Positive (NEG=<300) 06/02/21 08:43 Urine Methadone Screen Negative (NEG=<300) 06/02/21 08:43 Ur Barbiturates Screen Negative (NEG=<200) 06/02/21 08:43 Ur Phencyclidine Scrn Negative (NEG=<25) 06/02/21 08:43 Ur Amphetamines Screen Negative (NEG=<1000) 06/02/21 08:43 U Benzodiazepines Scrn Positive (NEG=<200) 06/02/21 08:43 Urine Cocaine Screen Negative (NEG=<300) 06/02/21 08:43 U Marijuana (THC) Screen Negative (NEG=<50) 06/02/21 08:43 SARS-CoV-2 (PCR) Negative (NEGATIVE) 06/02/21 07:58 Influenza Type A (PCR) Negative (NEGATIVE) 06/02/21 07:58 Influenza Type B (PCR) Negative (NEGATIVE) 06/02/21 07:58 RSV (PCR) Negative (NEGATIVE) 06/02/21 07:58 Radiology Reviewed: Yes Plan (1) AMS (altered mental status): Status: Acute Narrative Support Text: Improved. Plan: ADMIT, BLOOD AND URINE CULTURES IV ATBX, SUPPLEMENTAL O2, ABG ON ADMISSION VERIFY HOME MEDICATIONS, ADJUSTMENTS MADE RESP THERAPY, CT HEAD ON ADMISSION STABLE, AM MRI BS AND BP CONTROL, STRICT I&OS, CARDIAC MONITORING (2) UTI (urinary tract infection): Status: Acute (3) Pneumonia: Status: Acute Plan: Continue Levaquin and Fortaz. (4) Hypoxia: Status: Acute (5) Acute respiratory failure with hypoxia: Status: Acute (6) CAD (coronary artery disease): Status: Chronic
[2021-06-05] MEDS: MAGNESIUM SULFATE 1 GRAM/100 mL PREMIX 1 G/100 ML BAG IV PRN (18:00)
[2021-06-05] MEDS: CRESTOR TAB 10 MG PO SCH (21:34)
[2021-06-06] MEDS: NORCO 10/325 TAB PO PRN ×3 (02:01→23:27)
[2021-06-06] MEDS: NS 1000 ML 1,000 ML IV SCH ×3 (04:49→19:55)
[2021-06-06] MEDS: XANAX PO PRN (05:06)
[2021-06-06] MEDS: FORTAZ or TAZICEF VIAL INJ 1 G in NS 100 ML IV + SPIKE MINIBAG* 100 ML IV SCH ×3 (05:36→21:07)
[2021-06-06 06:40] LABS: BASOPHILS % (AUTO) 0.6 % (0.2-1.0); EOSINOPHILS # (AUTO) 0.3 x10^3/uL (0.0-0.2); EOSINOPHILS % (AUTO) 3.7 % (0.9-2.9); HEMATOCRIT 34.1 % (42.0-54.0); HEMOGLOBIN 11.4 g/dL (13.5-18.0); LYMPHOCYTES # (AUTO) 2.2 X10^3/uL (1.3-2.9); LYMPHOCYTES % (AUTO) 31.5 % (21.0-51.0); MEAN CORPUSCULAR HEMOGLOBIN 24.3 pg (27.0-34.0); MEAN CORPUSCULAR HGB CONC 33.5 g/dL (33.0-35.0); MEAN CORPUSCULAR VOLUME 72.5 fL (80.0-100.0); MEAN PLATELET VOLUME 8.6 fL (7.4-11.0); MONOCYTES # (AUTO) 0.6 x10^3/uL (0.3-0.8); NEUTROPHILS # (AUTO) 3.9 x10^3/uL (2.2-4.8); NEUTROPHILS % (AUTO) 55.2 % (42.0-75.0); PLATELET COUNT 200 X10^3/uL (150.0-450.0)
[2021-06-06 06:49] LABS: ALANINE AMINOTRANSFERASE 35 Units/L (12-78); ALBUMIN 2.7 g/dL (3.4-5.0); ALKALINE PHOSPHATASE 85 Units/L (46-116); ASPARTATE AMINO TRANSFERASE 47 Units/L (15-37); BLOOD UREA NITROGEN 7 mg/dL (7-18); CALCIUM 8.6 mg/dL (8.5-10.1); CARBON DIOXIDE 24.9 mmol/L (21-32); CHLORIDE 105 mmol/L (98-107); COR CA(FOR HYPOALB) 9.6 mg/dL (8.5-10.1); CREATININE 0.69 mg/dL (0.70-1.30); MAGNESIUM 1.8 mg/dL (1.7-2.9); SODIUM 140 mmol/L (136-145); TOTAL PROTEIN 7.1 g/dL (6.4-8.2); eGFR NON BLACK RACES > 60 (>60)
--- NOTE | 2021-06-06 06:58 | RAD ---
HISTORYHypoxiaSTUDYChest AP [id number]/2021FINDINGSTher e is a port present on the left. The heart is upper limits normal in size. No congestive heart failure is noted. Persistent interstitial infiltrates remain in the right upper lobe. No residual left lower lobe interstitial infiltrates are present. The remainder of the lung cazares are clear. No pleural effusion or pneumothorax is identified. Bony thorax is unremarkable.IMPRESSIONPersistent predominantly interstitial right upper and minimal left lower lobe infiltratesElectronically signed by: JOHN TOMPKINS (Jun 06, 2021 06:57:23)
[2021-06-06 07:28] LABS: PLATELET MORPHOLOGY COMMENT NORMAL (NORMAL)
[2021-06-06 07:30] LABS: ANISOCYTOSIS SLIGHT; MICROCYTOSIS SLIGHT; OVALOCYTES PRESENT; POIKILOCYTOSIS SLIGHT
[2021-06-06] MEDS ORDERED: ZESTRIL TAB 20 MG ONE (08:27)
[2021-06-06] MEDS: LEVAQUIN PREMIX IV 750 MG 750 MG/150 ML BAG IV SCH (09:13)
[2021-06-06] MEDS: MICRO K EXTEN CAP 10 MEQ PO SCH ×2 (09:13→21:06)
[2021-06-06] MEDS: PEPCID TAB 20 MG PO SCH ×2 (09:14→21:06)
[2021-06-06] MEDS: NORVASC TAB 5 MG PO SCH (09:14)
[2021-06-06] MEDS: ZESTRIL TAB 20 MG PO SCH (09:14)
[2021-06-06] MEDS: CYMBALTA PO SCH (09:15)
[2021-06-06] MEDS: ASPIRIN EC 81 MG PO SCH (09:15)
[2021-06-06] MEDS: PROTONIX TAB 40 MG PO SCH (09:15)
[2021-06-06] MEDS ORDERED: NS 100 ML IV 100 ML ONE (14:38)
[2021-06-06] MEDS: CRESTOR TAB 10 MG PO SCH (21:07)
[2021-06-06 22:36] LABS: CRYPTOSPORIDIUM PARVUM ANTIGEN NEGATIVE (NEGATIVE); GIARDIA LAMBLIA ANTIGEN NEGATIVE (NEGATIVE)
[2021-06-07] MEDS: FORTAZ or TAZICEF VIAL INJ 1 G in NS 100 ML IV + SPIKE MINIBAG* 100 ML IV SCH ×3 (05:37→20:59)
[2021-06-07] MEDS: NS 1000 ML 1,000 ML IV SCH ×3 (05:56→20:57)
[2021-06-07 06:19] LABS: BASOPHILS # (AUTO) 0.1 X10^3/uL (0.0-0.1); BASOPHILS % (AUTO) 0.8 % (0.2-1.0); EOSINOPHILS # (AUTO) 0.3 x10^3/uL (0.0-0.2); EOSINOPHILS % (AUTO) 3.9 % (0.9-2.9); HEMATOCRIT 35.6 % (42.0-54.0); HEMOGLOBIN 11.9 g/dL (13.5-18.0); LYMPHOCYTES # (AUTO) 2.4 X10^3/uL (1.3-2.9); LYMPHOCYTES % (AUTO) 34.5 % (21.0-51.0); MEAN CORPUSCULAR HGB CONC 33.3 g/dL (33.0-35.0); MEAN CORPUSCULAR VOLUME 72.1 fL (80.0-100.0); MONOCYTES # (AUTO) 0.7 x10^3/uL (0.3-0.8); MONOCYTES % (AUTO) 10.8 % (0.0-13.0); NEUTROPHILS # (AUTO) 3.5 x10^3/uL (2.2-4.8); PLATELET COUNT 203 X10^3/uL (150.0-450.0); RED BLOOD COUNT 4.94 X10^6/uL (4.7-6.0); RED CELL DISTRIBUTION WIDTH 17.1 % (11.6-16.5); WHITE BLOOD COUNT 6.9 X10^3/uL (3.6-10.0)
--- NOTE | 2021-06-07 06:31 | RAD ---
HISTORYHYPOXIASTUDYCHEST, 1 VIEWCOMPARISONCT chest and chest radiograph from 1 day prior.TECHNIQUEAP view of the chestFINDINGSLeft chest wall port with tip in good position. Cardiac and mediastinal contours are within normal limits. Mildly worse appearance of right upper lobe infiltrate. Blunted right costophrenic sulcus. No pneumothorax.IMPRESSIONMild worsening of right upper lobe pneumonia. Suspect small right pleural effusion.Electronically signed by: Adama Burnett (Jun 07, 2021 06:30:08)
[2021-06-07 06:44] LABS: ALANINE AMINOTRANSFERASE 44 Units/L (12-78); ALBUMIN 2.7 g/dL (3.4-5.0); ALKALINE PHOSPHATASE 88 Units/L (46-116); ASPARTATE AMINO TRANSFERASE 48 Units/L (15-37); BLOOD UREA NITROGEN 7 mg/dL (7-18); CALCIUM 8.5 mg/dL (8.5-10.1); CARBON DIOXIDE 25.7 mmol/L (21-32); CHLORIDE 106 mmol/L (98-107); COR CA(FOR HYPOALB) 9.5 mg/dL (8.5-10.1); SODIUM 141 mmol/L (136-145); TOTAL PROTEIN 7.1 g/dL (6.4-8.2); eGFR NON BLACK RACES > 60 (>60)
[2021-06-07 06:53] LABS: ANISOCYTOSIS SLIGHT; HYPOCHROMASIA 1+; MICROCYTOSIS SLIGHT; PLATELET MORPHOLOGY COMMENT NORMAL (NORMAL); POIKILOCYTOSIS SLIGHT
[2021-06-07 06:54] LABS: OVALOCYTES PRESENT
--- NOTE | 2021-06-07 07:17 | CT ---
HISTORYHypoxia, pneumonia, shortness of breathSTUDYCT chest with contrastTechnique: Axial post-contrast images with coronal and sagittal reformats. Dose reduction procedures were used with mA/kv adjusted for body size.[id number] tion of the mediastinum demonstrated no evidence for mediastinal masses, enlarged mediastinal or enlarged hilar adenopathy or significant aortic abnormality. Some nonenlarged mediastinal nodes are present. No pleural effusions are identified. No chest wall or axillary abnormality is identified. Those portions of the upper abdominal organs visualized were within normal limits. Examination of the lung cazares demonstrated some patchy peribronchial infiltrates in the right upper lobe consistent with persistent bronchopneumonia. The remainder of the lung cazares are clear. There is no evidence for acute pulmonary thromboembolic disease. No definite nodules, masses, areas of consolidation, peribronchial thickening or bronchiectasis identified.IMPRESSIONPatchy peribronchial infiltrates in the right upper lobe consistent with persistent bronchopneumoniaRemainder of the lung cazares are clear.No evidence for pulmonary thromboembolic diseaseElectronically signed by: JOHN TOMPKINS (Jun 07, 2021 07:15:03)
[2021-06-07] MEDS ORDERED: ZESTRIL TAB 20 MG ONE (08:13)
[2021-06-07] MEDS: CYMBALTA PO SCH (09:04)
[2021-06-07] MEDS: ASPIRIN EC 81 MG PO SCH (09:04)
[2021-06-07] MEDS: ZESTRIL TAB 20 MG PO SCH (09:04)
[2021-06-07] MEDS: NORVASC TAB 5 MG PO SCH (09:05)
[2021-06-07] MEDS: PROTONIX TAB 40 MG PO SCH (09:05)
[2021-06-07] MEDS: PEPCID TAB 20 MG PO SCH ×2 (09:05→20:20)
[2021-06-07] MEDS: LEVAQUIN PREMIX IV 750 MG 750 MG/150 ML BAG IV SCH (09:05)
[2021-06-07] MEDS: MICRO K EXTEN CAP 10 MEQ PO SCH ×2 (09:06→20:20)
[2021-06-07] MEDS: NORCO 10/325 TAB PO PRN ×2 (11:34→20:21)
[2021-06-07] MEDS: K-DUR TAB 20 MEQ PO PRN (12:14)
[2021-06-07] MEDS: XANAX PO PRN ×2 (12:15→20:21)
[2021-06-07] MEDS ORDERED: DUONEB 0.5 MG/3 MG (3 mL) NEB ONE (20:09)
[2021-06-07] MEDS: CRESTOR TAB 10 MG PO SCH (20:20)
[2021-06-07] MEDS: DUONEB 0.5 MG/3 MG (3 mL) NEB SCH (20:45)
[2021-06-08] MEDS: NORCO 10/325 TAB PO PRN ×2 (03:45→08:18)
[2021-06-08] MEDS: DUONEB 0.5 MG/3 MG (3 mL) NEB SCH (05:31)
[2021-06-08] MEDS: NS 1000 ML 1,000 ML IV SCH (05:37)
[2021-06-08] MEDS: FORTAZ or TAZICEF VIAL INJ 1 G in NS 100 ML IV + SPIKE MINIBAG* 100 ML IV SCH (05:37)
[2021-06-08 05:49] LABS: ALANINE AMINOTRANSFERASE 44 Units/L (12-78); ALBUMIN 2.8 g/dL (3.4-5.0); ALKALINE PHOSPHATASE 85 Units/L (46-116); ASPARTATE AMINO TRANSFERASE 40 Units/L (15-37); BLOOD UREA NITROGEN 5 mg/dL (7-18); CALCIUM 8.5 mg/dL (8.5-10.1); CARBON DIOXIDE 25.4 mmol/L (21-32); CHLORIDE 105 mmol/L (98-107); COR CA(FOR HYPOALB) 9.5 mg/dL (8.5-10.1); CREATININE 0.78 mg/dL (0.70-1.30); SODIUM 142 mmol/L (136-145); TOTAL PROTEIN 7.1 g/dL (6.4-8.2); eGFR NON BLACK RACES > 60 (>60)
[2021-06-08 05:54] LABS: BASOPHILS % (AUTO) 0.5 % (0.2-1.0); EOSINOPHILS # (AUTO) 0.1 x10^3/uL (0.0-0.2); EOSINOPHILS % (AUTO) 1.8 % (0.9-2.9); HEMATOCRIT 35.1 % (42.0-54.0); HEMOGLOBIN 11.7 g/dL (13.5-18.0); LYMPHOCYTES # (AUTO) 2.8 X10^3/uL (1.3-2.9); LYMPHOCYTES % (AUTO) 32.3 % (21.0-51.0); MEAN CORPUSCULAR HEMOGLOBIN 24.4 pg (27.0-34.0); MEAN CORPUSCULAR HGB CONC 33.4 g/dL (33.0-35.0); MEAN PLATELET VOLUME 8.1 fL (7.4-11.0); MONOCYTES # (AUTO) 0.7 x10^3/uL (0.3-0.8); MONOCYTES % (AUTO) 8.7 % (0.0-13.0); NEUTROPHILS # (AUTO) 4.8 x10^3/uL (2.2-4.8); NEUTROPHILS % (AUTO) 56.7 % (42.0-75.0); PLATELET COUNT 177 X10^3/uL (150.0-450.0); RED BLOOD COUNT 4.81 X10^6/uL (4.7-6.0); RED CELL DISTRIBUTION WIDTH 17.3 % (11.6-16.5); WHITE BLOOD COUNT 8.5 X10^3/uL (3.6-10.0)
--- NOTE | 2021-06-08 05:58 | RAD ---
PROCEDURE: Chest X-ray 1 View .HISTORY: Dyspnea.TECHNIQUE: AP view .COMPARISON: 06/07/2021.TECHNICAL QUALITY: Satisfactory .FINDINGS:Unchanged left subclavian Port-A-Cath.Normal size heart.Mediastinum and hilar regions show no masses or lymphadenopathy .Normal central vascularity .Unchanged mild consolidation right upper lobe. No definite pleural fluid on today's study.No acute bony abnormality .IMPRESSION:Unchanged mild right upper lobe consolidation.Electronically signed by: Daniel Handley (Jun 08, 2021 05:56:23)
[2021-06-08] MEDS: K-DUR TAB 20 MEQ PO PRN (06:13)
[2021-06-08 06:19] LABS: MICROCYTOSIS SLIGHT; OVALOCYTES PRESENT; PLATELET MORPHOLOGY COMMENT NORMAL (NORMAL)
[2021-06-08 06:20] LABS: ANISOCYTOSIS SLIGHT; HYPOCHROMASIA SLIGHT
[2021-06-08 07:48] VITALS: BP 134/82
[2021-06-08] MEDS ORDERED: ZESTRIL TAB 20 MG ONE (08:06)
[2021-06-08] MEDS: ASPIRIN EC 81 MG PO SCH (08:15)
[2021-06-08] MEDS: CYMBALTA PO SCH (08:16)
[2021-06-08] MEDS: MICRO K EXTEN CAP 10 MEQ PO SCH (08:16)
[2021-06-08] MEDS: LEVAQUIN PREMIX IV 750 MG 750 MG/150 ML BAG IV SCH (08:16)
[2021-06-08] MEDS: ZESTRIL TAB 20 MG PO SCH (08:17)
[2021-06-08] MEDS: PEPCID TAB 20 MG PO SCH (08:17)
[2021-06-08] MEDS: NORVASC TAB 5 MG PO SCH (08:17)
[2021-06-08] MEDS: PROTONIX TAB 40 MG PO SCH (08:17)
[2021-06-08] MEDS: XANAX PO PRN (08:18)
[2021-06-08] MEDS ORDERED: PROTONIX TAB 40 MG PO SCH (09:00)
== END 2021-06-08 12:45 | disposition home or self-care (01) | DRG 193 ==
LOC: ER 07:37 → MED/SURG 07:37
PROVIDERS: ADMIT Internal Medicine; ATTEND Internal Medicine
DX: R41.82 Altered mental status, unspecified; K21.9 Gastro-esophageal reflux disease without esophagitis; J18.8 Other pneumonia, unspecified organism; J96.01 Acute respiratory failure with hypoxia; R26.89 Other abnormalities of gait and mobility; A04.5 Campylobacter enteritis; I10 Essential (primary) hypertension; F41.8 Other specified anxiety disorders; N39.0 Urinary tract infection, site not specified; R06.02 Shortness of breath; R94.31 Abnormal electrocardiogram [ECG] [EKG]; E86.0 Dehydration; I25.10 Atherosclerotic heart disease of native coronary artery without angina pectoris; Z20.822 Contact with and (suspected) exposure to COVID-19; E87.6 Hypokalemia

== ENCOUNTER 2021-09-01 10:33 | Observation (INO) ==
--- NOTE | 2021-09-01 10:52 | DR.SOBA ---
HPI Time Seen Time Seen by Provider: 09/01/21 10:50 Primary Care Physician Primary Care Physician: DR. BURNS Complaints Chief Complaint Doctors Comments: 51 y/o presents with worsening dyspnea. H/o bad lungs over the past year. Ill for the past 5 days - fever, chills, worsening cough, productive of sputum. No home O2, but has qualified in the past. + vaccinated for covid. Has been around ill children, none with known covid. Having right sided chest pain, worse with coughing, breathing. Nothing makes it better. is on chronic pain management for chronic bilateral knee pain. Has been falling more often. Chief Complaint:: PT C/O CHRONIC SOB. PT STATES SOB BECAME WORSE THAN NORMAL ONSET LAST NIGHT. PT STATS HE HAS HX OF COPD & SUPPOSE TO WEAR HOME O2 @ 4L NC BUT PT DOES NOT HAVE O2 ON @ THIS TIME. COVID-19 Coronavirus risk:travel/contact w/high risk person: No Has patient experienced Coronavirus symptoms: No Reviewed Nurses Notes Reviewed: Yes Source History Provided: Patient Mode of Arrival Mode of Arrival: Ambulatory Timing Onset of Chief Complaint: 08/31/21 PMH PMH Past Medical History: Yes Past Medical History: Anxiety, Arthritis, Asthma, Depression, GERD, Headaches, Hypertension, Kidney Stones and Sleep Apnea Past Surgical History: Yes Surgical History: Angioplasty/Stents, Joint Replacement, Ortho Surgery and Other Family History History of Family Medical Conditions: Yes Family Medical History: Coronary Artery Disease and Hypertension Social History Do you use any recreational Drugs:: No Travel Risk Coronavirus risk:travel/contact w/high risk person: No Has patient experienced Coronavirus symptoms: No Infectious screening Have you traveled outside the country in the last 6 months?: No Isolation: Standard ROS Review of Systems Constitutional: Chills, Fever, Malaise and Weakness Eyes: No Symptoms Reported ENTM: Nose Congestion Respiratoy: Productive Cough and Short of Breath Cardiovascular: Chest Pain Gastrointestinal/Abdominal: No Symptoms Reported Genitourinary: No Symptoms Reported Neurological: Weakness Musculoskeletal: Muscle Pain and Chest wall Integumentary: No Symptoms Reported Hematologic/Lymphatic: No Symptoms Reported Psychiatric: No Symptoms Reported All Other Systems: Reviewed and Negative PE Vital Signs Vitals: Temperature 99.1 F Pulse Rate 112 Respiratory Rate 27 Blood Pressure [Right Arm] 134/82 Blood Pressure 143/66 O2 Sat by Pulse Oximetry 93 General Limitations: No Limitations General Appearance: Alert and In Distress Head Head Exam: Normal Inspection Eyes Eye exam: Normal Appearance, PERRL and EOMI ENT ENT Exam: Normal Exam Neck Neck Exam: Normal Inspection and Full ROM Chest Chest Inspection: Normal Inspection and Tenderness (right lower anterior lateral chest wall tenderness.) Respiratory Respiratory Exam: Respiratory Distress (mild) Respiratory Exam: Bilateral: Wheezing (faint expiratory) and Bilateral: Rhonchi Cardiovascular Cardiovascular Exam: Regular Rate, Normal Rhythm and Normal Heart Sounds Abdominal Exam Abdominal Exam: Normal Inspection and Normal Bowel Sounds; negative Tenderness Extremities Extremities Exam: Normal Inspection and Full ROM; negative Edema Back Back Exam: Normal Inspection and Full ROM Neurologic Neurological Exam: Alert, Oriented X3 and CN II-XII Intact; negative Motor Sensory Deficit Psychiatric Psychiatric Exam: Normal Affect Skin Skin Exam: Warm and Dry MDM Differential Diagnosis Differential Diagnosis: CHF, COPD, Pneumonia, Pneumothorax and Pulmonary embolism Differential Diagnosis Comment:: Covid, Flu COURSE Treatment Treatment: 51 y/o with chronic COPD, ill x 5 days, worse since yesterday. W/u initiated. Given duoneb breathing treatment, IV solu-medrol. 1304 - CXR with developing infiltrates, R > L. Given IV Rocephin here. Having pain, given toradol/dilaudid. Labs show elevated WBC, 15,900 with 86% neutrophils. ABG has pCO2 38, pO2 low at 53. Chemistries overall acceptable, except potassium 3.0. Given oral KCl here. Covid test is negative. Recommend admission for further treatment. Pt accepted for admission by Dr Borrego's nurse, Vidya. ROR Labs Reviewed Laboratory Results Reviewed?: Yes Result Diagrams: 09/01/21 11:08 09/01/21 11:08 Laboratory: WBC 15.9 X10^3/uL (3.6-10.0) H 09/01/21 11:08 RBC 5.38 X10^6/uL (4.7-6.0) 09/01/21 11:08 Hgb 12.7 g/dL (13.5-18.0) L 09/01/21 11:08 Hct 39.9 % (42.0-54.0) L 09/01/21 11:08 MCV 74.1 fL (80.0-100.0) L 09/01/21 11:08 MCH 23.7 pg (27.0-34.0) L 09/01/21 11:08 MCHC 31.9 g/dL (33.0-35.0) L 09/01/21 11:08 RDW 18.2 % (11.6-16.5) H 09/01/21 11:08 Plt Count 281 X10^3/uL (150.0-450.0) 09/01/21 11:08 Plt Count Comment Adequate (ADEQUATE) 09/01/21 11:08 MPV 8.0 fL (7.4-11.0) 09/01/21 11:08 Neut % (Auto) 86.5 % (42.0-75.0) H 09/01/21 11:08 Lymph % (Auto) 9.4 % (21.0-51.0) L 09/01/21 11:08 [place] % (Auto) 2.7 % (0.0-13.0) 09/01/21 11:08 Eos % (Auto) 0.5 % (0.9-2.9) L 09/01/21 11:08 Baso % (Auto) 0.9 % (0.2-1.0) 09/01/21 11:08 Neut # (Auto) 13.7 x10^3/uL (2.2-4.8) H 09/01/21 11:08 Lymph # (Auto) 1.5 X10^3/uL (1.3-2.9) 09/01/21 11:08 [place] # (Auto) 0.4 x10^3/uL (0.3-0.8) 09/01/21 11:08 Eos # (Auto) 0.1 x10^3/uL (0.0-0.2) 09/01/21 11:08 Baso # (Auto) 0.1 X10^3/uL (0.0-0.1) 09/01/21 11:08 Absolute Nucleated RBC 0.2 /100WBC 09/01/21 11:08 Plt Morphology Comment Normal (NORMAL) 09/01/21 11:08 RBC Morphology Abnormal (NORMAL) 09/01/21 11:08 Ovalocytes 1+ A 09/01/21 11:08 Sample Site Lrad 09/01/21 11:52 ABG pH 7.450 (7.35-7.45) 09/01/21 11:52 ABG pCO2 38.0 mmHg (35.0-45.0) 09/01/21 11:52 ABG pO2 53.0 mmHg (80.0-100.0) L 09/01/21 11:52 ABG HCO3 26.4 mmol/L (22-26) H 09/01/21 11:52 ABG O2 Saturation 89.0 % (90-100) L 09/01/21 11:52 ABG Base Excess 2.4 mmol/L (-2.0-2.0) H 09/01/21 11:52 Mauro Test Pos 09/01/21 11:52 A-a Gradient 156.0 mmHg 09/01/21 11:52 FiO2 36.0 09/01/21 11:52 Blood Gas Comments Pt josie well elj 09/01/21 11:52 Sodium 138 mmol/L (136-145) 09/01/21 11:08 Corrected Sodium 140 mmol/L (136-145) 09/01/21 11:08 Potassium 3.0 mmol/L (3.5-5.1) L* 09/01/21 11:08 Chloride 104 mmol/L (98-107) 09/01/21 11:08 Carbon Dioxide 24.2 mmol/L (21-32) 09/01/21 11:08 BUN 17 mg/dL (7-18) 09/01/21 11:08 Creatinine 1.05 mg/dL (0.70-1.30) 09/01/21 11:08 Est GFR (MDRD) Af Amer > 60 (>60) 09/01/21 11:08 Est GFR (MDRD) Non-Af > 60 (>60) 09/01/21 11:08 Glucose 169 mg/dL (65-99) H 09/01/21 11:08 Lactic Acid 3.1 mmol/L (0.4-2.0) H 09/01/21 11:45 Calcium 8.2 mg/dL (8.5-10.1) L 09/01/21 11:08 Corrected Calcium 8.9 mg/dL (8.5-10.1) 09/01/21 11:08 Total Bilirubin 0.30 mg/dL (0.2-1.0) 09/01/21 11:08 AST 49 Units/L (15-37) H 09/01/21 11:08 ALT 68 Units/L (12-78) 09/01/21 11:08 Alkaline Phosphatase 119 Units/L (46-116) H 09/01/21 11:08 Creatine Kinase 60 Units/L (39-308) 09/01/21 11:08 CK-MB (CK-2) < 1.0 ng/mL (0-4.0) 09/01/21 11:08 CK/CKMB % Calc 1.7 % (<4) 09/01/21 11:08 Troponin I < 0.02 ng/mL (0-1.5) 09/01/21 11:08 B-Natriuretic Peptide 15.3 pg/mL (0-79) 09/01/21 11:08 Total Protein 7.8 g/dL (6.4-8.2) 09/01/21 11:08 Albumin 3.1 g/dL (3.4-5.0) L 09/01/21 11:08 Globulin 4.7 g/dL (2.5-4.5) H 09/01/21 11:08 Albumin/Globulin Ratio 0.7 Ratio (1.1-2.1) L 09/01/21 11:08 SARS-CoV-2 (PCR) Cancelled 09/01/21 11:02 Influenza Type A (PCR) Cancelled 09/01/21 11:02 Influenza Type B (PCR) Cancelled 09/01/21 11:02 RSV (PCR) Cancelled 09/01/21 11:02 SARS CoV-2 RNA Rapid FAHEEM Negative (NEGATIVE) 09/01/21 10:53 XRAY XRAY Interpreted by: Radiologist X-ray Results: Bilateral bronchitis changes, with R > L, c/w developing pneumonia. Opioid Opioid Risk Tool Age (Dani box if 16-45): No History of Preadolescent Sexual Abuse: No Total: 0 Total Score Risk Category: Low Risk Copyright: Khadar HERNANDEZ predicting aberrant behaviors Diagnosis Discharge Problem: Hypoxia Pneumonia Qualifiers: Pneumonia type: due to unspecified organism Laterality: bilateral Lung loca tion: unspecified part of lung Qualified Code(s): J18.9 - Pneumonia, unspecified organism
[2021-09-01] MEDS ORDERED: DUONEB 0.5 MG/3 MG (3 mL) NEB ONE ×3 (11:01→15:51)
[2021-09-01] MEDS ORDERED: SOLU-Medrol 125 MG VIAL IVP ONE (11:01)
--- NOTE | 2021-09-01 11:07 | RAD ---
HISTORYDYSPNEASTUDYCHEST, 1 [id number]/2021FINDINGSThe trachea is midline. Heart size is unchanged. Stable positioning of left chest wall MediPort.There is right greater than left peribronchial thickening and consolidation within the mid and lower lung zones. No pleural effusion or pneumothorax. No acute osseous abnormality.IMPRESSIONBilateral, right greater than left, bronchitis and likely developing bronchopneumonia.Electronically signed by: EVERETT NICOLE (Sep 01, 2021 11:06:08)
[2021-09-01] MEDS ORDERED: ROCEPHIN VIAL 1 GRAM 1 G in NS 100 ML IV + SPIKE MINIBAG* 100 ML IV ONE (11:12)
[2021-09-01] MEDS ORDERED: SOLU-Medrol 125 MG VIAL ONE (11:21)
[2021-09-01] MEDS ORDERED: ROCEPHIN 1 GRAM IV PREMIX 1 G/50 ML IV.SOLN. IV ONE (11:21)
[2021-09-01] MEDS ORDERED: DILAUDID INJ IVP ONE (11:31)
[2021-09-01] MEDS ORDERED: TORADOL 30 MG VIAL IVP ONE (11:31)
[2021-09-01 11:36] LABS: BASOPHILS # (AUTO) 0.1 X10^3/uL (0.0-0.1); BASOPHILS % (AUTO) 0.9 % (0.2-1.0); EOSINOPHILS # (AUTO) 0.1 x10^3/uL (0.0-0.2); EOSINOPHILS % (AUTO) 0.5 % (0.9-2.9); HEMATOCRIT 39.9 % (42.0-54.0); HEMOGLOBIN 12.7 g/dL (13.5-18.0); LYMPHOCYTES # (AUTO) 1.5 X10^3/uL (1.3-2.9); LYMPHOCYTES % (AUTO) 9.4 % (21.0-51.0); MEAN CORPUSCULAR HEMOGLOBIN 23.7 pg (27.0-34.0); MEAN CORPUSCULAR HGB CONC 31.9 g/dL (33.0-35.0); MEAN CORPUSCULAR VOLUME 74.1 fL (80.0-100.0); MONOCYTES # (AUTO) 0.4 x10^3/uL (0.3-0.8); MONOCYTES % (AUTO) 2.7 % (0.0-13.0); NEUTROPHILS # (AUTO) 13.7 x10^3/uL (2.2-4.8); NEUTROPHILS % (AUTO) 86.5 % (42.0-75.0); PLATELET COUNT 281 X10^3/uL (150.0-450.0); RED BLOOD COUNT 5.38 X10^6/uL (4.7-6.0); RED CELL DISTRIBUTION WIDTH 18.2 % (11.6-16.5); WHITE BLOOD COUNT 15.9 X10^3/uL (3.6-10.0)
[2021-09-01 11:57] LABS: ABG ALLEN TEST POS; ABG BASE EXCESS 2.4 mmol/L (-2.0-2.0); ABG HCO3 26.4 mmol/L (22-26)
[2021-09-01 12:00] LABS: PLATELET MORPHOLOGY COMMENT NORMAL (NORMAL)
[2021-09-01] MEDS ORDERED: TORADOL 30 MG VIAL ONE (12:00)
[2021-09-01] MEDS ORDERED: DILAUDID INJ ONE (12:00)
[2021-09-01 12:01] LABS: OVALOCYTES 1+
[2021-09-01 12:04] LABS: ALANINE AMINOTRANSFERASE 68 Units/L (12-78); ALBUMIN 3.1 g/dL (3.4-5.0); ALKALINE PHOSPHATASE 119 Units/L (46-116); ASPARTATE AMINO TRANSFERASE 49 Units/L (15-37); BLOOD UREA NITROGEN 17 mg/dL (7-18); CALCIUM 8.2 mg/dL (8.5-10.1); CARBON DIOXIDE 24.2 mmol/L (21-32); CHLORIDE 104 mmol/L (98-107); CKMB % 1.7 % (<4); COR CA(FOR HYPOALB) 8.9 mg/dL (8.5-10.1); COR NA(FOR HYPERGLY) 140 mmol/L (136-145); CREATINE KINASE 60 Units/L (39-308); CREATINE KINASE MB < 1.0 ng/mL (0-4.0); CREATININE 1.05 mg/dL (0.70-1.30); GLUCOSE 169 mg/dL (65-99); SODIUM 138 mmol/L (136-145); TOTAL PROTEIN 7.8 g/dL (6.4-8.2); eGFR NON BLACK RACES > 60 (>60)
[2021-09-01] MEDS: NS 1,000 ML IV 1,000 ML IV SCH (14:52)
[2021-09-01 15:15] VITALS: BMI 31.8
[2021-09-01] MEDS: MORPHINE SULFATE INJ 2 MG INJ IVP PRN (15:18)
[2021-09-01] MEDS ORDERED: POTASSIUM CHLORIDE LIQ PO PRN (15:19)
[2021-09-01] MEDS ORDERED: POTASSIUM CHL 60 MEQ/NS 0.45% 500 ML IV PRN (15:19)
[2021-09-01] MEDS ORDERED: K-RIDER 10 MEQ/NS 100 ML 10 MEQ/100 ML BAG IV PRN (15:19)
[2021-09-01] MEDS ORDERED: MICRO K EXTEN CAP 10 MEQ PO PRN (15:19)
[2021-09-01] MEDS ORDERED: POTASSIUM CHL 40 MEQ/NS 0.45% 500 ML IV PRN (15:19)
[2021-09-01] MEDS ORDERED: KLOR-CON PO PRN (15:19)
[2021-09-01] MEDS ORDERED: SALINE 3% 15 ML NEB TX NEB ONE (15:44)
[2021-09-01] MEDS: DUONEB 0.5 MG/3 MG (3 mL) NEB SCH ×2 (15:50→20:05)
[2021-09-01] MEDS: FORTAZ or TAZICEF VIAL INJ 1 G in NS 100 ML IV + SPIKE MINIBAG* 100 ML IV SCH ×2 (17:22→22:07)
[2021-09-01] MEDS ORDERED: PULMICORT NEB TX 0.5 MG NEB ONE (18:58)
[2021-09-01] MEDS: PULMICORT NEB TX 0.5 MG NEB SCH (20:05)
[2021-09-01] MEDS: LEVAQUIN PREMIX IV 500 MG 500 MG/100 ML BAG IV SCH (20:35)
[2021-09-01] MEDS: NORCO 10/325 TAB PO PRN (23:16)
[2021-09-02] MEDS: DUONEB 0.5 MG/3 MG (3 mL) NEB SCH ×6 (00:30→21:34)
[2021-09-02] MEDS: MORPHINE SULFATE INJ 2 MG INJ IVP PRN ×2 (00:41→20:55)
[2021-09-02 05:27] LABS: BASOPHILS % (AUTO) 0.1 % (0.2-1.0); HEMATOCRIT 33.5 % (42.0-54.0); LYMPHOCYTES # (AUTO) 1.4 X10^3/uL (1.3-2.9); LYMPHOCYTES % (AUTO) 4.8 % (21.0-51.0); MEAN CORPUSCULAR HEMOGLOBIN 24.2 pg (27.0-34.0); MEAN CORPUSCULAR HGB CONC 32.9 g/dL (33.0-35.0); MEAN CORPUSCULAR VOLUME 73.4 fL (80.0-100.0); MEAN PLATELET VOLUME 8.3 fL (7.4-11.0); MONOCYTES # (AUTO) 1.1 x10^3/uL (0.3-0.8); MONOCYTES % (AUTO) 3.8 % (0.0-13.0); NEUTROPHILS % (AUTO) 91.3 % (42.0-75.0); PLATELET COUNT 270 X10^3/uL (150.0-450.0); RED BLOOD COUNT 4.56 X10^6/uL (4.7-6.0); RED CELL DISTRIBUTION WIDTH 18.2 % (11.6-16.5)
[2021-09-02 05:36] LABS: ALANINE AMINOTRANSFERASE 58 Units/L (12-78); ALBUMIN 2.8 g/dL (3.4-5.0); ALKALINE PHOSPHATASE 86 Units/L (46-116); ASPARTATE AMINO TRANSFERASE 31 Units/L (15-37); BLOOD UREA NITROGEN 27 mg/dL (7-18); CALCIUM 8.6 mg/dL (8.5-10.1); CARBON DIOXIDE 25.7 mmol/L (21-32); CHLORIDE 105 mmol/L (98-107); COR CA(FOR HYPOALB) 9.6 mg/dL (8.5-10.1); COR NA(FOR HYPERGLY) 139 mmol/L (136-145); CREATININE 1.21 mg/dL (0.70-1.30); GLUCOSE 143 mg/dL (65-99); POTASSIUM 3.7 mmol/L (3.5-5.1); SODIUM 138 mmol/L (136-145); TOTAL PROTEIN 7.5 g/dL (6.4-8.2); eGFR NON BLACK RACES > 60 (>60)
--- NOTE | 2021-09-02 05:51 | RAD ---
PROCEDURE: Chest X-ray 1 View .HISTORY: Short of breath.TECHNIQUE: AP view .COMPARISON: 09/01/2021.TECHNICAL QUALITY: Satisfactory .FINDINGS:Left internal jugular Port-A-Cath is unchanged.Unremarkable cardio mediastinal silhouette and normal central vascularity.Mild consolidation lung bases consistent with pneumonia similar to previous study. No pleural fluid or pneumothorax.IMPRESSION:Unchanged mild bibasilar pneumonia.Electronically signed by: Daniel Handley (Sep 02, 2021 05:50:07)
[2021-09-02 05:59] LABS: BAND NEUTROPHILS % 10 % (0-10); PLATELET MORPHOLOGY COMMENT NORMAL (NORMAL); WHITE BLOOD COUNT 29.7 X10^3/uL (3.6-10.0)
[2021-09-02 06:00] LABS: OVALOCYTES PRESENT
[2021-09-02] MEDS: NORCO 10/325 TAB PO PRN ×4 (06:05→18:24)
[2021-09-02] MEDS: FORTAZ or TAZICEF VIAL INJ 1 G in NS 100 ML IV + SPIKE MINIBAG* 100 ML IV SCH ×3 (06:05→22:16)
[2021-09-02] MEDS: NS 1,000 ML IV 1,000 ML IV SCH ×2 (06:06→18:09)
[2021-09-02] MEDS: PULMICORT NEB TX 0.5 MG NEB SCH ×2 (09:14→21:34)
[2021-09-02] MEDS: NORVASC TAB 5 MG PO SCH (10:32)
[2021-09-02] MEDS: PEPCID TAB 40 MG PO SCH ×2 (10:32→20:54)
[2021-09-02] MEDS: PROTONIX TAB 40 MG PO SCH ×2 (10:32→20:54)
[2021-09-02] MEDS: ASPIRIN EC 81 MG PO SCH (10:32)
[2021-09-02] MEDS: LYRICA CAP 150 mg PO SCH ×2 (10:33→20:54)
[2021-09-02] MEDS: CYMBALTA PO SCH (10:33)
--- NOTE | 2021-09-02 18:27 | DR.H&P ---
H&P History & Physical for Day of: H&P Date: 09/02/21 Chief Complaint Chief Complaint: worsening dyspnea and cough Allergies Allergies Allergy/AdvReac Type Severity Reaction Status Date / Time zolpidem [From Ambien] Allergy Verified 05/23/21 11:42 History of Present Illness History of Present Illness: Mr Centeno is a 51y/o male with a PMH of COPD, chronic pain syndrome due to arthritis, chronic anxiety, HTN and LANE presented with worsening dyspnea and cough. Patient reports being sick for the past few days. He does not use O2 at home. In the past, he has qualified for home O2 but has not received it yet. He reports productive cough and wheezing. On admission, patient's COVID test was negative. CXR showed bibasilar bronchopneumonia. He was started on IV antibiotics, nebs and IS. He is currently on 3L NC and appears to be in no respiratory distress. Labs and imaging reviewed Plan: Continue IV antibiotics, nebs and IS. Patient received IV solumedrol in the ER, start prednisone 40 mg daily. Wean O2 as tolerated. Resume home medications. Continue pain control. Follow cultures. Monitor AM labs and imaging. Past Medical History Past Medical History: Anxiety, Arthritis, Asthma, Depression, GERD, Headaches, Hypertension, Kidney Stones and Sleep Apnea Additional Medical History: Cataracts, Back Pain Past Surgical History Surgical History: Angioplasty/Stents Additional Surgical History: Cardiac Stents x 2, Right upper arm/elbow, Craniotomy - non-cancerous, Right ACL meniscus tear repair, Hammer toe right Family History Family Medical History: Coronary Artery Disease and Hypertension Social History Does patient currently use any type of tobacco product: No Have you used tobacco products in the last 12 months: No Type of Tobacco Use: None Does any household member use tobacco: No Alcohol Use: None Prescription drug monitoring program results: PDMP reviewed and no concerns identified Medications Home Medications: zolpidem [From Ambien] Allergy (Verified 05/23/21 11:42) CONTINUE taking the following medications albuterol sulfate 1 puff INHALATION BID PRN 09/01/21 [History] budesonide-formoterol [Symbicort] 1 inh INHALATION DAILY 09/01/21 [History] cyanocobalamin (vitamin B-12) 1,000 mcg SUBCUT MONTHLY 09/01/21 [History] hydrocodone-acetaminophen 1 tab PO Q6HR MDD 5 09/01/21 [History] lisinopril 20 mg PO HS 09/01/21 [History] ubrogepant [Ubrelvy] 100 mg PO PRN PRN 09/01/21 [History] Labs Result Diagrams: 09/02/21 04:50 09/02/21 04:50 Labs: 09/01/21 23:15 Sputum - Expectorated Sputum - Final Laboratory WBC 29.7 X10^3/uL (3.6-10.0) H D 09/02/21 04:50 RBC 4.56 X10^6/uL (4.7-6.0) L 09/02/21 04:50 Hgb 11.0 g/dL (13.5-18.0) L 09/02/21 04:50 Hct 33.5 % (42.0-54.0) L 09/02/21 04:50 MCV 73.4 fL (80.0-100.0) L 09/02/21 04:50 MCH 24.2 pg (27.0-34.0) L 09/02/21 04:50 MCHC 32.9 g/dL (33.0-35.0) L 09/02/21 04:50 RDW 18.2 % (11.6-16.5) H 09/02/21 04:50 Plt Count 270 X10^3/uL (150.0-450.0) 09/02/21 04:50 Plt Count Comment Adequate (ADEQUATE) 09/02/21 04:50 MPV 8.3 fL (7.4-11.0) 09/02/21 04:50 Neut % (Auto) 91.3 % (42.0-75.0) H 09/02/21 04:50 Lymph % (Auto) 4.8 % (21.0-51.0) L 09/02/21 04:50 [place] % (Auto) 3.8 % (0.0-13.0) 09/02/21 04:50 Eos % (Auto) 0.0 % (0.9-2.9) L 09/02/21 04:50 Baso % (Auto) 0.1 % (0.2-1.0) L 09/02/21 04:50 Neut # (Auto) 27.0 x10^3/uL (2.2-4.8) H 09/02/21 04:50 Lymph # (Auto) 1.4 X10^3/uL (1.3-2.9) 09/02/21 04:50 [place] # (Auto) 1.1 x10^3/uL (0.3-0.8) H 09/02/21 04:50 Eos # (Auto) 0.0 x10^3/uL (0.0-0.2) 09/02/21 04:50 Baso # (Auto) 0.0 X10^3/uL (0.0-0.1) 09/02/21 04:50 Absolute Nucleated RBC 0.0 /100WBC 09/02/21 04:50 Total Counted 100 09/02/21 04:50 Neutrophils % (Manual) 85 % (39-76) H 09/02/21 04:50 Band Neutrophils % 10 % (0-10) 09/02/21 04:50 Lymphocytes % (Manual) 3 % (13-43) L 09/02/21 04:50 Monocytes % (Manual) 2 % (4-9) L 09/02/21 04:50 Plt Morphology Comment Normal (NORMAL) 09/02/21 04:50 RBC Morphology Abnormal (NORMAL) 09/02/21 04:50 Ovalocytes Present 09/02/21 04:50 Sample Site Lrad 09/01/21 11:52 ABG pH 7.450 (7.35-7.45) 09/01/21 11:52 ABG pCO2 38.0 mmHg (35.0-45.0) 09/01/21 11:52 ABG pO2 53.0 mmHg (80.0-100.0) L 09/01/21 11:52 ABG HCO3 26.4 mmol/L (22-26) H 09/01/21 11:52 ABG O2 Saturation 89.0 % (90-100) L 09/01/21 11:52 ABG Base Excess 2.4 mmol/L (-2.0-2.0) H 09/01/21 11:52 Mauro Test Pos 09/01/21 11:52 A-a Gradient 156.0 mmHg 09/01/21 11:52 FiO2 36.0 09/01/21 11:52 Blood Gas Comments Pt josie well elj 09/01/21 11:52 Sodium 138 mmol/L (136-145) 09/02/21 04:50 Corrected Sodium 139 mmol/L (136-145) 09/02/21 04:50 Potassium 3.7 mmol/L (3.5-5.1) 09/02/21 04:50 Chloride 105 mmol/L (98-107) 09/02/21 04:50 Carbon Dioxide 25.7 mmol/L (21-32) 09/02/21 04:50 BUN 27 mg/dL (7-18) H 09/02/21 04:50 Creatinine 1.21 mg/dL (0.70-1.30) 09/02/21 04:50 Est GFR (MDRD) Af Amer > 60 (>60) 09/02/21 04:50 Est GFR (MDRD) Non-Af > 60 (>60) 09/02/21 04:50 Glucose 143 mg/dL (65-99) H 09/02/21 04:50 Lactic Acid 2.7 mmol/L (0.4-2.0) H 09/01/21 17:30 Calcium 8.6 mg/dL (8.5-10.1) 09/02/21 04:50 Corrected Calcium 9.6 mg/dL (8.5-10.1) 09/02/21 04:50 Total Bilirubin 0.30 mg/dL (0.2-1.0) 09/02/21 04:50 AST 31 Units/L (15-37) 09/02/21 04:50 ALT 58 Units/L (12-78) 09/02/21 04:50 Alkaline Phosphatase 86 Units/L (46-116) 09/02/21 04:50 Creatine Kinase 60 Units/L (39-308) 09/01/21 11:08 CK-MB (CK-2) < 1.0 ng/mL (0-4.0) 09/01/21 11:08 CK/CKMB % Calc 1.7 % (<4) 09/01/21 11:08 Troponin I < 0.02 ng/mL (0-1.5) 09/01/21 11:08 B-Natriuretic Peptide 15.3 pg/mL (0-79) 09/01/21 11:08 Total Protein 7.5 g/dL (6.4-8.2) 09/02/21 04:50 Albumin 2.8 g/dL (3.4-5.0) L 09/02/21 04:50 Globulin 4.7 g/dL (2.5-4.5) H 09/02/21 04:50 Albumin/Globulin Ratio 0.6 Ratio (1.1-2.1) L 09/02/21 04:50 SARS-CoV-2 (PCR) Cancelled 09/01/21 11:02 Influenza Type A (PCR) Cancelled 09/01/21 11:02 Influenza Type B (PCR) Cancelled 09/01/21 11:02 RSV (PCR) Cancelled 09/01/21 11:02 SARS CoV-2 RNA Rapid FAHEEM Negative (NEGATIVE) 09/01/21 10:53 Review of Systems Constitutional: Weakness and Malaise Eyes: No Symptoms Reported ENT: No Symptoms Reported Respiratory: Cough, Dry, Shortness of Breath, SOB with Excertion, Sputum and Wheezing Cardiovascular: No Symptoms Reported Gastrointestinal: No Symptoms Reported Genitourinary: No Symptoms Reported Musculoskeletal: Shoulder Pain, Arm Pain and Back Pain Skin: No Symptoms Reported Neurological: No Symptoms Reported Physical Exam Vital Signs: Temperature 98.0 F Pulse Rate [Right Radial] 98 Pulse Rate 90 Respiratory Rate 20 Blood Pressure [Right Arm] 123/60 Blood Pressure 157/89 O2 Sat by Pulse Oximetry 96 Oriented: Normal Eyes: Normal Ear: Normal Nose: Normal Throat: Dry Respiratory: Diminished Throughout Cardiovascular: Normal Auscultation: Bowel Sounds: Normal Palpation: Normal Tenderness: Normal Skin: Normal Musculoskeletal: Right, Left, Shoulder and Elbow Psychiatric: Anxiety Mood Description: Calm Affect: Normal Speech Pattern: Clear and Appropriate Assessment/Plan (1) COPD exacerbation: Status: Acute (2) Bronchopneumonia: Status: Acute (3) Chronic pain syndrome: Status: Acute (4) Hypoxia: Status: Acute (5) Acute respiratory failure with hypoxia: Status: Acute (6) Left shoulder pain: Qualifiers: Chronicity: acute Qualified Code(s): M25.512 - Pain in left shoulder Status: Acute (7) CAD (coronary artery disease): Qualifiers: Associated angina: unspecified whether angina present Coronary Disease- Associated Artery/Lesion type: unspecified vessel or lesion type [place] vs. transplanted heart: [place] heart Qualified Code(s): I25.10 - Atherosclerotic heart disease of [place] coronary artery without angina pectoris Status: Chronic (8) Hypertension: Qualifiers: Hypertension type: primary hypertension Qualified Code(s): I10 - Essential (primary) hypertension Status: Chronic (9) GERD (gastroesophageal reflux disease): Qualifiers: Esophagitis presence: esophagitis presence not specified Qualified Code(s): K21.9 - Gastro-esophageal reflux disease without esophagitis Status: Chronic (10) Arthritis: Status: Chronic Review H&P Reviewed: Yes Patient was examined?: Yes
[2021-09-02] MEDS ORDERED: ZESTRIL TAB 20 MG ONE (20:09)
[2021-09-02] MEDS: LEVAQUIN PREMIX IV 500 MG 500 MG/100 ML BAG IV SCH (20:53)
[2021-09-02] MEDS: CRESTOR TAB 10 MG PO SCH (20:53)
[2021-09-02] MEDS: ZESTRIL TAB 20 MG PO SCH (20:54)
[2021-09-02] MEDS: XANAX PO PRN (20:55)
[2021-09-02] MEDS: K-DUR TAB 20 MEQ PO PRN (20:55)
[2021-09-03] MEDS: DUONEB 0.5 MG/3 MG (3 mL) NEB SCH ×6 (00:36→20:41)
[2021-09-03] MEDS: NS 1,000 ML IV 1,000 ML IV SCH ×3 (02:00→18:29)
[2021-09-03 05:30] LABS: BASOPHILS % (AUTO) 0.2 % (0.2-1.0); EOSINOPHILS % (AUTO) 0.2 % (0.9-2.9); HEMOGLOBIN 10.6 g/dL (13.5-18.0); LYMPHOCYTES # (AUTO) 2.9 X10^3/uL (1.3-2.9); LYMPHOCYTES % (AUTO) 13.9 % (21.0-51.0); MEAN CORPUSCULAR HEMOGLOBIN 24.2 pg (27.0-34.0); MEAN CORPUSCULAR HGB CONC 33.1 g/dL (33.0-35.0); MEAN CORPUSCULAR VOLUME 73.2 fL (80.0-100.0); MEAN PLATELET VOLUME 8.2 fL (7.4-11.0); MONOCYTES # (AUTO) 1.2 x10^3/uL (0.3-0.8); MONOCYTES % (AUTO) 5.6 % (0.0-13.0); NEUTROPHILS % (AUTO) 80.1 % (42.0-75.0); PLATELET COUNT 266 X10^3/uL (150.0-450.0); RED BLOOD COUNT 4.36 X10^6/uL (4.7-6.0); RED CELL DISTRIBUTION WIDTH 18.8 % (11.6-16.5); WHITE BLOOD COUNT 21.2 X10^3/uL (3.6-10.0)
[2021-09-03 05:34] LABS: BLOOD UREA NITROGEN 24 mg/dL (7-18); CALCIUM 8.3 mg/dL (8.5-10.1); CARBON DIOXIDE 26.6 mmol/L (21-32); CHLORIDE 106 mmol/L (98-107); CREATININE 0.87 mg/dL (0.70-1.30); GLUCOSE 89 mg/dL (65-99); POTASSIUM 3.8 mmol/L (3.5-5.1); SODIUM 140 mmol/L (136-145); eGFR NON BLACK RACES > 60 (>60)
[2021-09-03 05:44] LABS: LACTIC ACID 0.7 mmol/L (0.4-2.0)
[2021-09-03] MEDS: FORTAZ or TAZICEF VIAL INJ 1 G in NS 100 ML IV + SPIKE MINIBAG* 100 ML IV SCH (05:49)
[2021-09-03 05:58] LABS: PLATELET MORPHOLOGY COMMENT NORMAL (NORMAL)
--- NOTE | 2021-09-03 06:35 | RAD ---
CHEST, 1 VIEWHISTORY: SOBStudy: Single view of the chest.Comparison:09/02/2021Findings:The cardiomediastinal silhouette is normal. No change in the appearance of bilateral interstitial prominence. Osseous structures demonstrate no acute abnormality.IMPRESSION:1. No change from prior.Electronically signed by: GUNJAN HADLEY (Sep 03, 2021 06:33:54)
[2021-09-03] MEDS: ASPIRIN EC 81 MG PO SCH (08:16)
[2021-09-03] MEDS: CYMBALTA PO SCH (08:17)
[2021-09-03] MEDS: LYRICA CAP 150 mg PO SCH ×2 (08:17→22:27)
[2021-09-03] MEDS: PROTONIX TAB 40 MG PO SCH ×2 (08:18→22:28)
[2021-09-03] MEDS: PEPCID TAB 40 MG PO SCH ×2 (08:18→22:27)
[2021-09-03] MEDS: NORVASC TAB 5 MG PO SCH (08:18)
[2021-09-03] MEDS: K-DUR TAB 20 MEQ PO PRN (08:19)
[2021-09-03] MEDS: NORCO 10/325 TAB PO PRN ×2 (08:20→18:29)
[2021-09-03] MEDS: PULMICORT NEB TX 0.5 MG NEB SCH ×2 (09:20→20:41)
--- NOTE | 2021-09-03 11:22 | PCM.PROG ---
Progress Note Progress Note for Day of Date of Exam: 09/03/21 Subjective Subjective: Patient seen at bedside, no events overnight. He is currently on room air, sats in 92-93%. He states he feels slightly better. Staff reports patient being more drowsy earlier today. He is awake and alert during rounds. He continues to complain about hurting all over. Staff and patient's concerned about patient being drowsy more with his chronic pain medications. Discussed risks with patients including lethargy and decreased respiratory drive. Patient verbalized understanding. Labs reviewed Plan: Continue current treatment with Levaquin and steroids, Will DC Fortaz. Add Diflucan due to yeast in sputum. Wean O2 as tolerated. Ambulate TID. Will DC morphine. Continue Zenda. Continue nebs and IS. Monitor AM labs/imaging. Past Medical Family Social History Past Med/Fam/Surg Hx: No changes since H&P Allergies: Allergies zolpidem [From Ambien] Allergy (Verified 05/23/21 11:42) Review of Systems ROS: No change since H&P Vital Signs and I&O's Vital Signs: Temperature 98.0 F Pulse Rate [Right Radial] 77 Pulse Rate 76 Respiratory Rate 20 Blood Pressure [Right Arm] 134/73 Blood Pressure 157/89 O2 Sat by Pulse Oximetry 96 Intake and Output: Intake & Output 08/31/21 09/01/21 09/02/21 09/03/21 23:59 23:59 23:59 23:59 Intake Total 270 / 270 2348 / 2348 880 / 880 Balance 270 / 270 2348 / 2348 880 / 880 Physical Exam Oriented: Normal Eyes: Normal Ear: Normal Nose: Normal Throat: Dry Respiratory: Generalized, Diminished and Rhonchi Cardiovascular: Normal Auscultation: Bowel Sounds: Normal Tenderness: Normal Skin: Normal Musculoskeletal: Right, Left, Shoulder and Elbow Psychiatric: Normal Mood Description: Calm Affect: Normal Speech Pattern: Clear Laboratory and Diagnostics Result Diagrams: 09/03/21 04:12 09/03/21 04:12 Labs: 09/01/21 11:45 Blood Blood Culture - Preliminary 09/01/21 11:08 Blood Blood Culture - Preliminary 09/01/21 23:15 Sputum - Expectorated Sputum Sputum Culture - Preliminary 09/01/21 23:15 Sputum - Expectorated Sputum - Final Laboratory WBC 21.2 X10^3/uL (3.6-10.0) H D 09/03/21 04:12 RBC 4.36 X10^6/uL (4.7-6.0) L 09/03/21 04:12 Hgb 10.6 g/dL (13.5-18.0) L 09/03/21 04:12 Hct 32.0 % (42.0-54.0) L 09/03/21 04:12 MCV 73.2 fL (80.0-100.0) L 09/03/21 04:12 MCH 24.2 pg (27.0-34.0) L 09/03/21 04:12 MCHC 33.1 g/dL (33.0-35.0) 09/03/21 04:12 RDW 18.8 % (11.6-16.5) H 09/03/21 04:12 Plt Count 266 X10^3/uL (150.0-450.0) 09/03/21 04:12 Plt Count Comment Adequate (ADEQUATE) 09/03/21 04:12 MPV 8.2 fL (7.4-11.0) 09/03/21 04:12 Neut % (Auto) 80.1 % (42.0-75.0) H 09/03/21 04:12 Lymph % (Auto) 13.9 % (21.0-51.0) L 09/03/21 04:12 [place] % (Auto) 5.6 % (0.0-13.0) 09/03/21 04:12 Eos % (Auto) 0.2 % (0.9-2.9) L 09/03/21 04:12 Baso % (Auto) 0.2 % (0.2-1.0) 09/03/21 04:12 Neut # (Auto) 17.0 x10^3/uL (2.2-4.8) H 09/03/21 04:12 Lymph # (Auto) 2.9 X10^3/uL (1.3-2.9) 09/03/21 04:12 [place] # (Auto) 1.2 x10^3/uL (0.3-0.8) H 09/03/21 04:12 Eos # (Auto) 0.0 x10^3/uL (0.0-0.2) 09/03/21 04:12 Baso # (Auto) 0.0 X10^3/uL (0.0-0.1) 09/03/21 04:12 Absolute Nucleated RBC 0.0 /100WBC 09/03/21 04:12 Total Counted 100 09/03/21 04:12 Neutrophils % (Manual) 80 % (39-76) H 09/03/21 04:12 Band Neutrophils % 10 % (0-10) 09/02/21 04:50 Lymphocytes % (Manual) 16 % (13-43) 09/03/21 04:12 Monocytes % (Manual) 4 % (4-9) 09/03/21 04:12 Plt Morphology Comment Normal (NORMAL) 09/03/21 04:12 RBC Morphology Normal (NORMAL) 09/03/21 04:12 Ovalocytes Present 09/02/21 04:50 Sample Site Lrad 09/01/21 11:52 ABG pH 7.450 (7.35-7.45) 09/01/21 11:52 ABG pCO2 38.0 mmHg (35.0-45.0) 09/01/21 11:52 ABG pO2 53.0 mmHg (80.0-100.0) L 09/01/21 11:52 ABG HCO3 26.4 mmol/L (22-26) H 09/01/21 11:52 ABG O2 Saturation 89.0 % (90-100) L 09/01/21 11:52 ABG Base Excess 2.4 mmol/L (-2.0-2.0) H 09/01/21 11:52 Mauro Test Pos 09/01/21 11:52 A-a Gradient 156.0 mmHg 09/01/21 11:52 FiO2 36.0 09/01/21 11:52 Blood Gas Comments Pt josie well elj 09/01/21 11:52 Sodium 140 mmol/L (136-145) 09/03/21 04:12 Corrected Sodium TNP 09/03/21 04:12 Potassium 3.8 mmol/L (3.5-5.1) 09/03/21 04:12 Chloride 106 mmol/L (98-107) 09/03/21 04:12 Carbon Dioxide 26.6 mmol/L (21-32) 09/03/21 04:12 BUN 24 mg/dL (7-18) H 09/03/21 04:12 Creatinine 0.87 mg/dL (0.70-1.30) 09/03/21 04:12 Est GFR (MDRD) Af Amer > 60 (>60) 09/03/21 04:12 Est GFR (MDRD) Non-Af > 60 (>60) 09/03/21 04:12 Glucose 89 mg/dL (65-99) 09/03/21 04:12 Lactic Acid 0.7 mmol/L (0.4-2.0) 09/03/21 04:12 Calcium 8.3 mg/dL (8.5-10.1) L 09/03/21 04:12 Corrected Calcium 9.6 mg/dL (8.5-10.1) 09/02/21 04:50 Total Bilirubin 0.30 mg/dL (0.2-1.0) 09/02/21 04:50 AST 31 Units/L (15-37) 09/02/21 04:50 ALT 58 Units/L (12-78) 09/02/21 04:50 Alkaline Phosphatase 86 Units/L (46-116) 09/02/21 04:50 Creatine Kinase 60 Units/L (39-308) 09/01/21 11:08 CK-MB (CK-2) < 1.0 ng/mL (0-4.0) 09/01/21 11:08 CK/CKMB % Calc 1.7 % (<4) 09/01/21 11:08 Troponin I < 0.02 ng/mL (0-1.5) 09/01/21 11:08 B-Natriuretic Peptide 15.3 pg/mL (0-79) 09/01/21 11:08 Total Protein 7.5 g/dL (6.4-8.2) 09/02/21 04:50 Albumin 2.8 g/dL (3.4-5.0) L 09/02/21 04:50 Globulin 4.7 g/dL (2.5-4.5) H 09/02/21 04:50 Albumin/Globulin Ratio 0.6 Ratio (1.1-2.1) L 09/02/21 04:50 SARS-CoV-2 (PCR) Cancelled 09/01/21 11:02 Influenza Type A (PCR) Cancelled 09/01/21 11:02 Influenza Type B (PCR) Cancelled 09/01/21 11:02 RSV (PCR) Cancelled 09/01/21 11:02 SARS CoV-2 RNA Rapid FAHEEM Negative (NEGATIVE) 09/01/21 10:53 Plan (1) COPD exacerbation: Status: Acute (2) Bronchopneumonia: Status: Acute (3) Chronic pain syndrome: Status: Acute (4) Hypoxia: Status: Acute (5) Acute respiratory failure with hypoxia: Status: Acute (6) Left shoulder pain: Status: Acute Qualifiers: Chronicity: acute Qualified Code(s): M25.512 - Pain in left shoulder (7) CAD (coronary artery disease): Status: Chronic Qualifiers: Associated angina: unspecified whether angina present Coronary Disease- Associated Artery/Lesion type: unspecified vessel or lesion type [place] vs. transplanted heart: [place] heart Qualified Code(s): I25.10 - Atherosclerotic heart disease of [place] coronary artery without angina pectoris (8) Hypertension: Status: Chronic Qualifiers: Hypertension type: primary hypertension Qualified Code(s): I10 - Essential (primary) hypertension (9) GERD (gastroesophageal reflux disease): Status: Chronic Qualifiers: Esophagitis presence: esophagitis presence not specified Qualified Code(s): K21.9 - Gastro-esophageal reflux disease without esophagitis (10) Arthritis: Status: Chronic
[2021-09-03 12:04] LABS: ABG BASE EXCESS 4.3 mmol/L (-2.0-2.0)
[2021-09-03 12:05] LABS: ABG ALLEN TEST POS; ABG HCO3 30.3 mmol/L (22-26)
[2021-09-03] MEDS: PREDNISONE TAB 20 MG PO SCH (13:17)
[2021-09-03] MEDS: DIFLUCAN PO SCH (13:18)
[2021-09-03] MEDS ORDERED: STERILE WATER IRRIGATION IR ONE (20:30)
[2021-09-03] MEDS ORDERED: ZESTRIL TAB 20 MG ONE (21:47)
[2021-09-03] MEDS: CRESTOR TAB 10 MG PO SCH (22:27)
[2021-09-03] MEDS: LEVAQUIN PREMIX IV 500 MG 500 MG/100 ML BAG IV SCH (22:28)
[2021-09-03] MEDS: ZESTRIL TAB 20 MG PO SCH (22:28)
[2021-09-04] MEDS: DUONEB 0.5 MG/3 MG (3 mL) NEB SCH ×6 (05:00→21:08)
[2021-09-04 05:21] LABS: BLOOD UREA NITROGEN 17 mg/dL (7-18); CALCIUM 8.4 mg/dL (8.5-10.1); CARBON DIOXIDE 27.2 mmol/L (21-32); CHLORIDE 105 mmol/L (98-107); CREATININE 0.79 mg/dL (0.70-1.30); GLUCOSE 107 mg/dL (65-99); POTASSIUM 3.7 mmol/L (3.5-5.1); SODIUM 140 mmol/L (136-145); eGFR NON BLACK RACES > 60 (>60)
[2021-09-04 05:34] LABS: BASOPHILS % (AUTO) 0.2 % (0.2-1.0); EOSINOPHILS % (AUTO) 0.1 % (0.9-2.9); HEMATOCRIT 32.3 % (42.0-54.0); HEMOGLOBIN 10.6 g/dL (13.5-18.0); LYMPHOCYTES # (AUTO) 1.8 X10^3/uL (1.3-2.9); LYMPHOCYTES % (AUTO) 14.8 % (21.0-51.0); MEAN CORPUSCULAR HEMOGLOBIN 23.8 pg (27.0-34.0); MEAN CORPUSCULAR HGB CONC 32.8 g/dL (33.0-35.0); MEAN CORPUSCULAR VOLUME 72.4 fL (80.0-100.0); MEAN PLATELET VOLUME 8.1 fL (7.4-11.0); MONOCYTES # (AUTO) 0.7 x10^3/uL (0.3-0.8); MONOCYTES % (AUTO) 5.4 % (0.0-13.0); NEUTROPHILS # (AUTO) 9.9 x10^3/uL (2.2-4.8); NEUTROPHILS % (AUTO) 79.5 % (42.0-75.0); PLATELET COUNT 226 X10^3/uL (150.0-450.0); RED BLOOD COUNT 4.47 X10^6/uL (4.7-6.0); RED CELL DISTRIBUTION WIDTH 18.6 % (11.6-16.5); WHITE BLOOD COUNT 12.5 X10^3/uL (3.6-10.0)
[2021-09-04 06:08] LABS: HYPOCHROMASIA SLIGHT; MICROCYTOSIS SLIGHT; PLATELET MORPHOLOGY COMMENT NORMAL (NORMAL)
--- NOTE | 2021-09-04 06:45 | RAD ---
CHEST, 1 VIEWHISTORY:SOBStudy: Single view of the chest.Comparison:09/03/2021Findings:Heart is normal in size. No change in the appearance of bilateral interstitial prominence. No focal consolidations, pleural effusions or pneumothorax. Osseous structures demonstrate no acute abnormality. No change from prior.IMPRESSION:1.Cardiomegaly and pulmonary vascular congestion. No change from prior.Electronically signed by: GUNJAN HADLEY (Sep 04, 2021 06:43:45)
[2021-09-04] MEDS: PULMICORT NEB TX 0.5 MG NEB SCH ×2 (09:09→21:08)
[2021-09-04] MEDS: ASPIRIN EC 81 MG PO SCH (09:09)
[2021-09-04] MEDS: CYMBALTA PO SCH (09:10)
[2021-09-04] MEDS: DIFLUCAN PO SCH (09:10)
[2021-09-04] MEDS: LYRICA CAP 150 mg PO SCH ×2 (09:11→21:05)
[2021-09-04] MEDS: PROTONIX TAB 40 MG PO SCH ×2 (09:11→21:05)
[2021-09-04] MEDS: NORVASC TAB 5 MG PO SCH (09:11)
[2021-09-04] MEDS: PREDNISONE TAB 20 MG PO SCH (09:12)
[2021-09-04] MEDS: PEPCID TAB 40 MG PO SCH ×2 (09:12→21:07)
[2021-09-04] MEDS: K-DUR TAB 20 MEQ PO PRN (09:13)
--- NOTE | 2021-09-04 11:05 | PCM.PROG ---
Progress Note Progress Note for Day of Date of Exam: 09/04/21 Subjective Subjective: Patient seen at bedside, no events overnight. He remains no 2-3L NC. He reports feeling about the same. He has been ambulating to the bathroom with o2. He still has some dyspnea on exertion. present at bedside. Labs reviewed Plan: Continue current treatment with Levaquin and steroids. Continue Diflucan due to yeast in sputum. Wean O2 as tolerated. DC IVF. Ambulate TID. Walk test tomorrow to assess for home O2. Continue Mason. Continue nebs and IS. Monitor AM labs/imaging. Past Medical Family Social History Past Med/Fam/Surg Hx: No changes since H&P Allergies: Allergies zolpidem [From Ambien] Allergy (Verified 05/23/21 11:42) Review of Systems ROS: No change since H&P Vital Signs and I&O's Vital Signs: Temperature 97.6 F Pulse Rate [Right Radial] 51 Pulse Rate 71 Respiratory Rate 14 Blood Pressure [Right Arm] 128/67 Blood Pressure 157/89 O2 Sat by Pulse Oximetry 93 Intake and Output: Intake & Output 09/01/21 09/02/21 09/03/21 09/04/21 23:59 23:59 23:59 23:59 Intake Total 270 / 270 2348 / 2348 2384 / 2384 782 / 782 Balance 270 / 270 2348 / 2348 2384 / 2384 782 / 782 Physical Exam Oriented: Normal Eyes: Normal Ear: Normal Nose: Normal Throat: Normal Respiratory: Generalized and Diminished Cardiovascular: Normal Auscultation: Bowel Sounds: Normal Tenderness: Normal Skin: Normal Musculoskeletal: Right, Left, Shoulder and Elbow Psychiatric: Normal Mood Description: Calm Affect: Normal Speech Pattern: Clear and Appropriate Laboratory and Diagnostics Result Diagrams: 09/04/21 04:19 09/04/21 04:19 Labs: 09/01/21 23:15 Sputum - Expectorated Sputum Sputum Culture - Preliminary 09/01/21 23:15 Sputum - Expectorated Sputum - Final 09/01/21 11:45 Blood Blood Culture - Preliminary 09/01/21 11:08 Blood Blood Culture - Preliminary Laboratory WBC 12.5 X10^3/uL (3.6-10.0) H D 09/04/21 04:19 RBC 4.47 X10^6/uL (4.7-6.0) L 09/04/21 04:19 Hgb 10.6 g/dL (13.5-18.0) L 09/04/21 04:19 Hct 32.3 % (42.0-54.0) L 09/04/21 04:19 MCV 72.4 fL (80.0-100.0) L 09/04/21 04:19 MCH 23.8 pg (27.0-34.0) L 09/04/21 04:19 MCHC 32.8 g/dL (33.0-35.0) L 09/04/21 04:19 RDW 18.6 % (11.6-16.5) H 09/04/21 04:19 Plt Count 226 X10^3/uL (150.0-450.0) 09/04/21 04:19 Plt Count Comment Adequate (ADEQUATE) 09/04/21 04:19 MPV 8.1 fL (7.4-11.0) 09/04/21 04:19 Neut % (Auto) 79.5 % (42.0-75.0) H 09/04/21 04:19 Lymph % (Auto) 14.8 % (21.0-51.0) L 09/04/21 04:19 [place] % (Auto) 5.4 % (0.0-13.0) 09/04/21 04:19 Eos % (Auto) 0.1 % (0.9-2.9) L 09/04/21 04:19 Baso % (Auto) 0.2 % (0.2-1.0) 09/04/21 04:19 Neut # (Auto) 9.9 x10^3/uL (2.2-4.8) H 09/04/21 04:19 Lymph # (Auto) 1.8 X10^3/uL (1.3-2.9) 09/04/21 04:19 [place] # (Auto) 0.7 x10^3/uL (0.3-0.8) 09/04/21 04:19 Eos # (Auto) 0.0 x10^3/uL (0.0-0.2) 09/04/21 04:19 Baso # (Auto) 0.0 X10^3/uL (0.0-0.1) 09/04/21 04:19 Absolute Nucleated RBC 0.0 /100WBC 09/04/21 04:19 Total Counted 100 09/03/21 04:12 Neutrophils % (Manual) 80 % (39-76) H 09/03/21 04:12 Band Neutrophils % 10 % (0-10) 09/02/21 04:50 Lymphocytes % (Manual) 16 % (13-43) 09/03/21 04:12 Monocytes % (Manual) 4 % (4-9) 09/03/21 04:12 Plt Morphology Comment Normal (NORMAL) 09/04/21 04:19 RBC Morphology Abnormal (NORMAL) 09/04/21 04:19 Hypochromasia Slight A 09/04/21 04:19 Microcytosis Slight A 09/04/21 04:19 Ovalocytes Present 09/02/21 04:50 Sample Site Rr 09/03/21 11:57 ABG pH 7.390 (7.35-7.45) 09/03/21 11:57 ABG pCO2 50.0 mmHg (35.0-45.0) H 09/03/21 11:57 ABG pO2 69.0 mmHg (80.0-100.0) L 09/03/21 11:57 ABG HCO3 30.3 mmol/L (22-26) H* 09/03/21 11:57 ABG O2 Saturation 93.0 % (90-100) 09/03/21 11:57 ABG Base Excess 4.3 mmol/L (-2.0-2.0) H 09/03/21 11:57 Mauro Test Pos 09/03/21 11:57 A-a Gradient 97.0 mmHg 09/03/21 11:57 FiO2 32.0 09/03/21 11:57 Blood Gas Comments Pt josie well, hw barback 09/03/21 11:57 Sodium 140 mmol/L (136-145) 09/04/21 04:19 Corrected Sodium TNP 09/04/21 04:19 Potassium 3.7 mmol/L (3.5-5.1) 09/04/21 04:19 Chloride 105 mmol/L (98-107) 09/04/21 04:19 Carbon Dioxide 27.2 mmol/L (21-32) 09/04/21 04:19 BUN 17 mg/dL (7-18) 09/04/21 04:19 Creatinine 0.79 mg/dL (0.70-1.30) 09/04/21 04:19 Est GFR (MDRD) Af Amer > 60 (>60) 09/04/21 04:19 Est GFR (MDRD) Non-Af > 60 (>60) 09/04/21 04:19 Glucose 107 mg/dL (65-99) H 09/04/21 04:19 Lactic Acid 0.7 mmol/L (0.4-2.0) 09/03/21 04:12 Calcium 8.4 mg/dL (8.5-10.1) L 09/04/21 04:19 Corrected Calcium 9.6 mg/dL (8.5-10.1) 09/02/21 04:50 Total Bilirubin 0.30 mg/dL (0.2-1.0) 09/02/21 04:50 AST 31 Units/L (15-37) 09/02/21 04:50 ALT 58 Units/L (12-78) 09/02/21 04:50 Alkaline Phosphatase 86 Units/L (46-116) 09/02/21 04:50 Creatine Kinase 60 Units/L (39-308) 09/01/21 11:08 CK-MB (CK-2) < 1.0 ng/mL (0-4.0) 09/01/21 11:08 CK/CKMB % Calc 1.7 % (<4) 09/01/21 11:08 Troponin I < 0.02 ng/mL (0-1.5) 09/01/21 11:08 B-Natriuretic Peptide 15.3 pg/mL (0-79) 09/01/21 11:08 Total Protein 7.5 g/dL (6.4-8.2) 09/02/21 04:50 Albumin 2.8 g/dL (3.4-5.0) L 09/02/21 04:50 Globulin 4.7 g/dL (2.5-4.5) H 09/02/21 04:50 Albumin/Globulin Ratio 0.6 Ratio (1.1-2.1) L 09/02/21 04:50 SARS-CoV-2 (PCR) Cancelled 09/01/21 11:02 Influenza Type A (PCR) Cancelled 09/01/21 11:02 Influenza Type B (PCR) Cancelled 09/01/21 11:02 RSV (PCR) Cancelled 09/01/21 11:02 SARS CoV-2 RNA Rapid FAHEEM Negative (NEGATIVE) 09/01/21 10:53 Plan (1) COPD exacerbation: Status: Acute (2) Bronchopneumonia: Status: Acute (3) Chronic pain syndrome: Status: Acute (4) Hypoxia: Status: Acute (5) Acute respiratory failure with hypoxia: Status: Acute (6) Left shoulder pain: Status: Acute Qualifiers: Chronicity: acute Qualified Code(s): M25.512 - Pain in left shoulder (7) CAD (coronary artery disease): Status: Chronic Qualifiers: Associated angina: unspecified whether angina present Coronary Disease- Associated Artery/Lesion type: unspecified vessel or lesion type [place] vs. transplanted heart: [place] heart Qualified Code(s): I25.10 - Atherosclerotic heart disease of [place] coronary artery without angina pectoris (8) Hypertension: Status: Chronic Qualifiers: Hypertension type: primary hypertension Qualified Code(s): I10 - Essential (primary) hypertension (9) GERD (gastroesophageal reflux disease): Status: Chronic Qualifiers: Esophagitis presence: esophagitis presence not specified Qualified Code(s): K21.9 - Gastro-esophageal reflux disease without esophagitis (10) Arthritis: Status: Chronic
[2021-09-04] MEDS ORDERED: NS 1,000 ML IV 1,000 ML ONE (16:58)
[2021-09-04] MEDS: NS 1,000 ML IV 1,000 ML IV SCH ×2 (17:32→21:09)
[2021-09-04] MEDS ORDERED: ZESTRIL TAB 20 MG ONE (19:26)
[2021-09-04] MEDS: LEVAQUIN PREMIX IV 500 MG 500 MG/100 ML BAG IV SCH (21:05)
[2021-09-04] MEDS: CRESTOR TAB 10 MG PO SCH (21:05)
[2021-09-04] MEDS: ZESTRIL TAB 20 MG PO SCH (21:08)
[2021-09-04] MEDS: NORCO 10/325 TAB PO PRN (22:30)
[2021-09-04] MEDS: XANAX PO PRN (22:34)
[2021-09-05] MEDS: DUONEB 0.5 MG/3 MG (3 mL) NEB SCH ×4 (01:15→13:12)
[2021-09-05] MEDS: NORCO 10/325 TAB PO PRN ×2 (03:11→09:24)
[2021-09-05 05:06] LABS: BASOPHILS % (AUTO) 0.3 % (0.2-1.0); EOSINOPHILS % (AUTO) 0.1 % (0.9-2.9); HEMATOCRIT 32.4 % (42.0-54.0); HEMOGLOBIN 10.7 g/dL (13.5-18.0); LYMPHOCYTES % (AUTO) 23.3 % (21.0-51.0); MEAN CORPUSCULAR HGB CONC 33.1 g/dL (33.0-35.0); MEAN CORPUSCULAR VOLUME 72.7 fL (80.0-100.0); MEAN PLATELET VOLUME 8.2 fL (7.4-11.0); MONOCYTES % (AUTO) 7.5 % (0.0-13.0); NEUTROPHILS # (AUTO) 8.7 x10^3/uL (2.2-4.8); NEUTROPHILS % (AUTO) 68.8 % (42.0-75.0); PLATELET COUNT 236 X10^3/uL (150.0-450.0); RED BLOOD COUNT 4.46 X10^6/uL (4.7-6.0); RED CELL DISTRIBUTION WIDTH 18.7 % (11.6-16.5); WHITE BLOOD COUNT 12.7 X10^3/uL (3.6-10.0)
[2021-09-05 05:13] LABS: BLOOD UREA NITROGEN 13 mg/dL (7-18); CALCIUM 8.5 mg/dL (8.5-10.1); CARBON DIOXIDE 24.7 mmol/L (21-32); CHLORIDE 110 mmol/L (98-107); CREATININE 0.81 mg/dL (0.70-1.30); GLUCOSE 92 mg/dL (65-99); SODIUM 147 mmol/L (136-145); eGFR NON BLACK RACES > 60 (>60)
[2021-09-05] MEDS: K-DUR TAB 20 MEQ PO PRN ×2 (05:34→09:19)
[2021-09-05] MEDS: XANAX PO PRN (05:35)
[2021-09-05 05:56] LABS: PLATELET MORPHOLOGY COMMENT NORMAL (NORMAL)
[2021-09-05] MEDS ORDERED: MAGNESIUM SULFATE 1 GRAM/100 mL PREMIX 1 G/100 ML BAG IV ONE (06:17)
[2021-09-05] MEDS: MAGNESIUM SULFATE 1 GRAM/100 mL PREMIX 1 G/100 ML BAG IV PRN ×2 (06:38→09:20)
[2021-09-05] MEDS ORDERED: K-DUR TAB 20 MEQ PO SCH (09:00)
[2021-09-05] MEDS ORDERED: D5W 1,000 ML IV 1,000 ML IV SCH (09:00)
[2021-09-05] MEDS: PULMICORT NEB TX 0.5 MG NEB SCH (09:09)
[2021-09-05] MEDS: ASPIRIN EC 81 MG PO SCH (09:16)
[2021-09-05] MEDS: CYMBALTA PO SCH (09:17)
[2021-09-05] MEDS: DIFLUCAN PO SCH (09:17)
[2021-09-05] MEDS: PREDNISONE TAB 20 MG PO SCH (09:17)
[2021-09-05] MEDS: LYRICA CAP 150 mg PO SCH (09:18)
[2021-09-05] MEDS: PROTONIX TAB 40 MG PO SCH (09:18)
[2021-09-05] MEDS: PEPCID TAB 40 MG PO SCH (09:19)
[2021-09-05] MEDS: NORVASC TAB 5 MG PO SCH (10:20)
[2021-09-05 12:44] VITALS: BP 130/82; TEMP 98.8; O2SAT 94
[2021-09-05 13:15] VITALS: PULSE 70
[2021-09-05 13:43] LABS: BLOOD UREA NITROGEN 14 mg/dL (7-18); CALCIUM 8.8 mg/dL (8.5-10.1); CARBON DIOXIDE 22.5 mmol/L (21-32); CHLORIDE 110 mmol/L (98-107); COR NA(FOR HYPERGLY) 147 mmol/L (136-145); CREATININE 1.09 mg/dL (0.70-1.30); GLUCOSE 123 mg/dL (65-99); POTASSIUM 4.1 mmol/L (3.5-5.1); SODIUM 146 mmol/L (136-145); eGFR NON BLACK RACES > 60 (>60)
--- NOTE | 2021-09-05 14:15 | W.DIS.FURT ---
Summary of Discharge Discharge Summary of Date Date of Exam: 09/05/21 Admission Date Date of Admission: 09/01/21 Admission Diagnosis Hospital Course: Mr Centeno is a 51y/o male with a PMH of COPD, chronic pain syndrome due to arthritis, chronic anxiety, HTN and LANE presented with worsening dyspnea and cough. Patient reports being sick for the past few days. He does not use O2 at home. In the past, he has qualified for home O2 but has not received it yet. He reports productive cough and wheezing. On admission, patient's COVID test was negative. CXR showed bibasilar bronchopneumonia. He was started on IV antibiotics, nebs and IS. He remained on 2-3L O2 via NC. Patient's sputum Cx was normal anish with yeast. He was treated for COPD exacerbation and pneumonia. His labs were monitored daily and electrolytes replaced as needed. Patient was able to ambulate in the room with O2. He had the walk test for home O2 eval and did qualify for oxygen. Patient was stable for discharge home with PO antibiotics and steroids. He will f/u with PCP as scheduled. . Vital Signs: Vital Signs (72 hours) 09/02/21 14:29 09/02/21 15:29 09/02/21 16:00 Temperature 98.0 F Pulse Rate Pulse Rate [Right Radial] 98 H Respiratory Rate 20 18 18 Blood Pressure [Right Arm] 123/60 O2 Sat by Pulse Oximetry 93 L 09/02/21 16:44 09/02/21 18:24 09/02/21 20:00 Temperature 98.6 F Pulse Rate 90 Pulse Rate [Right Radial] 101 H Respiratory Rate 20 24 Blood Pressure [Right Arm] 117/62 O2 Sat by Pulse Oximetry 96 93 L 09/02/21 20:55 09/02/21 21:25 09/02/21 21:34 Temperature Pulse Rate Pulse Rate [Right Radial] Respiratory Rate 20 20 Blood Pressure [Right Arm] O2 Sat by Pulse Oximetry 97 09/03/21 00:00 09/03/21 04:00 09/03/21 08:00 Temperature 98.2 F 98.0 F 97.7 F Pulse Rate Pulse Rate [Right Radial] 88 77 86 Respiratory Rate 20 20 18 Blood Pressure [Right Arm] 119/67 134/73 134/77 O2 Sat by Pulse Oximetry 94 L 92 L 93 L 09/03/21 08:20 09/03/21 09:20 09/03/21 12:00 Temperature 98.3 F Pulse Rate 76 Pulse Rate [Right Radial] 83 Respiratory Rate 20 20 20 Blood Pressure [Right Arm] 119/70 O2 Sat by Pulse Oximetry 96 96 09/03/21 13:15 09/03/21 15:46 09/03/21 16:00 Temperature 98.1 F Pulse Rate 70 Pulse Rate [Right Radial] 76 Respiratory Rate 22 20 Blood Pressure [Right Arm] 119/74 O2 Sat by Pulse Oximetry 95 94 L 09/03/21 18:29 09/03/21 19:29 09/03/21 20:00 Temperature 98.8 F Pulse Rate Pulse Rate [Right Radial] 69 Respiratory Rate 20 20 18 Blood Pressure [Right Arm] 124/60 O2 Sat by Pulse Oximetry 94 L 09/03/21 20:41 09/04/21 00:00 09/04/21 04:00 Temperature 97.5 F L 97.2 F L Pulse Rate 84 Pulse Rate [Right Radial] 78 64 Respiratory Rate 18 20 Blood Pressure [Right Arm] 117/62 122/68 O2 Sat by Pulse Oximetry 91 L 97 95 09/04/21 07:00 09/04/21 08:00 09/04/21 09:09 Temperature 97.6 F Pulse Rate 71 Pulse Rate [Right Radial] 51 L Respiratory Rate 20 14 Blood Pressure [Right Arm] 128/67 O2 Sat by Pulse Oximetry 96 93 L 09/04/21 12:00 09/04/21 16:00 09/04/21 19:32 Temperature 98.4 F 98.3 F 98.6 F Pulse Rate Pulse Rate [Right Radial] 67 83 78 Respiratory Rate 20 20 18 Blood Pressure [Right Arm] 107/59 132/62 130/63 O2 Sat by Pulse Oximetry 96 91 L 93 L 09/04/21 21:08 09/04/21 22:30 09/04/21 23:30 Temperature Pulse Rate 74 Pulse Rate [Right Radial] Respiratory Rate 20 20 Blood Pressure [Right Arm] O2 Sat by Pulse Oximetry 95 09/05/21 00:00 09/05/21 03:11 09/05/21 04:00 Temperature 98.9 F 98.7 F Pulse Rate Pulse Rate [Right Radial] 69 54 L Respiratory Rate 18 20 2 L Blood Pressure [Right Arm] 120/66 116/59 O2 Sat by Pulse Oximetry 95 95 09/05/21 04:11 09/05/21 08:00 09/05/21 09:11 Temperature 98.4 F Pulse Rate 68 Pulse Rate [Right Radial] 59 L Respiratory Rate 20 24 Blood Pressure [Right Arm] 114/69 O2 Sat by Pulse Oximetry 94 L 93 L 09/05/21 09:24 09/05/21 10:24 09/05/21 12:00 Temperature 98.8 F Pulse Rate Pulse Rate [Right Radial] 68 Respiratory Rate 20 20 20 Blood Pressure [Right Arm] 130/82 O2 Sat by Pulse Oximetry 94 L 09/05/21 13:12 Temperature Pulse Rate 70 Pulse Rate [Right Radial] Respiratory Rate Blood Pressure [Right Arm] O2 Sat by Pulse Oximetry 94 L Labs: Laboratory Last Values WBC 12.7 X10^3/uL (3.6-10.0) H 09/05/21 04:07 RBC 4.46 X10^6/uL (4.7-6.0) L 09/05/21 04:07 Hgb 10.7 g/dL (13.5-18.0) L 09/05/21 04:07 Hct 32.4 % (42.0-54.0) L 09/05/21 04:07 MCV 72.7 fL (80.0-100.0) L 09/05/21 04:07 MCH 24.0 pg (27.0-34.0) L 09/05/21 04:07 MCHC 33.1 g/dL (33.0-35.0) 09/05/21 04:07 RDW 18.7 % (11.6-16.5) H 09/05/21 04:07 Plt Count 236 X10^3/uL (150.0-450.0) 09/05/21 04:07 Plt Count Comment Adequate (ADEQUATE) 09/05/21 04:07 MPV 8.2 fL (7.4-11.0) 09/05/21 04:07 Neut % (Auto) 68.8 % (42.0-75.0) 09/05/21 04:07 Lymph % (Auto) 23.3 % (21.0-51.0) 09/05/21 04:07 [place] % (Auto) 7.5 % (0.0-13.0) 09/05/21 04:07 Eos % (Auto) 0.1 % (0.9-2.9) L 09/05/21 04:07 Baso % (Auto) 0.3 % (0.2-1.0) 09/05/21 04:07 Neut # (Auto) 8.7 x10^3/uL (2.2-4.8) H 09/05/21 04:07 Lymph # (Auto) 3.0 X10^3/uL (1.3-2.9) H 09/05/21 04:07 [place] # (Auto) 1.0 x10^3/uL (0.3-0.8) H 09/05/21 04:07 Eos # (Auto) 0.0 x10^3/uL (0.0-0.2) 09/05/21 04:07 Baso # (Auto) 0.0 X10^3/uL (0.0-0.1) 09/05/21 04:07 Absolute Nucleated RBC 0.0 /100WBC 09/05/21 04:07 Total Counted 100 09/05/21 04:07 Neutrophils % (Manual) 76 % (39-76) 09/05/21 04:07 Band Neutrophils % 10 % (0-10) 09/02/21 04:50 Lymphocytes % (Manual) 19 % (13-43) 09/05/21 04:07 Monocytes % (Manual) 5 % (4-9) 09/05/21 04:07 Plt Morphology Comment Normal (NORMAL) 09/05/21 04:07 RBC Morphology Normal (NORMAL) 09/05/21 04:07 Hypochromasia Slight A 09/04/21 04:19 Microcytosis Slight A 09/04/21 04:19 Ovalocytes Present 09/02/21 04:50 Sample Site Rr 09/03/21 11:57 ABG pH 7.390 (7.35-7.45) 09/03/21 11:57 ABG pCO2 50.0 mmHg (35.0-45.0) H 09/03/21 11:57 ABG pO2 69.0 mmHg (80.0-100.0) L 09/03/21 11:57 ABG HCO3 30.3 mmol/L (22-26) H* 09/03/21 11:57 ABG O2 Saturation 93.0 % (90-100) 09/03/21 11:57 ABG Base Excess 4.3 mmol/L (-2.0-2.0) H 09/03/21 11:57 Mauro Test Pos 09/03/21 11:57 A-a Gradient 97.0 mmHg 09/03/21 11:57 FiO2 32.0 09/03/21 11:57 Blood Gas Comments Pt josie well, hw test grader 09/03/21 11:57 Sodium 146 mmol/L (136-145) H 09/05/21 13:27 Corrected Sodium 147 mmol/L (136-145) H 09/05/21 13:27 Potassium 4.1 mmol/L (3.5-5.1) 09/05/21 13:27 Chloride 110 mmol/L (98-107) H 09/05/21 13:27 Carbon Dioxide 22.5 mmol/L (21-32) 09/05/21 13:27 BUN 14 mg/dL (7-18) 09/05/21 13:27 Creatinine 1.09 mg/dL (0.70-1.30) 09/05/21 13:27 Est GFR (MDRD) Af Amer > 60 (>60) 09/05/21 13:27 Est GFR (MDRD) Non-Af > 60 (>60) 09/05/21 13:27 Glucose 123 mg/dL (65-99) H 09/05/21 13:27 Lactic Acid 0.7 mmol/L (0.4-2.0) 09/03/21 04:12 Calcium 8.8 mg/dL (8.5-10.1) 09/05/21 13:27 Corrected Calcium 9.6 mg/dL (8.5-10.1) 09/02/21 04:50 Magnesium 1.8 mg/dL (1.7-2.9) 09/05/21 04:07 Total Bilirubin 0.30 mg/dL (0.2-1.0) 09/02/21 04:50 AST 31 Units/L (15-37) 09/02/21 04:50 ALT 58 Units/L (12-78) 09/02/21 04:50 Alkaline Phosphatase 86 Units/L (46-116) 09/02/21 04:50 Creatine Kinase 60 Units/L (39-308) 09/01/21 11:08 CK-MB (CK-2) < 1.0 ng/mL (0-4.0) 09/01/21 11:08 CK/CKMB % Calc 1.7 % (<4) 09/01/21 11:08 Troponin I < 0.02 ng/mL (0-1.5) 09/01/21 11:08 B-Natriuretic Peptide 15.3 pg/mL (0-79) 09/01/21 11:08 Total Protein 7.5 g/dL (6.4-8.2) 09/02/21 04:50 Albumin 2.8 g/dL (3.4-5.0) L 09/02/21 04:50 Globulin 4.7 g/dL (2.5-4.5) H 09/02/21 04:50 Albumin/Globulin Ratio 0.6 Ratio (1.1-2.1) L 09/02/21 04:50 SARS-CoV-2 (PCR) Cancelled 09/01/21 11:02 Influenza Type A (PCR) Cancelled 09/01/21 11:02 Influenza Type B (PCR) Cancelled 09/01/21 11:02 RSV (PCR) Cancelled 09/01/21 11:02 SARS CoV-2 RNA Rapid FAHEEM Negative (NEGATIVE) 09/01/21 10:53 Reason For Visit: PNEUMONIA, HYPOXIA Discharge Date Discharge Date: 09/05/21 Discharge Diagnosis All Active Problems (Updated 09/07/21 @ 10:26 by Joy Chapa) Chronic pain syndrome (Chronic) Bronchopneumonia (Acute) COPD exacerbation (Acute) Hypokalemia (Acute) Hypoxia (Acute) Dysphagia (Chronic) Generalized weakness (Acute) Dyspnea on exertion (Acute) Acute respiratory failure with hypoxia (Acute) Bradycardia (Chronic) Fall (Chronic) Left shoulder pain (Chronic) CAD (coronary artery disease) (Chronic) History of angina (Chronic) Hypertension (Chronic) S/P coronary artery stent placement (Chronic) GERD (gastroesophageal reflux disease) (Chronic) Arthritis (Chronic) Hyperlipidemia (Chronic) Back pain (Chronic) Plan of Treatment: Continue with present treatment and follow up plan. Pt is to keep follow up appointment as instructed and take medications as ordered. Discharge Medications Discharge Medications: zolpidem [From Ambien] Allergy (Verified 05/23/21 11:42) CONTINUE taking the following medications albuterol sulfate 1 puff INHALATION BID PRN 09/01/21 [History] budesonide-formoterol [Symbicort] 1 inh INHALATION DAILY 09/01/21 [History] cyanocobalamin (vitamin B-12) 1,000 mcg SUBCUT MONTHLY 09/01/21 [History] hydrocodone-acetaminophen 1 tab PO Q6HR MDD 5 09/01/21 [History] lisinopril 20 mg PO HS 09/01/21 [History] ubrogepant [Ubrelvy] 100 mg PO PRN PRN 09/01/21 [History] New Prescriptions levofloxacin 750 mg PO DAILY 5 Days #5 tab 09/05/21 [Rx] prednisone 40 mg PO DAILY 3 Days #6 tab 09/05/21 [Rx] Follow up and Referral Follow Up: 1 Week (PCP) Discharge Disposition Discharge Disposition: Home Discharge Condition: Stable Discharge Plan Discharge Plan Hospital Course: Mr Centeno is a 51y/o male with a PMH of COPD, chronic pain syndrome due to arthritis, chronic anxiety, HTN and LANE presented with worsening dyspnea and cough. Patient reports being sick for the past few days. He does not use O2 at home. In the past, he has qualified for home O2 but has not received it yet. He reports productive cough and wheezing. On admission, patient's COVID test was n egative. CXR showed bibasilar bronchopneumonia. He was started on IV antibiotics, nebs and IS. He remained on 2-3L O2 via NC. Patient's sputum Cx was normal anish with yeast. He was treated for COPD exacerbation and pneumonia. His labs were monitored daily and electrolytes replaced as needed. Patient was able to ambulate in the room with O2. He had the walk test for home O2 eval and did qualify for oxygen. Patient was stable for discharge home with PO antibiotics and steroids. He will f/u with PCP as scheduled. . Patient Disposition: HOME, SELF-CARE Condition: Stable Health Concerns: Post Hospitalization: new medications and changes needed to prevent readmission or further decline. Pt educated and given instructions on all concerns. Care Plan Goals: Problem: Respiratory Complications Goal: Improved Uncomplicated Respiratory Status Instructions: Follow provided instructions. Follow up with primary physician as directed. Contact primary care physician or report to the closest Emergency Room if condition worsens. Plan of Treatment: Continue with present treatment and follow up plan. Pt is to keep follow up appointment as instructed and take medications as ordered. Prescription drug monitoring program results: PDMP reviewed and no concerns identified Prescriptions: New prednisone 20 mg Tablet 40 mg PO DAILY 3 Days Qty: 6 RF: 0 levofloxacin 750 mg tablet 750 mg PO DAILY 5 Days Qty: 5 RF: 0 Continued amlodipine 5 MG tablet 10 mg PO DAILY RF: 0 aspirin 81 mg Tablet,Delayed Release (Dr/Ec) 81 mg PO DAILY RF: 0 alprazolam [Xanax] 0.5 mg Tablet 0.5 mg PO TID PRN (Reason: Anxiety) RF: 0 lisinopril-hydrochlorothiazide 20-25 mg Tablet 20 - 25 mg PO DAILY RF: 0 rosuvastatin [Crestor] 10 mg Tablet 20 mg PO HS RF: 0 potassium chloride 10 mEq Tablet Extended Release 20 meq PO DAILY RF: 0 duloxetine [Cymbalta] 60 mg Capsule,Delayed Release(Dr/Ec) 60 mg PO DAILY Qty: 30 RF: 3 eszopiclone [Lunesta] 3 mg Tablet 3 mg PO QHS MDD 1 Qty: 90 RF: 1 pregabalin [Lyrica] 75 mg capsule 150 mg PO BID RF: 0 ipratropium-albuterol 3 ML solution for nebulization 1 neb NEB TID Qty: 90 RF: 1 famotidine [Pepcid] 40 MG tablet 40 mg PO BID Qty: 60 RF: 3 pantoprazole 40 MG tablet,delayed release (DR/EC) 40 mg PO BID Qty: 60 RF: 3 cyanocobalamin (vitamin B-12) 1,000 mcg/mL solution 1,000 mcg subcut MONTHLY RF: 0 albuterol sulfate 90 mcg/actuation HFA aerosol inhaler 1 puff inhalation BID PRN (Reason: Shortness Of Breath) RF: 0 budesonide-formoterol [Symbicort] 160-4.5 mcg/actuation HFA aerosol inhaler 1 inh INHALATION DAILY RF: 0 Ubrelvy 100 mg Tablet 100 mg PO PRN PRN (Reason: Headache) RF: 0 hydrocodone-acetaminophen 10 MG/325 MG tablet 1 tab PO Q6HR MDD 5 RF: 0 Discontinued lisinopril 20 mg Tablet 20 mg PO HS RF: 0 Orders to Discharge Patient Discharge Orders: Discharge (Routine); Ordered 09/05/21 Ordered By: Joy Chapa Follow ups/Referrals Follow ups/Referrals: [facility] [Other] ([employer] [employer] [facility]) MARILEE BURNS [Primary Care Provider] - 09/12/21 10:30 am Instructions Instructions: Home Oxygen Use, Adult, Chronic Obstructive Pulmonary Disease, [id number], Chronic Obstructive Pulmonary Disease Exacerbation, [id number], Hypertension, Adult, [id number], Eating Plan for Chronic Obstructive Pulmonary Disease, Community-Acquired Pneumonia, Adult, [id number] Activity Restrictions/Additional Instructions: Continue with Pulmonary Rehab. Follow up with primary care as schedule, re-check Sodium and potassium level. Stand Alone Forms: Precautions for COVID19, [facility], Patient Portal, Social Distancing
== END 2021-09-05 15:30 | disposition home or self-care (01) ==
LOC: MED/SURG 10:33 → ER 10:33 → MED/SURG 14:30
PROVIDERS: ADMIT Internal Medicine; ATTEND Internal Medicine